=== PATIENT | female | born 1940 | race Caucasian/White ===

== ENCOUNTER 2017-09-25 09:16 | Observation (INO) | payer MEDICARE, BC ==
[2017-09-25] MEDS ORDERED: Nitroglycerin 2% Ointment 1 INCH/1 GM Packet ONE (10:07)
[2017-09-25] MEDS ORDERED: Nitroglycerin 0.4 MG TAB (25 Tab Bottle) ONE (10:07)
[2017-09-25 10:23] LABS: Hemoglobin 11.7 g/dL (12.0-16.0); Mean Corpuscular HGB CONC 32.7 g/dL (32.0-36.0); Mean Corpuscular Hemoglobin 32.4 pg (27.0-31.0); Mean Corpuscular Volume 99.1 fl (81.0-99.0); Mean Platelet Volume 7.2 fL (7.4-10.4); Platelet Count 213 thou/uL (130-400); RBC Distribution Width 11.5 % (11.5-14.5); Red Blood Cell (RBC) Count 3.61 mill/uL (4.20-5.40)
--- NOTE | 2017-09-25 10:26 | CT ---
CT BRAIN: Date: 09-25-17 Provided Clinical History: Hypertension and headache. FINDINGS: No comparison. The ventricular system appears normal in size and morphology. There is no evidence for intracranial hemorrhage or mass effect. Encephalomalacia involving a portion of the right frontal lo be is noted, compatible with sequellae of prior infarction. Chronic microvascular ischemic changes ar e noted. The extracranial soft tissues and osseous structures demonstrate no acute abnormality. There is no evidence for intracranial hemorrhage or mass effect. IMPRESSION: No evidence for intracranial hemorrhage or mass effect. POS: [facility]
[2017-09-25 10:44] LABS: ALT (SGPT) 25 U/L (8-55); AST (SGOT) 27 U/L (5-34); Albumin 3.8 g/dL (3.4-4.8); Alkaline Phosphatase 58 U/L (40-150); Anion Gap 15 mmol/L (10-20); BUN (Urea Nitrogen) 23 mg/dL (9.8-20.1); Bilirubin, Total 0.2 mg/dL (0.2-1.2); CK (CPK) 58 U/L (29-168); Calc. Creatinine Clearance 0 mL/min (70-130); Calcium 9.2 mg/dL (7.8-10.44); Carbon Dioxide 24 mmol/L (23-31); Chloride 101 mmol/L (98-107); Estimated GFR-MDRD 51; Globulin 3.2 g/dL (2.4-3.5); Glucose 99 mg/dL (83-110); Potassium 4.6 mmol/L (3.5-5.1); Sodium 135 mmol/L (136-145)
[2017-09-25 10:46] LABS: CKMB 1.2 ng/mL (0-6.6); Troponin I 0.028 ng/mL (< 0.028)
[2017-09-25 10:48] LABS: Band 1 % (5-11); Lymphocytes 5 % (21-51); MDiff Complete? YES; Monocytes 3 % (0-10); Neutrophil 91 % (42-75); PLT Morphology Comment Appears Adequate
[2017-09-25] MEDS ORDERED: Labetalol HCl 100 MG/20 ML VIAL ONE (11:15)
[2017-09-25] MEDS ORDERED: Acetaminophen 325 MG TAB ONE (13:56)
[2017-09-25 16:03] VITALS: BMI 24.7
[2017-09-25] MEDS ORDERED: Nitroglycerin 2% Ointment 1 INCH/1 GM Packet TOP SCH (18:00)
[2017-09-25] MEDS ORDERED: Acetaminophen 500 MG TAB PO PRN (18:10)
[2017-09-25] MEDS ORDERED: cloNIDine 0.1 MG TAB PO PRN (18:10)
[2017-09-25] MEDS ORDERED: Ondansetron ODT 4 MG TAB PO PRN (18:10)
[2017-09-25] MEDS ORDERED: Ondansetron HCl/PF 4 MG/2 ML Vial IVP PRN (18:10)
[2017-09-25] MEDS ORDERED: hydrALAZINE 20 MG/ML VIAL SLOW IVP PRN (18:10)
[2017-09-25] MEDS ORDERED: Famotidine 20 MG TAB PO SCH (21:00)
--- NOTE | 2017-09-25 21:17 | HP ---
DATE OF ADMISSION: 09/25/2017 PRIMARY CARE PHYSICIAN: Dr. Sabino Thompson at [facility]. CHIEF COMPLAINT: Headache and question of near syncope. HISTORY OF PRESENT ILLNESS: This is a 77-year-old female, who presents to [facility] from [facility] after apparently slumping over in a chair with a ne ar syncopal event. The patient states she has had multiple similar events in the past as well as regine ckout spells, which prompted her transitioned from her home in [place] to current assisted living rough the [facility]. The patient states she has been in [facility] for approximately 4 months and normally is ambulating without assistance unless it is long distance for which she uses a rolling walker. The patient apparently was noted to be slumped over in a chair to the right side wit h some tremors, but no grand mal seizure activity. The patient states she never lost consciousness a nd apparently was alert and oriented x4 on arrival in the emergency room. The patient was noted hype rtensive with blood pressures over 200 systolic. At which point, the patient received IV labetalol, transdermal nitroglycerin, sublingual nitroglycerin and aspirin 324. CT imaging was performed showin g no acute intracranial process and the patient's blood pressure improved as well as complete resolut ion of altered mentation. The patient denied any specific chest pain, cough, shortness of breath, fe aleksandra, chills or exposure history. The patient does state that she was given ibuprofen for headache, w hich she takes intermittently. The patient denied any specific unilateral weakness, visual disturban ce, difficulty with speech or hearing. PAST MEDICAL HISTORY: 1. History of CVA without residual deficit. 2. History of questionable epilepsy. 3. Gastroesophageal reflux disease. 4. Hyperlipidemia. 5. History of insomnia. 6. Chronic pain. 7. Coronary artery disease. 8. Diastolic heart failure. 9. Hypertension. 10. History of aortic aneurysm. 11. History of pulmonary embolus. 12. Anxiety. PAST SURGICAL HISTORY: Status post coronary artery bypass grafting. CURRENT MEDICATIONS: 1. Norvasc 5 mg 1 tablet p.o. daily. 2. Enteric coated aspirin 81 mg 1 tab p.o. daily. 3. Lipitor 20 mg p.o. daily. 4. Carbamazepine 300 mg p.o. b.i.d. 5. Vitamin D3 of 2000 units p.o. daily. 6. Clonazepam 0.5 mg p.o. daily. 7. Plavix 75 mg 1 tab p.o. daily. 8. Docusate calcium 240 mg p.o. daily. 9. Lasix 40 mg 1 tab p.o. daily. 10. Lamotrigine 100 mg 1 tab p.o. b.i.d. 11. Losartan 50 mg 1 tab p.o. daily. 12. Metoprolol tartrate 12.5 mg p.o. b.i.d. 13. Multivitamin 1 tab p.o. daily. 14. Zofran 8 mg p.o. q.8 hours p.r.n. 15. Oxybutynin chloride 10 mg p.o. daily. 16. Potassium chloride 20 mEq one tab p.o. daily. 17. Ranitidine 75 mg p.o. daily. 18. Zoloft 25 mg p.o. daily. ALLERGIES: No known drug allergies. FAMILY HISTORY: Positive for hypertension and coronary artery disease. SOCIAL HISTORY: The patient is , resides at [facility] over the last 4 months. No current alcohol, tobacco or illicit drug use. Ambulates with a rolling walker for long d istance. REVIEW OF SYSTEMS: The following complete review of systems was negative, unless otherwise mentioned in the HPI or below: Constitutional: Weight loss or gain, ability to conduct usual activities. Skin: Rash, itching. Eyes: Double vision, pain. ENT/Mouth: Nose bleeding, neck stiffness, pain, tenderness. Cardiovascular: Palpitations, dyspnea on exertion, orthopnea. Respiratory: Shortness of breath, wheezing, cough, hemoptysis, fever or night sweats. Gastrointestinal: Poor appetite, abdominal pain, heartburn, nausea, vomiting, constipation, or diarr hea. Genitourinary: Urgency, frequency, dysuria, nocturia. Musculoskeletal: Pain, swelling. Neurologic/Psychiatric: Anxiety, depression. Allergy/Immunologic: Skin rash, bleeding tendency. Otherwise negative except as stated per HPI. PHYSICAL EXAMINATION: VITAL SIGNS: On admission, blood pressure 210/66, pulse 90, respiratory rate 22, temperature 98.2 de grees Fahrenheit, O2 saturation 89% on room air. GENERAL APPEARANCE: This is a 77-year-old female, frail appearing, smiling, alert and in n o acute distress. HEENT: Pupils are equal, round, and reactive to light and accommodation. Extraocular muscles are in tact. No scleral icterus, no conjunctival injection. Nares patent. OP is clear. Scalp is atraumat ic. NECK: Supple, no cervical adenopathy, no thyromegaly, no carotid bruits, no JVD appreciated. Cervic al spine with full active and passive range of motion. No meningeal signs appreciated. CHEST: Lungs are clear to auscultation bilaterally. CARDIOVASCULAR: S1, S2, without noted murmur. ABDOMEN: Flat, soft, nontender, nondistended. Bowel sounds are positive in all four quadrants. The re is no hepatosplenomegaly, no abdominal bruits, no rebound or guarding appreciated. EXTREMITIES: Warm and dry with fair turgor. Minimal edema to the ankle region bilaterally. Pulses palpable distally at the dorsalis pedis, posterior tibial, and popliteal arteries bilaterally. Capil jesika refill less than 2 seconds. NEUROLOGIC: Cranial nerves II-XII are grossly intact. No focal or lateralizing signs appreciated. PERTINENT LABORATORY AND X-RAY FINDINGS: Basic metabolic profile shows sodium 135, potassium 4.6, ch loride 101, CO2 of 24, BUN 23, creatinine 1.05 with estimated GFR 51, glucose 99, calcium 9.2. LFTs within normal limits. Troponin I negative x1. BNP 779. CBC showed a white blood cell count of 9.0, hemoglobin 12, hematocrit 36, MCV 99, platelet count 213 with 91% neutrophils. CT of the brain with out contrast dated 09/25/2017 showed no acute intracranial process. EKG dated 09/25/2017 by my inter pretation shows sinus mechanism with heart rates in the 80s. Attenuated R waves in the precordial le ads. Normal axis. ST-T wave changes noted in leads II and F and leads V5 and V6. ASSESSMENT AND PLAN: 1. Hypertensive urgency/encephalopathy. The patient will be observed on the telemetry unit. Suspec t hypertensive episode as etiology of patient's presentation. No current evidence of focal neurologi c deficits. We will continue to monitor serial blood pressure trend and treat accordingly. Continue Norvasc, Lasix 40 mg daily, losartan 50 mg daily, and metoprolol tartrate 12.5 mg p.o. b.i.d. 2. Question of near syncope. Suspect encephalopathic due to hypertensive urgency. See #1 above. 3. Polypharmacy. Suspect component of polypharmacy to patient's presentation. We will continue to monitor overall intake of chronic medication regimen. 4. Chronic kidney disease, stage 3. Avoid nephrotoxic agents and contrast media. Repeat creatinine in the a.m. 5. Chronic macrocytic anemia. Stable currently. No evidence to suggest acute blood loss. Repeat C BC in the a.m. 6. Depression/anxiety. We will continue home regimen to include sertraline and clonazepam. 7. Prophylaxis. Sequential compression devices while in bed. Pepcid 20 mg p.o. b.i.d. 8. Code status is FULL. Surrogate medical decision maker is the patient's daughter, Stefanie Hernandez.
[2017-09-25] MEDS: Metoprolol Tartrate 25 MG TAB PO SCH (21:35)
[2017-09-25] MEDS: lamoTRIgine 100 MG TAB PO SCH (21:35)
[2017-09-25] MEDS: carBAMazepine 200 MG TAB PO SCH (21:36)
[2017-09-26 05:54] LABS: Anion Gap 11 mmol/L (10-20); BUN (Urea Nitrogen) 20 mg/dL (9.8-20.1); Calc. Creatinine Clearance 48 mL/min (70-130); Calcium 9.1 mg/dL (7.8-10.44); Carbon Dioxide 27 mmol/L (23-31); Chloride 103 mmol/L (98-107); Estimated GFR-MDRD 53; Glucose 97 mg/dL (83-110); Potassium 4.4 mmol/L (3.5-5.1); Sodium 137 mmol/L (136-145)
[2017-09-26 06:30] LABS: Hemoglobin 11.4 g/dL (12.0-16.0); Lymphocytes 18 % (21-51); MDiff Complete? YES; Macrocytosis SLIGHT = 6-15 cells (100X) (0-5/hpf); Mean Corpuscular HGB CONC 33.1 g/dL (32.0-36.0); Mean Corpuscular Hemoglobin 32.9 pg (27.0-31.0); Mean Corpuscular Volume 99.3 fl (81.0-99.0); Mean Platelet Volume 7.6 fL (7.4-10.4); Monocytes 9 % (0-10); Neutrophil 73 % (42-75); PLT Morphology Comment Appears Adequate; Platelet Count 248 thou/uL (130-400); RBC Distribution Width 11.5 % (11.5-14.5); Red Blood Cell (RBC) Count 3.46 mill/uL (4.20-5.40); White Blood Cell (WBC) Count 7.5 thou/uL (4.8-10.8)
[2017-09-26] MEDS: Metoprolol Tartrate 25 MG TAB PO SCH (08:18)
[2017-09-26] MEDS: carBAMazepine 200 MG TAB PO SCH (08:19)
[2017-09-26] MEDS: lamoTRIgine 100 MG TAB PO SCH (08:20)
[2017-09-26] MEDS ORDERED: Docusate Calcium (SURFAK) 240 MG CAP PO SCH (09:00)
[2017-09-26] MEDS ORDERED: Multivitamin W/ Minerals 1 TAB PO SCH (09:00)
[2017-09-26] MEDS ORDERED: Losartan 25 MG TAB PO SCH (09:00)
[2017-09-26] MEDS ORDERED: Clopidogrel Bisulfate 75 MG TAB PO SCH (09:00)
[2017-09-26] MEDS ORDERED: Potassium Chloride 20 MEQ TAB PO SCH (09:00)
[2017-09-26] MEDS ORDERED: Aspirin 81 mg Enteric Coated Tablet PO SCH (09:00)
[2017-09-26] MEDS ORDERED: Furosemide 40 MG TAB PO SCH (09:00)
[2017-09-26] MEDS ORDERED: Oxybutynin ER 5 MG TAB PO SCH (09:00)
[2017-09-26] MEDS ORDERED: Amlodipine 5 MG TAB PO SCH (09:00)
[2017-09-26] MEDS ORDERED: clonazePAM 0.5 MG TAB PO SCH (09:00)
[2017-09-26] MEDS ORDERED: Atorvastatin Calcium 20 MG TAB PO SCH (09:00)
[2017-09-26 11:33] VITALS: BP 130/58; TEMP 98.2
--- NOTE | 2017-09-26 18:34 | DIS ---
DATE OF ADMISSION: 09/25/2017 DATE OF DISCHARGE: 09/26/2017 DISCHARGE DIAGNOSES: 1. Hypertensive urgency, resolved. 2. Hypertensive encephalopathy, mild, improved. 3. Question of near syncope secondary to #1, improved. 4. Polypharmacy. 5. Chronic kidney disease stage 3, stable. 6. Hypertension, labile. 7. Chronic macrocytic anemia, stable. 8. Depression/anxiety, stable. CONSULTATIONS: None. PERTINENT LABORATORY AND X-RAY FINDINGS: Creatinine ranged between 1.1-1.05 with estimated GFR rangi ng between 51-53. LFTs within normal limits. BNP 779. Troponin negative x1. Albumin 3.8. CBC catalina wed hemoglobin ranging between 11.4-11.7. MCV 99. CT of the brain without contrast dated 09/25/2017 showed no acute intracranial process. HOSPITAL COURSE: The patient was placed under observation status after presenting with question of n ear syncope and hypertensive encephalopathy. The patient initially received IV labetalol, transderma l nitroglycerin, and aspirin 324. The patient was placed on observation unit with overall stable blo od pressures; however, with recommendations to increase Norvasc to 10 mg daily from previous 5 mg. T he patient was continued on a regular outpatient antihypertensive regimen and overall remained clinic ally stable throughout the hospital course. Telemetry monitoring showed sinus mechanism without evid ence of acute arrhythmia or dysrhythmia. The patient tolerated regular oral intake, voiding appropri ately, and remained clinically stable under observation. The patient ready for discharge on 09/26/19 18. DISCHARGE MEDICATIONS: 1. Norvasc 10 mg 1 tab p.o. daily. 2. Tylenol extended release 1 tab p.o. q.8 hours p.r.n. 3. Enteric coated aspirin 81 mg 1 tab p.o. daily. 4. Lipitor 20 mg p.o. daily. 5. Carbamazepine 300 mg p.o. b.i.d. 6. Vitamin D3 2000 units p.o. daily. 7. Klonopin 0.5 mg p.o. daily. 8. Plavix 75 mg 1 tab p.o. daily. 9. Docusate calcium 240 mg p.o. daily. 10. Lasix 40 mg p.o. daily. 11. Lamotrigine 100 mg p.o. b.i.d. 12. Losartan 50 mg p.o. daily. 13. Metoprolol tartrate 12.5 mg p.o. b.i.d. 14. Multivitamin 1 tab p.o. daily. 15. Oxybutynin chloride 10 mg p.o. daily. 16. Potassium chloride 20 mEq one tab p.o. daily. 17. Ranitidine 75 mg p.o. daily. 18. Zoloft 25 mg p.o. daily. FOLLOWUP: The patient will follow up with her primary care provider, Dr. Sabino Thompson, within 7 d ays of discharge. CONDITION ON DISCHARGE: Stable. ACTIVITY: ad fox. DIET: Regular. CODE STATUS: FULL. DISPOSITION: Home to [facility] on 09/26/2017.
[2017-09-26] MEDS ORDERED: Famotidine 20 MG TAB PO SCH (21:00)
== END 2017-09-26 13:45 | disposition home or self-care (01) ==
LOC: ERS 09:16 → 2SW 12:00
PROVIDERS: ADMIT Family Medicine; ATTEND Family Medicine
DX: I16.0 Hypertensive urgency (principal); I67.4 Hypertensive encephalopathy; I13.0 Hypertensive heart and chronic kidney disease with heart failure and stage 1 through stage 4 chronic kidney disease, or unspecified chronic kidney disease; N18.3 Chronic kidney disease, stage 3 (moderate); I50.30 Unspecified diastolic (congestive) heart failure; D63.1 Anemia in chronic kidney disease; K21.9 Gastro-esophageal reflux disease without esophagitis; E78.5 Hyperlipidemia, unspecified; I25.10 Atherosclerotic heart disease of native coronary artery without angina pectoris; I71.9 Aortic aneurysm of unspecified site, without rupture; F32.9 Major depressive disorder, single episode, unspecified; F41.9 Anxiety disorder, unspecified; Z79.899 Other long term (current) drug therapy; Z95.1 Presence of aortocoronary bypass graft; Z86.711 Personal history of pulmonary embolism; Z86.73 Personal history of transient ischemic attack (TIA), and cerebral infarction without residual deficits
CPT/HCPCS: 70450; 80048; 80053; 82550; 82553; 83880; 84484; 85007; 85025; 85027; 93005; 94760; 96374; 99285; G0378; 36415; A4216

== ENCOUNTER 2017-12-11 11:08 | Emergency (ER) | payer MEDICARE, BC ==
[2017-12-11 11:42] LABS: #Eosinphils 0.1 thou/uL (0.0-0.7); #Lymphocytes 1.5 thou/uL (1.20-3.40); #Monocytes 0.7 thou/uL (0.11-0.59); #Neutrophils 5.7 thou/uL (1.40-6.50); %Basophils 0.4 % (0.0-1.0); %Eosinophils 1.8 % (0.0-10.0); %Lymphocytes 17.9 % (21.0-51.0); %Monocytes 9.2 % (0.0-10.0); %Neutrophils 70.8 % (42.0-75.0); Hemoglobin 11.9 g/dL (12.0-16.0); Mean Corpuscular HGB CONC 33.6 g/dL (32.0-36.0); Mean Corpuscular Hemoglobin 32.3 pg (27.0-31.0); Mean Corpuscular Volume 96.1 fl (81.0-99.0); Platelet Count 262 thou/uL (130-400); RBC Distribution Width 11.3 % (11.5-14.5); Red Blood Cell (RBC) Count 3.68 mill/uL (4.20-5.40); White Blood Cell (WBC) Count 8.1 thou/uL (4.8-10.8)
[2017-12-11] MEDS ORDERED: hydrALAZINE 20 MG/ML VIAL ONE (11:43)
[2017-12-11] MEDS ORDERED: Nitroglycerin 2% Ointment 1 INCH/1 GM Packet ONE (11:43)
--- NOTE | 2017-12-11 11:51 | RAD ---
RADIOGRAPH CHEST 1 VIEW: DATE: 12/11/17. TIME: 11:18 a.m. HISTORY: A 77-year-old female with acute chest pain and hypertension. FINDINGS: The thoracic aorta is tortuous and ectatic. There is no evidence of air space density, pneumothorax, or pulmonary edema. The right lateral costophrenic angle is sharp. There is blunting of the left l ateral costophrenic angle and straightening of the left hemidiaphragm, consistent with scarring. The re are sternotomy wires. IMPRESSION: 1) No acute pulmonary findings. 2) Ectasia of thoracic aorta. 3) Probably chronic changes involving the left hemidiaphragm. juan Sandra POS: [facility]
[2017-12-11 12:03] LABS: ALT (SGPT) 11 U/L (8-55); AST (SGOT) 18 U/L (5-34); Alkaline Phosphatase 65 U/L (40-150); Anion Gap 14 mmol/L (10-20); BUN (Urea Nitrogen) 39 mg/dL (9.8-20.1); Bilirubin, Total 0.3 mg/dL (0.2-1.2); CK (CPK) 69 U/L (29-168); Calc. Creatinine Clearance 0 mL/min (70-130); Calcium 9.7 mg/dL (7.8-10.44); Carbon Dioxide 27 mmol/L (23-31); Chloride 101 mmol/L (98-107); Estimated GFR-MDRD 38; Globulin 3.4 g/dL (2.4-3.5); Glucose 138 mg/dL (83-110); Lipase 39 U/L (8-78); Potassium 4.4 mmol/L (3.5-5.1); Protein, Total 7.4 g/dL (6.0-8.3); Sodium 138 mmol/L (136-145)
[2017-12-11 12:08] LABS: CKMB 1.2 ng/mL (0-6.6); Troponin I Less than 0.010 ng/mL (< 0.028)
== END 2017-12-11 13:06 | disposition home or self-care (01) ==
LOC: ERS 11:08
DX: I11.0 Hypertensive heart disease with heart failure (principal); I50.9 Heart failure, unspecified; Z86.73 Personal history of transient ischemic attack (TIA), and cerebral infarction without residual deficits; G40.909 Epilepsy, unspecified, not intractable, without status epilepticus; K21.9 Gastro-esophageal reflux disease without esophagitis; E78.5 Hyperlipidemia, unspecified; G47.00 Insomnia, unspecified; I25.10 Atherosclerotic heart disease of native coronary artery without angina pectoris; F41.9 Anxiety disorder, unspecified
CPT/HCPCS: 71045; 80053; 82550; 82553; 83690; 83880; 84484; 85025; 93005; 94760; 96374; J0360

== ENCOUNTER 2018-01-11 10:53 | Inpatient (IN) | payer MEDICARE, BC ==
[2018-01-11 11:16] LABS: #Eosinphils 0.2 thou/uL (0.0-0.7); #Lymphocytes 1.3 thou/uL (1.20-3.40); #Monocytes 0.7 thou/uL (0.11-0.59); #Neutrophils 4.4 thou/uL (1.40-6.50); %Basophils 0.7 % (0.0-1.0); %Eosinophils 2.4 % (0.0-10.0); %Lymphocytes 19.9 % (21.0-51.0); %Monocytes 10.5 % (0.0-10.0); %Neutrophils 66.6 % (42.0-75.0); Hemoglobin 12.1 g/dL (12.0-16.0); Mean Corpuscular HGB CONC 33.3 g/dL (32.0-36.0); Mean Corpuscular Hemoglobin 32.1 pg (27.0-31.0); Mean Corpuscular Volume 96.5 fl (81.0-99.0); Mean Platelet Volume 6.7 fL (7.4-10.4); Platelet Count 272 thou/uL (130-400); RBC Distribution Width 11.7 % (11.5-14.5); Red Blood Cell (RBC) Count 3.77 mill/uL (4.20-5.40); White Blood Cell (WBC) Count 6.7 thou/uL (4.8-10.8)
[2018-01-11 11:25] LABS: PTT 29.8 SEC (22.9-36.1); Prothrombin Time 13.8 SEC (12.0-14.7)
--- NOTE | 2018-01-11 11:32 | CT ---
CT HEAD WITHOUT CONTRAST: Date: 01/11/18 Multiple axial tomograms obtained through head without IV enhancement. HISTORY: Stroke alert. Slurred speech. History of prior stroke. COMPARISON: Head CT dated 09/25/17. FINDINGS: Mild cortical atrophy. Ventricles have normal size and position concerning the degree of atrophy. The re is encephalomalacia in the right frontal lobe from old infarct, which is stable. Moderate to sever e chronic ischemic white matter changes appear stable. No evidence of acute cortical infarct or hemor rhage. IMPRESSION: No evidence of acute infarct. Findings relayed to Dr. Ramsey at 1107 hours. CODE CR. POS: [facility]
[2018-01-11 11:40] LABS: ALT (SGPT) 15 U/L (8-55); AST (SGOT) 21 U/L (5-34); Albumin 4.1 g/dL (3.4-4.8); Alkaline Phosphatase 60 U/L (40-150); Anion Gap 12 mmol/L (10-20); BUN (Urea Nitrogen) 40 mg/dL (9.8-20.1); Bilirubin, Total 0.3 mg/dL (0.2-1.2); Calc. Creatinine Clearance 0 mL/min (70-130); Calcium 9.8 mg/dL (7.8-10.44); Carbon Dioxide 28 mmol/L (23-31); Chloride 103 mmol/L (98-107); Estimated GFR-MDRD 33; Globulin 3.4 g/dL (2.4-3.5); Glucose 95 mg/dL (83-110); Potassium 4.5 mmol/L (3.5-5.1); Protein, Total 7.5 g/dL (6.0-8.3); Sodium 138 mmol/L (136-145)
--- NOTE | 2018-01-11 11:42 | RAD ---
PORTABLE AP CHEST: Date: 01/11/18 HISTORY: Chest pain, slurred speech, altered mental status. COMPARISON: 12/11/17. FINDINGS: Postsurgical changes related to CABG are again noted. The cardiac silhouette is magnified by projecti on. Pulmonary vasculature is within normal limits. There is elevation of the left lateral hemidiaphra gm, probably related to pleural and parenchymal scarring at the left lung base. Metallic wire overlyi ng the medial aspect right chest in a suprahilar location is again present. Vascular calcifications s een thoracic aorta. Surgical clips overlie the infraclavicular location on the right. There has been no interval change from prior study. IMPRESSION: 1. No acute cardiopulmonary process. 2. Chronic changes left lung base with mild deformity of left lateral chest, probably developmental in origin. 3. Mild prominence of soft tissues in right paramediastinal/paratracheal location, unchanged from pr ior study and this may be related to vascular structures, but is unable to be further evaluated on th is exam. POS: [facility]
[2018-01-11 11:47] LABS: CKMB 1.4 ng/mL (0-6.6); Troponin I 0.025 ng/mL (< 0.028)
[2018-01-11 12:20] LABS: Bilirubin Negative (Negative); Blood, Urine Negative (Negative); Clarity CLEAR (Clear); Glucose, Urine (Dipstick) Negative (Negative); Leukocyte Trace (Negative); Nitrite Negative (Negative); Protein, Urine (Dipstick) Negative (Neg-Trace); Specific Gravity, Urine 1.009 (1.002-1.036); Urobilinogen 0.2 mg/dL (0.2-1.0)
[2018-01-11 12:21] LABS: Bacteria/HPF None Seen HPF (None Seen); Hyaline Casts/LPF 0-3 HYALINE CAST LPF (0-3 Hyaline); Pathc Cast-AUWi Flag 0.72 (0-2.49); RBC/HPF 0-3 HPF (0-3); Yeast-AUWi Flag 15.1 (0-25.0)
[2018-01-11 12:30] LABS: Renal Epithelial None Seen HPF (0-3); Transitional Epithelial NONE SEEN HPF (0-3)
[2018-01-11] MEDS ORDERED: Fentanyl 100 MCG/2 ML VIAL ONE (14:13)
[2018-01-11] MEDS ORDERED: Bisacodyl 5 MG TAB PO PRN (16:24)
[2018-01-11] MEDS ORDERED: Acetaminophen 650 MG Suppository PR PRN (16:24)
--- NOTE | 2018-01-11 17:14 | HP ---
PRIMARY CARE PROVIDER: Dr. Sabino Thompson at [facility]. CHIEF COMPLAINT: Slurred speech. HISTORY OF PRESENT ILLNESS: Ms. Will is a pleasant 77-year-old lady who was seen at [facility] on 01/11/2018. She is able to provide some history. Collateral history was obt ained from discussion with the emergency room physician as well as review of medical records. I trie d to contact the patient's daughter, but was unable to. She reportedly had a fall yesterday. She hit the left side of her chest on the ground. She reports that she had slurred speech just prior to the fall. The slurred speech has been ongoing since then. Apparently, it improved slightly after she came to the emergency room. She reports generalized weakness. She denies any fevers or chills. She denies any nausea or vomitin g. She denies any abdominal pain. She denies any visual symptoms. She reports that left-sided chest pain following the fall has improv ed. All other systems reviewed and found to be negative. PAST MEDICAL HISTORY: Cerebrovascular accident without residual deficit, seizures, gastroesophageal reflux disease, dyslipidemia, insomnia, chronic pain, coronary artery disease, diastolic heart failur e, hypertension, aortic aneurysm, pulmonary embolism, and anxiety. PAST SURGICAL HISTORY: Ascending and descending aortic aneurysm repair, bilateral cataract removal. SOCIAL HISTORY: The patient denies tobacco use, alcohol use or recreational drug use. CODE STATUS: I discussed her code status. She is FULL CODE. Surrogate decision maker is her daught er, Stefanie Hernandez. ALLERGIES: No known drug allergies. CURRENT MEDICATIONS: Include acetaminophen p.r.n., amlodipine 5 mg daily, amoxicillin 250 mg daily, aspirin 81 mg daily, Tegretol 200 mg 2 times a day, clonazepam 0.5 mg daily, Plavix 75 mg daily, docu sate 100 mg 2 times a day, Lasix 40 mg daily, Lamictal 50 mg 2 times a day, losartan 50 mg daily, sohan atonin 5 mg daily, metoprolol tartrate 12.5 mg 2 times a day, mirtazapine 15 mg daily, Zofran p.r.n., oxybutynin 10 mg daily, multivitamins 1 tablet daily, potassium chloride 20 mEq daily, ranitidine 75 mg daily, clonidine 0.1 mg as needed and vitamin D3 1000 units daily. FAMILY HISTORY: She reports several family members with stroke. PHYSICAL EXAMINATION: GENERAL: On examination, Ms. Will is awake and alert, not in acute distress. VITAL SIGNS: Blood pressure is 131/41, pulse is 63. She is breathing at rate of 15 and saturating 9 4% on room air. She is afebrile. When she presented to the emergency room, her blood pressure was 1 99/59. EYES: No scleral icterus. No conjunctival pallor. ENT: Moist mucosal membranes, no oropharyngeal erythema or exudates. NECK: Supple, nontender, normal range of movement. Trachea is midline. RESPIRATORY: Accessory muscles of breathing are not active. Chest wall movements are symmetric bila terally. LUNGS: Clear to auscultation without wheeze, rhonchi or crepitations. CARDIOVASCULAR: S1 and S2 are heard, regular. Peripheral pulses palpable. No carotid bruit, no per icardial rub. ABDOMEN: Soft and nontender, bowel sounds are heard, no hepatomegaly, no splenomegaly. NEUROLOGIC: She has slurred speech. Otherwise, cranial nerves II-XII intact. No focal motor or sen carlos deficits. Power is 5/5 in all 4 extremities. Deep tendon reflexes are 2+, plantar reflexes harjit ngoing bilaterally. MUSCULOSKELETAL: Power is 5/5 in all 4 extremities. SKIN: No rashes or subcutaneous nodules. LYMPHATIC: No cervical lymphadenopathy. PSYCHIATRIC: Normal mood, normal affect, patient is oriented to person, place, and time. IMAGING DATA AND LABORATORY DATA: Ms. Will's labs and investigations were reviewed. I reviewed h er electrocardiogram, which shows sinus bradycardia, mild lateral ST depressions. I also reviewed he r chest x-ray, which does not show any pulmonary infiltrates. She also had a noncontrast CT scan of the brain, which did not show any acute infarct. She has a normal white count, normal hemoglobin, no rmal platelet count, INR 1.0, elevated blood urea nitrogen of 40, elevated creatinine 1.51, last know n creatinine 1.34 on 12/01/2017, normal on 09/26/2017, normal liver profile, normal troponin I and ur inalysis positive for trace amount of leukocyte esterase. ASSESSMENT AND PLAN: Ms. Will is a pleasant 77-year-old lady who was seen at [facility] on 01/11/2018. Her problem list includes: 1. Cerebrovascular accident. Suspected, based on clinical presentation. She will be [facility] workup including MRI of the brain, 2D echocardiogram and carotid Doppler studi es. Neurology Service will also be consulted. She will be continued on aspirin and Plavix. Neurolo gy Service will be consulted for opinion and help with management. 2. Acute on chronic renal failure: Likely prerenal, secondary to dehydration. We will hold furosem angeline for now and hydrate her and recheck creatinine level. We will also hold losartan. 3. Hypertension: Monitor vital signs and titrate antihypertensives as needed. 4. Dyslipidemia: Continue statin. 5. Urinary tract infection: Suspected, although leukocyte esterase is small in amount. We will sta rt her on empiric antibiotics given her presentation and follow urine cultures. 6. Gastroesophageal reflux disease: Stable. 7. Seizure disorder: Continue Tegretol and Lamictal. Many thanks for allowing me to participate in your patient's care. Please feel free to contact me wi th any questions or concerns. LEVEL OF RISK: High. LEVEL OF COMPLEXITY: High.
[2018-01-11 17:22] VITALS: BMI 25.0
--- NOTE | 2018-01-11 18:10 | ULT ---
ULTRASOUND CAROTID DOPPLER STANDARD: HISTORY: CVA. COMPARISON: None. FINDINGS: Moderate atherosclerotic plaque, right carotid bulb. Antegrade flow, right vertebral artery. No elevated peak systolic velocities in the right internal carotid artery system. Moderate atherosclerotic plaque, left carotid bulb. Antegrade flow, left vertebral artery. There ar e elevated peak systolic velocities within the internal carotid artery on the left, measuring up to 1 47 cm per second. The right ICA/CCA ratio is 0.96. The left ICA/CCA ratio is 1.44. 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 CT angiogram may be beneficial. CODE T POS: [facility]
[2018-01-11] MEDS: Sodium Chloride 0.9% 1,000 ML IV SCH (18:12)
[2018-01-11] MEDS: cefTRIAXone\\ROCEPHIN 1 GM in Sodium Chloride 0.9% 100 ML IVPB SCH (18:12)
[2018-01-11] MEDS: Acetaminophen 325 MG TAB PO PRN (18:13)
[2018-01-11] MEDS: carBAMazepine 200 MG TAB PO SCH (20:10)
[2018-01-11] MEDS: lamoTRIgine 100 MG TAB PO SCH (20:11)
[2018-01-11] MEDS: hydrALAZINE 20 MG/ML VIAL SLOW IVP PRN (20:11)
[2018-01-11] MEDS: Metoprolol Tartrate 25 MG TAB PO SCH (20:13)
[2018-01-11] MEDS ORDERED: traMADol HCl 50 MG TAB PO PRN (22:42)
[2018-01-11] MEDS ORDERED: clonazePAM 0.5 MG TAB PO SCH (22:45)
[2018-01-11] MEDS: Lidocaine 5% Patch TD SCH (23:47)
[2018-01-12 00:48] LABS: Carbamazepine-Tegretol 7.9 ug/mL (4.0-12.0)
--- NOTE | 2018-01-12 03:22 | PDOC.EVN ---
Event Note - Event Note Event Note: sz ? breakthrough or de emil 2/2 TIA/ CVA pending MRI added EEG in AM check antiepileptic regimen levels NIH score grossly unchanged from previous neuro c/s in AM d/w bedside nsg
[2018-01-12 05:43] LABS: #Eosinphils 0.1 thou/uL (0.0-0.7); #Lymphocytes 1.2 thou/uL (1.20-3.40); #Monocytes 0.8 thou/uL (0.11-0.59); #Neutrophils 9.1 thou/uL (1.40-6.50); %Basophils 0.4 % (0.0-1.0); %Eosinophils 0.9 % (0.0-10.0); %Lymphocytes 10.5 % (21.0-51.0); %Monocytes 6.9 % (0.0-10.0); %Neutrophils 81.3 % (42.0-75.0); Hemoglobin 12.8 g/dL (12.0-16.0); Mean Corpuscular HGB CONC 33.2 g/dL (32.0-36.0); Mean Corpuscular Hemoglobin 32.5 pg (27.0-31.0); Mean Corpuscular Volume 97.9 fl (81.0-99.0); Mean Platelet Volume 7.5 fL (7.4-10.4); Platelet Count 264 thou/uL (130-400); RBC Distribution Width 12.1 % (11.5-14.5); Red Blood Cell (RBC) Count 3.93 mill/uL (4.20-5.40); White Blood Cell (WBC) Count 11.2 thou/uL (4.8-10.8)
[2018-01-12 06:09] LABS: Anion Gap 17 mmol/L (10-20); BUN (Urea Nitrogen) 28 mg/dL (9.8-20.1); Calc. Creatinine Clearance 46 mL/min (70-130); Carbon Dioxide 15 mmol/L (23-31); Cardiac Risk 3.9 (Less than 4.5); Chloride 109 mmol/L (98-107); Cholesterol 282 mg/dl (< 200 Desired); Estimated GFR-MDRD 50; Glucose 108 mg/dL (83-110); HDL Cholesterol 73 mg/dL (>60 Neg Risk); LDL Cholesterol, Calculated 185 mg/dL; Potassium 4.8 mmol/L (3.5-5.1); Sodium 136 mmol/L (136-145); Triglycerides 119 mg/dL (Less than 150)
[2018-01-12] MEDS: Sodium Chloride 0.9% 1,000 ML IV SCH ×2 (07:32→08:41)
[2018-01-12] MEDS: Aspirin 81 mg Enteric Coated Tablet PO SCH (08:40)
[2018-01-12] MEDS: Oxybutynin 5 MG TAB PO SCH (08:40)
[2018-01-12] MEDS: clonazePAM 0.5 MG TAB PO SCH (08:40)
[2018-01-12] MEDS: Docusate Calcium (SURFAK) 240 MG CAP PO SCH (08:41)
[2018-01-12] MEDS: Metoprolol Tartrate 25 MG TAB PO SCH ×2 (08:41→20:35)
[2018-01-12] MEDS: carBAMazepine 200 MG TAB PO SCH ×2 (08:42→20:37)
[2018-01-12] MEDS: lamoTRIgine 100 MG TAB PO SCH ×2 (08:42→20:35)
[2018-01-12] MEDS: Amlodipine 10 MG TAB PO SCH (08:42)
[2018-01-12] MEDS: Atorvastatin Calcium 20 MG TAB PO SCH (08:42)
[2018-01-12] MEDS: Enoxaparin Sodium 30 MG/0.3 ML SYRINGE SC SCH (08:43)
[2018-01-12] MEDS: Clopidogrel Bisulfate 75 MG TAB PO SCH (08:43)
[2018-01-12] MEDS: Lidocaine Patch Removal 1 EACH TOP SCH (10:02)
[2018-01-12] MEDS: Acetaminophen 325 MG TAB PO PRN (11:25)
--- NOTE | 2018-01-12 12:05 | MRI ---
MRI BRAIN WITHOUT CONTRAST: Date: 01/12/18 HISTORY: Stroke. Slurred speech. COMPARISON: None. TECHNIQUE: Brain MRI is performed without intravenous Gadolinium administration. Multisequential, multiplanar im aging is performed. FINDINGS: No hemorrhage on the axial gradient echo sequence. No parenchymal mass, mass effect, or midline shift . Age-appropriate atrophy. There is malacic and gliotic change involving the right frontal lobe, due to remote insult. Chronic small vessel ischemic changes of white matter are identified. Calvarium has a normal T1 marrow signal intensity. Midline brain parenchymal structures are unremarkable. Central arterial flow-voids are maintained. Absent restricted diffusion. Adequate aeration of the sinuses and mastoid air cells. IMPRESSION: 1. Chronic small vessel ischemic changes of white matter. 2. Malacic and gliotic change right frontal lobe. 3. Absent restricted diffusion. No acute infarct. POS: [facility]
[2018-01-12] MEDS ORDERED: traZODone HCl 50 MG TAB PO PRN (13:59)
[2018-01-12] MEDS ORDERED: Cyclobenzaprine 10 MG TAB PO SCH (14:15)
[2018-01-12] MEDS: cefTRIAXone\\ROCEPHIN 1 GM in Sodium Chloride 0.9% 100 ML IVPB SCH (17:12)
[2018-01-12] MEDS: oxyCODONE 5 MG TAB PO PRN (20:36)
[2018-01-13] MEDS: Sodium Chloride 0.9% 1,000 ML IV SCH (04:33)
[2018-01-13] MEDS: hydrALAZINE 20 MG/ML VIAL SLOW IVP PRN ×2 (05:33→21:04)
[2018-01-13 05:37] LABS: Anion Gap 9 mmol/L (10-20); BUN (Urea Nitrogen) 20 mg/dL (9.8-20.1); Calc. Creatinine Clearance 50 mL/min (70-130); Calcium 8.8 mg/dL (7.8-10.44); Carbon Dioxide 24 mmol/L (23-31); Chloride 107 mmol/L (98-107); Estimated GFR-MDRD 54; Glucose 86 mg/dL (83-110); Sodium 136 mmol/L (136-145)
[2018-01-13] MEDS: oxyCODONE 5 MG TAB PO PRN ×2 (05:37→21:04)
[2018-01-13 05:55] LABS: Band 1 % (5-11); Eosinophils 1 % (0-10); Hemoglobin 11.5 g/dL (12.0-16.0); Lymphocytes 27 % (21-51); MDiff Complete? YES; Mean Platelet Volume 6.9 fL (7.4-10.4); Monocytes 8 % (0-10); Neutrophil 63 % (42-75); Platelet Count 280 thou/uL (130-400); RBC Distribution Width 11.9 % (11.5-14.5); White Blood Cell (WBC) Count 6.8 thou/uL (4.8-10.8)
[2018-01-13] MEDS: Lidocaine 5% Patch TD SCH ×2 (06:09→22:14)
[2018-01-13] MEDS: Atorvastatin Calcium 20 MG TAB PO SCH (08:13)
[2018-01-13] MEDS: Amlodipine 10 MG TAB PO SCH (08:13)
[2018-01-13] MEDS: Aspirin 81 mg Enteric Coated Tablet PO SCH (08:13)
[2018-01-13] MEDS: carBAMazepine 200 MG TAB PO SCH ×2 (08:14→21:03)
[2018-01-13] MEDS: clonazePAM 0.5 MG TAB PO SCH (08:14)
[2018-01-13] MEDS: Docusate Calcium (SURFAK) 240 MG CAP PO SCH (08:15)
[2018-01-13] MEDS: Enoxaparin Sodium 30 MG/0.3 ML SYRINGE SC SCH (08:15)
[2018-01-13] MEDS: lamoTRIgine 100 MG TAB PO SCH ×2 (08:15→21:04)
[2018-01-13] MEDS: Metoprolol Tartrate 25 MG TAB PO SCH ×2 (08:15→21:04)
[2018-01-13] MEDS: Clopidogrel Bisulfate 75 MG TAB PO SCH (08:15)
[2018-01-13] MEDS: Oxybutynin 5 MG TAB PO SCH (08:16)
--- NOTE | 2018-01-13 08:40 | EEG ---
Referring Physician: DR. BAEZ EEG # [id number] TEST TYPE: ROUTINE PORTABLE INPATIENT REPORT: AN EEG USING THE INTERNATIONAL TEN-TWENTY SYSTEM OF ELECTRODE PLACEMENT WAS PERFORMED. The best waking background is a 8 hertz alpha frequency. This is poorly maintained and in a majority of the tracing there is a 6-7 hertz theta background. There is intermittent bursts of dysrhythmic slowing seen throughout the study. At times, there appear to be some frontal, right sided sharp activity. No definitive epileptiform events occurred. No sleep was seen. Photic stimulation was unremarkable. IMPRESSION: THIS IS AN ABNORMAL STUDY FOR THE FINDINGS OF MILD DIFFUSE SLOWING WITH SOME INTERMITTENT DYSRHYTHMIC SHARP ACTIVITY SEEN IN THE RIGHT HEMISPHERE SUGGESTING THE POSSIBILITY OF A SEIZURE FOCUS. CLINICAL CORRELATION IS NEEDED. Last Trimmer: yisel Carbonation Tester: [email or web address]
[2018-01-13] MEDS: Lidocaine Patch Removal 1 EACH TOP SCH (10:03)
[2018-01-13] MEDS ORDERED: Ibuprofen 600 MG TAB PO PRN (11:36)
--- NOTE | 2018-01-13 11:46 | PDOC.PN ---
- Subjective Encounter Start Date: 01/12/18 Encounter Start Time: 10:30 Subjective: pt up in bed no complains - Objective Vital Signs & Weight: Vital Signs (12 hours) Temp Pulse Resp BP BP Pulse Ox 01/13/18 11:12 98.6 F 77 15 171/65 H 92 L 01/13/18 08:13 101 H 01/13/18 08:11 98.1 F 101 H 16 137/61 94 L 01/13/18 05:33 65 226/90 H 01/13/18 05:15 98.1 F 65 18 214/83 H 96 01/13/18 00:00 98.3 F 57 L 18 132/56 L 94 L I&O: 01/12/18 01/13/18 01/14/18 06:59 06:59 06:59 Intake Total 2760 Output Total 1400 Balance 1360 Result Diagrams: 01/13/18 04:24 01/13/18 04:24 Phys Exam - Physical Examination HEENT: PERRLA, moist MMs, sclera anicteric, TM's clear, oral pharynx no lesions , 2+ tonsils Neck: no nodes, no JVD, supple, full ROM Respiratory: no wheezing, no rales, no rhonchi, wheezing present, clear to auscultation bilateral Cardiovascular: RRR, no significant murmur, no rub, gallop, irregular Gastrointestinal: soft, non-tender, no distention, positive bowel sounds pt has a ecchymotic area to her left lower back Neurological: non-focal, normal sensation, moves all 4 limbs Dx/Plan - Plan 1) fall 2) acute on chronic seizure 3) tia plan: pt's MRI brain did not indicates any stroke, eeg does indicated seizure. Not sure if pt had a seizure if pt missed a dose of his meds or if new seizure. will wait for neurolgy's recommendation. pt is on lamictal and Tegretol. echo done no abnormality noted. * . Review of Systems - Review of Systems Eyes: negative: Pain, Vision Change, Conjunctivae Inflammation, Eyelid Inflammation, Redness, Other ENT: negative: Ear Pain, Ear Discharge, Nose Pain, Nose Discharge, Nose Congestion, Mouth Pain, Mouth Swelling, Throat Pain, Throat Swelling, Other Respiratory: negative: Cough, Dry, Shortness of Breath, Hemoptysis, SOB with Excertion, Pleuritic Pain, Sputum, Wheezing Cardiovascular: negative: chest pain, palpitations, orthopnea, paroxysmal nocturnal dyspnea, edema, light headedness, other Gastrointestinal: negative: Nausea, Vomiting, Abdominal Pain, Diarrhea, Constipation, Melena, Hematochezia, Other Genitourinary: negative: Dysuria, Frequency, Incontinence, Hematuria, Retention , Other Musculoskeletal: negative: Neck Pain, Shoulder Pain, Arm Pain, Back Pain, Hand Pain, Leg Pain, Foot Pain, Other - Medications/Allergies Allergies/Adverse Reactions: Allergies Allergy/AdvReac Type Severity Reaction Status Date / Time No Known Allergies Allergy Verified 01/12/18 15:11 Medications: Current Medications Acetaminophen (Tylenol) 650 mg PO Q4H PRN PRN Reason: Headache/Fever or Pain Last Admin: 01/12/18 11:25 Dose: 650 mg Acetaminophen (Tylenol) 650 mg NM Q4H PRN PRN Reason: Headache/Fever or Pain Amlodipine Besylate (Norvasc) 10 mg PO DAILY [facility] Last Admin: 01/13/18 08:13 Dose: 10 mg Amoxicillin (Amoxil) 250 mg PO DAILY [facility] Aspirin (Ecotrin) 81 mg PO DAILY [facility] Last Admin: 01/13/18 08:13 Dose: 81 mg Atorvastatin Calcium (Lipitor) 20 mg PO DAILY [facility] Last Admin: 01/13/18 08:13 Dose: 20 mg Bisacodyl (Dulcolax) 10 mg PO DAILYPRN PRN PRN Reason: Constipation Carbamazepine (Tegretol) 300 mg PO BID [facility] Last Admin: 01/13/18 08:14 Dose: 300 mg Cholecalciferol (Vitamin D3) 2,000 units PO DAILY [facility] Last Admin: 01/13/18 08:14 Dose: 2,000 units Clonazepam (Klonopin) 0.5 mg PO DAILY [facility] Last Admin: 01/13/18 08:14 Dose: 0.5 mg Clopidogrel Bisulfate (Plavix) 75 mg PO DAILY [facility] Last Admin: 01/13/18 08:15 Dose: 75 mg Docusate Calcium (Surfak) 240 mg PO DAILY [facility] Last Admin: 01/13/18 08:15 Dose: 240 mg Enoxaparin Sodium (Lovenox) 30 mg SC 0900 [facility] Last Admin: 01/13/18 08:15 Dose: 30 mg Furosemide (Lasix) 40 mg PO DAILY [facility] Hydralazine HCl (Apresoline) 10 mg SLOW IVP Q4H PRN PRN Reason: BP > 220/110 Last Admin: 01/13/18 05:33 Dose: 10 mg Lamotrigine (Lamictal) 100 mg PO BID [facility] Last Admin: 01/13/18 08:15 Dose: 100 mg Lidocaine (Lidoderm 5% Patch) 1 patch TD 2300 [facility] Last Admin: 01/13/18 06:09 Dose: Not Given Losartan Potassium (Cozaar) 50 mg PO DAILY [facility] Metoprolol Tartrate (Lopressor) 12.5 mg PO BID [facility] Last Admin: 01/13/18 08:15 Dose: 12.5 mg Miscellaneous Medication (Lidocaine Patch Removal) 1 each TOP 1100 [facility] Last Admin: 01/13/18 10:03 Dose: Not Given Oxybutynin Chloride (Ditropan) 10 mg PO DAILY [facility] Last Admin: 01/13/18 08:16 Dose: 10 mg Oxycodone HCl (Oxycodone Ir) 5 mg PO Q4H PRN PRN Reason: Pain Last Admin: 01/13/18 05:37 Dose: 5 mg Sertraline HCl (Zoloft) 25 mg PO DAILY [facility] Last Admin: 01/13/18 08:16 Dose: 25 mg Sodium Chloride (Flush - Normal Saline) 10 ml IVF Q12HR [facility] Last Admin: 01/13/18 08:16 Dose: Not Given Sodium Chloride (Flush - Normal Saline) 10 ml IVF PRN PRN PRN Reason: Saline Flush Trazodone HCl (Desyrel) 50 mg PO HS PRN PRN Reason: Insomnia
--- NOTE | 2018-01-13 13:54 | RAD ---
LEFT HIP TWO VIEWS: History: Fall. Left hip pain. FINDINGS/IMPRESSION: No acute fracture or dislocation is identified. POS: [facility]
--- NOTE | 2018-01-13 14:32 | RAD ---
LUMBAR SPINE 3 VIEWS: HISTORY: Pain, back pain, fall. FINDINGS/IMPRESSION: No acute fracture or subluxation is seen. Degenerative changes are present. An IVC filter is noted. There are vascular calcifications. POS: [facility]
--- NOTE | 2018-01-13 15:37 | PDOC.PN ---
- Subjective Encounter Start Date: 01/13/18 Encounter Start Time: 11:30 Subjective: pt up in bed no complains - Objective Vital Signs & Weight: Vital Signs (12 hours) Temp Pulse Pulse Pulse Resp BP BP 01/13/18 11:12 98.6 F 77 15 01/13/18 08:24 108 H 96 120/58 L 01/13/18 08:13 101 H 01/13/18 08:11 98.1 F 101 H 16 01/13/18 05:33 65 226/90 H 01/13/18 05:15 98.1 F 65 18 BP BP Pulse Ox Pulse Ox Pulse Ox 01/13/18 11:12 171/65 H 92 L 01/13/18 08:24 135/63 93 L 95 01/13/18 08:13 01/13/18 08:11 137/61 94 L 01/13/18 05:33 01/13/18 05:15 214/83 H 96 I&O: 01/12/18 01/13/18 01/14/18 06:59 06:59 06:59 Intake Total 2760 Output Total 1400 Balance 1360 Result Diagrams: 01/13/18 04:24 01/13/18 04:24 Phys Exam - Physical Examination HEENT: PERRLA, moist MMs, sclera anicteric, TM's clear, oral pharynx no lesions , 2+ tonsils Neck: no nodes, no JVD, supple, full ROM Respiratory: no wheezing, no rales, no rhonchi, wheezing present, clear to auscultation bilateral Cardiovascular: RRR, no significant murmur, no rub, gallop, irregular Gastrointestinal: soft, non-tender, no distention, positive bowel sounds Dx/Plan - Plan 1) fall 2) acute on chronic seizure 3) tia plan: pt's MRI brain did not indicates any stroke, eeg does indicated seizure. Not sure if pt had a seizure if pt missed a dose of his meds or if new seizure. will wait for neurolgy's recommendation. pt is on lamictal and Tegretol. echo done no abnormality noted. 01/13 left hip and lower back xray done since pt is complaining of pain. awaiting neuro consult. spoke with family who were very upset feeling that no doc has seen that pt. Reassured that we have seen the patient. * . * . Review of Systems - Review of Systems Eyes: negative: Pain, Vision Change, Conjunctivae Inflammation, Eyelid Inflammation, Redness, Other ENT: negative: Ear Pain, Ear Discharge, Nose Pain, Nose Discharge, Nose Congestion, Mouth Pain, Mouth Swelling, Throat Pain, Throat Swelling, Other Respiratory: negative: Cough, Dry, Shortness of Breath, Hemoptysis, SOB with Excertion, Pleuritic Pain, Sputum, Wheezing Cardiovascular: negative: chest pain, palpitations, orthopnea, paroxysmal nocturnal dyspnea, edema, light headedness, other Gastrointestinal: negative: Nausea, Vomiting, Abdominal Pain, Diarrhea, Constipation, Melena, Hematochezia, Other Genitourinary: negative: Dysuria, Frequency, Incontinence, Hematuria, Retention , Other - Medications/Allergies Allergies/Adverse Reactions: Allergies Allergy/AdvReac Type Severity Reaction Status Date / Time No Known Allergies Allergy Verified 01/12/18 15:11 Medications: Current Medications Acetaminophen (Tylenol) 650 mg PO Q4H PRN PRN Reason: Headache/Fever or Pain Last Admin: 01/12/18 11:25 Dose: 650 mg Acetaminophen (Tylenol) 650 mg [place] Q4H PRN PRN Reason: Headache/Fever or Pain Amlodipine Besylate (Norvasc) 10 mg PO DAILY [facility] Last Admin: 01/13/18 08:13 Dose: 10 mg Amoxicillin (Amoxil) 250 mg PO DAILY [facility] Aspirin (Ecotrin) 81 mg PO DAILY [facility] Last Admin: 01/13/18 08:13 Dose: 81 mg Atorvastatin Calcium (Lipitor) 20 mg PO DAILY [facility] Last Admin: 01/13/18 08:13 Dose: 20 mg Bisacodyl (Dulcolax) 10 mg PO DAILYPRN PRN PRN Reason: Constipation Carbamazepine (Tegretol) 300 mg PO BID [facility] Last Admin: 01/13/18 08:14 Dose: 300 mg Cholecalciferol (Vitamin D3) 2,000 units PO DAILY [facility] Last Admin: 01/13/18 08:14 Dose: 2,000 units Clonazepam (Klonopin) 0.5 mg PO DAILY [facility] Last Admin: 01/13/18 08:14 Dose: 0.5 mg Clopidogrel Bisulfate (Plavix) 75 mg PO DAILY [facility] Last Admin: 01/13/18 08:15 Dose: 75 mg Docusate Calcium (Surfak) 240 mg PO DAILY [facility] Last Admin: 01/13/18 08:15 Dose: 240 mg Enoxaparin Sodium (Lovenox) 30 mg SC 0900 [facility] Last Admin: 01/13/18 08:15 Dose: 30 mg Furosemide (Lasix) 40 mg PO DAILY [facility] Hydralazine HCl (Apresoline) 10 mg SLOW IVP Q4H PRN PRN Reason: BP > 220/110 Last Admin: 01/13/18 05:33 Dose: 10 mg Lamotrigine (Lamictal) 100 mg PO BID [facility] Last Admin: 01/13/18 08:15 Dose: 100 mg Lidocaine (Lidoderm 5% Patch) 1 patch TD 2300 [facility] Last Admin: 01/13/18 06:09 Dose: Not Given Losartan Potassium (Cozaar) 50 mg PO DAILY [facility] Metoprolol Tartrate (Lopressor) 12.5 mg PO BID [facility] Last Admin: 01/13/18 08:15 Dose: 12.5 mg Miscellaneous Medication (Lidocaine Patch Removal) 1 each TOP 1100 [facility] Last Admin: 01/13/18 10:03 Dose: Not Given Oxybutynin Chloride (Ditropan) 10 mg PO DAILY [facility] Last Admin: 01/13/18 08:16 Dose: 10 mg Oxycodone HCl (Oxycodone Ir) 5 mg PO Q4H PRN PRN Reason: Pain Last Admin: 01/13/18 05:37 Dose: 5 mg Sertraline HCl (Zoloft) 25 mg PO DAILY [facility] Last Admin: 01/13/18 08:16 Dose: 25 mg Sodium Chloride (Flush - Normal Saline) 10 ml IVF Q12HR [facility] Last Admin: 01/13/18 08:16 Dose: Not Given Sodium Chloride (Flush - Normal Saline) 10 ml IVF PRN PRN PRN Reason: Saline Flush Trazodone HCl (Desyrel) 50 mg PO HS PRN PRN Reason: Insomnia
[2018-01-14] MEDS ORDERED: cloNIDine 0.1 MG TAB PO PRN (05:10)
[2018-01-14] MEDS ORDERED: Sodium Chloride 0.9% 500 ML IV SCH (05:15)
[2018-01-14 05:20] LABS: #Eosinphils 0.3 thou/uL (0.0-0.7); #Lymphocytes 1.3 thou/uL (1.20-3.40); #Monocytes 0.8 thou/uL (0.11-0.59); #Neutrophils 4.8 thou/uL (1.40-6.50); %Basophils 0.3 % (0.0-1.0); %Eosinophils 4.3 % (0.0-10.0); %Lymphocytes 17.6 % (21.0-51.0); %Monocytes 10.7 % (0.0-10.0); Hemoglobin 10.1 g/dL (12.0-16.0); Mean Corpuscular HGB CONC 33.4 g/dL (32.0-36.0); Mean Corpuscular Hemoglobin 32.6 pg (27.0-31.0); Mean Corpuscular Volume 97.7 fl (81.0-99.0); Mean Platelet Volume 6.9 fL (7.4-10.4); Platelet Count 258 thou/uL (130-400); RBC Distribution Width 11.9 % (11.5-14.5); Red Blood Cell (RBC) Count 3.09 mill/uL (4.20-5.40); White Blood Cell (WBC) Count 7.2 thou/uL (4.8-10.8)
[2018-01-14 05:45] LABS: Anion Gap 10 mmol/L (10-20); BUN (Urea Nitrogen) 19 mg/dL (9.8-20.1); Calc. Creatinine Clearance 46 mL/min (70-130); Calcium 8.5 mg/dL (7.8-10.44); Carbon Dioxide 23 mmol/L (23-31); Chloride 105 mmol/L (98-107); Estimated GFR-MDRD 49; Glucose 100 mg/dL (83-110); Potassium 3.9 mmol/L (3.5-5.1); Sodium 134 mmol/L (136-145)
[2018-01-14] MEDS ORDERED: Metoprolol Tartrate 25 MG TAB PO SCH (09:00)
[2018-01-14] MEDS ORDERED: Losartan 25 MG TAB PO SCH (09:00)
[2018-01-14] MEDS ORDERED: Non-Formulary Item 1 EACH (Losartan Potassium [Losartan Potassium] 50 MG) PO SCH (09:00)
[2018-01-14] MEDS ORDERED: Enoxaparin Sodium 40 MG/0.4 ML SYRINGE SC SCH (09:00)
[2018-01-14] MEDS ORDERED: AMOXicillin 250 MG CAP PO SCH (09:00)
[2018-01-14] MEDS ORDERED: Furosemide 40 MG TAB PO SCH (09:00)
[2018-01-14] MEDS ORDERED: methylPREDNISolone 4 mg Tablet PO SCH ×2 (09:00→12:00)
[2018-01-14] MEDS ORDERED: Famotidine 20 MG TAB PO SCH (09:00)
[2018-01-14] MEDS: clonazePAM 0.5 MG TAB PO SCH (09:48)
[2018-01-14] MEDS: Amlodipine 10 MG TAB PO SCH (09:53)
[2018-01-14] MEDS: lamoTRIgine 100 MG TAB PO SCH (09:53)
[2018-01-14] MEDS: Atorvastatin Calcium 20 MG TAB PO SCH (09:54)
[2018-01-14] MEDS: Clopidogrel Bisulfate 75 MG TAB PO SCH (09:54)
[2018-01-14] MEDS: Oxybutynin 5 MG TAB PO SCH (09:54)
[2018-01-14] MEDS: Aspirin 81 mg Enteric Coated Tablet PO SCH (09:54)
[2018-01-14] MEDS: Docusate Calcium (SURFAK) 240 MG CAP PO SCH (09:55)
[2018-01-14] MEDS: carBAMazepine 200 MG TAB PO SCH (09:55)
[2018-01-14] MEDS ORDERED: Iopamidol 370 76% 100 ML VIAL ONE (12:09)
[2018-01-14] MEDS: oxyCODONE 5 MG TAB PO PRN ×2 (12:20→17:19)
[2018-01-14] MEDS: Lidocaine Patch Removal 1 EACH TOP SCH (13:41)
--- NOTE | 2018-01-14 14:30 | CT ---
CTA OF THE NECK UTILIZING IV CONTRAST AND 3D RFORMATTED IMAGING: INDICATION: Abnormal carotid duplex evaluation dated 01/11/18. COMPARISON: Carotid duplex ultrasound dated 01/11/18 and chest radiograph dated 01/11/18. FINDINGS: There is vascular calcification involving the left carotid bulb. This is causing narrowing at the or igin of the left ICA that is approximately 35% of the lumen caliber. The remaining cervical course o f the left ICA is widely patent. The right ICA is widely patent. There are mild vascular calcificat ions involving the right carotid bulb. Brachiocephalic and left common carotid origins are widely pa tent. There is aneurysmal dilatation of the aortic arch measuring 3.6 cm. There is a redundant fold involving the junction of the ascending aorta and aortic arch which may be postsurgical in nature. There is aneurysmal dilatation descending thoracic aorta of 3.1 cm. There is emphysema involving bot h lung apices. Right and left vertebral artery are widely patent. The right vertebral artery is sli ghtly diminutive. The parotid and submandibular glands appear within normal limits. There is scatte red degenerative and osteoarthritic change. There is fluid and debris seen within the esophagus. IMPRESSION: 1. A 35-% luminal caliber narrowing involving the origin of the left internal carotid artery. 2. Debris seen within the esophagus may reflect reflux or dysmotility. 3. 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 Slight redundancy of the ascending aorta, aortic arch margin may be related to postsurgical change. 4. Emphysema. POS: [facility]
[2018-01-14 18:37] VITALS: BP 179/78; TEMP 97.9
--- NOTE | 2018-01-14 21:45 | CON ---
DATE OF CONSULTATION: 01/14/2018 CONSULTING PHYSICIAN: Hospitalist Service. IMPRESSION: 1. Seizure disorder secondary to right frontal lobe encephalomalacia. 2. Mild carotid stenosis of 30% on the left. PLAN: 1. Continue Tegretol at her current dose. 2. Increase Lamictal 100 mg twice a day. Ms. Will is a 77-year-old woman, who came into the hospital on 01/11/2018. She apparently had dif ficulty relaying history to the emergency room physician when she arrived. She had had a fall prior to admission. She hit the ground with her chest. She had some reported slurred speech following the event. She seemed to be generally weak. She denies any nausea or vomiting. Since admission, she h as not had any further episodes of alteration of consciousness. She had an MRI of the brain, which s howed only the chronic area of infarction in the right frontal lobe. She had an EEG done, which show ed abnormality of mild diffuse slowing with some intermittent dysrhythmic activity seen over the righ t hemisphere suggesting a possible seizure focus. She is a bit of a poor historian. She reports jacki t she does not have convulsions, but only complex partial seizures. PAST MEDICAL HISTORY: Ascending aortic aneurysm and cataracts. SOCIAL HISTORY: No tobacco or alcohol. ALLERGIES: None. MEDICATIONS: Tegretol 200 mg twice a day and Lamictal 50 mg twice a day. FAMILY HISTORY: Noncontributory. REVIEW OF SYSTEMS: No complaints of headache, nausea, vomiting, dizziness, chest pain or shortness o f breath. PHYSICAL EXAMINATION: GENERAL: She is alert, elderly lady, in no acute distress. VITAL SIGNS: Blood pressure 143/67, pulse 73, respirations 16, temperature 98.1. HEENT: Unremarkable. NECK: Supple. EXTREMITIES: No cyanosis. NEUROLOGIC: She was alert and cooperative. She seemed to have memory difficulties, but her speech i s fluent and clear. Exam was otherwise nonfocal. No abnormal movements were seen. She can stand an d walk independently. SUMMARY: This is an elderly lady with a history of seizures. Given that her Lamictal level was on t he low side, I make an adjustment in the dose to 100 mg twice a day and continue her Tegretol. I wou ld be happy to follow up with her as an outpatient if she would like to change physicians.
[2018-01-15] MEDS ORDERED: methylPREDNISolone 4 mg Tablet PO SCH ×2 (08:00→21:00)
[2018-01-16] MEDS ORDERED: methylPREDNISolone 4 mg Tablet PO SCH (08:00)
[2018-01-17] MEDS ORDERED: methylPREDNISolone 4 mg Tablet PO SCH (08:00)
[2018-01-18] MEDS ORDERED: methylPREDNISolone 4 mg Tablet PO SCH (08:00)
[2018-01-19] MEDS ORDERED: methylPREDNISolone 4 mg Tablet PO SCH (08:00)
== END 2018-01-14 19:35 | disposition home or self-care (01) | DRG 101 ==
LOC: ERS 10:53 → 2NO 17:19 → OBSVTOIN 01-12 14:28
PROVIDERS: ADMIT Internal Medicine; ATTEND Internal Medicine
DX: G40.909 Epilepsy, unspecified, not intractable, without status epilepticus (principal); G45.9 Transient cerebral ischemic attack, unspecified; I50.32 Chronic diastolic (congestive) heart failure; N17.9 Acute kidney failure, unspecified; I13.0 Hypertensive heart and chronic kidney disease with heart failure and stage 1 through stage 4 chronic kidney disease, or unspecified chronic kidney disease; N39.0 Urinary tract infection, site not specified; Z86.73 Personal history of transient ischemic attack (TIA), and cerebral infarction without residual deficits; K21.9 Gastro-esophageal reflux disease without esophagitis; E78.5 Hyperlipidemia, unspecified; I25.10 Atherosclerotic heart disease of native coronary artery without angina pectoris; F41.9 Anxiety disorder, unspecified; N18.9 Chronic kidney disease, unspecified; R29.700 NIHSS score 0; R40.2412 Glasgow coma scale score 13-15, at arrival to emergency department
CPT/HCPCS: 36415; 36416; 70450; 70498; 70551; 71045; 72100; 80048; 80053; 80061; 80156; 80175; 81003; 81015; 82553; 84484; 85025; 85610; 85730; 87086; 93005; 93306; 93880; 95816; 95819; 96374; A4216; G8978-GP-CM; G8979-GP-CK; G8987-GO-CL; G8988-GO-CJ; G8996-GN-CI; G8997-GN-CI; J0360; J0696; J1650; J3010; J7050

== ENCOUNTER 2018-05-30 15:43 | Inpatient (IN) | payer MEDICARE, BC ==
[2018-05-30 16:15] LABS: Bilirubin Negative (Negative); Blood, Urine Negative (Negative); Clarity CLOUDY (Clear); Glucose, Urine (Dipstick) Negative (Negative); Leukocyte Small (Negative); Nitrite Negative (Negative); Protein, Urine (Dipstick) 30 mg/dL (Neg-Trace); Specific Gravity, Urine 1.011 (1.002-1.036); Urobilinogen 0.2 mg/dL (0.2-1.0)
[2018-05-30 16:17] LABS: #Basophils 0.1 thou/uL (0.0-0.2); #Monocytes 0.5 thou/uL (0.11-0.59); #Neutrophils 10.6 thou/uL (1.40-6.50); %Basophils 0.7 % (0.0-1.0); %Eosinophils 0.2 % (0.0-10.0); %Lymphocytes 7.8 % (21.0-51.0); %Neutrophils 87.3 % (42.0-75.0); Hemoglobin 11.4 g/dL (12.0-16.0); Mean Corpuscular Hemoglobin 31.1 pg (27.0-31.0); Mean Corpuscular Volume 97.3 fL (78.0-98.0); Mean Platelet Volume 7.1 fL (7.4-10.4); Platelet Count 402 thou/uL (130-400); RBC Distribution Width 12.4 % (11.5-14.5); Red Blood Cell (RBC) Count 3.65 mill/uL (4.20-5.40); White Blood Cell (WBC) Count 12.1 thou/uL (4.8-10.8)
[2018-05-30 16:17] LABS: Bacteria/HPF Rare-Few HPF (None Seen); Hyaline Casts/LPF 0-3 HYALINE CAST LPF (0-3 Hyaline); Pathc Cast-AUWi Flag 0.14 (0-2.49); RBC/HPF 0-3 HPF (0-3); Squamous Epithelial 0-3 HPF (0-3)
[2018-05-30 16:18] LABS: Renal Epithelial None Seen HPF (0-3); Transitional Epithelial NONE SEEN HPF (0-3)
--- NOTE | 2018-05-30 16:24 | RAD ---
RADIOGRAPH CHEST 1 VIEW: Date: 05-30-18 Time: 4:12 P.M. HISTORY: 77-year-old female with malaise and fever. COMPARISON: 01-11-18 FINDINGS: The lungs are hypoinflated, lower in volume than on the prior study. Again noted is the very ectatic and tortuous, calcified aorta. Sternotomy wires. Thee is dense opacification of the retrocardiac port ion of the left lower lobe. No pulmonary edema or pneumothorax. IMPRESSION: 1. Left lower lobe opacification which could be pneumonia or atelectasis. 2. Ectasia, tortuosity, and atherosclerosis of thoracic aorta. [place] POS: [facility]
[2018-05-30 16:40] LABS: ALT (SGPT) 9 U/L (8-55); AST (SGOT) 23 U/L (5-34); Albumin 4.1 g/dL (3.4-4.8); Alkaline Phosphatase 66 U/L (40-150); Anion Gap 16 mmol/L (10-20); BUN (Urea Nitrogen) 27 mg/dL (9.8-20.1); Bilirubin, Total 0.4 mg/dL (0.2-1.2); Calc. Creatinine Clearance 0 mL/min (70-130); Calcium 9.6 mg/dL (7.8-10.44); Carbon Dioxide 21 mmol/L (23-31); Chloride 104 mmol/L (98-107); Estimated GFR-MDRD 42; Globulin 3.6 g/dL (2.4-3.5); Glucose 129 mg/dL (83-110); Potassium 4.4 mmol/L (3.5-5.1); Protein, Total 7.7 g/dL (6.0-8.3); Sodium 137 mmol/L (136-145)
[2018-05-30 16:45] LABS: CKMB 1.4 ng/mL (0-6.6)
[2018-05-30 16:51] LABS: Troponin I 0.478 ng/mL (< 0.028)
[2018-05-30] MEDS ORDERED: cefTRIAXone\\ROCEPHIN 1 GM VIAL ONE (16:56)
[2018-05-30] MEDS ORDERED: Azithromycin 500 MG VIAL ONE (16:56)
[2018-05-30] MEDS ORDERED: Ondansetron HCl/PF 4 MG/2 ML Vial IVP PRN (17:21)
[2018-05-30] MEDS ORDERED: Guaifenesin DM 100-10/5 ML UDCUP PO PRN (17:21)
[2018-05-30] MEDS ORDERED: Senokot 8.6 MG TAB PO PRN (17:21)
[2018-05-30] MEDS ORDERED: Acetaminophen 325 MG TAB PO PRN (17:21)
[2018-05-30] MEDS ORDERED: Enoxaparin Sodium 30 MG/0.3 ML SYRINGE ONE (17:55)
[2018-05-30] MEDS ORDERED: Enoxaparin Sodium 40 MG/0.4 ML SYRINGE ONE (17:55)
[2018-05-30] MEDS ORDERED: Ibuprofen 200 MG TAB ONE (18:56)
[2018-05-30 19:40] LABS: Lactic Acid 0.9 mmol/L (0.5-2.2)
[2018-05-30 19:51] LABS: Troponin I 0.579 ng/mL (< 0.028)
[2018-05-30] MEDS: Sodium Chloride 0.9% 1,000 ML IV SCH (20:34)
[2018-05-30] MEDS: Carvedilol 3.125 MG TAB PO SCH (20:44)
[2018-05-30] MEDS: lamoTRIgine 100 MG TAB PO SCH (20:47)
[2018-05-30] MEDS: carBAMazepine 200 MG TAB PO SCH (20:47)
[2018-05-30] MEDS: Vancomycin HCl 1 GM in Premix Bag 1 BAG IVPB SCH (20:48)
[2018-05-30] MEDS: Famotidine 20 MG TAB PO SCH (20:48)
[2018-05-30] MEDS: Cefepime 1 GM in Sodium Chloride 0.9% 100 ML IVPB SCH (20:57)
[2018-05-30] MEDS ORDERED: Docusate 100 MG CAP PO SCH (21:00)
--- NOTE | 2018-05-31 00:05 | HP ---
REASON FOR ADMISSION: Sepsis, urinary tract infection, possible left lung pneumonia, demand ischemia, acute congestive heart failure exacerbation, acute kidney injury. HISTORY OF PRESENT ILLNESS: The patient lives at [facility]. She has been progressively getting weak from last two weeks. She could not get up or walk this morning. She has been getting fever off and on for the last 1 week and has been ranging in the 99 degrees. She developed loss of appetite. This morning, she became very lethargic and barely was responding to her daughter who went to check on her. She complained of chills, fever, and her head throbbing. Currently, complains of urinary frequency and urgency. She used to walk with a walker before, now mostly is using a wheelchair from last week and a half now. No complaints of cough or expectoration. 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 She has had ascending aortic aneurysm repair done in [address] [facility] and descending thoracic aortic aneurysm repair in 2009. 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 CURRENT MEDICATIONS: Patient is on Plavix 75 mg p.o. daily, aspirin 81 mg p.o. daily, Remeron 15 mg p.o. at bedtime, Norvasc 10 mg p.o. daily, Lasix 40 mg p.o. daily, Cozaar 50 mg p.o. daily, oxybutynin extended release 10 mg daily, Zantac 150 mg daily, vitamin D3 daily, carbamazepine 200 mg p.o. twice daily, lamotrigine 100 mg p.o. twice daily, Lopressor 25 mg twice daily, amoxicillin 250 mg daily for suppressive urinary tract infection prophylaxis. PERSONAL HISTORY: Quit smoking more than 15 years ago, prior to which has smoked one pack a day for nearly 40 years. Does not abuse alcohol or drugs. She is currently a resident of [facility]. She is using wheelchair at present and used to walk with a walker. FAMILY HISTORY: Both parents in their 80s. Mother of stroke. Father had history of heart disease, had a sister with aneurysm and another sister had stroke. CODE STATUS: DNR. Power of divorce attorney is her daughter, Ms. Alexandra Joshua. This was confirmed with her. REVIEW OF SYSTEMS: The following complete review of systems was negative, unless otherwise mentioned in the HPI or below: Constitutional: Weight loss or gain, ability to conduct usual activities. Skin: Rash, itching. Eyes: Double vision, pain. ENT/Mouth: Nose bleeding, neck stiffness, pain, tenderness. Cardiovascular: Palpitations, dyspnea on exertion, orthopnea. Respiratory: Shortness of breath, wheezing, cough, hemoptysis, fever or night sweats. Gastrointestinal: Poor appetite, abdominal pain, heartburn, nausea, vomiting, constipation, or diarrhea. Genitourinary: Urgency, frequency, dysuria, nocturia. Musculoskeletal: Pain, swelling. Neurologic/Psychiatric: Anxiety, depression. Allergy/Immunologic: Skin rash, bleeding tendency. PHYSICAL EXAMINATION: GENERAL: The patient is a 77-year-old female who is currently having fever and chills at present. VITAL SIGNS: Blood pressure 174/68, pulse 90 per minute, respiratory rate 24 per minute, temperature 101.8 degrees of rectal, saturating 92% on room air. NECK: Supple, no elevated JVD. HEENT: Extraocular muscles intact. Pupils reacting to light. Oral cavity mucous membranes are dry. No exudates or congestion. CARDIOVASCULAR: S1, S2 heard. Regular rhythm. RESPIRATORY: Air entry 1+ bilateral. Scattered rhonchi plus no rales. ABDOMEN: Soft, bowel sounds heard. No tenderness, rigidity or guarding. EXTREMITIES: No peripheral edema or calf tenderness. VASCULAR SYSTEM: Peripheral pulses 1+ bilateral, no ischemic ulcerations or gangrene. CENTRAL NERVOUS SYSTEM: No gross focal deficits noted. Patient is a bit lethargic, otherwise responds well to verbal questions. PSYCHIATRIC: No obvious hallucinations or delusions. LABORATORY AND X-RAY FINDINGS: White count of 12, H and H 11 and 35, platelet count 402 with 87% neutrophils, MCV is 97, bicarbonate is 21, BUN 27, creatinine 1.25, serum glucose 129. Liver enzymes within normal limits. CK-MB 1.4, troponin I 0.47. BNP is 1838, albumin is 4.1. UA shows small leukocyte esterase with 11-20 WBCs. Chest x-ray done shows left lower lobe, questionable pneumonia. CLINICAL IMPRESSION AND PLAN: The patient will be admitted to telemetry for sepsis, urinary tract infection, possible left lung pneumonia, acute kidney injury, demand ischemia, likely diastolic dysfunction with congestive heart failure exacerbation. As currently patient is septic, we will gently hydrate her with normal saline at 50 mL per hour and closely monitor for volume overload. She will be on ceftriaxone and vancomycin. Blood and urine cultures have been obtained in the ER. She will be on aspirin, Norvasc, Lipitor, Tegretol, Lamictal, Coreg, Plavix, small dose of Cozaar and Ditropan for now. Echo with 2D Doppler for LV function will be obtained. We will also obtain ultrasound venous Doppler of lower extremities to rule out deep venous thrombosis. [facility]
[2018-05-31 00:20] VITALS: BMI 26.4
[2018-05-31 04:07] LABS: #Basophils 0.1 thou/uL (0.0-0.2); #Lymphocytes 1.5 thou/uL (1.20-3.40); #Monocytes 1.1 thou/uL (0.11-0.59); #Neutrophils 6.3 thou/uL (1.40-6.50); %Basophils 0.7 % (0.0-1.0); %Eosinophils 0.2 % (0.0-10.0); %Lymphocytes 16.7 % (21.0-51.0); %Monocytes 12.3 % (0.0-10.0); Hemoglobin 9.8 g/dL (12.0-16.0); Mean Corpuscular Hemoglobin 31.5 pg (27.0-31.0); Mean Corpuscular Volume 98.5 fL (78.0-98.0); Mean Platelet Volume 6.9 fL (7.4-10.4); Platelet Count 336 thou/uL (130-400); RBC Distribution Width 12.4 % (11.5-14.5); White Blood Cell (WBC) Count 8.9 thou/uL (4.8-10.8)
[2018-05-31 04:30] LABS: Anion Gap 10 mmol/L (10-20); BUN (Urea Nitrogen) 27 mg/dL (9.8-20.1); Calc. Creatinine Clearance 39 mL/min (70-130); Calcium 8.8 mg/dL (7.8-10.44); Carbon Dioxide 24 mmol/L (23-31); Chloride 108 mmol/L (98-107); Estimated GFR-MDRD 42; Glucose 101 mg/dL (83-110); Potassium 4.1 mmol/L (3.5-5.1); Sodium 138 mmol/L (136-145)
[2018-05-31 04:33] LABS: Critical Call Chem Troponin I RESULT DECREASING; Troponin I 0.401 ng/mL (< 0.028)
[2018-05-31 04:39] LABS: Carbamazepine-Tegretol 4.6 ug/mL (4.0-12.0)
--- NOTE | 2018-05-31 07:49 | CT ---
CT OF THE BRAIN WITHOUT CONTRAST: Date: 05/30/18 INDICATION: History of fever and seizure activity. COMPARISON: Prior CT of the brain dated 01/11/18 and MRI of the brain dated 01/12/18. FINDINGS: The moderate chronic small vessel white matter ischemic change is stable. The encephalomalacia involv ing the anterior right frontal lobe on image 17 of series 2 is stable. No acute infarct, hemorrhage, or hydrocephalus is present. The generalized cerebral and cerebellar atrophy is similar. Small lacuna r infarcts involving both cerebellar hemispheres are stable. Mastoid air cells are clear. Paranasal s inuses are clear. The skull is intact. IMPRESSION: 1. No acute intracranial abnormality. 2. Chronic ischemic change as above. POS: [facility]
--- NOTE | 2018-05-31 08:16 | ULT ---
VENOUS DUPLEX SONOGRAM BILATERAL LOWER EXTREMITY: HISTORY: Bilateral leg pain and edema. FINDINGS: Each common femoral vein and greater saphenous junction were evaluated along with each femoral, deep femoral, popliteal, and posterior tibial vein. There is good color and spectral Doppler flow, compre ssion, and augmentation. At the left popliteal fossa, a lobular fluid collection measures up to 4.2 cm length x 0.7 cm depth. IMPRESSION: 1. No sonographic evidence of deep vein thrombosis within either lower extremity. 2. Tang cyst left popliteal fossa. POS: [facility]
[2018-05-31] MEDS ORDERED: Losartan 25 MG TAB PO SCH (09:00)
[2018-05-31] MEDS ORDERED: Prevnar 13-Val Conj/PF 0.5 ML SYRINGE IM ONE (09:00)
--- NOTE | 2018-05-31 09:20 | CON ---
DATE OF CONSULTATION: 05/31/2018 CONSULTING PHYSICIAN: Hospitalist group. REASON FOR CONSULTATION: Sepsis syndrome. HISTORY OF PRESENT ILLNESS: This is a 77-year-old female who was brought to the ER last night from [facility] with weakness over the last 2 weeks. She had a low-grade fever. She is currently being evaluated for sepsis. She has a very poor memory and says she does not feel bad at this time PAST MEDICAL HISTORY: 1. Stroke. 2. Ascending aortic aneurysm requiring repair. 3. Seizure disorder. 4. Hyperlipidemia. 5. Hypertension. 6. Urinary incontinence. 7. Diastolic cardiac dysfunction. 8. Deep venous thrombosis. 9. Frontal lobe aneurysm. PAST SURGICAL HISTORY: 1. She has had ascending and descending aortic aneurysm repair. 2. IVC filter placement - I am not sure whether or not that is still in. MEDICATIONS PRIOR TO ADMISSION: Plavix, aspirin, Remeron, Norvasc, Lasix, Cozaar, oxybutynin, Zantac, vitamin D3, carbamazepine, Lamictal, Lopressor, amoxicillin. SOCIAL HISTORY: Quit smoking over 15 years ago. Formerly lived in [place], has been living in [facility] for the last year. Does not consume alcohol, does not use illicit drugs. FAMILY MEDICAL HISTORY: Remarkable for stroke and heart disease. She is DNR. REVIEW OF SYSTEMS: Otherwise, negative. PHYSICAL EXAMINATION: VITAL SIGNS: Temperature 97.6, pulse 60, respirations 18, O2 sat 100%, blood pressure 111/53. GENERAL: She is pleasant, awake, alert, and in no distress. HEENT: Unremarkable. NECK: No adenopathy, JVD, or bruits. LUNGS: Clear without wheeze or rhonchi. CARDIAC: S1, S2 regular without audible murmur. ABDOMEN: Soft, nontender, nondistended. EXTREMITIES: No clubbing, cyanosis, or edema. LABORATORY DATA: White blood cell count 8.9, hematocrit 30.6, platelet count 336. Sodium 138, potassium 4.1, chloride 108, CO2 24, BUN 27, creatinine 1.2, glucose 101. Troponin 0.401. Brain CT showed no acute abnormality. Venous scan of the lower extremities showed no evidence of DVT. ASSESSMENT: Question of underlying sepsis and altered mental status - appears to be now at baseline. RECOMMENDATIONS: 1. Hydration and antibiotics. 2. The patient can be transferred out to the medical floor as there are no acute processes going on at the current time. The above encompassed 70 minutes of time. Of that time, greater than 50% was spent with the patient and/or on the patient's unit in the hospital. MARIZA
[2018-05-31] MEDS: carBAMazepine 200 MG TAB PO SCH ×2 (10:53→19:53)
[2018-05-31] MEDS: lamoTRIgine 100 MG TAB PO SCH ×2 (10:54→19:54)
[2018-05-31] MEDS: Atorvastatin Calcium 20 MG TAB PO SCH (10:54)
[2018-05-31] MEDS: Famotidine 20 MG TAB PO SCH ×2 (10:54→19:50)
[2018-05-31] MEDS: clonazePAM 0.5 MG TAB PO SCH (10:55)
[2018-05-31] MEDS: Amlodipine 10 MG TAB PO SCH (10:56)
[2018-05-31] MEDS: Carvedilol 3.125 MG TAB PO SCH ×2 (10:56→19:52)
[2018-05-31] MEDS: Multivitamin W/ Minerals 1 TAB PO SCH (10:57)
[2018-05-31] MEDS: Enoxaparin Sodium 40 MG/0.4 ML SYRINGE SC SCH (10:57)
[2018-05-31] MEDS: Clopidogrel Bisulfate 75 MG TAB PO SCH (10:57)
[2018-05-31] MEDS: Docusate Calcium (SURFAK) 240 MG CAP PO SCH (10:57)
[2018-05-31] MEDS: Oxybutynin ER 5 MG TAB PO SCH (11:01)
[2018-05-31] MEDS: Vancomycin HCl 1 GM in Premix Bag 1 BAG IVPB SCH ×2 (11:03→19:55)
[2018-05-31] MEDS: Cefepime 1 GM in Sodium Chloride 0.9% 100 ML IVPB SCH ×2 (12:33→12:39)
--- NOTE | 2018-05-31 13:12 | PDOC.PN ---
- Subjective Encounter Start Date: 05/31/18 Encounter Start Time: 12:00 Subjective: awake, no sob, feels better - Objective Resuscitation Status: Resuscitation Status DNR:Do Not Resuscitate MAR Reviewed: Yes Vital Signs & Weight: Vital Signs (12 hours) Temp Pulse Pulse Pulse Resp BP BP 05/31/18 12:04 98.3 F 68 20 05/31/18 10:30 05/31/18 10:02 68 05/31/18 09:55 70 67 137/28 L 160/70 H 05/31/18 08:02 05/31/18 08:00 98.4 F 65 20 05/31/18 03:58 97.6 F 60 18 BP Pulse Ox Pulse Ox Pulse Ox 05/31/18 12:04 160/29 H 99 05/31/18 10:30 160/70 H 05/31/18 10:02 192/40 H 05/31/18 09:55 100 99 05/31/18 08:02 146/29 H 05/31/18 08:00 183/39 H 95 05/31/18 03:58 111/53 L 100 Weight Weight 145 lb 4.8 oz I&O: 05/30/18 05/31/18 06/01/18 06:59 06:59 06:59 Intake Total 520 Output Total 600 Balance -80 Result Diagrams: 05/31/18 03:54 05/31/18 03:54 Phys Exam - Physical Examination HEENT: PERRLA, moist MMs Neck: no JVD, supple Respiratory: no wheezing, no rales Cardiovascular: RRR, no significant murmur Gastrointestinal: soft, non-tender, positive bowel sounds Musculoskeletal: no edema, pulses present Neurological: non-focal, moves all 4 limbs Psychiatric: normal affect Dx/Plan (1) Sepsis Code(s): A41.9 - SEPSIS, UNSPECIFIED ORGANISM Status: Acute Qualifiers: Sepsis type: sepsis due to unspecified organism Qualified Code(s): A41.9 - Sepsis, unspecified organism (2) Acute encephalopathy Code(s): G93.40 - ENCEPHALOPATHY, UNSPECIFIED Status: Acute (3) UTI (urinary tract infection) Status: Suspected Qualifiers: Urinary tract infection type: acute cystitis Hematuria presence: without hematuria Qualified Code(s): N30.00 - Acute cystitis without hematuria (4) Seizure Code(s): R56.9 - UNSPECIFIED CONVULSIONS Status: Acute (5) Demand ischemia of myocardium Code(s): I24.8 - OTHER FORMS OF ACUTE ISCHEMIC HEART DISEASE Status: Acute (6) Acute exacerbation of CHF (congestive heart failure) Code(s): I50.9 - HEART FAILURE, UNSPECIFIED Status: Acute Qualifiers: Heart failure type: unspecified Qualified Code(s): I50.9 - Heart failure, unspecified (7) Dementia Code(s): F03.90 - UNSPECIFIED DEMENTIA WITHOUT BEHAVIORAL DISTURBANCE Status: Chronic Qualifiers: Dementia type: unspecified type Dementia behavioral disturbance: without behavioral disturbance Qualified Code(s): F03.90 - Unspecified dementia without behavioral disturbance (8) Physical deconditioning Code(s): R53.81 - OTHER MALAISE Status: Acute - Plan PT/OT to mobilize as tolerated, will need skilled placement -: continue cefepime and vanc, await cs -: is on asp, lipitor, coreg, cozaar, iv fluids -: no further seizures, continue tegretol and lamictal -: usg venous doppler is -ve, CT brain is -ve for ac changes * . Review of Systems - Medications/Allergies Allergies/Adverse Reactions: Allergies Allergy/AdvReac Type Severity Reaction Status Date / Time No Known Allergies Allergy Verified 01/12/18 15:11 Medications: Current Medications Acetaminophen (Tylenol) 650 mg PO Q4H PRN PRN Reason: Headache/Fever or Pain Amlodipine Besylate (Norvasc) 10 mg PO DAILY [facility] Last Admin: 05/31/18 10:56 Dose: 10 mg Aspirin (Aspirin Chewable) 81 mg PO DAILY [facility] Last Admin: 05/31/18 10:57 Dose: 81 mg Atorvastatin Calcium (Lipitor) 20 mg PO DAILY [facility] Last Admin: 05/31/18 10:54 Dose: 20 mg Carbamazepine (Tegretol) 300 mg PO BID [facility] Last Admin: 05/31/18 10:53 Dose: 300 mg Carvedilol (Coreg) 3.125 mg PO BID [facility] Last Admin: 05/31/18 10:56 Dose: 3.125 mg Clonazepam (Klonopin) 0.5 mg PO DAILY [facility] Last Admin: 05/31/18 10:55 Dose: 0.5 mg Clopidogrel Bisulfate (Plavix) 75 mg PO DAILY [facility] Last Admin: 05/31/18 10:57 Dose: 75 mg Docusate Calcium (Surfak) 240 mg PO DAILY [facility] Last Admin: 05/31/18 10:57 Dose: Not Given Enoxaparin Sodium (Lovenox) 40 mg SC 0900 [facility] Last Admin: 05/31/18 10:57 Dose: 40 mg Famotidine (Pepcid) 20 mg PO BID [facility] Last Admin: 05/31/18 10:54 Dose: 20 mg Guaifenesin/Dextromethorphan (Robitussin Dm) 15 ml PO Q4H PRN PRN Reason: Cough Sodium Chloride (Normal Saline 0.9%) 1,000 mls @ 50 mls/hr IV .Q20H [facility] Last Admin: 05/30/18 20:34 Dose: 1,000 mls Vancomycin HCl 1 gm/ Device 200 mls @ 200 mls/hr IVPB Q12HR [facility] Last Admin: 05/31/18 11:03 Dose: 200 mls Cefepime HCl 1 gm/ Sodium (Chloride) 100 mls @ 200 mls/hr IVPB 0100,1300 [facility] Last Admin: 05/31/18 12:39 Dose: Not Given Iron/Minerals/Multivitamins (Theragran M) 1 tab PO DAILY [facility] Last Admin: 05/31/18 10:57 Dose: 1 tab Lamotrigine (Lamictal) 100 mg PO BID [facility] Last Admin: 05/31/18 10:54 Dose: 100 mg Losartan Potassium (Cozaar) 12.5 mg PO DAILY [facility] Last Admin: 05/31/18 10:55 Dose: 12.5 mg Ondansetron HCl (Zofran) 4 mg IVP Q6H PRN PRN Reason: Nausea/Vomiting Oxybutynin Chloride (Ditropan Xl) 10 mg PO DAILY [facility] Last Admin: 05/31/18 11:01 Dose: 10 mg Senna (Senokot) 2 tab PO HSPRN PRN PRN Reason: Constipation
[2018-05-31] MEDS: Sodium Chloride 0.9% 1,000 ML IV SCH (13:20)
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
[2018-06-01] MEDS: Cefepime 1 GM in Sodium Chloride 0.9% 100 ML IVPB SCH ×2 (00:14→12:03)
[2018-06-01] MEDS: cloNIDine 0.1 MG TAB PO PRN (00:21)
[2018-06-01] MEDS: Sodium Chloride 0.9% 1,000 ML IV SCH (03:47)
--- NOTE | 2018-06-01 08:12 | PDOC.CTH ---
<Lety [place] - Last Filed: 06/01/18 08:09> Cardiology Progress Note - Subjective The pt seen and examined. No overnight events. No cardiac complaints. No blurry vision or headache with HTN this AM. - Objective Vital Signs Temp Pulse Resp BP BP Pulse Ox 06/01/18 07:39 97.9 F 75 18 191/54 H 91 L 06/01/18 00:21 181/54 H Weight 5.298 oz 05/31/18 06/01/18 06/02/18 06:59 06:59 06:59 Intake Total 520 970 Output Total 600 Balance -80 970 - Physical Examination General/Neuro: alert & oriented x3 Lungs: CTA Heart: RRR Abdomen: soft Extremities: other: (No edema) - Labs Result Diagrams: 05/31/18 03:54 05/31/18 03:54 Troponin/CKMB CK-MB (CK-2) 1.4 ng/mL (0-6.6) 05/30/18 16:07 Troponin I 0.401 ng/mL (< 0.028) H* 05/31/18 03:54 - Assessment/Plan 1. Aute on chronic diastolic HF - stable with RA; no edema or ABD bloating; on BBlocker, ARB. 2. HTN - not well controlled with Losartan 50mg qd, Norvasc 10mg qd, Clonidine 0.1mg TID, and Coreg 3.125mg which increased to 6.25mg BID. Cont. to monitor 3. Sepsis 2/2 UTI - on IV antibiotics; managed by PCP 4. Hx of ascending and descending aaortic aneurysm repair - 5. Hyperlipidemia - on Lipitor 6. Hx of DVT - Venogram on 05/31/18 showed negative 7. SZ - managed by PCP 8. Anemia - cont. to monitor 9. RUSSELL - No changed; 10. Dementia - stable MAR reviewed * Echo on 05/31/18 showed EF 60-65%, diastolic dysfunction, mod dilated LA, mod MR, mod AR, mild TR, mild ID. . Review of Systems - Review of Systems Constitutional: reports: no symptoms reported EENTM: reports: no symptoms reported Respiratory: reports: no symptoms reported Cardiac (ROS): reports: no symptoms reported ABD/GI: reports: no symptoms reported : reports: no symptoms reported Musculoskeletal: reports: no symptoms reported Skin: reports: no symptoms reported <Cy Garcia - Last Filed: 06/01/18 11:47> Cardiology Progress Note - Objective Vital Signs Temp Pulse Resp BP BP Pulse Ox 06/01/18 08:41 75 06/01/18 08:40 181/54 H 06/01/18 07:39 97.9 F 75 18 191/54 H 91 L 06/01/18 00:21 181/54 H Weight 5.298 oz 05/31/18 06/01/18 06/02/18 06:59 06:59 06:59 Intake Total 520 970 Output Total 600 Balance -80 970 - Labs Result Diagrams: 05/31/18 03:54 05/31/18 03:54 Troponin/CKMB CK-MB (CK-2) 1.4 ng/mL (0-6.6) 05/30/18 16:07 Troponin I 0.401 ng/mL (< 0.028) H* 05/31/18 03:54 - Assessment/Plan Pt. seen and eval. by me. I agree with the A/P by the CABLE RIGGER. She can follow up with me in the office in 2-4 weeks.
[2018-06-01] MEDS: Enoxaparin Sodium 40 MG/0.4 ML SYRINGE SC SCH (08:39)
[2018-06-01] MEDS: Clopidogrel Bisulfate 75 MG TAB PO SCH (08:40)
[2018-06-01] MEDS: cloNIDine 0.1 MG TAB PO SCH ×3 (08:40→21:54)
[2018-06-01] MEDS: clonazePAM 0.5 MG TAB PO SCH (08:41)
[2018-06-01] MEDS: Famotidine 20 MG TAB PO SCH ×2 (08:41→22:00)
[2018-06-01] MEDS: Multivitamin W/ Minerals 1 TAB PO SCH (08:41)
[2018-06-01] MEDS: Atorvastatin Calcium 20 MG TAB PO SCH (08:41)
[2018-06-01] MEDS: Amlodipine 10 MG TAB PO SCH (08:41)
[2018-06-01] MEDS: lamoTRIgine 100 MG TAB PO SCH ×2 (08:41→21:55)
[2018-06-01] MEDS: carBAMazepine 200 MG TAB PO SCH ×2 (08:41→21:55)
[2018-06-01] MEDS: Docusate Calcium (SURFAK) 240 MG CAP PO SCH (08:42)
[2018-06-01] MEDS ORDERED: Non-Formulary Item 1 EACH (Losartan Potassium [Losartan Potassium] 50 MG) PO SCH (09:00)
[2018-06-01] MEDS: Carvedilol 6.25 MG TAB PO SCH ×2 (10:41→15:49)
[2018-06-01] MEDS: Losartan 25 MG TAB PO SCH (10:41)
[2018-06-01] MEDS: Oxybutynin ER 5 MG TAB PO SCH (10:41)
--- NOTE | 2018-06-01 10:44 | PRG ---
DATE OF SERVICE: 06/01/2018 SUBJECTIVE: The patient is doing well. She has no complaints. PHYSICAL EXAMINATION: VITAL SIGNS: On exam, temperature is , respirations 18, O2 sat 91% on room air, blood pressure 191/54. HEENT: Unremarkable. NECK: No JVD. CHEST: Clear without wheezing or rhonchi. CARDIAC: S1 and S2, regular. ABDOMEN: Soft. EXTREMITIES: No edema. Her cultures are growing gram-negative rods from the urine. She has gram-positive rods in one of her blood cultures. No further lab testing was done today. ASSESSMENT: 1. Sepsis syndrome. 2. Dehydration. PLAN: She is continuing antibiotics and we will await final culture results. She is continuing hydr ation. She seems to be close to baseline. Depending on the culture results, she could probably be d ischarged on oral antibiotics.
--- NOTE | 2018-06-01 12:25 | PDOC.PN ---
- Subjective Encounter Start Date: 06/01/18 Encounter Start Time: 10:20 Subjective: awake, no sob or palp -: eating better - Objective Resuscitation Status: Resuscitation Status DNR:Do Not Resuscitate MAR Reviewed: Yes Vital Signs & Weight: Vital Signs (12 hours) Temp Pulse Resp BP BP Pulse Ox 06/01/18 12:07 97.9 F 74 18 123/47 L 97 06/01/18 08:41 75 06/01/18 08:40 181/54 H 06/01/18 07:39 97.9 F 75 18 191/54 H 91 L Weight Weight 5.298 oz I&O: 05/31/18 06/01/18 06/02/18 06:59 06:59 06:59 Intake Total 520 970 Output Total 600 Balance -80 970 Result Diagrams: 05/31/18 03:54 05/31/18 03:54 Phys Exam - Physical Examination HEENT: PERRLA, moist MMs Neck: no JVD, supple Respiratory: no wheezing, no rales Cardiovascular: RRR, no significant murmur Gastrointestinal: soft, non-tender, positive bowel sounds Musculoskeletal: no edema, pulses present Neurological: non-focal, moves all 4 limbs not fully oriented, responds to verbal questions Dx/Plan (1) Sepsis Code(s): A41.9 - SEPSIS, UNSPECIFIED ORGANISM Status: Acute Qualifiers: Sepsis type: sepsis due to unspecified organism Qualified Code(s): A41.9 - Sepsis, unspecified organism (2) Acute encephalopathy Code(s): G93.40 - ENCEPHALOPATHY, UNSPECIFIED Status: Acute (3) UTI (urinary tract infection) Status: Suspected Qualifiers: Urinary tract infection type: acute cystitis Hematuria presence: without hematuria Qualified Code(s): N30.00 - Acute cystitis without hematuria (4) Seizure Code(s): R56.9 - UNSPECIFIED CONVULSIONS Status: Acute Comment: h/o seizure disorder with 1 episode of grandmal in ER (5) Demand ischemia of myocardium Code(s): I24.8 - OTHER FORMS OF ACUTE ISCHEMIC HEART DISEASE Status: Acute (6) Acute exacerbation of CHF (congestive heart failure) Code(s): I50.9 - HEART FAILURE, UNSPECIFIED Status: Chronic Qualifiers: Heart failure type: diastolic Qualified Code(s): I50.33 - Acute on chronic diastolic (congestive) heart failure (7) Dementia Code(s): F03.90 - UNSPECIFIED DEMENTIA WITHOUT BEHAVIORAL DISTURBANCE Status: Chronic Qualifiers: Dementia type: unspecified type Dementia behavioral disturbance: without behavioral disturbance Qualified Code(s): F03.90 - Unspecified dementia without behavioral disturbance (8) Physical deconditioning Code(s): R53.81 - OTHER MALAISE Status: Acute - Plan await full cultures, gm -ve jenn in urine, gm +ve in blood /2 -: is on cefepime and will continue vanc until blood cs results -: continue lamictal and tegretol, no further seizures after hospitalization -: on coreg, cozaar, norvasc, clonidine, asp, lipitor & plavix -: d/w daughter over phone, will dc klonopin due to sedation/lethargy * . Review of Systems - Medications/Allergies Allergies/Adverse Reactions: Allergies Allergy/AdvReac Type Severity Reaction Status Date / Time No Known Allergies Allergy Verified 01/12/18 15:11 Medications: Current Medications Acetaminophen (Tylenol) 650 mg PO Q4H PRN PRN Reason: Headache/Fever or Pain Amlodipine Besylate (Norvasc) 10 mg PO DAILY [facility] Last Admin: 06/01/18 08:41 Dose: 10 mg Aspirin (Aspirin Chewable) 81 mg PO DAILY [facility] Last Admin: 06/01/18 08:40 Dose: 81 mg Atorvastatin Calcium (Lipitor) 20 mg PO DAILY [facility] Last Admin: 06/01/18 08:41 Dose: 20 mg Carbamazepine (Tegretol) 300 mg PO BID [facility] Last Admin: 06/01/18 08:41 Dose: 300 mg Carvedilol (Coreg) 6.25 mg PO BID-[facility] Last Admin: 06/01/18 10:41 Dose: Not Given Clonidine (Catapres) 0.1 mg PO Q4H PRN PRN Reason: HTN Last Admin: 06/01/18 00:21 Dose: 0.1 mg Clonidine (Catapres) 0.1 mg PO TID [facility] Last Admin: 06/01/18 08:40 Dose: 0.1 mg Clopidogrel Bisulfate (Plavix) 75 mg PO DAILY [facility] Last Admin: 06/01/18 08:40 Dose: 75 mg Docusate Calcium (Surfak) 240 mg PO DAILY [facility] Last Admin: 06/01/18 08:42 Dose: Not Given Enoxaparin Sodium (Lovenox) 40 mg SC 0900 [facility] Last Admin: 06/01/18 08:39 Dose: 40 mg Famotidine (Pepcid) 20 mg PO BID [facility] Last Admin: 06/01/18 08:41 Dose: 20 mg Guaifenesin/Dextromethorphan (Robitussin Dm) 15 ml PO Q4H PRN PRN Reason: Cough Sodium Chloride (Normal Saline 0.9%) 1,000 mls @ 50 mls/hr IV .Q20H [facility] Last Admin: 06/01/18 03:47 Dose: 1,000 mls Cefepime HCl 1 gm/ Sodium (Chloride) 100 mls @ 200 mls/hr IVPB 0100,1300 [facility] Last Admin: 06/01/18 12:03 Dose: 100 mls Iron/Minerals/Multivitamins (Theragran M) 1 tab PO DAILY [facility] Last Admin: 06/01/18 08:41 Dose: 1 tab Lamotrigine (Lamictal) 100 mg PO BID [facility] Last Admin: 06/01/18 08:41 Dose: 100 mg Losartan Potassium (Cozaar) 50 mg PO DAILY [facility] Last Admin: 06/01/18 10:41 Dose: Not Given Ondansetron HCl (Zofran) 4 mg IVP Q6H PRN PRN Reason: Nausea/Vomiting Oxybutynin Chloride (Ditropan Xl) 10 mg PO DAILY [facility] Last Admin: 06/01/18 10:41 Dose: Not Given Senna (Senokot) 2 tab PO HSPRN PRN PRN Reason: Constipation Sodium Chloride (Flush - Normal Saline) 10 ml IVF Q12HR [facility] Last Admin: 06/01/18 08:43 Dose: Not Given Sodium Chloride (Flush - Normal Saline) 10 ml IVF PRN PRN PRN Reason: Saline Flush
--- NOTE | 2018-06-01 12:49 | PQF ---
DATE: 06-01-18 ATTN: DR. CARMENZA NOGUEIRA Please exercise your independent, professional judgment in responding to the clarification form. Clinical indicators are provided on the bottom of this form for your review Please check appropriate box(s): [ x ] Encephalopathy: Etiology: [ ] Hypertensive [ x ] Metabolic [ ] Toxic [ ] Septic [ ] Unspecified _ [ ] Other (please specify) [ ] Other diagnosis [ ] Unable to determine In addition, please specify: Present on Admission (POA): [ x ] Yes [ ] No [ ] Unable to determine For continuity of documentation, please document condition throughout progress notes and discharge summary. Thank You. CLINICAL INDICATORS - SIGNS / SYMPTOMS / LABS ER: CONFUSION H&P: SHE BECAME VERY LETHARGIC AND BARELY WAS RESPONDING TO HER DAUGHTER PN DR. GARRISON 05-31-18: ACUTE ENCEPHALOPATHY, SEPSIS RISK FACTORS: H&P: SEPSIS, UTI, POSSIBLE LEFT LUNG PNEUMONIA, RUSSELL, DEMAND ISCHEMIA, CHF TREATMENTS:H&P: IVF, CEFTRIAXONE, VANCOMYCIN (This form is maintained as a part of the permanent medical record) 2014 [employer] All Rights Reserved KEVIN [email or web address] Office: [phone] [facility]
--- NOTE | 2018-06-01 20:21 | PDOC.EVN ---
Event Note - Event Note Event Note: RN called - Pt fell without significant injuries - unwitnessed. Some brusing on knees per RN. No new AMS. Will add Neurochecks and AM labs.
[2018-06-02] MEDS: Cefepime 1 GM in Sodium Chloride 0.9% 100 ML IVPB SCH (00:02)
[2018-06-02 05:38] LABS: Anion Gap 11 mmol/L (10-20); BUN (Urea Nitrogen) 17 mg/dL (9.8-20.1); Calc. Creatinine Clearance 0 mL/min (70-130); Calcium 9.2 mg/dL (7.8-10.44); Carbon Dioxide 26 mmol/L (23-31); Chloride 103 mmol/L (98-107); Estimated GFR-MDRD 46; Glucose 101 mg/dL (83-110); Potassium 4.2 mmol/L (3.5-5.1); Sodium 136 mmol/L (136-145)
[2018-06-02 05:41] LABS: #Eosinphils 0.2 thou/uL (0.0-0.7); #Lymphocytes 1.5 thou/uL (1.20-3.40); #Neutrophils 7.1 thou/uL (1.40-6.50); %Basophils 0.5 % (0.0-1.0); %Eosinophils 1.8 % (0.0-10.0); %Monocytes 9.9 % (0.0-10.0); %Neutrophils 72.8 % (42.0-75.0); Hemoglobin 10.4 g/dL (12.0-16.0); Mean Corpuscular HGB CONC 31.4 g/dL (32.0-36.0); Mean Corpuscular Hemoglobin 30.7 pg (27.0-31.0); Mean Corpuscular Volume 97.7 fL (78.0-98.0); Mean Platelet Volume 7.5 fL (7.4-10.4); Platelet Count 351 thou/uL (130-400); RBC Distribution Width 12.6 % (11.5-14.5); Red Blood Cell (RBC) Count 3.37 mill/uL (4.20-5.40); White Blood Cell (WBC) Count 9.7 thou/uL (4.8-10.8)
--- NOTE | 2018-06-02 07:53 | PRG ---
DATE OF SERVICE: 06/02/2018 The patient fell yesterday, had no injuries. She seems to be doing well this morning, has no complai nts. She was to leave the hospital. PHYSICAL EXAMINATION: VITAL SIGNS: Temperature is 98.2, pulse 86, respirations 20, O2 sat 93%, blood pressure 170/67. HEENT: Unremarkable. NECK: No JVD. CHEST: Clear without wheezing or rhonchi. CARDIAC: S1 and S2 regular. ABDOMEN: Soft. EXTREMITIES: No edema. LABORATORY DATA: White blood cell count 9.7, hematocrit 32.9, platelet count 351. Sodium 136, potas sium 4.2, chloride 103, CO2 26, BUN 17, creatinine 1.1, glucose 101. ASSESSMENT: The patient presented with dehydration, which could have been from low grade sepsis. Sh e appears to have improved. Klebsiella is growing out of her urine and she is on appropriate therapy for that. RECOMMENDATION: Switch to oral antibiotics. I see no hindrance to discharge. There are no active p ulmonary problems so our service will sign off. Please recall if further assistance needed.
[2018-06-02] MEDS: carBAMazepine 200 MG TAB PO SCH ×2 (08:17→20:48)
[2018-06-02] MEDS: Docusate Calcium (SURFAK) 240 MG CAP PO SCH (08:18)
[2018-06-02] MEDS: Amlodipine 10 MG TAB PO SCH (08:18)
[2018-06-02] MEDS: Carvedilol 6.25 MG TAB PO SCH ×2 (08:18→16:39)
[2018-06-02] MEDS: Clopidogrel Bisulfate 75 MG TAB PO SCH (08:18)
[2018-06-02] MEDS: Losartan 25 MG TAB PO SCH (08:19)
[2018-06-02] MEDS: Multivitamin W/ Minerals 1 TAB PO SCH (08:19)
[2018-06-02] MEDS: Atorvastatin Calcium 20 MG TAB PO SCH (08:19)
[2018-06-02] MEDS: lamoTRIgine 100 MG TAB PO SCH ×2 (08:19→20:50)
[2018-06-02] MEDS: cloNIDine 0.1 MG TAB PO SCH ×3 (08:19→20:50)
[2018-06-02] MEDS: Famotidine 20 MG TAB PO SCH ×2 (08:19→20:50)
[2018-06-02] MEDS: Enoxaparin Sodium 40 MG/0.4 ML SYRINGE SC SCH (08:20)
--- NOTE | 2018-06-02 10:11 | RAD ---
RIGHT KNEE FOUR VIEWS: History: Fall, evaluate for fracture. Comparison: None. FINDINGS: There is no acute displaced fracture or malalignment. Advanced degenerative changes of all three comp artments with large osteophytes in the medial and lateral compartments and narrowing of the patellofe moral compartment. Mild anterior soft tissue swelling. IMPRESSION: No acute displaced fracture. POS: [facility]
[2018-06-02] MEDS: Oxybutynin ER 5 MG TAB PO SCH (10:12)
--- NOTE | 2018-06-02 10:26 | RAD ---
AP PELVIS: History: Fall. Evaluate for fracture. FINDINGS: AP pelvis obtained and demonstrates the pelvis to be unremarkable. No evidence of pelvic fracture, ordaz bluxations, or bony lesions seen. Incidentally noted inferior vena cava filter is inplace. IMPRESSION: Unremarkable AP view pelvis. POS: [facility]
--- NOTE | 2018-06-02 11:08 | RAD ---
LEFT KNEE FOUR VIEWS: History: Fall. Left knee pain. FINDINGS/IMPRESSION: No acute fracture or dislocation is identified. Bones are osteopenic. Mild degenerative changes are s een. POS: [facility]
--- NOTE | 2018-06-02 12:20 | PDOC.PN ---
- Subjective Encounter Start Date: 06/02/18 Encounter Start Time: 07:00 Subjective: awake, feels better, wants to go home -: moves all extremities, no pain - Objective Resuscitation Status: Resuscitation Status DNR:Do Not Resuscitate MAR Reviewed: Yes Vital Signs & Weight: Vital Signs (12 hours) Temp Pulse Resp BP BP Pulse Ox 06/02/18 11:18 97.8 F 68 18 165/67 H 95 06/02/18 08:19 178/67 H 06/02/18 08:18 86 178/67 H 06/02/18 08:00 93 L 06/02/18 07:00 98.2 F 86 20 178/67 H 93 L Weight Weight 146 lb 14.4 oz I&O: 06/01/18 06/02/18 06/03/18 06:59 06:59 06:59 Intake Total 970 Balance 970 Result Diagrams: 06/02/18 04:36 06/02/18 04:36 Additional Labs: Accuchecks 06/01/18 20:29 POC Glucose 134 H Phys Exam - Physical Examination HEENT: PERRLA, moist MMs Neck: no JVD, supple Respiratory: no wheezing, no rales Cardiovascular: RRR, no significant murmur Gastrointestinal: soft, non-tender, positive bowel sounds Musculoskeletal: no edema, pulses present Neurological: non-focal, moves all 4 limbs Psychiatric: A&O x 3 Dx/Plan (1) Sepsis Code(s): A41.9 - SEPSIS, UNSPECIFIED ORGANISM Status: Resolved Qualifiers: Sepsis type: sepsis due to unspecified organism Qualified Code(s): A41.9 - Sepsis, unspecified organism (2) Acute encephalopathy Code(s): G93.40 - ENCEPHALOPATHY, UNSPECIFIED Status: Resolved (3) UTI (urinary tract infection) Status: Acute Qualifiers: Urinary tract infection type: acute cystitis Hematuria presence: without hematuria Qualified Code(s): N30.00 - Acute cystitis without hematuria (4) Seizure Code(s): R56.9 - UNSPECIFIED CONVULSIONS Status: Acute Comment: h/o seizure disorder with 1 episode of grandmal in ER (5) Demand ischemia of myocardium Code(s): I24.8 - OTHER FORMS OF ACUTE ISCHEMIC HEART DISEASE Status: Acute (6) Acute exacerbation of CHF (congestive heart failure) Code(s): I50.9 - HEART FAILURE, UNSPECIFIED Status: Chronic Qualifiers: Heart failure type: diastolic Qualified Code(s): I50.33 - Acute on chronic diastolic (congestive) heart failure (7) Dementia Code(s): F03.90 - UNSPECIFIED DEMENTIA WITHOUT BEHAVIORAL DISTURBANCE Status: Chronic Qualifiers: Dementia type: unspecified type Dementia behavioral disturbance: without behavioral disturbance Qualified Code(s): F03.90 - Unspecified dementia without behavioral disturbance (8) Physical deconditioning Code(s): R53.81 - OTHER MALAISE Status: Acute - Plan hemostable -: d/w daughter over phone -: plan is to go back to asst living with HH -: to continue levaquin x6 days then amox suppressive Rx -: dc pt back to her asst living facility * .
[2018-06-03] MEDS: Losartan 25 MG TAB PO SCH (09:34)
[2018-06-03] MEDS: lamoTRIgine 100 MG TAB PO SCH ×2 (09:34→20:05)
[2018-06-03] MEDS: cloNIDine 0.1 MG TAB PO SCH ×3 (09:35→20:05)
[2018-06-03] MEDS: carBAMazepine 200 MG TAB PO SCH ×2 (09:36→20:04)
[2018-06-03] MEDS: Multivitamin W/ Minerals 1 TAB PO SCH (09:36)
[2018-06-03] MEDS: Oxybutynin ER 5 MG TAB PO SCH (09:38)
[2018-06-03] MEDS: Carvedilol 6.25 MG TAB PO SCH ×2 (09:38→16:31)
[2018-06-03] MEDS: Atorvastatin Calcium 20 MG TAB PO SCH (09:38)
[2018-06-03] MEDS: Famotidine 20 MG TAB PO SCH ×2 (09:39→20:05)
[2018-06-03] MEDS: Amlodipine 10 MG TAB PO SCH (09:39)
[2018-06-03] MEDS: Clopidogrel Bisulfate 75 MG TAB PO SCH (09:39)
[2018-06-03] MEDS: Docusate Calcium (SURFAK) 240 MG CAP PO SCH (09:39)
[2018-06-03] MEDS: Enoxaparin Sodium 40 MG/0.4 ML SYRINGE SC SCH (09:40)
--- NOTE | 2018-06-03 13:52 | PDOC.PN ---
- Subjective Encounter Start Date: 06/03/18 Encounter Start Time: 09:45 Subjective: feels better, no complaints -: responds well to verbal stimuli - Objective Resuscitation Status: Resuscitation Status DNR:Do Not Resuscitate MAR Reviewed: Yes Vital Signs & Weight: Vital Signs (12 hours) Temp Pulse Resp BP BP Pulse Ox 06/03/18 11:10 97.7 F 65 14 160/56 H 97 06/03/18 09:39 79 168/55 H 06/03/18 09:38 168/55 H 06/03/18 09:35 168/55 H 06/03/18 08:00 91 L 06/03/18 07:44 97.6 F 79 14 168/55 H 91 L Weight Weight 149 lb 14.4 oz I&O: 06/02/18 06/03/18 06/04/18 06:59 06:59 06:59 Intake Total 720 Balance 720 Result Diagrams: 06/02/18 04:36 06/02/18 04:36 Phys Exam - Physical Examination HEENT: PERRLA, moist MMs Neck: no JVD, supple Respiratory: no wheezing, no rales Cardiovascular: RRR, no significant murmur Gastrointestinal: soft, non-tender, positive bowel sounds Musculoskeletal: no edema, pulses present Neurological: non-focal, moves all 4 limbs Dx/Plan (1) Sepsis Code(s): A41.9 - SEPSIS, UNSPECIFIED ORGANISM Status: Resolved Qualifiers: Sepsis type: sepsis due to unspecified organism Qualified Code(s): A41.9 - Sepsis, unspecified organism (2) Acute encephalopathy Code(s): G93.40 - ENCEPHALOPATHY, UNSPECIFIED Status: Resolved (3) UTI (urinary tract infection) Status: Acute Qualifiers: Urinary tract infection type: acute cystitis Hematuria presence: without hematuria Qualified Code(s): N30.00 - Acute cystitis without hematuria (4) Seizure Code(s): R56.9 - UNSPECIFIED CONVULSIONS Status: Acute Comment: h/o seizure disorder with 1 episode of grandmal in ER (5) Demand ischemia of myocardium Code(s): I24.8 - OTHER FORMS OF ACUTE ISCHEMIC HEART DISEASE Status: Acute (6) Acute exacerbation of CHF (congestive heart failure) Code(s): I50.9 - HEART FAILURE, UNSPECIFIED Status: Chronic Qualifiers: Heart failure type: diastolic Qualified Code(s): I50.33 - Acute on chronic diastolic (congestive) heart failure (7) Dementia Code(s): F03.90 - UNSPECIFIED DEMENTIA WITHOUT BEHAVIORAL DISTURBANCE Status: Chronic Qualifiers: Dementia type: unspecified type Dementia behavioral disturbance: without behavioral disturbance Qualified Code(s): F03.90 - Unspecified dementia without behavioral disturbance (8) Physical deconditioning Code(s): R53.81 - OTHER MALAISE Status: Acute - Plan hemostable -: is on levaquin for uti -: continue lamictal and tegretol for sz -: asp, coreg, cozaar, norvasc and lipitor -: may dc anytime to rehab if accepted * . Review of Systems - Medications/Allergies Allergies/Adverse Reactions: Allergies Allergy/AdvReac Type Severity Reaction Status Date / Time No Known Allergies Allergy Verified 01/12/18 15:11 Medications: Current Medications Acetaminophen (Tylenol) 650 mg PO Q4H PRN PRN Reason: Headache/Fever or Pain Amlodipine Besylate (Norvasc) 10 mg PO DAILY [facility] Last Admin: 06/03/18 09:39 Dose: 10 mg Aspirin (Aspirin Chewable) 81 mg PO DAILY [facility] Last Admin: 06/03/18 09:38 Dose: 81 mg Atorvastatin Calcium (Lipitor) 20 mg PO DAILY [facility] Last Admin: 06/03/18 09:38 Dose: 20 mg Carbamazepine (Tegretol) 300 mg PO BID [facility] Last Admin: 06/03/18 09:36 Dose: 300 mg Carvedilol (Coreg) 6.25 mg PO BID-[facility] Last Admin: 06/03/18 09:38 Dose: 6.25 mg Clonidine (Catapres) 0.1 mg PO Q4H PRN PRN Reason: HTN Last Admin: 06/01/18 00:21 Dose: 0.1 mg Clonidine (Catapres) 0.1 mg PO TID [facility] Last Admin: 06/03/18 09:35 Dose: 0.1 mg Clopidogrel Bisulfate (Plavix) 75 mg PO DAILY [facility] Last Admin: 06/03/18 09:39 Dose: 75 mg Docusate Calcium (Surfak) 240 mg PO DAILY [facility] Last Admin: 06/03/18 09:39 Dose: 240 mg Enoxaparin Sodium (Lovenox) 40 mg SC 0900 [facility] Last Admin: 06/03/18 09:40 Dose: 40 mg Famotidine (Pepcid) 20 mg PO BID [facility] Last Admin: 06/03/18 09:39 Dose: 20 mg Guaifenesin/Dextromethorphan (Robitussin Dm) 15 ml PO Q4H PRN PRN Reason: Cough Iron/Minerals/Multivitamins (Theragran M) 1 tab PO DAILY [facility] Last Admin: 06/03/18 09:36 Dose: 1 tab Lamotrigine (Lamictal) 100 mg PO BID [facility] Last Admin: 06/03/18 09:34 Dose: 100 mg Levofloxacin (Levaquin) 500 mg PO 0600 [facility] Last Admin: 06/03/18 05:46 Dose: 500 mg Losartan Potassium (Cozaar) 50 mg PO DAILY [facility] Last Admin: 06/03/18 09:34 Dose: 50 mg Ondansetron HCl (Zofran) 4 mg IVP Q6H PRN PRN Reason: Nausea/Vomiting Oxybutynin Chloride (Ditropan Xl) 10 mg PO DAILY [facility] Last Admin: 06/03/18 09:38 Dose: 10 mg Senna (Senokot) 2 tab PO HSPRN PRN PRN Reason: Constipation Sodium Chloride (Flush - Normal Saline) 10 ml IVF Q12HR [facility] Last Admin: 06/03/18 09:40 Dose: 10 ml Sodium Chloride (Flush - Normal Saline) 10 ml IVF PRN PRN PRN Reason: Saline Flush
[2018-06-04] MEDS: Multivitamin W/ Minerals 1 TAB PO SCH (07:54)
[2018-06-04] MEDS: lamoTRIgine 100 MG TAB PO SCH (07:55)
[2018-06-04] MEDS: Losartan 25 MG TAB PO SCH (07:55)
[2018-06-04] MEDS: carBAMazepine 200 MG TAB PO SCH (07:55)
[2018-06-04] MEDS: Amlodipine 10 MG TAB PO SCH (07:56)
[2018-06-04] MEDS: Clopidogrel Bisulfate 75 MG TAB PO SCH (07:56)
[2018-06-04] MEDS: Carvedilol 6.25 MG TAB PO SCH ×2 (07:56→16:41)
[2018-06-04] MEDS: cloNIDine 0.1 MG TAB PO SCH ×2 (07:57→16:40)
[2018-06-04] MEDS: Famotidine 20 MG TAB PO SCH (07:57)
[2018-06-04] MEDS: Atorvastatin Calcium 20 MG TAB PO SCH (07:57)
[2018-06-04] MEDS: Enoxaparin Sodium 40 MG/0.4 ML SYRINGE SC SCH (07:58)
[2018-06-04] MEDS: Docusate Calcium (SURFAK) 240 MG CAP PO SCH (08:05)
[2018-06-04] MEDS: Oxybutynin ER 5 MG TAB PO SCH (08:05)
[2018-06-04] MEDS ORDERED: Ondansetron ODT 4 MG TAB PO PRN (11:35)
[2018-06-04] MEDS: cloNIDine 0.1 MG TAB PO PRN (12:07)
--- NOTE | 2018-06-04 12:47 | PDOC.PN ---
- Subjective Encounter Start Date: 06/04/18 Encounter Start Time: 08:45 Subjective: feels better, no complaints -: ate her breakfast - Objective Resuscitation Status: Resuscitation Status DNR:Do Not Resuscitate MAR Reviewed: Yes Vital Signs & Weight: Vital Signs (12 hours) Temp Pulse Resp BP BP Pulse Ox 06/04/18 12:07 182/68 H 06/04/18 12:02 98 F 65 20 182/68 H 96 06/04/18 08:00 98.2 F 78 18 172/53 H 92 L 06/04/18 07:57 172/53 H 06/04/18 07:56 78 172/53 H 06/04/18 07:51 92 L Weight Weight 151 lb I&O: 06/03/18 06/04/18 06/05/18 06:59 06:59 06:59 Intake Total 720 800 Balance 720 800 Result Diagrams: 06/02/18 04:36 06/02/18 04:36 Phys Exam - Physical Examination HEENT: PERRLA, moist MMs Neck: no JVD, supple Respiratory: no wheezing, no rales Cardiovascular: RRR, no significant murmur Gastrointestinal: soft, non-tender, positive bowel sounds Musculoskeletal: no edema, pulses present Neurological: non-focal, moves all 4 limbs Dx/Plan (1) Sepsis Code(s): A41.9 - SEPSIS, UNSPECIFIED ORGANISM Status: Resolved Qualifiers: Sepsis type: sepsis due to unspecified organism Qualified Code(s): A41.9 - Sepsis, unspecified organism (2) Acute encephalopathy Code(s): G93.40 - ENCEPHALOPATHY, UNSPECIFIED Status: Resolved (3) UTI (urinary tract infection) Status: Acute Qualifiers: Urinary tract infection type: acute cystitis Hematuria presence: without hematuria Qualified Code(s): N30.00 - Acute cystitis without hematuria (4) Seizure Code(s): R56.9 - UNSPECIFIED CONVULSIONS Status: Acute Comment: h/o seizure disorder with 1 episode of grandmal in ER (5) Demand ischemia of myocardium Code(s): I24.8 - OTHER FORMS OF ACUTE ISCHEMIC HEART DISEASE Status: Acute (6) Acute exacerbation of CHF (congestive heart failure) Code(s): I50.9 - HEART FAILURE, UNSPECIFIED Status: Chronic Qualifiers: Heart failure type: diastolic Qualified Code(s): I50.33 - Acute on chronic diastolic (congestive) heart failure (7) Dementia Code(s): F03.90 - UNSPECIFIED DEMENTIA WITHOUT BEHAVIORAL DISTURBANCE Status: Chronic Qualifiers: Dementia type: unspecified type Dementia behavioral disturbance: without behavioral disturbance Qualified Code(s): F03.90 - Unspecified dementia without behavioral disturbance (8) Physical deconditioning Code(s): R53.81 - OTHER MALAISE Status: Acute - Plan is going to inpt rehab today -: may dc when ready -: to continue levaquin x 5 days then amox thereafter for suppresion (uti) -: hemostable * .
[2018-06-04] MEDS ORDERED: Mag-Al 1200 mg/1200 mg/30 ML UDCUP PO SCH (15:30)
[2018-06-04 15:52] VITALS: TEMP 97.8
[2018-06-04 17:01] VITALS: BP 158/70
--- NOTE | 2018-06-05 23:10 | DIS ---
DATE OF ADMISSION: 05/30/2018 DATE OF DISCHARGE: 06/04/2018 DISCHARGE DISPOSITION: To inpatient rehabilitation. PRIMARY DISCHARGE DIAGNOSES: Sepsis; urinary tract infection; acute encephalopathy on arrival, resol kolby; underlying dementia; demand ischemia; seizure disorder with one episode of grand-mal seizure on arrival; acute exacerbation of congestive heart failure with diastolic dysfunction, resolved; decondi tioning. PROCEDURES DONE DURING HOSPITALIZATION: Patient has had echo with 2D Doppler done which showed EF of 60%-65%. There was restrictive filling pattern, moderate aortic regurgitation. Ultrasound venous D oppler of both lower extremities done showed no evidence of DVT. 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 CT brain, no acute intracranial abnormality. Chest x-ray done showed left lower lo be opacification likely due to atelectasis based on clinical findings. She has had bilateral knee an d pelvic x-ray done on 06/02/2018 after she had a fall in the hospital, which did not reveal any acut e fractures. Urine culture grew Klebsiella pneumoniae more than 100,000, sensitive to quinolones. H ad a white count of 12 with 87% neutrophils. Discharge BUN is 17, creatinine 1.1. Troponin I was in determinate peaking up to 0.40. TSH 0.5. BNP was 1838. DISCHARGE MEDICATIONS: Aspirin 81 mg p.o. daily, carbamazepine 300 mg p.o. twice daily, vitamin D3 o f 2000 units p.o. daily, clonidine 0.1 mg p.o. 3 times daily, Plavix 75 mg p.o. daily, Colace 240 mg p.o. daily, Cozaar 50 mg p.o. daily, mirtazapine 7.5 mg p.o. at bedtime, multivitamin 1 tab once michelle y, oxybutynin extended-release 10 mg daily, Norvasc 10 mg daily, amoxicillin 250 mg p.o. daily for ordaz ppressive regimen, Coreg 12.5 mg p.o. twice daily, Lamictal 100 mg p.o. twice daily. ALLERGIES: No known drug allergies. DISCHARGE PLAN: Patient to follow up with primary care physician in 1 week. BRIEF COURSE DURING HOSPITALIZATION: Patient initially was brought to emergency room from [facility] for progressive weakness for nearly two weeks. She was also not hers elf and was not recognizing her daughter. Patient had fever with chills on arrival. She was essenti ally placed on broad-spectrum antibiotics and gently hydrated. Multiple workups were done as mention ed above. In addition to all of this, patient had grand-mal seizure in the ER on arrival, which has not recurred again. She has known history of chronic seizure disorder and is on Lamictal and Tegreto l, likely the sepsis might have lowered her seizure threshold. Her antibiotics were switched over to Levaquin oral based on cultures. She has taken nearly 6 days of antibiotics and this has been disco ntinued, as patient developed nauseated feeling with gastritis on the day of discharge. She is hemod ynamically stable. She is participating with physical therapy. Per family's suggestion, patient is being discharged to inpatient rehab for further recuperation prior to going back to her [facility]. Please note, patient has underlying dementia, but follows verbal stimuli. A total of 35 minutes was spent on discharge plan. Please see [id number] documentation on [facility] for the day of discharge.
== END 2018-06-04 18:23 | DRG 871 ==
LOC: ERS 15:43 → IMCU/EMU 19:19 → T4-A 05-31 13:14
PROVIDERS: ADMIT Internal Medicine; ATTEND Internal Medicine
DX: A41.9 Sepsis, unspecified organism (principal); J18.9 Pneumonia, unspecified organism; I50.33 Acute on chronic diastolic (congestive) heart failure; G93.41 Metabolic encephalopathy; I24.8 Other forms of acute ischemic heart disease; N17.9 Acute kidney failure, unspecified; N39.0 Urinary tract infection, site not specified; Z86.73 Personal history of transient ischemic attack (TIA), and cerebral infarction without residual deficits; Z86.718 Personal history of other venous thrombosis and embolism; Z79.899 Other long term (current) drug therapy; Z79.02 Long term (current) use of antithrombotics/antiplatelets; Z79.82 Long term (current) use of aspirin; Z79.2 Long term (current) use of antibiotics; Z87.891 Personal history of nicotine dependence; Z66 Do not resuscitate; E86.0 Dehydration; B96.1 Klebsiella pneumoniae [K. pneumoniae] as the cause of diseases classified elsewhere; G40.409 Other generalized epilepsy and epileptic syndromes, not intractable, without status epilepticus; F03.90 Unspecified dementia, unspecified severity, without behavioral disturbance, psychotic disturbance, mood disturbance, and anxiety
CPT/HCPCS: 36415; 36416; 51701; 70450; 71045; 72170; 80048; 80053; 80156; 81003; 81015; 82553; 83605; 83735; 83880; 84443; 84484; 85025; 87040; 87077; 87086; 87186; 90471; 90670; 93306; 93970; 96361; 96365; 96367; 96372; A4216; A4353; G0009; G8978-GP-CK; G8979-GP-CI; G8987-GO-CJ; G8988-GO-CI; J0456; J0692; J0696; J1650; J3370; J7050; Q0162

== ENCOUNTER 2018-10-28 11:42 | Emergency (ER) | payer MEDICARE ==
[2018-10-28 12:19] LABS: Bilirubin Negative (Negative); Blood, Urine Negative (Negative); Clarity CLEAR (Clear); Glucose, Urine (Dipstick) Negative (Negative); Leukocyte Trace (Negative); Nitrite Positive (Negative); Protein, Urine (Dipstick) Negative (Neg-Trace); Specific Gravity, Urine 1.014 (1.002-1.036); Urobilinogen 0.2 mg/dL (0.2-1.0); pH, Urine 5.5 (5.0-9.0)
[2018-10-28 12:30] LABS: Bacteria/HPF 1+ HPF (None Seen); Hyaline Casts/LPF 0-3 HYALINE CAST LPF (0-3 Hyaline); RBC/HPF None Seen HPF (0-3); Squamous Epithelial 0-3 HPF (0-3)
[2018-10-28 12:34] LABS: Hemoglobin 10.1 g/dL (12.0-16.0); Mean Corpuscular HGB CONC 31.9 g/dL (32.0-36.0); Mean Corpuscular Volume 94.1 fL (78.0-98.0); Mean Platelet Volume 6.8 fL (7.4-10.4); Platelet Count 349 thou/uL (130-400); RBC Distribution Width 12.8 % (11.5-14.5); Red Blood Cell (RBC) Count 3.35 mill/uL (4.20-5.40); White Blood Cell (WBC) Count 14.4 thou/uL (4.8-10.8)
--- NOTE | 2018-10-28 12:49 | RAD ---
LEFT HIP TWO VIEWS: History: Patient fell out of wheelchair. FINDINGS: Bones appear demineralized. There are no signs of fracture or dislocation. IMPRESSION: No evidence of fracture. POS: [facility]
--- NOTE | 2018-10-28 12:56 | CT ---
CT BRAIN PERFORMED WITHOUT CONTRAST ENHANCEMENT: History: Patient fell, hit head and face region. Comparison: 05-31-18 FINDINGS: Generalized ventricular and sulcal prominence with decreased attenuation of the periventricular white matter. Right frontal lobe encephalomalacia change seen. No intracerebral hemorrhage or extraaxial f luid collections. Mastoid air cells and visualized sinuses are clear. IMPRESSION: No acute intracranial abnormalities. POS: [facility]
[2018-10-28 12:57] LABS: Band 4 % (5-11); Eosinophils 1 % (0-10); Lymphocytes 7 % (21-51); MDiff Complete? YES; Monocytes 5 % (0-10); Neutrophil 83 % (42-75); Platelet Morphology Comment Appears Adequate
[2018-10-28 13:03] LABS: ALT (SGPT) Less than 7 U/L (8-55); AST (SGOT) 12 U/L (5-34); Albumin 3.6 g/dL (3.4-4.8); Alkaline Phosphatase 49 U/L (40-150); Anion Gap 13 mmol/L (10-20); BUN (Urea Nitrogen) 30 mg/dL (9.8-20.1); Bilirubin, Total 0.5 mg/dL (0.2-1.2); Calc. Creatinine Clearance 0 mL/min (70-130); Calcium 9.2 mg/dL (7.8-10.44); Carbon Dioxide 25 mmol/L (23-31); Chloride 96 mmol/L (98-107); Estimated GFR-MDRD 35; Globulin 3.3 g/dL (2.4-3.5); Glucose 122 mg/dL (83-110); Potassium 4.4 mmol/L (3.5-5.1); Protein, Total 6.9 g/dL (6.0-8.3); Sodium 130 mmol/L (136-145)
--- NOTE | 2018-10-28 13:17 | RAD ---
CHEST 1 VIEW: COMPARISON: 05/30/2018 study. HISTORY: The patient fell out of wheelchair. FINDINGS: Heart size is enlarged. There are postop sternotomy changes. Chronic lung changes are present. The bones appear demineralized. I do not appreciate any acute fracture. IMPRESSION: Cardiomegaly with chronic-appearing lung change. POS: [facility]
[2018-10-28] MEDS ORDERED: cefTRIAXone\\ROCEPHIN 1 GM VIAL ONE (14:48)
[2018-10-28] MEDS ORDERED: Sodium Chloride 0.9% 100 ML ONE (14:48)
--- NOTE | 2018-10-28 15:37 | CT ---
CT OF THE CERVICAL SPINE WITHOUT CONTRAST: Date: 10/28/18 HISTORY: Patient fell out of wheelchair, with head trauma and neck pain. TECHNIQUE: Multiple contiguous axial images were obtained in a CT of the cervical spine without contrast. Sagitt al and coronal reformats were performed. FINDINGS: Mild degenerative changes are seen of the cervical spine. The vertebral bodies and intervertebral dis cs demonstrate normal height and alignment without fracture or subluxation. No prevertebral soft tiss ue swelling is present. The posterior facets are well aligned. Normal alignment of the skull base with the cervical spine is seen. Calcifications are seen in the carotid arteries. The lung apices are unremarkable. IMPRESSION: No evidence of acute osseous abnormality of the cervical spine. POS: [facility]
== END 2018-10-28 18:14 | disposition home or self-care (01) ==
LOC: ERS 11:42
DX: S00.03XA Contusion of scalp, initial encounter (principal); N39.0 Urinary tract infection, site not specified; F41.9 Anxiety disorder, unspecified; G40.909 Epilepsy, unspecified, not intractable, without status epilepticus; K21.9 Gastro-esophageal reflux disease without esophagitis; G47.00 Insomnia, unspecified; I11.0 Hypertensive heart disease with heart failure; I50.9 Heart failure, unspecified; E78.5 Hyperlipidemia, unspecified; Z87.891 Personal history of nicotine dependence; Z86.73 Personal history of transient ischemic attack (TIA), and cerebral infarction without residual deficits; W05.0XXA Fall from non-moving wheelchair, initial encounter
CPT/HCPCS: 36415; 51701; 70450; 71045; 72125; 80053; 80175; 81003; 81015; 83605; 84146; 85025; 87040; 87077; 87086; 87186; 96361; 96365; 96366; A4353; J0696; J7050

== ENCOUNTER 2018-11-07 09:25 | Inpatient (IN) | payer MEDICARE, BC ==
[2018-11-07] MEDS ORDERED: Acetaminophen 325 MG Suppository ONE (09:48)
[2018-11-07 10:11] LABS: #Basophils 0.1 thou/uL (0.0-0.2); #Lymphocytes 1.9 thou/uL (1.20-3.40); #Monocytes 0.8 thou/uL (0.11-0.59); #Neutrophils 11.9 thou/uL (1.40-6.50); %Basophils 0.5 % (0.0-1.0); %Eosinophils 0.3 % (0.0-10.0); %Lymphocytes 13.1 % (21.0-51.0); %Monocytes 5.4 % (0.0-10.0); %Neutrophils 80.8 % (42.0-75.0); Mean Corpuscular HGB CONC 31.6 g/dL (32.0-36.0); Mean Corpuscular Hemoglobin 29.7 pg (27.0-31.0); Mean Platelet Volume 6.8 fL (7.4-10.4); Platelet Count 385 thou/uL (130-400); RBC Distribution Width 12.9 % (11.5-14.5); Red Blood Cell (RBC) Count 3.71 mill/uL (4.20-5.40); White Blood Cell (WBC) Count 14.8 thou/uL (4.8-10.8)
--- NOTE | 2018-11-07 10:18 | RAD ---
SINGLE VIEW OF THE CHEST: COMPARISON: 10/28/2018. HISTORY: Altered mental status. FINDINGS: A single view of the chest shows a normal-size cardiomediastinal silhouette. The patient is status p ost sternotomy. Increased interstitial lung markings are present. There is no evidence of consolida tion, mass, or pleural effusion. IMPRESSION: No evidence of acute cardiopulmonary disease. POS: [facility]
[2018-11-07 10:34] LABS: Carbamazepine-Tegretol 9.6 ug/mL (4.0-12.0)
[2018-11-07 10:37] LABS: ALT (SGPT) 10 U/L (8-55); AST (SGOT) 17 U/L (5-34); Albumin 3.9 g/dL (3.4-4.8); Alkaline Phosphatase 58 U/L (40-150); Anion Gap 16 mmol/L (10-20); BUN (Urea Nitrogen) 22 mg/dL (9.8-20.1); Bilirubin, Total 0.4 mg/dL (0.2-1.2); CK (CPK) 39 U/L (29-168); Calc. Creatinine Clearance 0 mL/min (70-130); Calcium 9.6 mg/dL (7.8-10.44); Carbon Dioxide 22 mmol/L (23-31); Chloride 96 mmol/L (98-107); Estimated GFR-MDRD 46; Globulin 3.8 g/dL (2.4-3.5); Glucose 152 mg/dL (83-110); Lipase 25 U/L (8-78); Potassium 4.3 mmol/L (3.5-5.1); Protein, Total 7.7 g/dL (6.0-8.3); Sodium 130 mmol/L (136-145)
--- NOTE | 2018-11-07 11:10 | CT ---
CT OF THE BRAIN WITHOUT CONTRAST: COMPARISON: 10/28/2018. HISTORY: Fall resulting in laceration to the head. Altered mental status. TECHNIQUE: Multiple contiguous axial images were obtained in a CT of the brain without contrast. FINDINGS: There are scattered hypodensities in the subcortical and periventricular white matter, likely seconda ry to small-vessel ischemic disease. Encephalomalacia is seen in the right frontal lobe. There is n o evidence of hydrocephalus, intracranial hemorrhage, or extraaxial fluid collection. The calvarium and overlying soft tissues are unremarkable. The visualized paranasal sinuses and mast oid air cells are well aerated. A nasal trumpet is visualized. IMPRESSION: No evidence of acute intracranial abnormality. POS: [facility]
[2018-11-07 11:23] LABS: Bilirubin Negative (Negative); Blood, Urine Negative (Negative); Glucose, Urine (Dipstick) Negative (Negative); Leukocyte Negative (Negative); Nitrite Negative (Negative); Protein, Urine (Dipstick) Trace mg/dL (Neg-Trace); Urobilinogen 0.2 mg/dL (0.2-1.0)
[2018-11-07 11:25] LABS: Clarity Clear (Clear)
[2018-11-07 13:11] LABS: Troponin I 0.419 ng/mL (< 0.028)
[2018-11-07] MEDS ORDERED: Lorazepam 2 MG/ML VIAL SLOW IVP PRN (13:13)
[2018-11-07] MEDS ORDERED: Aspirin 300 MG Suppository ONE (13:31)
[2018-11-07] MEDS ORDERED: Acetaminophen 650 MG Suppository PR PRN (14:06)
[2018-11-07] MEDS ORDERED: Ondansetron PF 4 MG/2 ML Vial IVP PRN (14:19)
[2018-11-07] MEDS ORDERED: Ondansetron ODT 4 MG TAB PO PRN (14:19)
[2018-11-07] MEDS ORDERED: cloNIDine 0.1 MG TAB PO PRN (14:22)
[2018-11-07] MEDS ORDERED: hydrALAZINE 20 MG/ML VIAL SLOW IVP PRN (14:23)
[2018-11-07] MEDS ORDERED: Sodium Chloride 0.9% 1,000 ML IV SCH (14:30)
--- NOTE | 2018-11-07 14:55 | CT ---
CT THORAX NONCONTRAST: DATE: 11/07/2018. TIME: 2:32 p.m. HISTORY: A 78-year-old female with fever and hypoxia. COMPARISON: None. FINDINGS: There is extensive atherosclerotic calcification, ectasia, and tortuosity of the entire thoracic aort a. This includes fusiform aneurysmal dilation of the inferior aspect of the descending thoracic aort a to a caliber of 4 cm. No pleural effusion. Mild subsegmental atelectasis around the descending th oracic aorta, and abutting posterior pleural surfaces. Cardiomegaly with 4-chamber dilation. No per icardial effusion. Haziness in the dependent portions of the bilateral lower lobes, but no consolida tion. No pneumothorax. There are nonspecific multiple mildly enlarged mediastinal lymph nodes. IMPRESSION: 1. Nonspecific pulmonary densities in the dependent portions of bilateral lower lobes and to a lesse r degree dependent portions of bilateral upper lobes. 2. No consolidation. 3. 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 4. Cardiomegaly with 4-chamber dilation. [place] R POS: [facility]
[2018-11-07] MEDS ORDERED: metroNIDAZOLE 500 MG in Premix Bag 1 BAG IVPB SCH (15:00)
--- NOTE | 2018-11-07 15:01 | PDOC.EVN ---
Event Note - Event Note Event Note: Discussed the case with the ED physician and Leandro Alaniz. Interviewed the patient's daughter and the patient to the extent possible. Vital signs were noted. She is currently still a little encephalopathic. She will awaken and answer simple questions, but not conversant or engaging. No nuchal rigidity. Heart with II/ M, lungs are generally clear. Abd is soft and she denies pain with palpation. Extremities have no CCE. No evidence of DVT. She is post- seizure requiring ativan and is post-ictal and possibly sedated. She is febrile with not specific source of infection identified. I have reviewed the CT. The heart is enlarged and the lungs have some chronic changes, but no major infiltrate seen. Rad report pending. Broad spectrum abx and continue to try to ID source. Stool studies for diarrhea. This is a very similar picture to the patient's presentation in 05/18. Trop slightly elevated. Continue to trend/tele.
[2018-11-07 16:55] LABS: Troponin I 0.898 ng/mL (< 0.028)
[2018-11-07] MEDS: metroNIDAZOLE 500 MG in Premix Bag 1 BAG IVPB SCH ×2 (19:02→22:28)
[2018-11-07 20:01] VITALS: BMI 22.6
[2018-11-07 20:02] LABS: Critical Call Chem Troponin I DECREASED
--- NOTE | 2018-11-07 21:11 | PDOC.EVN ---
Event Note - Event Note Event Note: RN called - Patient failed bedside swallow eval - Will add gentle IV hydration
[2018-11-07] MEDS: Dextrose 5 %-0.45 % NaCl 1,000 ML IV SCH (22:19)
[2018-11-07] MEDS: Pantoprazole 40 MG VIAL IVP SCH (22:21)
[2018-11-07] MEDS: lamoTRIgine 100 MG TAB PO SCH (22:22)
[2018-11-07] MEDS: carBAMazepine 200 MG TAB PO SCH (22:22)
[2018-11-07] MEDS: Carvedilol 6.25 MG TAB PO SCH (22:25)
[2018-11-07] MEDS: Piperacillin/Tazobactam 3.375 GM in Sodium Chloride 0.9% 100 ML IVPB SCH ×2 (22:28→23:43)
[2018-11-08 01:34] LABS: Critical Call Chem Troponin I RESULT DECREASING; Troponin I 0.531 ng/mL (< 0.028)
[2018-11-08 06:20] LABS: #Eosinphils 0.2 thou/uL (0.0-0.7); #Lymphocytes 1.1 thou/uL (1.20-3.40); #Monocytes 0.9 thou/uL (0.11-0.59); #Neutrophils 7.5 thou/uL (1.40-6.50); %Basophils 0.4 % (0.0-1.0); %Eosinophils 1.6 % (0.0-10.0); %Lymphocytes 11.3 % (21.0-51.0); %Neutrophils 77.7 % (42.0-75.0); Anion Gap 12 mmol/L (10-20); BUN (Urea Nitrogen) 21 mg/dL (9.8-20.1); Calc. Creatinine Clearance 42 mL/min (70-130); Calcium 9.1 mg/dL (7.8-10.44); Carbon Dioxide 22 mmol/L (23-31); Chloride 101 mmol/L (98-107); Estimated GFR-MDRD 49; Glucose 112 mg/dL (83-110); Hemoglobin 10.2 g/dL (12.0-16.0); Mean Corpuscular HGB CONC 32.9 g/dL (32.0-36.0); Mean Corpuscular Hemoglobin 30.1 pg (27.0-31.0); Mean Corpuscular Volume 91.5 fL (78.0-98.0); Mean Platelet Volume 7.1 fL (7.4-10.4); Platelet Count 315 thou/uL (130-400); Potassium 3.8 mmol/L (3.5-5.1); RBC Distribution Width 12.9 % (11.5-14.5); Red Blood Cell (RBC) Count 3.39 mill/uL (4.20-5.40); Sodium 131 mmol/L (136-145); White Blood Cell (WBC) Count 9.6 thou/uL (4.8-10.8)
[2018-11-08] MEDS: metroNIDAZOLE 500 MG in Premix Bag 1 BAG IVPB SCH ×3 (07:31→21:45)
[2018-11-08] MEDS: Piperacillin/Tazobactam 3.375 GM in Sodium Chloride 0.9% 100 ML IVPB SCH ×3 (08:33→19:12)
[2018-11-08 09:05] LABS: Troponin I 0.243 ng/mL (< 0.028)
--- NOTE | 2018-11-08 09:58 | HP ---
PRIMARY CARE PHYSICIAN: Dr. Sabino Thompson. CHIEF COMPLAINT: Altered mental status, fever, and seizure. HISTORY OF PRESENT ILLNESS: Ms. Will is a pleasant 78-year-old female with past medical history of CVA, epilepsy, gastroesophageal reflux disease, hyperlipidemia, insomnia, CAD, diastolic heart failure, hypertension, history of non-STEMI, history of aortic aneurysm status post repair, who had presented to [facility] by EMS, transferred from the [facility] where she is a current resident for a seizure-like activity. [facility] staff had noticed the patient over the last day becomes more confused and not responsive. At that time, EMS Services were then called and brought the patient to the ER, the patient was noted to have a seizure in the ER, where she was given IV 2 mg Ativan and placed on nonrebreather, she had appeared postictal, however, stable. She was titrated off nonrebreather, but then maintained on 4 L of oxygen via nasal cannula, O2 saturations stable at about 97%. Being on oxygen is actually new for her, she is usually on room air. Two daughters, Stefanie and Alexandra are at bedside. The patient appears to be pleasantly confused, currently on 4 L of oxygen, she appears to be febrile, she was given 650 mg rectal Tylenol; however, temperature was still noted to be 103.1, therefore, she was given 300 mg of rectal aspirin. Chest x-ray was unremarkable, CT head showed no acute changes. Family explained over the last several days, the patient had been noticed to have more frequent loose stools, she has been on several different antibiotics recently for a chronic UTI with the last one being started about a week ago, she was started on cephalexin for a UTI, these symptoms had further resolved; however, the patient had then developed these recent fevers with new intractable seizures. Family reports a strong history of a seizure disorder and epilepsy, she is currently taking carbamazepine and Lamictal twice daily. During her initial workup, carbamazepine level was checked and found to be within normal limits at 9.6. Urinalysis was checked and unremarkable. Creatinine was noted to be slightly elevated at 1.14, and estimated GFR of 46, this appears to be at her baseline with chronic kidney disease, stage 3. White count was elevated at 14.8 and troponin indeterminate at 0.213. This appeared to be likely at her baseline for chronic indeterminate troponin elevation; however, recheck did show an elevation of 0.419, the patient had denied any chest pain or any palpitations, EKG failed to show any acute changes as prior study. Prolactin level was elevated at 53.55, which would be consistent with her recent seizure, and BNP elevated at 1034.3. The patient was recently admitted at [facility] in May of 2018, where she underwent an echocardiogram, which displayed an ejection fraction of 60% to 65% with diastolic heart failure. She was also noted to have moderate mitral regurgitation and moderate aortic regurgitation. She was seen by Cardiology during that time and was medically managed with no further cardiac workup needed. Due to her fevers and an elevated white count along with tachycardia on the monitor with rates in the one-teens, currently stable in the 90s, the patient had met SIRS for sepsis. Therefore, she was started on IV vancomycin and Levaquin. She was also given 1 L of normal saline. She will be admitted for further workup and management of her condition. REVIEW OF SYSTEMS: All other systems reviewed and found to be negative unless mentioned in the HPI. PAST MEDICAL HISTORY: CVA, epilepsy, GERD, hyperlipidemia, hypertension, CAD, diastolic heart failure, moderate aortic regurgitation, moderate mitral regurgitation, history of non-STEMI, history of aortic aneurysm, history of PE, history of frontal lobe aneurysm. PAST SURGICAL HISTORY: Ascending and descending aortic aneurysm repair in 2008 and 2009, bilateral cataract removal. PSYCHIATRIC HISTORY: Does report some anxiety. SOCIAL HISTORY: Denies any alcohol, tobacco, or illicit drug use, the patient is a former smoker, however, quit over 10 years ago. She is a current long-term resident at the [facility]. ALLERGIES: NONE. CURRENT HOME MEDICATIONS: 1. Acetaminophen 650 mg p.o. q.4 hours as needed. 2. Amlodipine 10 mg p.o. daily. 3. Vitamin D3, 2000 units p.o. daily. 4. Docusate 240 mg p.o. daily. 5. Loperamide 4 mg p.o. as needed for loose stools. 6. Mirtazapine p.o. at bedtime. 7. Multivitamin one tablet oral daily. 8. Zofran 8 mg p.o. q.8 hours as needed for nausea. 9. Ranitidine 75 mg p.o. daily. 10. Aspirin 81 mg daily. 11. Carbamazepine 300 mg p.o. b.i.d. 12. Carvedilol 12.5 mg p.o. b.i.d. 13. Clonidine 0.1 mg p.o. q.8 hours as needed for elevated blood pressures. 14. Clopidogrel 75 mg p.o. daily. 15. Lamictal 100 mg p.o. b.i.d. 16. Losartan 50 mg p.o. daily. 17. Oxybutynin 10 mg p.o. daily. PHYSICAL EXAMINATION: VITAL SIGNS: BP 181/88, pulse 90, respirations 22, temperature 103.1, and O2 saturations 97% on room air. GENERAL: The patient is awake, alert, and oriented x1. She appears to be in no acute distress at this time. She remains on 4 L of oxygen via nasal cannula. HEENT: Mild laceration noted due to recent fall, normocephalic. Pupils are round and reactive to light. Extraocular muscles are intact. Moist mucous membranes noted. Missing teeth noted. NECK: Soft and supple. No JVD. CARDIOVASCULAR: Positive S1 and S2. Regular rate and rhythm. Soft, 2/6 systolic murmur noted. RESPIRATORY: Clear to auscultation bilaterally. No wheezes, rales, or rhonchi. ABDOMEN: Soft, nontender. Bowel sounds are present. No rebound, no rigidity. MUSCULOSKELETAL: Strength 5+ bilaterally in upper and lower extremities. Moves all extremities equal. Pedal and radial pulses palpable and equal bilaterally. Trace nonpitting edema in lower extremities. NEUROLOGIC: Cranial nerves 2 through 12 are grossly intact. No focal deficits noted. Speech intact and normal. Gait not assessed. PSYCHIATRIC: Good mood and affect. The patient appears to be withdrawn. LABORATORY DATA: WBC 14.8, RBC 3.71, hemoglobin 11.0, and platelets 385. Sodium 130, potassium 4.3, carbon dioxide 22, anion gap 16, BUN 22, creatinine 1.14, estimated GFR 46, glucose 152, lactic acid 1.6. Troponin 0.213, 0.419. BNP 1034.3. Prolactin 53.55. Urinalysis, unremarkable. Carbamazepine 9.6. DIAGNOSTIC IMAGING: Chest x-ray showed no evidence of acute cardiopulmonary disease. CT of brain without contrast showed no evidence of acute intracranial abnormality. ASSESSMENT AND PLAN: 1. Acute hypoxic respiratory failure, continue on 4 L of oxygen via nasal cannula and titrate as tolerated. Continue IV antibiotics including IV vancomycin with pharmacy to dose, IV Zosyn. Await blood cultures, and due to the patient's new white count and fevers along with new hypoxia, needing oxygen, we will check CT of chest. 2. Leukocytosis, as above. 3. Diarrhea, the patient has a history of chronic diarrhea; however, with her history of chronic antibiotic use and frequent antibiotic use, we will rule out Clostridium difficile with stool cultures, we will also add IV metronidazole until Clostridium difficile is ruled out. We will closely monitor the patient overnight, and if she has any worsening symptoms including any abdominal pain or abdominal symptoms, we will also consider CT abdomen and pelvis for further exploration of her symptoms. 4. Seizures, which is acute on chronic due to her underlying epilepsy. However, these are likely febrile in nature, carbamazepine level is noted to be 9.6, which is within normal limits. Continue the patient on her home regimen. Order neuro checks, place the patient on telemetry floor, and add IV Ativan as needed for breakthrough seizures. 5. Hypertension. Continue on the patient's home regimen at this time, along with adding IV hydralazine as needed for elevated systolic blood pressures greater than 180. 6. History of coronary artery disease. Continue the patient's home regimen. 7. Elevated troponins, this could likely be secondary to the patient's underlying diastolic heart failure along with her chronic kidney disease, stage 3. However, we will trend troponins at this time, if her 3rd draw appears to be more elevated than the first two, we will also consider consultation to Cardiology Services. So far, the patient denies chest pain at this time and no further EKG changes. 8. Deep venous thrombosis and gastrointestinal prophylaxis. 9. Code status, DNAR. 10. Surrogate decision makers will be her children including daughters, Stefanie and Alexandra, who were present. DISPOSITION: Pending further workup and clinical findings. Job ID: [id number]
[2018-11-08] MEDS: carBAMazepine 200 MG TAB PO SCH ×2 (10:29→21:35)
[2018-11-08] MEDS: lamoTRIgine 100 MG TAB PO SCH ×2 (10:29→21:40)
[2018-11-08] MEDS: Carvedilol 6.25 MG TAB PO SCH ×2 (10:30→18:40)
[2018-11-08] MEDS: Aspirin 81 mg Enteric Coated Tablet PO SCH (10:31)
[2018-11-08] MEDS: Clopidogrel Bisulfate 75 MG TAB PO SCH (10:31)
[2018-11-08] MEDS: Losartan 25 MG TAB PO SCH (10:31)
[2018-11-08] MEDS: Pantoprazole 40 MG VIAL IVP SCH ×2 (10:34→21:41)
[2018-11-08] MEDS: Oxybutynin 5 MG TAB PO SCH (10:38)
[2018-11-08] MEDS: Enoxaparin Sodium 40 MG/0.4 ML SYRINGE SC SCH (10:40)
[2018-11-08] MEDS: Vancomycin HCl 1.25 GM in Sodium Chloride 0.9% 250 ML 250 ML IVPB SCH (13:34)
[2018-11-08] MEDS ORDERED: Clopidogrel Bisulfate 75 MG TAB ONE (16:22)
--- NOTE | 2018-11-08 20:10 | PRG ---
DATE OF SERVICE: 11/08/2018 SUBJECTIVE: Nicolette is a pleasant 78-year-old female with past medical history significant for CVA and resulting seizure disorder, hyperlipidemia, chronic diastolic heart failure, hypertension, history of ascending abdominal aortic aneurysm status post repair, who presented to [facility] by EMS with complaints of seizure, pyrexia with T-max 103.1. She has been admitted with fever of unknown origin, and with [id number] resulting delirium. This morning, her daughter is at bedside, and care is discussed. Her white blood cell count is trending down. She is alert and oriented to place and person this morning, which does appear to be her baseline. She is afebrile. She denies any chest pain, shortness of breath, nausea, or vomiting. Also, the patient does have chronic diarrhea. She has had none since she has been here, and stool sample has not been collected. OBJECTIVE: VITAL SIGNS: Temperature is 96.5, pulse 57, blood pressure 141/89, and O2 saturation is 100% on room air. GENERAL: The patient is awake and alert. Lying comfortably in bed, in no acute distress. PSYCHIATRIC: She is pleasant and conversive, she is alert and oriented to an person and place. CV: S1 and S2. Regular rhythm, no appreciable murmurs, rubs, or gallops. LUNGS: Regular respiratory rate and pattern. Clear to auscultation bilaterally. No wheezes or rhonchi are noted. ABDOMEN: Positive bowel sounds, soft, nontender. SKIN: No rashes. EXTREMITIES: Trace edema bilaterally. Positive DP pulses bilaterally. NEUROLOGIC: Cranial nerves 2 through 12 grossly intact. Otherwise she is nonfocal. LABORATORY DATA: White blood cell count 9.6, previous was 14; hemoglobin 10.2; hematocrit 31. Sodium 131, potassium 3.8, creatinine 1.09. Serial troponin has been 0.419, 0.870, 0.531, and 0.243. TSH 0.18. At this time, her blood cultures have been negative. Her flu swab is also negative. Her urine culture is negative to date. ASSESSMENT: 1. Fever of unknown origin and leukocytosis, responding well to empiric antibiotics, altered mental status secondary to above. 2. History of chronic diarrhea, seemingly resolved at the present time. 3. History of cerebrovascular accident with resulting seizure disorder. 4. Dementia. 5. Hypertension. 6. Indeterminate troponin in a patient with no cardiac symptoms at this time. May be related to the underlying acute illness and chronic kidney disease. 7. DNAR status. PLAN: At this time, we will continue empiric antibiotic therapy and monitor her cultures for another 24 hours. Continue daily labs. The patient will also need PT and OT. Overall, the patient has been responding well to antibiotic therapy, although no source of infection has been found at this time. The patient's care was discussed with Dr. Nicole and he agrees with the plan. Job ID: [id number]
[2018-11-09] MEDS: Piperacillin/Tazobactam 3.375 GM in Sodium Chloride 0.9% 100 ML IVPB SCH ×4 (01:05→17:44)
[2018-11-09] MEDS: Dextrose 5 %-0.45 % NaCl 1,000 ML IV SCH (01:12)
[2018-11-09] MEDS: metroNIDAZOLE 500 MG in Premix Bag 1 BAG IVPB SCH ×2 (05:32→14:42)
[2018-11-09 06:53] LABS: #Eosinphils 0.5 thou/uL (0.0-0.7); #Lymphocytes 1.3 thou/uL (1.20-3.40); #Monocytes 0.8 thou/uL (0.11-0.59); #Neutrophils 4.2 thou/uL (1.40-6.50); %Basophils 0.3 % (0.0-1.0); %Eosinophils 6.7 % (0.0-10.0); %Lymphocytes 19.6 % (21.0-51.0); %Monocytes 11.9 % (0.0-10.0); %Neutrophils 61.5 % (42.0-75.0); Mean Corpuscular HGB CONC 32.4 g/dL (32.0-36.0); Mean Corpuscular Hemoglobin 29.9 pg (27.0-31.0); Mean Corpuscular Volume 92.2 fL (78.0-98.0); Mean Platelet Volume 7.1 fL (7.4-10.4); Platelet Count 340 thou/uL (130-400); Red Blood Cell (RBC) Count 3.03 mill/uL (4.20-5.40); White Blood Cell (WBC) Count 6.8 thou/uL (4.8-10.8)
[2018-11-09 07:12] LABS: Anion Gap 11 mmol/L (10-20); BUN (Urea Nitrogen) 17 mg/dL (9.8-20.1); Calc. Creatinine Clearance 46 mL/min (70-130); Calcium 8.6 mg/dL (7.8-10.44); Carbon Dioxide 24 mmol/L (23-31); Chloride 102 mmol/L (98-107); Estimated GFR-MDRD 53; Glucose 106 mg/dL (83-110); Potassium 3.6 mmol/L (3.5-5.1); Sodium 133 mmol/L (136-145)
[2018-11-09] MEDS: carBAMazepine 200 MG TAB PO SCH (08:26)
[2018-11-09] MEDS: Aspirin 81 mg Enteric Coated Tablet PO SCH (08:26)
[2018-11-09] MEDS: Carvedilol 6.25 MG TAB PO SCH ×2 (08:26→17:06)
[2018-11-09] MEDS: lamoTRIgine 100 MG TAB PO SCH (08:26)
[2018-11-09] MEDS: Oxybutynin 5 MG TAB PO SCH (08:26)
[2018-11-09] MEDS: Losartan 25 MG TAB PO SCH (08:26)
[2018-11-09] MEDS: Enoxaparin Sodium 40 MG/0.4 ML SYRINGE SC SCH (08:27)
[2018-11-09] MEDS: Clopidogrel Bisulfate 75 MG TAB PO SCH (08:27)
[2018-11-09] MEDS: Pantoprazole 40 MG VIAL IVP SCH (08:28)
--- NOTE | 2018-11-09 10:57 | PRG ---
DATE OF SERVICE: 11/09/2018 SUBJECTIVE: The patient is feeling well today. She has no complaints. She is eating breakfast. Says that she does typically get up and around with a walker, but has not really done so since she has been admitted. OBJECTIVE: VITAL SIGNS: T-max is 98.1, pulse 58, respirations 19, she is 93% to 94% on room air, and blood pressure 126/91. GENERAL APPEARANCE: Awake, alert, oriented, pleasant, and cooperative. She has a little bit of trouble remembering things like her physician's names, etc. She is otherwise appropriate. HEART: Notable for a systolic and diastolic component murmur heard best at the upper sternal borders. LUNGS: Clear other than slightly diminished at the bases. ABDOMEN: Soft, nontender, and nondistended. Positive bowel sounds. No masses. No organomegaly. EXTREMITIES: No cyanosis, clubbing, or edema. LABORATORY DATA: White count 6.8 and hemoglobin 9.0. Sodium 133, potassium 3.6, chloride 102, CO2 of 24, BUN 17, creatinine 1.01, and glucose 106. IMPRESSION AND PLAN: 1. Fever. The patient has had negative blood cultures and negative UA. She had a negative CT of the chest other than some nonspecific findings. I did call Radiology review that, they believe that shows some dilated pulmonary arteries and atelectasis, but no mass type lesions or infiltrates. She has remained afebrile and at this point, I believe we can de-escalate some oral antibiotics. 2. Seizure. The patient has only had a couple of seizures in the last year. For now, we will continue with the Tegretol and she can follow up with her outpatient provider to determine if they would like to make any more aggressive changes. 3. History of seizure disorder. 4. Dementia, relatively mild. She is pretty functional at the moment. 5. Hypertension, stable. 6. Indeterminate troponin. I do not suspect acute ischemic event. No further evaluation indicated. 7. Disposition. We will have Physical Therapy get the patient up and walking with a walker and if she can do okay with that, we will go ahead and get her discharged today with p.o. antibiotics, likely Omnicef as well as some probiotics. Job ID: [id number]
[2018-11-09] MEDS ORDERED: Saccharomyces boulardii 250 MG CAP PO SCH ×2 (11:00→21:00)
[2018-11-09] MEDS: Vancomycin HCl 1.25 GM in Sodium Chloride 0.9% 250 ML 250 ML IVPB SCH (11:46)
--- NOTE | 2018-11-09 13:21 | PQF ---
LAUREN AVINA DAVID R MD [id number] [facility]-286 [id number] CLINICAL DOCUMENTATION IMPROVEMENT CLARIFICATION FORM: ICD-10 Updated PLEASE DO AN ADDENDUM TO THE PROGRESS NOTE WITH ANY DOCUMENTATION UPDATES OR ADDITIONS AND CARRY THROUGH TO DC SUMMARY. THANK YOU. DATE: 11/09/2018 ATTN: DR. NUNO Please exercise your independent, professional judgment in responding to the clarification form. Clinical indicators are provided on the bottom of this form for your review Please check appropriate box(es): [ ] Sepsis due to: (Pna, UTI, gangrenous gall bladder, etc.) [ x ] SIRS due to non-infectious process [ x] with organ dysfunction of Acute Respiratory Failure with Hypoxia [ ] without organ dysfunction [ ] Severe sepsis with acute organ dysfunction of: (Examples: respiratory failure, encephalopathy, acute kidney failure, other) [ ] Localized infection of: without sepsis [ ] Other diagnosis [ ] Unable to determine In addition, please specify: Present on Admission (POA): [ ] Yes [ ] No [ ] Unable to determine For continuity of documentation, please document condition throughout progress notes and discharge summary. Thank You. CLINICAL INDICATORS - SIGNS / SYMPTOMS / LABS 1.Altered mental status - *11/07-H&P: [facility] STAFF HAD NOTICED THE PATIENT OVER THE LAST DAY BECOMES MORE CONFUSED AND NOT RESPONSIVE. 2. Fever or hypothermia (<96.8 F/36 C or > 100.4 F/38C) - *11/07-H&P: SHE APPEARS TO BE FEBRILE, SHE WAS GIVEN 650 MG RECTAL TYLENOL; HOWEVER, TEMPERATURE WAS STILL NOTED TO BE 103.1 , THEREFORE, SHE WAS GIVEN 300 MG OF RECTAL ASPIRIN. 3. Respiratory rate >20/min, Hypoxemia - *11/07-H&P: TITRATED OFF NONREBREATHER, BUT THEN MAINTAINED ON 4L O2 VIA NC. BEING ON OXYGEN IS ACTUALLY NEW FOR HER, SHE IS USUALLY ON ROOM AIR. 4. Tachycardia - *11/07-H&P: DUE TO HER FEVERS AND AN ELEVATED WHITE COUNT ALONG WITH TACHYCARDIA ON THE MONITOR WITH RATES IN THE ONE-TEENS, CURRENTLY STABLE IN THE 90S, THE PATIENT HAD MET SIRS FOR SEPSIS. 5. WBC count (>12,000/mm^4 or <4000/mm^3 or 10% neuts, 10% bands) *11/07-H&P: WHITE COUNT WAS ELEVATED AT 14.8. *11/07-ER: APPEARS TO HAVE SEPSIS ALONG WITH SEIZURES. RISK FACTORS 1. Infection/Bacteremia AND Pneumonia, UTI, infected wound, gangrenous gall bladder *11/07-H&P: OVER THE LAST SEVERAL DAYS, THE PATIENT HAD BEEN NOTICED TO HAVE MORE FREQUENT LOOSE STOOLS. -SHE HAS BEEN ON SEVERAL DIFFERENT ABX RECENTLY FOR A CHRONIC UTI WITH THE LAST ONE BEING STARTED ABOUT A WEEK AGO. -THE PT HAD THEN DEVELOPED THESE RECENT FEVERS WITH NEW INTRACTABLE SEIZURES. *11/07-ER: FAMILY REPORTS EXTENSIVE DENTAL WORK LATELY AND ALSO REPORTS SEVERAL INFECTED INGROWN TOENAILS. 2. Advancing Age - 78 y/o TREATMENTS 1-Initiation Sepsis Protocol - *11/07-H&P: SHE WAS STARTED ON IV VANCOMYCIN AND LEVAQUIN. SHE WAS ALSO GIVEN 1L IVF. 2. Daily CBC 3. Blood cultures Thank you, Kaykay (This form is maintained as a part of the permanent medical record) 2014 [employer], [employer]. All Rights Reserved Kaykay Lynn RN, CDIS [email or web address] [phone] MTDD
--- NOTE | 2018-11-09 13:40 | PQF ---
LAUREN AVINA DAVID R MD [id number] [facility]-286 [id number] CLINICAL DOCUMENTATION IMPROVEMENT CLARIFICATION FORM: ICD-10 Updated PLEASE DO AN ADDENDUM TO THE PROGRESS NOTE WITH ANY DOCUMENTATION UPDATES OR ADDITIONS AND CARRY THROUGH TO DC SUMMARY. THANK YOU. DATE: 11/09/2018 ATTN: DR. NUNO Please exercise your independent, professional judgment in responding to the clarification form. Clinical indicators are provided on the bottom of this form for your review Please check appropriate box(s): [ ] Acute on Chronic Metabolic Encephalopathy; multifactorial in the setting of underlying dementia and unknown infection [ ] Acute Metabolic Encephalopathy; multifactorial in the setting of underlying dementia and unknown infection [ x ] Acute Metabolic Encephalopathy in the setting of underlying dementia [ ] Transient Alteration of Awareness [ ] Other diagnosis [ ] Unable to determine In addition, please specify: Present on Admission (POA): [ x ] Yes [ ] No [ ] Unable to determine For continuity of documentation, please document condition throughout progress notes and discharge summary. Thank You. CLINICAL INDICATORS - SIGNS / SYMPTOMS / LABS Altered mental status / confusion improving once cause is corrected (acute) *11/07-ER: ONLY RESPONSIVE TO NAME *11/08: ALERT AND ORIENTED TO PERSON AND PLACE. *11/09: DEMENTIA, RELATIVELY MILD AND PRETTY FUNCTIONAL AT THE MOMENT. Dementia over baseline *11/07-H&P: [facility] STAFF HAD NOTICED THE PATIENT OVER THE LAST HAD BECOME MORE CONFUSED AND NOT RESPONSIVE. Hypoxia: *11/07-H&P: BEING ON OXYGEN IS NEW FOR THE PATIENT. SHE IS USUALLY ON ROOM AIR. Sepsis: *11/07-ER: APPEARS TO HAVE SEPSIS ALONG WITH SEIZURES. RISK FACTORS Infectious process *11/07-H&P: WBC-14.8. FEVER UP TO 103.1. TREATMENTS Neuro checks Cause is corrected encephalopathy resolves 11/07: ORIENTED ONLY TO NAME 11/08: ALERT AND ORIENTED TO PERSON AND PLACE. 11/09: DEMENTIA, RELATIVELY MILD AND PRETTY FUNCTIONAL AT THE MOMENT. Oxygen therapy: ON 4L VIA NC IV antibiotics: VANCOMYCIN AND LEVAQUIN IV fluids Thank you, Kaykay (This form is maintained as a part of the permanent medical record) 2014 [employer], [employer]. All Rights Reserved Kaykay Lynn RN, CDIS [email or web address] [phone] MARIZA
[2018-11-09 16:50] VITALS: BP 151/65; TEMP 98
--- NOTE | 2018-11-10 05:31 | DIS ---
DATE OF ADMISSION: 11/07/2018 DATE OF DISCHARGE: 11/09/2018 ALLERGIES: NO KNOWN DRUG ALLERGIES. CHIEF COMPLAINT: Altered mental status, fever, seizure. FINAL DIAGNOSES: 1. Fever of unknown origin and leukocytosis, resolved with empiric antibiotic therapy, blood and urine cultures negative. 2. History of cerebrovascular accident with resulting epilepsy and seizure disorder. 3. Mild dementia. 4. Hypertension. 5. History of coronary artery disease, well managed with medical therapy, preserved EF. PROCEDURES PERFORMED: None. LABORATORY RESULTS: On 11/09/2018, hemoglobin 9, hematocrit 27.9. Sodium 133, potassium 3.6, BUN 17, creatinine 1.01. IMAGING RESULTS: Chest x-ray, no evidence of acute cardiopulmonary disease. Brain CT, no evidence of acute intracranial abnormality. Chest CT, nonspecific pulmonary densities in the dependent portions of bilateral lower lobes and to a lesser degree dependent portions of bilateral lobes. No consolidation, atherosclerosis, ectasia, or tortuosity of the thoracic aorta plus fusiform aneurysm of distal descending aorta with a caliber of 4 cm. Cardiomegaly with four chamber dilatation. CONSULTATIONS: None. HOSPITAL COURSE: The patient is a pleasant 78-year-old female with past medical history significant for prior CVA with resulting seizure disorder and epilepsy, gastroesophageal reflux disease, hyperlipidemia, chronic diastolic heart failure, hypertension, history of aortic aneurysm repair x2, who presented to [facility] via EMS from the [facility] where she is a current resident for seizure like activity. [facility] staff noted the patient became more confused and nonresponsive. At that time, EMS was called. The patient was noted to have seizure in the ER, was given 2 mg of IV Ativan and placed on non-rebreather, which she was then able to be titrated off. On arrival, her temperature was noted to be 103.1 degrees. During her initial workup, carbamazepine level was checked and found to be within normal limits at 9.6. Urinalysis was checked and unremarkable. Creatinine was noted to be slightly elevated at 1.14, but that appeared to be right around her baseline, and her troponin was indeterminate. EKG was stable. The patient did meet SIRS for sepsis and was started on IV vancomycin, IV Zosyn, as well as Flagyl. During the course of her stay, her leukocytosis resolved. As mentioned, urine and blood cultures were negative. She is alert and oriented to place and person, which does appear to be her baseline. She has been afebrile. She denies any chest pain, shortness of breath, nausea, or vomiting. The patient reports no diarrhea. She has ambulated with physical therapy and is back to her baseline functional status. PHYSICAL EXAMINATION: VITAL SIGNS: Blood pressure 126/91, temperature 97.1, pulse 58, O2 saturation 93% on room air. GENERAL: The patient is awake and alert. She is sitting up comfortably in her chair, in no acute distress. PSYCHIATRIC: She is pleasant and conversive. She is alert and oriented to person, place, which is her baseline. CV: S1, S2. Regular rhythm. No appreciable murmurs, rubs, or gallops. LUNGS: Regular respiratory rate and pattern, clear to auscultation bilaterally. No wheezes or rhonchi noted. No crackles. ABDOMEN: Positive bowel sounds. Soft, nontender. SKIN: No rashes. EXTREMITIES: Trace edema bilaterally. Positive DP pulses bilaterally. NEUROLOGIC: Cranial nerves 2 through 12 grossly intact. Nonfocal. DISCHARGE DISPOSITION: [facility]. DISCHARGE MEDICATIONS: 1. Aspirin 81 mg p.o. daily. 2. Carbamazepine 200 mg tablet, 300 mg p.o. b.i.d. 3. Vitamin D3 supplement 2000 units p.o. daily. 4. Clonidine 0.1 mg p.o. q.8 hours. 5. Plavix 75 mg one tab p.o. daily. 6. Lamictal 100 mg p.o. daily. 7. Loperamide 2 mg tablet 4 mg p.o. as directed. 8. Losartan 50 mg p.o. daily. 9. Melatonin pyridoxine 3 mg/10 mg tablet one p.o. at bedtime. 10. Mirtazapine 7.5 mg p.o. at bedtime. 11. Zofran 8 mg tablet p.o. q.8 hours p.r.n. 12. Oxybutynin chloride 10 mg tab one p.o. q.24 hours. 13. Carvedilol 12.5 mg p.o. b.i.d. New medications will be Omnicef 300 mg capsule one p.o. q.12 hours for the next seven days and Florastor probiotic 250 mg tab one p.o. b.i.d. PLAN: The patient does have history of seizure disorder and pyrexia could possibly be related. In any case, the patient has had negative blood cultures and largely negative workup here and all of her presenting symptoms have resolved. She will be discharged back to the [facility] for further nursing and physical therapy. She will follow up with her primary care provider and continue her antiseizure regimen. Job ID: [id number]
== END 2018-11-09 18:27 | disposition home health service (06) | DRG 70 ==
LOC: ERS 09:25 → 2NO 18:54
PROVIDERS: ADMIT Internal Medicine; ATTEND Internal Medicine
DX: G93.41 Metabolic encephalopathy (principal); R65.11 Systemic inflammatory response syndrome (SIRS) of non-infectious origin with acute organ dysfunction; J96.01 Acute respiratory failure with hypoxia; I13.0 Hypertensive heart and chronic kidney disease with heart failure and stage 1 through stage 4 chronic kidney disease, or unspecified chronic kidney disease; I50.32 Chronic diastolic (congestive) heart failure; I69.398 Other sequelae of cerebral infarction; N18.3 Chronic kidney disease, stage 3 (moderate); G40.909 Epilepsy, unspecified, not intractable, without status epilepticus; I25.10 Atherosclerotic heart disease of native coronary artery without angina pectoris; I08.0 Rheumatic disorders of both mitral and aortic valves; R74.8 Abnormal levels of other serum enzymes; K21.9 Gastro-esophageal reflux disease without esophagitis; E78.5 Hyperlipidemia, unspecified; G30.9 Alzheimer's disease, unspecified; F02.80 Dementia in other diseases classified elsewhere, unspecified severity, without behavioral disturbance, psychotic disturbance, mood disturbance, and anxiety; I25.2 Old myocardial infarction; Z66 Do not resuscitate; Z86.711 Personal history of pulmonary embolism; Z87.891 Personal history of nicotine dependence; Z79.02 Long term (current) use of antithrombotics/antiplatelets; Z79.82 Long term (current) use of aspirin
CPT/HCPCS: 36415; 70450; 71045; 71250; 80048; 80053; 80156; 81003; 82550; 82553; 83605; 83690; 83880; 84146; 84439; 84443; 84484; 85025; 87040; 87804; 93005; A4353; C9113; J1650; J1956; J2543; J3370; J7050

== ENCOUNTER 2018-12-06 14:44 | Emergency (ER) | payer MEDICARE, BC ==
[2018-12-06 15:17] LABS: #Eosinphils 0.1 thou/uL (0.0-0.7); #Lymphocytes 1.7 thou/uL (1.20-3.40); #Monocytes 0.8 thou/uL (0.11-0.59); #Neutrophils 5.2 thou/uL (1.40-6.50); %Basophils 0.3 % (0.0-1.0); %Eosinophils 1.2 % (0.0-10.0); %Lymphocytes 21.9 % (21.0-51.0); %Monocytes 10.6 % (0.0-10.0); %Neutrophils 65.9 % (42.0-75.0); Hemoglobin 9.8 g/dL (12.0-16.0); Mean Corpuscular HGB CONC 31.8 g/dL (32.0-36.0); Mean Corpuscular Hemoglobin 29.6 pg (27.0-31.0); Mean Platelet Volume 6.8 fL (7.4-10.4); Platelet Count 372 thou/uL (130-400); RBC Distribution Width 13.5 % (11.5-14.5); White Blood Cell (WBC) Count 7.9 thou/uL (4.8-10.8)
--- NOTE | 2018-12-06 15:25 | RAD ---
XR Knee Rt 4 View STANDARD History: [Pain] Comparison: Radiograph 2018 Findings: Large tricompartmental osteophytes. Trace joint effusion. Mild pretibial and prepatellar so ft tissue swelling. Impression: Tricompartment degenerative changes. No acute fracture or malalignment.
[2018-12-06 15:47] LABS: ALT (SGPT) 7 U/L (8-55); AST (SGOT) 12 U/L (5-34); Acetaminophen Less than 6.0 mcg/mL (10.0-30.0); Albumin 3.8 g/dL (3.4-4.8); Alcohol Less than 10 mg/dL (Less than 10); Alkaline Phosphatase 50 U/L (40-150); Anion Gap 13 mmol/L (10-20); BUN (Urea Nitrogen) 25 mg/dL (9.8-20.1); Bilirubin, Total 0.2 mg/dL (0.2-1.2); Calc. Creatinine Clearance 0 mL/min (70-130); Calcium 9.5 mg/dL (7.8-10.44); Carbon Dioxide 27 mmol/L (23-31); Chloride 98 mmol/L (98-107); Estimated GFR-MDRD 33; Globulin 3.2 g/dL (2.4-3.5); Glucose 102 mg/dL (83-110); Potassium 4.1 mmol/L (3.5-5.1); Salicylate Less than 8.0 mg/dL (15.0-30.0); Sodium 134 mmol/L (136-145)
[2018-12-06 16:12] LABS: Bilirubin Negative (Negative); Blood, Urine Negative (Negative); Clarity CLEAR (Clear); Glucose, Urine (Dipstick) Negative (Negative); Leukocyte Trace (Negative); Nitrite Negative (Negative); Protein, Urine (Dipstick) Negative (Neg-Trace); Specific Gravity, Urine 1.011 (1.002-1.036); Urobilinogen 0.2 mg/dL (0.2-1.0); pH, Urine 5.5 (5.0-9.0)
[2018-12-06 16:15] LABS: Bacteria/HPF None Seen HPF (None Seen); Hyaline Casts/LPF 4-6 HYALINE CAST LPF (0-3 Hyaline); Pathc Cast-AUWi Flag 0.81 (0-2.49); RBC/HPF 0-3 HPF (0-3); Squamous Epithelial 0-3 HPF (0-3)
[2018-12-06 16:21] LABS: Amphetamine Not Detected (NotDetected); Barbiturates Screen Not Detected (NotDetected); Benzodiazepine Screen Not Detected (NotDetected); Cocaine Metabolite Screen Not Detected (NotDetected); Medtox Control Line Valid? VALID (VALID); Medtox Reader # READER 1; Methadone Not Detected (NotDetected); Methamphetamine Not Detected (NotDetected); Opiate Screen Not Detected (NotDetected); Oxycodone Screen Not Detected (NotDetected); Phencyclidine (PCP) Not Detected (NotDetected); THC/Cannabinoid Screen Not Detected (NotDetected); Tricyclic Screen Not Detected (NotDetected)
[2018-12-06] MEDS ORDERED: Nitrofurantoin Macrocrystal 50 MG CAP PO SCH (17:15)
== END 2018-12-06 20:56 ==
LOC: ERS 14:44
DX: Z00.8 Encounter for other general examination (principal); N39.0 Urinary tract infection, site not specified; F03.90 Unspecified dementia, unspecified severity, without behavioral disturbance, psychotic disturbance, mood disturbance, and anxiety; G40.909 Epilepsy, unspecified, not intractable, without status epilepticus; K21.9 Gastro-esophageal reflux disease without esophagitis; E78.5 Hyperlipidemia, unspecified; G47.00 Insomnia, unspecified; I25.10 Atherosclerotic heart disease of native coronary artery without angina pectoris; Z86.73 Personal history of transient ischemic attack (TIA), and cerebral infarction without residual deficits; I11.0 Hypertensive heart disease with heart failure; I50.9 Heart failure, unspecified; F41.9 Anxiety disorder, unspecified; Z87.891 Personal history of nicotine dependence; I48.91 Unspecified atrial fibrillation; Z79.82 Long term (current) use of aspirin; Z79.899 Other long term (current) drug therapy
CPT/HCPCS: 36415; 80053; 80306; 80307; 81003; 81015; 84443; 85025

== ENCOUNTER 2019-02-03 10:51 | Emergency (ER) | payer MEDICARE, BC ==
[2019-02-03 11:28] LABS: #Eosinphils 0.2 thou/uL (0.0-0.7); #Lymphocytes 1.5 thou/uL (1.20-3.40); #Monocytes 0.9 thou/uL (0.11-0.59); #Neutrophils 4.5 thou/uL (1.40-6.50); %Basophils 0.5 % (0.0-1.0); %Eosinophils 3.3 % (0.0-10.0); %Lymphocytes 21.2 % (21.0-51.0); %Monocytes 12.7 % (0.0-10.0); %Neutrophils 62.3 % (42.0-75.0); Hemoglobin 9.8 g/dL (12.0-16.0); Mean Corpuscular HGB CONC 32.6 g/dL (32.0-36.0); Mean Corpuscular Hemoglobin 29.6 pg (27.0-31.0); Mean Corpuscular Volume 90.8 fL (78.0-98.0); Mean Platelet Volume 6.4 fL (7.4-10.4); Platelet Count 371 thou/uL (130-400); RBC Distribution Width 12.9 % (11.5-14.5); Red Blood Cell (RBC) Count 3.32 mill/uL (4.20-5.40); White Blood Cell (WBC) Count 7.2 thou/uL (4.8-10.8)
[2019-02-03 11:46] LABS: ALT (SGPT) 7 U/L (8-55); AST (SGOT) 9 U/L (5-34); Albumin 3.6 g/dL (3.4-4.8); Alkaline Phosphatase 56 U/L (40-150); Anion Gap 12 mmol/L (10-20); BUN (Urea Nitrogen) 25 mg/dL (9.8-20.1); Bilirubin, Total 0.3 mg/dL (0.2-1.2); Calc. Creatinine Clearance 0 mL/min (70-130); Calcium 9.1 mg/dL (7.8-10.44); Carbon Dioxide 27 mmol/L (23-31); Chloride 97 mmol/L (98-107); Estimated GFR-MDRD 31; Globulin 3.1 g/dL (2.4-3.5); Glucose 92 mg/dL (83-110); Lipase 23 U/L (8-78); Potassium 4.5 mmol/L (3.5-5.1); Protein, Total 6.7 g/dL (6.0-8.3); Sodium 131 mmol/L (136-145)
--- NOTE | 2019-02-03 12:05 | CT ---
CT Brain WO Con: 02/03/2019 11:03 AM CLINICAL HISTORY: Lethargy, head injury with fall. COMPARISON: None. FINDINGS: Hemorrhage: None. Ventricular system: Prominent in size, compensatory dilatation due to atrophy and chronic ischemia. Cerebral parenchyma: Microvascular ischemic disease. Sequela from chronic infarctions involves the bi frontal lobes. Midline shift: None. Mass: No mass effect. Calvarium: Normal. Visualized Paranasal sinuses: Decreased pneumatization of left mastoid air cells. IMPRESSION: No acute intracranial abnormalities. Chronic ischemic disease and remote infarctions.
--- NOTE | 2019-02-03 12:37 | CT ---
Contrast-enhanced CT images of chest, abdomen and pelvis. HISTORY: Trauma. Contrast-enhanced CT images of the chest, abdomen and pelvis history sternotomy wires present. Some interstitial lung parenchymal scarring present. Coronary artery calcifications seen. There is extensive atherosclerotic calcification of the descending aorta. There is an area of fusifor m aneurysmal dilatation of the junction of the thoracic and abdominal aorta diameter measuring up to 3.9 cm. There is ectasia and mild dilatation of the entire descending aorta. There is a abnormal a neurysmal dilatation of the proximal right common iliac artery measuring up to 2.0 cm in diameter. Inferior vena caval filter is in place. The liver is unremarkable. A small splenule is in place. Has this patient had a splenectomy? The pancreas is unremarkable. A small pocket of gas is seen within the pancreatic duct in the body of the pancreas. There is extensive lumbothoracic scoliosis. No evidence of osseous fracture seen. The ribs are intact. No evidence of pelvic fractures seen. IMPRESSION: Proximal abdominal aortic and right common iliac aneurysmal dilatation.
[2019-02-03 13:08] LABS: Bilirubin Negative (Negative); Blood, Urine Negative (Negative); Clarity CLEAR (Clear); Glucose, Urine (Dipstick) Negative (Negative); Leukocyte Negative (Negative); Nitrite Negative (Negative); Protein, Urine (Dipstick) Negative (Neg-Trace); Specific Gravity, Urine 1.012 (1.002-1.036); Urobilinogen 0.2 mg/dL (0.2-1.0)
--- NOTE | 2019-02-03 14:45 | CT ---
CT OF THE CERVICAL SPINE WITHOUT CONTRAST: Date: 02/03/19 HISTORY: Lethargy. Head injury after fall 2 days ago with neck pain. TECHNIQUE: Multiple contiguous axial images were obtained in a CT of the cervical spine without contrast. Sagitt al and coronal reformats were performed. FINDINGS: Mild intervertebral disc space narrowing is seen consistent with mild degenerative changes in the cer vical spine. The vertebral bodies demonstrate normal height and alignment without fracture or subluxa tion. No prevertebral soft tissue swelling is seen. The posterior facets are well aligned. Normal alignment of the skull base with the cervical spine is seen. Calcifications are seen in the carotid arteries. Emphysematous changes are seen in the lung apices. IMPRESSION: Degenerative changes of the cervical spine without acute osseous abnormality. POS: [facility]
== END 2019-02-03 13:36 | disposition home or self-care (01) ==
LOC: MERGE 10:51 → ERS 10:51
DX: M54.9 Dorsalgia, unspecified (principal); I25.10 Atherosclerotic heart disease of native coronary artery without angina pectoris; I25.2 Old myocardial infarction; E78.5 Hyperlipidemia, unspecified; I11.0 Hypertensive heart disease with heart failure; I50.9 Heart failure, unspecified; Z86.73 Personal history of transient ischemic attack (TIA), and cerebral infarction without residual deficits; Z86.711 Personal history of pulmonary embolism; F41.9 Anxiety disorder, unspecified; F32.9 Major depressive disorder, single episode, unspecified; Z87.891 Personal history of nicotine dependence; Z79.899 Other long term (current) drug therapy; Z79.82 Long term (current) use of aspirin; W18.2XXA Fall in (into) shower or empty bathtub, initial encounter
CPT/HCPCS: 36415; 70450; 71260; 72125; 74177; 80053; 81003; 83690; 84484; 85025; 93005

== ENCOUNTER 2019-02-04 17:49 | Emergency (ER) | payer MEDICARE, BC ==
[2019-02-04 19:22] LABS: Hemoglobin 10.6 g/dL (12.0-16.0); Mean Corpuscular HGB CONC 32.9 g/dL (32.0-36.0); Mean Corpuscular Hemoglobin 29.9 pg (27.0-31.0); Mean Platelet Volume 6.3 fL (7.4-10.4); Platelet Count 395 thou/uL (130-400); Red Blood Cell (RBC) Count 3.53 mill/uL (4.20-5.40); White Blood Cell (WBC) Count 7.1 thou/uL (4.8-10.8)
[2019-02-04 19:39] LABS: Lymphocytes 18 % (21-51); MDiff Complete? YES; Monocytes 7 % (0-10); Neutrophil 75 % (42-75); Platelet Morphology Comment Appears Adequate
[2019-02-04 19:42] LABS: ALT (SGPT) Less than 7 U/L (8-55); AST (SGOT) 12 U/L (5-34); Albumin 3.8 g/dL (3.4-4.8); Alkaline Phosphatase 57 U/L (40-150); Anion Gap 18 mmol/L (10-20); BUN (Urea Nitrogen) 31 mg/dL (9.8-20.1); Bilirubin, Total 0.2 mg/dL (0.2-1.2); Calc. Creatinine Clearance 0 mL/min (70-130); Calcium 9.3 mg/dL (7.8-10.44); Carbon Dioxide 25 mmol/L (23-31); Chloride 94 mmol/L (98-107); Estimated GFR-MDRD 33; Globulin 3.3 g/dL (2.4-3.5); Glucose 109 mg/dL (83-110); Potassium 5.5 mmol/L (3.5-5.1); Protein, Total 7.1 g/dL (6.0-8.3); Sodium 131 mmol/L (136-145)
[2019-02-04 21:26] LABS: Anion Gap 16 mmol/L (10-20); BUN (Urea Nitrogen) 29 mg/dL (9.8-20.1); Calc. Creatinine Clearance 0 mL/min (70-130); Carbon Dioxide 25 mmol/L (23-31); Chloride 94 mmol/L (98-107); Estimated GFR-MDRD 37; Glucose 103 mg/dL (83-110); Potassium 4.5 mmol/L (3.5-5.1); Sodium 130 mmol/L (136-145)
[2019-02-04 22:08] LABS: Bilirubin Negative (Negative); Blood, Urine Negative (Negative); Clarity CLEAR (Clear); Glucose, Urine (Dipstick) Negative (Negative); Leukocyte Trace (Negative); Nitrite Negative (Negative); Protein, Urine (Dipstick) Negative (Neg-Trace); Specific Gravity, Urine 1.013 (1.002-1.036); Urobilinogen 0.2 mg/dL (0.2-1.0)
[2019-02-04 22:11] LABS: Bacteria/HPF None Seen HPF (None Seen); Hyaline Casts/LPF 0-3 HYALINE CAST LPF (0-3 Hyaline); Pathc Cast-AUWi Flag 0.67 (0-2.49); RBC/HPF 0-3 HPF (0-3); Squamous Epithelial 0-3 HPF (0-3); WBC/HPF 0-3 HPF (0-3)
[2019-02-04] MEDS ORDERED: hydrALAZINE 25 MG TAB ONE (23:25)
== END 2019-02-05 00:36 | disposition home or self-care (01) ==
LOC: ERS 17:49
DX: I11.0 Hypertensive heart disease with heart failure (principal); I50.9 Heart failure, unspecified; E87.1 Hypo-osmolality and hyponatremia; Z86.73 Personal history of transient ischemic attack (TIA), and cerebral infarction without residual deficits; G40.909 Epilepsy, unspecified, not intractable, without status epilepticus; K21.9 Gastro-esophageal reflux disease without esophagitis; E78.5 Hyperlipidemia, unspecified; G47.00 Insomnia, unspecified; I25.10 Atherosclerotic heart disease of native coronary artery without angina pectoris; F41.9 Anxiety disorder, unspecified; Z87.891 Personal history of nicotine dependence; Z79.899 Other long term (current) drug therapy
CPT/HCPCS: 36415; 80053; 81001; 84484; 85025; 93005

== ENCOUNTER 2019-03-24 12:12 | Emergency (ER) | payer MEDICARE, BC ==
[2019-03-24 13:54] LABS: #Eosinphils 0.1 thou/uL (0.0-0.7); #Lymphocytes 1.3 thou/uL (1.20-3.40); #Monocytes 0.8 thou/uL (0.11-0.59); #Neutrophils 4.8 thou/uL (1.40-6.50); %Basophils 0.5 % (0.0-1.0); %Lymphocytes 18.5 % (21.0-51.0); %Monocytes 11.3 % (0.0-10.0); %Neutrophils 68.7 % (42.0-75.0); Hemoglobin 11.6 g/dL (12.0-16.0); Mean Corpuscular HGB CONC 32.7 g/dL (32.0-36.0); Mean Corpuscular Hemoglobin 29.7 pg (27.0-31.0); Mean Corpuscular Volume 90.7 fL (78.0-98.0); Mean Platelet Volume 6.9 fL (7.4-10.4); Platelet Count 299 thou/uL (130-400); RBC Distribution Width 13.2 % (11.5-14.5); Red Blood Cell (RBC) Count 3.89 mill/uL (4.20-5.40)
[2019-03-24 14:19] LABS: ALT (SGPT) 9 U/L (8-55); AST (SGOT) 13 U/L (5-34); Albumin 3.8 g/dL (3.4-4.8); Alkaline Phosphatase 56 U/L (40-150); Anion Gap 15 mmol/L (10-20); BUN (Urea Nitrogen) 28 mg/dL (9.8-20.1); Bilirubin, Total 0.3 mg/dL (0.2-1.2); Calc. Creatinine Clearance 0 mL/min (70-130); Calcium 9.5 mg/dL (7.8-10.44); Carbamazepine-Tegretol 10.3 ug/mL (4.0-12.0); Carbon Dioxide 25 mmol/L (23-31); Chloride 98 mmol/L (98-107); Estimated GFR-MDRD 31; Globulin 3.2 g/dL (2.4-3.5); Glucose 104 mg/dL (83-110); Potassium 5.1 mmol/L (3.5-5.1); Sodium 133 mmol/L (136-145)
--- NOTE | 2019-03-24 14:42 | CT ---
EXAM: CT brain without contrast HISTORY: Seizure at a [facility] with altered mental status COMPARISON: 11/19/2018 TECHNIQUE: Multiple contiguous axial images were obtained and a CT of the brain without contrast. FINDINGS: There are scattered hypodensities in the subcortical and periventricular white matter consi stent with small vessel ischemic disease. There is no evidence of hydrocephalus, intracranial hemorrhage, or extra-axial fluid collection. The calvarium and overlying soft tissues are unremarkable. The visualized paranasal sinuses and masto id air cells are well aerated. IMPRESSION: No evidence of acute intracranial abnormality
== END 2019-03-24 16:51 | disposition home or self-care (01) ==
LOC: ERS 12:12
DX: G40.909 Epilepsy, unspecified, not intractable, without status epilepticus (principal); K21.9 Gastro-esophageal reflux disease without esophagitis; E78.5 Hyperlipidemia, unspecified; G47.00 Insomnia, unspecified; I25.10 Atherosclerotic heart disease of native coronary artery without angina pectoris; I11.0 Hypertensive heart disease with heart failure; I50.9 Heart failure, unspecified; I48.91 Unspecified atrial fibrillation; F41.9 Anxiety disorder, unspecified; Z87.891 Personal history of nicotine dependence; Z79.899 Other long term (current) drug therapy; Z79.82 Long term (current) use of aspirin; Z86.73 Personal history of transient ischemic attack (TIA), and cerebral infarction without residual deficits
CPT/HCPCS: 36415; 70450; 80053; 80156; 84146; 85025

== ENCOUNTER 2019-04-20 07:45 | Emergency (ER) | payer MEDICARE, BC ==
--- NOTE | 2019-04-20 08:25 | RAD ---
Exam: Chest one view HISTORY:Seizure Comparison: None FINDINGS: Lungs: No focal consolidation Cardiac silhouette:Prominent cardiac silhouette and ectatic, tortuous thoracic aorta are similar appe aring. Pulmonary vessels: Normal Pleural Spaces: Clear Pneumothorax: None Sternotomy wires are present. Osseous abnormalities: None of acuity. IMPRESSION: No focal consolidation. CHF.
--- NOTE | 2019-04-20 08:35 | CT ---
NONCONTRAST CT HEAD: HISTORY: Altered mental status. Seizure. COMPARISON: 03/24/2019 FINDINGS: There is a stable area of encephalomalacia seen within the right anterior frontal lobe. Diminished a ttenuation in the periventricular white matter is also again seen, likely reflective of chronic small vessel ischemic changes. A low density area within the left basal ganglia is again seen and unchang ed, likely related to remote lacunar infarction. A few scattered low density areas are seen in the c erebellar hemispheres bilaterally, likely related to remote infarctions. There is no evidence of an acute cortical infarction, hemorrhage, mass effect, or midline shift. Cerebral volume loss is again seen. The ventricular system is mildly prominent but not out of proportion to the degree of sulcal a trophy. The visualized paranasal sinuses and mastoid air cells are clear. The calvarial structures have a no rmal appearance. IMPRESSION: 1. No acute intracranial abnormalities demonstrated. 1. Chronic small vessel ischemic changes and cerebral volume loss. 2. Stable area of encephalomalacia, right anterior frontal lobe. 3. Remote lacunar infarction, left basal ganglia, with remote infarctions in each cerebellar hemisph ere. POS: [facility]
[2019-04-20 08:37] LABS: Bacteria/HPF None Seen HPF (None Seen); Bilirubin Negative (Negative); Blood, Urine Negative (Negative); Clarity Clear (Clear); Glucose, Urine (Dipstick) Normal (Negative); Leukocyte Negative Leu/uL (Negative); Nitrite Negative (Negative); Protein, Urine (Dipstick) 30 mg/dL (Neg-Trace); RBC/HPF 0-3 HPF (0-3); Squamous Epithelial None Seen HPF (0-3); Urobilinogen Normal mg/dL (Less than 2); WBC/HPF None Seen HPF (0-3)
[2019-04-20 08:49] LABS: #Eosinphils 0.1 thou/uL (0.0-0.7); #Monocytes 0.4 thou/uL (0.11-0.59); #Neutrophils 7.2 thou/uL (1.40-6.50); %Basophils 0.2 % (0.0-1.0); %Eosinophils 1.3 % (0.0-10.0); %Lymphocytes 11.6 % (21.0-51.0); %Monocytes 4.7 % (0.0-10.0); %Neutrophils 82.3 % (42.0-75.0); Hemoglobin 11.5 g/dL (12.0-16.0); Mean Corpuscular HGB CONC 31.3 g/dL (32.0-36.0); Mean Corpuscular Hemoglobin 28.8 pg (27.0-31.0); Mean Platelet Volume 7.2 fL (7.4-10.4); Platelet Count 271 thou/uL (130-400); RBC Distribution Width 13.2 % (11.5-14.5); Red Blood Cell (RBC) Count 3.99 mill/uL (4.20-5.40); White Blood Cell (WBC) Count 8.7 thou/uL (4.8-10.8)
[2019-04-20 09:08] LABS: ALT (SGPT) 7 U/L (8-55); AST (SGOT) 13 U/L (5-34); Alkaline Phosphatase 55 U/L (40-150); Anion Gap 18 mmol/L (10-20); BUN (Urea Nitrogen) 23 mg/dL (9.8-20.1); Bilirubin, Total 0.2 mg/dL (0.2-1.2); Calc. Creatinine Clearance 0 mL/min (70-130); Calcium 9.5 mg/dL (7.8-10.44); Carbon Dioxide 23 mmol/L (23-31); Chloride 97 mmol/L (98-107); Estimated GFR-MDRD 34; Glucose 117 mg/dL (83-110); Potassium 4.4 mmol/L (3.5-5.1); Sodium 134 mmol/L (136-145)
[2019-04-20 09:31] LABS: CKMB 1.2 ng/mL (0-6.6)
--- NOTE | 2019-04-23 15:21 | EKG ---
Test Reason : Blood Pressure : / mmHG Vent. Rate : 094 BPM Atrial Rate : 094 BPM P-R Int : 184 ms QRS Dur : 124 ms QT Int : 378 ms P-R-T Axes : 067 040 226 degrees QTc Int : 472 ms Normal sinus rhythm Possible Left atrial enlargement Septal infarct , age undetermined Abnormal ECG Confirmed by SARABJIT HARRY DO ([id number]), managing editor FATOUMATA BLACKMON ([id number]) on 04/23/2019 3:21:07 PM Referred By: Confirmed By:SARABJIT HARRY DO
== END 2019-04-20 11:38 ==
LOC: ERS 07:45
DX: G40.909 Epilepsy, unspecified, not intractable, without status epilepticus (principal); R79.89 Other specified abnormal findings of blood chemistry; I11.0 Hypertensive heart disease with heart failure; I50.9 Heart failure, unspecified; I25.10 Atherosclerotic heart disease of native coronary artery without angina pectoris; K21.9 Gastro-esophageal reflux disease without esophagitis; E78.5 Hyperlipidemia, unspecified; G47.00 Insomnia, unspecified; I48.91 Unspecified atrial fibrillation; F41.9 Anxiety disorder, unspecified; Z87.891 Personal history of nicotine dependence; Z79.899 Other long term (current) drug therapy; Z86.73 Personal history of transient ischemic attack (TIA), and cerebral infarction without residual deficits; Z79.82 Long term (current) use of aspirin
CPT/HCPCS: 36415; 70450; 71045; 80053; 80156; 81003; 81015; 82140; 82553; 84146; 84484; 85025; 87040; 93005; A4353

== ENCOUNTER 2019-05-01 17:55 | Emergency (ER) | payer MEDICARE, BC ==
[~2019-05-01 17:55] MED LIST: ISOVUE-370 76%-LOCM 1 ML ONE
[2019-05-01 18:29] LABS: #Eosinphils 0.1 thou/uL (0.0-0.7); #Lymphocytes 1.2 thou/uL (1.20-3.40); #Monocytes 0.7 thou/uL (0.11-0.59); #Neutrophils 4.7 thou/uL (1.40-6.50); %Basophils 0.1 % (0.0-1.0); %Monocytes 10.5 % (0.0-10.0); %Neutrophils 70.4 % (42.0-75.0); Mean Corpuscular HGB CONC 33.1 g/dL (32.0-36.0); Mean Corpuscular Hemoglobin 30.6 pg (27.0-31.0); Mean Corpuscular Volume 92.6 fL (78.0-98.0); Mean Platelet Volume 7.4 fL (7.4-10.4); Platelet Count 284 thou/uL (130-400); RBC Distribution Width 13.7 % (11.5-14.5); Red Blood Cell (RBC) Count 3.59 mill/uL (4.20-5.40); White Blood Cell (WBC) Count 6.6 thou/uL (4.8-10.8)
[2019-05-01] MEDS ORDERED: Ondansetron PF 4 MG/2 ML Vial ONE (18:34)
[2019-05-01 18:51] LABS: ALT (SGPT) 8 U/L (8-55); AST (SGOT) 13 U/L (5-34); Albumin 3.9 g/dL (3.4-4.8); Alkaline Phosphatase 58 U/L (40-150); Anion Gap 13 mmol/L (10-20); BUN (Urea Nitrogen) 23 mg/dL (9.8-20.1); Bilirubin, Total 0.2 mg/dL (0.2-1.2); Calc. Creatinine Clearance 0 mL/min (70-130); Calcium 9.4 mg/dL (7.8-10.44); Carbon Dioxide 25 mmol/L (23-31); Chloride 101 mmol/L (98-107); Estimated GFR-MDRD 41; Glucose 166 mg/dL (83-110); Lipase 25 U/L (8-78); Potassium 4.5 mmol/L (3.5-5.1); Protein, Total 6.9 g/dL (6.0-8.3); Sodium 134 mmol/L (136-145)
[2019-05-01 19:06] LABS: Bacteria/HPF None Seen HPF (None Seen); Bilirubin Negative (Negative); Blood, Urine Negative (Negative); Clarity Clear (Clear); Glucose, Urine (Dipstick) Normal (Negative); Leukocyte 25 Leu/uL (Negative); Nitrite Negative (Negative); Protein, Urine (Dipstick) 20 mg/dL (Neg-Trace); RBC/HPF 0-3 HPF (0-3); Squamous Epithelial 0-3 HPF (0-3); Urobilinogen Normal mg/dL (Less than 2); WBC/HPF 0-3 HPF (0-3)
--- NOTE | 2019-05-01 20:14 | CT ---
CT BRAIN WITHOUT CONTRAST: History: Altered mental status. Comparison: 04-22-19 FINDINGS: Changes of cortical atrophy, chronic small vessel ischemic disease and encephalomalacia in the right frontal lobe likely due to old infarction again seen. The ventricular size is stable and the basilar cisterns patent. No evidence of acute infarct, hemorrhage, midline shift, or abnormal extraaxial fluid collections are seen. The bony calvarium is intact. The visualized paranasal sinuses and mastoid air cells are well aerated. IMPRESSION: Stable exam. No CT evidence of acute intracranial process. POS: [facility]
--- NOTE | 2019-05-01 20:23 | CT ---
CT ABDOMEN AND PELVIS WITH IV CONTRAST: History: Dementia, vomiting during dinner. FINDINGS: There are dependent changes in the lung bases. No calcified gallstones are seen. The liver, spleen, pancreas, and adrenal glands are normal. There i s scarring in the left kidney. Right kidney is unremarkable. No free air, free fluid, or lymphadenopathy is seen in the abdomen or pelvis. The uterus is present. The urinary bladder is well distended. There is fecal material in the colon. There are vascular calcifications with a 4.5 cm suprarenal, 3.8 cm renal artery level and 3 cm infrar enal abdominal aortic aneurysms. There are degenerative changes in the spine. IVC filter is present. IMPRESSION: 1. Abdominal aortic aneurysms as above. 2. Constipation. POS: [facility]
== END 2019-05-01 22:59 | disposition home or self-care (01) ==
LOC: ERS 17:55
DX: R11.10 Vomiting, unspecified (principal); R10.811 Right upper quadrant abdominal tenderness; R10.813 Right lower quadrant abdominal tenderness; F03.90 Unspecified dementia, unspecified severity, without behavioral disturbance, psychotic disturbance, mood disturbance, and anxiety; G47.00 Insomnia, unspecified; I25.10 Atherosclerotic heart disease of native coronary artery without angina pectoris; I48.91 Unspecified atrial fibrillation; I21.4 Non-ST elevation (NSTEMI) myocardial infarction; I50.30 Unspecified diastolic (congestive) heart failure; I11.0 Hypertensive heart disease with heart failure; F41.9 Anxiety disorder, unspecified; Z86.711 Personal history of pulmonary embolism; Z86.73 Personal history of transient ischemic attack (TIA), and cerebral infarction without residual deficits; Z87.440 Personal history of urinary (tract) infections; Z87.891 Personal history of nicotine dependence; Z79.899 Other long term (current) drug therapy; Z79.82 Long term (current) use of aspirin
CPT/HCPCS: 51701; 70450; 74177; 80053; 80156; 81003; 81015; 83690; 85025; 93005; 94760; 96361; 96374; A4353; J2405; Q9966

== ENCOUNTER 2019-06-20 18:29 | Emergency (ER) | payer MEDICARE, BC ==
[2019-06-20 18:55] LABS: Bilirubin Negative (Negative); Blood, Urine Negative (Negative); Clarity Clear (Clear); Glucose, Urine (Dipstick) Normal (Negative); Leukocyte Negative Leu/uL (Negative); Nitrite Negative (Negative); Protein, Urine (Dipstick) 10 mg/dL (Neg-Trace); Urobilinogen Normal mg/dL (Less than 2)
[2019-06-20 19:07] LABS: #Basophils 0.1 thou/uL (0.0-0.2); #Eosinphils 0.2 thou/uL (0.0-0.7); #Lymphocytes 1.2 thou/uL (1.20-3.40); #Monocytes 0.7 thou/uL (0.11-0.59); #Neutrophils 3.5 thou/uL (1.40-6.50); %Basophils 1.4 % (0.0-1.0); %Lymphocytes 21.2 % (21.0-51.0); %Monocytes 12.9 % (0.0-10.0); %Neutrophils 61.4 % (42.0-75.0); Hemoglobin 10.6 g/dL (12.0-16.0); Mean Corpuscular HGB CONC 33.1 g/dL (32.0-36.0); Mean Corpuscular Hemoglobin 30.8 pg (27.0-31.0); Mean Corpuscular Volume 93.2 fL (78.0-98.0); Mean Platelet Volume 7.1 fL (7.4-10.4); Platelet Count 319 thou/uL (130-400); RBC Distribution Width 12.3 % (11.5-14.5); Red Blood Cell (RBC) Count 3.45 mill/uL (4.20-5.40); White Blood Cell (WBC) Count 5.8 thou/uL (4.8-10.8)
[2019-06-20 19:30] LABS: ALT (SGPT) 9 U/L (8-55); AST (SGOT) 14 U/L (5-34); Albumin 3.8 g/dL (3.4-4.8); Alkaline Phosphatase 59 U/L (40-110); Anion Gap 14 mmol/L (10-20); BUN (Urea Nitrogen) 22 mg/dL (9.8-20.1); Bilirubin, Total 0.2 mg/dL (0.2-1.2); Calc. Creatinine Clearance 0 mL/min (70-130); Calcium 9.2 mg/dL (7.8-10.44); Carbon Dioxide 23 mmol/L (23-31); Chloride 101 mmol/L (98-107); Estimated GFR-MDRD 37; Globulin 3.3 g/dL (2.4-3.5); Glucose 118 mg/dL (83-110); Potassium 4.9 mmol/L (3.5-5.1); Protein, Total 7.1 g/dL (6.0-8.3); Sodium 133 mmol/L (136-145)
--- NOTE | 2019-06-20 20:27 | CT ---
CT HEAD WITHOUT CONTRAST: HISTORY: Altered mental status. COMPARISON: 05/01/2019 FINDINGS: There is diminished attenuation again seen in the periventricular white matter, likely attributable t o chronic small vessels ischemic changes. Areas of encephalomalacia in each anterior frontal lobe are again seen, larger in size in the right anterior frontal lobe, likely related to remote areas of inf arction. Remote infarction in the left basal ganglia is again seen. There is no evidence of an acute cortical infarction, hemorrhage, mass effect or midline shift. Cereb ral and cerebellar volume loss is again seen. A few tiny remote cerebellar infarctions are seen bilat erally. The ventricular system is normal in size, shape and position for the degree of sulcal atrophy and is also stable compared to prior exam. The calvarial structures are intact without evidence of a calvarial fracture. The visualized paranasa l sinuses and mastoid air cells are clear. IMPRESSION: Stable chronic changes without evidence of an acute intracranial abnormality demonstrated. POS: [facility]
--- NOTE | 2019-06-20 20:31 | RAD ---
PORTABLE CHEST: HISTORY: Mental status change. COMPARISON: 04/24/2019 FINDINGS: Cardiomegaly with vascular congestion. There is interstitial congestion, consistent with interstitial edema. No confluent consolidation. IMPRESSION: Evidence of vascular congestion with interstitial edema. POS: [facility]
== END 2019-06-20 20:54 ==
LOC: ERS 18:29
DX: E86.0 Dehydration (principal); R41.0 Disorientation, unspecified; G43.909 Migraine, unspecified, not intractable, without status migrainosus; E78.5 Hyperlipidemia, unspecified; G47.00 Insomnia, unspecified; I25.10 Atherosclerotic heart disease of native coronary artery without angina pectoris; I11.0 Hypertensive heart disease with heart failure; I50.9 Heart failure, unspecified; I25.2 Old myocardial infarction; I48.91 Unspecified atrial fibrillation; F03.90 Unspecified dementia, unspecified severity, without behavioral disturbance, psychotic disturbance, mood disturbance, and anxiety; F41.9 Anxiety disorder, unspecified; Z87.891 Personal history of nicotine dependence; Z86.711 Personal history of pulmonary embolism; Z79.82 Long term (current) use of aspirin; Z79.899 Other long term (current) drug therapy; Z86.73 Personal history of transient ischemic attack (TIA), and cerebral infarction without residual deficits
CPT/HCPCS: 51701; 70450; 71045; 80053; 81003; 83880; 84484; 85025; 87086; 93005; 96360; A4353

== ENCOUNTER 2019-08-03 09:37 | Observation (INO) | payer MEDICARE, BC ==
[2019-08-03] MEDS ORDERED: Acetaminophen 325 MG TAB PO PRN ×2 (14:28→19:38)
--- NOTE | 2019-08-03 14:30 | CT ---
CT HEAD WITHOUT CONTRAST: HISTORY: Altered mental status. COMPARISON: None available. The hospital system is not functioning. FINDINGS: There is no evidence of acute intracranial hemorrhage or infarct. Diffuse cortical atrophy and promin ent chronic ischemic small vessel disease. Old right frontal infarct extends through the overlying co rtex. There is no mass effect or shift of midline structures. The visualized paranasal sinuses remain well aerated. IMPRESSION: Evidence of prominent chronic vascular disease. No acute intracranial abnormalities are demonstrated. POS: [facility]
[2019-08-03 14:43] LABS: Bilirubin Negative (Negative); Blood, Urine Negative (Negative); Clarity Clear (Clear); Glucose, Urine (Dipstick) Normal (Negative); Leukocyte Negative Leu/uL (Negative); Nitrite Negative (Negative); Protein, Urine (Dipstick) 30 mg/dL (Neg-Trace); RBC/HPF 0-3 HPF (0-3); Squamous Epithelial 0-3 HPF (0-3); Urobilinogen Normal mg/dL (Less than 2); WBC/HPF 0-3 HPF (0-3)
[2019-08-03 14:45] LABS: Bacteria/HPF 1+ HPF (None Seen)
[2019-08-03 14:51] LABS: #Lymphocytes 0.9 thou/uL (1.20-3.40); #Monocytes 0.4 thou/uL (0.11-0.59); %Basophils 0.3 % (0.0-1.0); %Eosinophils 0.4 % (0.0-10.0); %Lymphocytes 11.9 % (21.0-51.0); %Neutrophils 81.4 % (42.0-75.0); Hemoglobin 10.2 g/dL (12.0-16.0); Mean Corpuscular HGB CONC 32.3 g/dL (32.0-36.0); Mean Corpuscular Hemoglobin 29.9 pg (27.0-31.0); Mean Corpuscular Volume 92.5 fL (78.0-98.0); Mean Platelet Volume 7.1 fL (7.4-10.4); Platelet Count 279 thou/uL (130-400); RBC Distribution Width 12.1 % (11.5-14.5); Red Blood Cell (RBC) Count 3.43 mill/uL (4.20-5.40); White Blood Cell (WBC) Count 7.3 thou/uL (4.8-10.8)
[2019-08-03 15:00] LABS: ALT (SGPT) 37 U/L (8-55); AST (SGOT) 54 U/L (5-34); Albumin 3.7 g/dL (3.4-4.8); Alkaline Phosphatase 64 U/L (40-110); Anion Gap 9 mmol/L (10-20); BUN (Urea Nitrogen) 17 mg/dL (9.8-20.1); Bilirubin, Total 0.3 mg/dL (0.2-1.2); Calc. Creatinine Clearance 0 mL/min (70-130); Calcium 9.2 mg/dL (7.8-10.44); Carbon Dioxide 29 mmol/L (23-31); Chloride 98 mmol/L (98-107); Dilantin Less than 1.8 ug/mL (10.0-20.0); Estimated GFR-MDRD 55; Globulin 2.8 g/dL (2.4-3.5); Glucose 132 mg/dL (83-110); Potassium 4.8 mmol/L (3.5-5.1); Protein, Total 6.5 g/dL (6.0-8.3); Sodium 131 mmol/L (136-145)
[2019-08-03 15:03] LABS: Troponin I 0.036 ng/mL (< 0.028)
[2019-08-03] MEDS ORDERED: Lorazepam 2 MG/ML VIAL ONE (16:09)
[2019-08-03 16:20] VITALS: BMI 18.8
[2019-08-03] MEDS ORDERED: Lorazepam 2 MG/ML VIAL SLOW IVP PRN (17:06)
--- NOTE | 2019-08-03 17:37 | RAD ---
EXAM: CHEST ONE VIEW PORTABLE: 08/03/19 HISTORY: Altered mental status. COMPARISON: 06/20/19. FINDINGS: Midline sternotomy. Cardiomegaly. Increased linear and interstitial markings bilaterally without sign ificant focal confluent process. Appearance is stable to possibly slightly improved from the prior st udy. IMPRESSION: Cardiomegaly with stable increased linear and interstitial markings bilaterally. Very extensive athe rosclerotic ectatic changes of the aorta. No significant new process. POS: [facility]
[2019-08-03] MEDS ORDERED: Lorazepam 0.5 MG TAB PO PRN (19:38)
[2019-08-03] MEDS ORDERED: cloNIDine 0.1 MG TAB PO PRN (19:38)
[2019-08-03 20:05] LABS: Troponin I 0.045 ng/mL (< 0.028)
[2019-08-03] MEDS: lamoTRIgine 100 MG TAB PO SCH (20:41)
[2019-08-03] MEDS: carBAMazepine 200 MG TAB PO SCH (20:41)
[2019-08-03] MEDS: Carvedilol 25 MG TAB PO SCH (20:41)
[2019-08-03] MEDS: hydrALAZINE 25 MG TAB PO SCH (20:41)
[2019-08-03] MEDS: lamoTRIgine 25 MG TAB PO SCH (20:49)
[2019-08-03] MEDS ORDERED: traZODone HCl 50 MG TAB PO SCH (21:00)
[2019-08-03] MEDS ORDERED: Mirtazapine 15 MG Soltab PO SCH (21:00)
[2019-08-04] MEDS ORDERED: Cyanocobalamin (Vitamin B-12) 1,000 MCG TAB PO SCH (09:00)
[2019-08-04] MEDS ORDERED: Potassium Chloride 20 MEQ TAB PO SCH (09:00)
[2019-08-04] MEDS ORDERED: Losartan 25 MG TAB PO SCH (09:00)
[2019-08-04] MEDS ORDERED: Amlodipine 10 MG TAB PO SCH (09:00)
[2019-08-04] MEDS ORDERED: Aspirin 81 mg Enteric Coated Tablet PO SCH (09:00)
[2019-08-04] MEDS ORDERED: Prevnar 13-Val Conj/PF 0.5 ML SYRINGE IM ONE (09:00)
[2019-08-04] MEDS: lamoTRIgine 25 MG TAB PO SCH (09:56)
[2019-08-04] MEDS: hydrALAZINE 25 MG TAB PO SCH (09:57)
[2019-08-04] MEDS: lamoTRIgine 100 MG TAB PO SCH (09:57)
[2019-08-04] MEDS: Carvedilol 25 MG TAB PO SCH (09:58)
[2019-08-04] MEDS: carBAMazepine 200 MG TAB PO SCH (09:58)
--- NOTE | 2019-08-04 12:03 | HP ---
CHIEF COMPLAINT: Postictal. HISTORY OF PRESENT ILLNESS: This patient is a 79-year-old female with a history of a known seizure disorder and dementia. She is a resident of a nursing facility. The patient was brought to the emergency department with encephalopathy and was felt the patient was postictal. The patient had come to the emergency department on occasions before with similar findings. The patient's son is present with her and reports typically she stays in the ER for several hours and then returns to the nursing facility. However, the lab workup on this occasion showed indeterminate troponins. The patient currently is back to her baseline mental status, but because of her dementia, is unable to give any additional insight or history. PAST MEDICAL HISTORY: Notable for the above-mentioned epilepsy, history of prior stroke, GERD, hyperlipidemia, insomnia, chronic pain, coronary artery disease, congestive heart failure, hypertension, history of prior non-STEMI, aortic aneurysm repair, history of a prior frontal lobe aneurysm and history of atrial fibrillation. PAST SURGICAL HISTORY: Ascending and descending aortic aneurysm repair in 2008 and 2009, bilateral cataractectomy. FAMILY HISTORY: Not known. SOCIAL HISTORY: Nondrinker, nondrug user. Apparently was a prior cigarette smoker, but quit more than 10 years prior. REVIEW OF SYSTEMS: Unobtainable given the patient's dementia. HOME MEDICATIONS: 1. Trazodone 50 mg at bedtime. 2. Lamictal 150 mg b.i.d. 3. Hydralazine 25 mg t.i.d. 4. Clonidine 0.1 mg q.8 hours. 5. Carbamazepine 200 mg one p.o. t.i.d. 6. Potassium 20 mEq p.o. daily. 7. Remeron 15 mg at bedtime. 8. Potassium 50 daily. 9. Ativan 0.5 mg one p.o. daily p.r.n. 10. B12 1000 mcg daily. 11. Coreg 25 mg b.i.d. 12. Aspirin 81 mg daily. 13. Norvasc 10 mg daily. 14. Tylenol p.r.n. ALLERGIES: NONE KNOWN. PHYSICAL EXAMINATION: VITAL SIGNS: At the time presentation, temperature was 100.1, pulse 71, respirations 19, O2 saturations 92%, BP 171/78. GENERAL APPEARANCE: Age-appropriate female, in no distress. She was awake and alert, pleasant, cooperative. She could converse but was confused. HEENT: PERRL, no OP lesions. NECK: Supple and symmetric with no lymphadenopathy, JVD, or carotid bruits. HEART: Regular rate and rhythm without murmurs, gallops, or rubs. LUNGS: Clear bilaterally with no wheezes or rales. ABDOMEN: Soft, nontender, and nondistended. Positive bowel sounds. No masses. No organomegaly. EXTREMITIES: No cyanosis, clubbing, or edema. LABORATORY DATA: Urinalysis is negative. Dilantin level was less than 1.8. CT scan of the brain showed evidence of prominent chronic vascular disease with diffuse cortical atrophy, old right frontal infarct. Chest x-ray showed cardiomegaly with stable increased linear interstitial markings bilaterally, extensive atherosclerotic ectatic changes of the aorta. EKG showed some left bundle branch block. IMPRESSION AND PLAN: 1. Postictal state. The patient has a history of known seizure disorder. She has breakthrough seizures from time to time. This is following her typical course and would typically be comfortable in discharging her back to the facility other than the bump in the troponin. 2. Indeterminate troponins. The [employer] computer system was down initially at the time of the evaluation, therefore were unable to check prior records. However, once the system came back on board, we were able to identify the patient had elevated troponins in the past that were significantly higher as recently as March. At that time, the patient had been evaluated by Dr. Garcia and the decision at that time was that the patient was not a candidate for any intervention regardless of whether this was NSTEMI. Therefore, the fact that they are far less elevated on this occasion is not likely to trigger any further aggressive intervention. We will continue to monitor and keep her on telemetry, however, anticipate we will be able to discharge home. 3. Dementia. The patient has significant vascular dementia. I had a long conversation with the patient's son. She is definitely DNR. He is her surrogate decision maker and there was some concern from he and his sister regarding opportunities to either make her better or to consider more of a palliative approach. We did discuss the degenerative nature of her vascular disease and vascular dementia. Certainly nothing can specifically be done to make that better and it would likely progress over time. 4. Hypertension. Continue home medications. Job ID: [id number]
[2019-08-04 13:04] VITALS: BP 104/45; TEMP 97.9
--- NOTE | 2019-08-05 19:04 | DIS ---
DATE OF ADMISSION: 08/03/2019 DATE OF DISCHARGE: 08/04/2019 DISCHARGE DIAGNOSES: 1. Postictal encephalopathy. 2. Seizure. 3. Seizure disorder. 4. Vascular dementia. 5. Chronic kidney disease stage 3. 6. Coronary artery disease. 7. Indeterminate troponins consistent with very mild [id number] myocardial infarction type 2 secondary to seizure activity with likely some related relative hypoxia briefly. 8. Congestive heart failure. 9. Hypertension. 10. History of atrial fibrillation. 11. History of cerebrovascular accident. HISTORY OF PRESENT ILLNESS: This patient is a 79-year-old female with significant vascular dementia and chronic microvascular disease on CT scans, who has a history of seizure disorder with prior admissions in similar settings. The patient had been noted at the care home facility to have altered mental status. She did not apparently have a witnessed seizure prior to the altered mental status; however in the emergency department, the patient had complete return to her baseline mental status and according to her son, this did happen on several previous occasions and they typically would spend a few hours in the ER, ensure that she was back to her baseline mental status and then return to the nursing facility. On this occasion, however, the patient's troponin at the time of her evaluation in the emergency department was indeterminate with a level of 0.036 and therefore, the decision was made to keep the patient for further monitoring. At that time, the hospital's EHR system was down and no prior information from previous visits was available. However, soon thereafter the system came back up, it was apparent that the patient had been admitted in the past with similar scenario, at which time her troponins were significantly higher than on this occasion. She had had a Cardiology consultation and Cardiology made it clear that the patient was not a candidate for any type of intervention regardless of the results of the test; therefore, a second troponin was obtained, but no further troponins were ordered for further evaluation. Soon after the patient arrived to the medical floor for observation, she had a witnessed tonic-clonic seizure witnessed by nursing. It was generally brief and had resolved by the time I arrived to the room; however, she was again very encephalopathic in her postictal state. She had been given 1 mg of Ativan. During this episode, the patient's blood pressure did go a bit high and her oxygen levels dropped into the mid to upper 80s briefly and then spontaneously recovered. She did well overnight, had no further problems. She was completely back to her baseline by the morning. On discussing the case with the patient's son at the time of admission, he was clear that he and his sister had discussed her scenario and they felt the patient was unhappy with her current quality of life and he was clear that the patient was to remain a do not attempt to resuscitate. We also discussed alternative options to returning to the hospital such as hospice type of approach to her care. Once the patient was back to her baseline mental status, it was not felt that there was significant further workup indicated as this was common for her occasional breakthrough seizures and there was no indication for further cardiac workup or evaluation. Therefore, the patient was felt to be stable to return back to the nursing facility. PHYSICAL EXAMINATION: VITAL SIGNS: At the time of discharge, temperature was 98.8, pulse 57, BP 163/69, respirations 16, O2 saturation was 93%. GENERAL: She was awake and alert. She was still pleasantly confused and cooperative. HEART: Regular. LUNGS: Clear. ABDOMEN: Benign. NEUROLOGICAL: She appeared to be moving all extremities spontaneously. Cranial nerves appear to be intact. DISPOSITION: The patient is discharged in stable condition. ACTIVITY: As tolerated. DIET: She will be on a heart healthy diet. MEDICATIONS: She will continue with her usual home medication regimen with no changes. FOLLOWUP: She is to follow up with her primary care provider, Dr. Gary at the [facility] and she can return to the hospital anytime if there is any need to do so. Job ID: [id number]
== END 2019-08-04 13:55 | disposition home or self-care (01) ==
LOC: ERS 09:37 → ERHOLD 13:21 → 2NO 15:28
PROVIDERS: ADMIT Internal Medicine; ATTEND Internal Medicine
DX: G40.909 Epilepsy, unspecified, not intractable, without status epilepticus (principal); I21.A1 Myocardial infarction type 2; I13.0 Hypertensive heart and chronic kidney disease with heart failure and stage 1 through stage 4 chronic kidney disease, or unspecified chronic kidney disease; N18.3 Chronic kidney disease, stage 3 (moderate); I50.9 Heart failure, unspecified; E78.5 Hyperlipidemia, unspecified; F01.50 Vascular dementia, unspecified severity, without behavioral disturbance, psychotic disturbance, mood disturbance, and anxiety; I48.91 Unspecified atrial fibrillation; I25.10 Atherosclerotic heart disease of native coronary artery without angina pectoris; Z79.82 Long term (current) use of aspirin; Z79.899 Other long term (current) drug therapy; Z86.73 Personal history of transient ischemic attack (TIA), and cerebral infarction without residual deficits; Z87.891 Personal history of nicotine dependence
CPT/HCPCS: 70450; 71045; 80053; 80185; 81001; 82962; 84484 ×2; 85025; 93005; 96374; 99285; G0378 ×3; 36415; 36416; J2060

== ENCOUNTER 2019-08-04 17:46 | Observation (INO) | payer MEDICARE, BC ==
[2019-08-04 18:19] LABS: Bacteria/HPF 2+ HPF (None Seen); Bilirubin Negative (Negative); Blood, Urine Negative (Negative); Clarity Clear (Clear); Glucose, Urine (Dipstick) Normal (Negative); Leukocyte Negative Leu/uL (Negative); Nitrite Negative (Negative); Protein, Urine (Dipstick) 30 mg/dL (Neg-Trace); RBC/HPF 0-3 HPF (0-3); Squamous Epithelial 0-3 HPF (0-3); Urobilinogen Normal mg/dL (Less than 2); WBC/HPF 0-3 HPF (0-3)
[2019-08-04 18:29] LABS: #Eosinphils 0.1 thou/uL (0.0-0.7); #Lymphocytes 1.1 thou/uL (1.20-3.40); #Monocytes 0.9 thou/uL (0.11-0.59); #Neutrophils 6.2 thou/uL (1.40-6.50); %Basophils 0.3 % (0.0-1.0); %Eosinophils 1.1 % (0.0-10.0); %Lymphocytes 13.1 % (21.0-51.0); %Monocytes 10.9 % (0.0-10.0); %Neutrophils 74.6 % (42.0-75.0); Hemoglobin 10.8 g/dL (12.0-16.0); Mean Corpuscular HGB CONC 31.9 g/dL (32.0-36.0); Mean Corpuscular Hemoglobin 29.1 pg (27.0-31.0); Mean Platelet Volume 7.2 fL (7.4-10.4); Platelet Count 271 thou/uL (130-400); RBC Distribution Width 12.1 % (11.5-14.5); White Blood Cell (WBC) Count 8.3 thou/uL (4.8-10.8)
[2019-08-04 18:44] LABS: Amphetamine Not Detected (NotDetected); Barbiturates Screen Not Detected (NotDetected); Benzodiazepine Screen Detected (NotDetected); Cocaine Metabolite Screen Not Detected (NotDetected); Medtox Control Line Valid? VALID (VALID); Medtox Reader # READER 4; Methadone Not Detected (NotDetected); Methamphetamine Not Detected (NotDetected); Opiate Screen Not Detected (NotDetected); Oxycodone Screen Not Detected (NotDetected); Phencyclidine (PCP) Not Detected (NotDetected); THC/Cannabinoid Screen Not Detected (NotDetected); Tricyclic Screen Not Detected (NotDetected)
[2019-08-04 18:51] LABS: Acetaminophen Less than 6.0 mcg/mL (10.0-30.0); Alcohol Less than 10 mg/dL (Less than 10); Salicylate Less than 8.0 mg/dL (15.0-30.0)
[2019-08-04 18:52] LABS: ALT (SGPT) 39 U/L (8-55); AST (SGOT) 35 U/L (5-34); Albumin 3.7 g/dL (3.4-4.8); Alkaline Phosphatase 64 U/L (40-110); Anion Gap 12 mmol/L (10-20); BUN (Urea Nitrogen) 26 mg/dL (9.8-20.1); Bilirubin, Total 0.2 mg/dL (0.2-1.2); Calc. Creatinine Clearance 0 mL/min (70-130); Calcium 9.3 mg/dL (7.8-10.44); Carbon Dioxide 26 mmol/L (23-31); Chloride 98 mmol/L (98-107); Estimated GFR-MDRD 33; Globulin 3.3 g/dL (2.4-3.5); Glucose 220 mg/dL (83-110); Lipase 41 U/L (8-78); Potassium 4.8 mmol/L (3.5-5.1); Sodium 131 mmol/L (136-145)
--- NOTE | 2019-08-04 19:07 | RAD ---
PORTABLE CHEST ONE VIEW: 08/04/19 at 6:51 p.m. HISTORY: Shortness of breath. FINDINGS/IMPRESSION: Comparison made with exam of 08/03/19. Changes of median sternotomy again seen. The heart size is stable. The aorta is tortuous. There are p ulmonary vascular congestion. No lobar consolidation, pneumothoraces or large effusions are seen. POS: [facility]
--- NOTE | 2019-08-04 19:30 | CT ---
Exam: Head CT without contrast HISTORY: Altered mental status COMPARISON: 08/03/2019 FINDINGS: Hemorrhage: No intraparenchymal hemorrhage or extra-axial hematoma. Brain parenchyma: Stable encephalomalacia in the right frontal lobe. Remainder the cerebrum demonstra lindsay preservation of cortical ramos-white matter differentiation.Hypodensities due to chronic small vessel ischemic change Ventricular system: Stable configuration the ventricular system. Calvarium: Intact. Sinuses and mastoid air cells: Adequate aeration. IMPRESSION: No acute intracranial process. No significant interval change.
[2019-08-04 22:41] VITALS: BMI 18.6
--- NOTE | 2019-08-05 00:23 | PDOC.HHP ---
Hospitalist HPI - History of Present Illness Altered mental status History of Present Illness: Patient is a 79 year old female with PMH seizure disorder, dementia, chronic diastolic CHF, CAD, HTN, anemia, CVA in past who is admitted to [facility] for altered mental status. Patient is AO x 1-2 which seems about in line with records, however fdc reported a decrease in mental status this evening , and was less responsive at dinner table, reportedly she was seen in ED yesterday for seizures. Here she was noted to be somnolent and lethargic in ED, head CT without acute findings, no fever or signs of infection on exam or labwork, however patient was felt too altered to safely return home without further investigation so patient to be admitted to hospitalist service for further workup. Med list reviewed, current med list includes tegretol 200mg TID , ativan 0.5 mg PO daily PRN, remeron 15mg at bedtime, lamotrigine 150mg PO BID , trazodone 50mg at bedtime and clonidine 0.1mg q8h PRN SBP > 180. She is also on several blood pressure medications. This is notable that tegretol is lower than previos discharge dose of 300mg TID. Lamotrigine was also recommended to be lowered to 100mg per day last admission. Unsure why doses differ, i.e. clinical error vs dosage change for abnormal blood level of medication. Patient is pleasant but poor historian, feels fine and no symptoms, unable to supplement history at all. Per chart review, seizures started 9-10 years ago after abdominal surgery. Last admission here was in late March of this year for mental status changes as well. She had an MRI with no acute findings, had an EEG w/ subclinical seizure activity, she had a negative head CT at that time as well. Hospitalist ROS - Review of Systems ROS unobtainable: due to mental status (altered and confused) Hospitalist History - Past Medical History Other Medical History: seizure disorder, dementia, chronic diastolic CHF, CAD, HTN, anemia, CVA - Past Surgical History Other Surgical History: ascending/descending AAA repair 2008 and 2009 cataract - Family History Other Family History: unable to obtain due to mental status - Social History Alcohol: reports: None Drugs: reports: none - Exam General Appearance: NAD, awake alert General - other findings: confused Eye: PERRL, anicteric sclera ENT: normocephalic atraumatic, moist mucosa Neck: supple, symmetric, no JVD Heart: RRR, no murmur, no gallops, no rubs Respiratory: CTAB, no wheezes, no rales, no ronchi Gastrointestinal: soft, non-tender, non-distended, normal bowel sounds Extremities: no cyanosis, no clubbing, no edema Skin: no lesions, no rashes Neurological: cranial nerve grossly intact, normal sensation to touch, no weakness, no focal deficits Musculoskeletal: normal tone, normal strength Psychiatric: normal affect, normal behavior Psychiatric - other findings: AOx 1 Hospitalist Results - Labs Result Diagrams: 08/04/19 18:10 08/04/19 18:10 Lab results: WBC 8.3 thou/uL (4.8-10.8) 08/04/19 18:10 Hgb 10.8 g/dL (12.0-16.0) L 08/04/19 18:10 Hct 33.7 % (36.0-47.0) L 08/04/19 18:10 MCV 91.0 fL (78.0-98.0) 08/04/19 18:10 Plt Count 271 thou/uL (130-400) 08/04/19 18:10 Neutrophils % 74.6 % (42.0-75.0) 08/04/19 18:10 Sodium 131 mmol/L (136-145) L 08/04/19 18:10 Potassium 4.8 mmol/L (3.5-5.1) 08/04/19 18:10 Chloride 98 mmol/L (98-107) 08/04/19 18:10 Carbon Dioxide 26 mmol/L (23-31) 08/04/19 18:10 BUN 26 mg/dL (9.8-20.1) H 08/04/19 18:10 Creatinine 1.52 mg/dL (0.6-1.1) H 08/04/19 18:10 Glucose 220 mg/dL (83-110) H 08/04/19 18:10 Calcium 9.3 mg/dL (7.8-10.44) 08/04/19 18:10 Total Bilirubin 0.2 mg/dL (0.2-1.2) 08/04/19 18:10 AST 35 U/L (5-34) H 08/04/19 18:10 ALT 39 U/L (8-55) 08/04/19 18:10 Alkaline Phosphatase 64 U/L (40-110) 08/04/19 18:10 Troponin I 0.017 ng/mL (< 0.028) 08/04/19 18:10 Serum Total Protein 7.0 g/dL (6.0-8.3) 08/04/19 18:10 Albumin 3.7 g/dL (3.4-4.8) 08/04/19 18:10 Lipase 41 U/L (8-78) 08/04/19 18:10 Urine Ketones Negative mg/dL (Negative) 08/04/19 18:03 Urine Blood Negative (Negative) 08/04/19 18:03 Urine Nitrite Negative (Negative) 08/04/19 18:03 Ur Leukocyte Esterase Negative Hoda/uL (Negative) 08/04/19 18:03 Urine RBC 0-3 HPF (0-3) 08/04/19 18:03 Urine WBC 0-3 HPF (0-3) 08/04/19 18:03 Ur Squamous Epith Cells 0-3 HPF (0-3) 08/04/19 18:03 Urine Bacteria 2+ HPF (None Seen) A 08/04/19 18:03 Hospitalist H&P A/P - Plan Plan: Patient is a 79 year old female with PMH seizure disorder, dementia, chronic diastolic CHF, CAD, HTN, anemia, CVA in past who is admitted to [facility] for altered mental status. # altered mental status - reportedly worse than baseline, will monitor here and resume home medications but hold trazodone and benzodiazepine, unsure if this would be cause through since it appears she has been on this for some time. we will check levels of lamotrigine and tegretol and adjust accordingly. no reported seizure activity, however patient may be having them when alone, will consult neurology Dr Moore in AM who has seen treasure in past. - check levels seizure medicines and TSH/B12 with labs - seizure precations, continue home doses, consult neurology # history of seizure disorder - seizure precautions, consult neurology, continue home seizure medications and check levels of seizure medications # dementia - noted, likely contributing to poor baseline orientation # chronic diastolic CHF - not in exacerbation, give IVF if dry # HTN - continue home meds, monitor BPs # hyponatremia - mild, trend BMP # elevated Cr - unsure baseline, trend daily BMP # anemia - chronic, transfuse PRN hgb < 7 # history of CVA - no focal deficits now
[2019-08-05] MEDS ORDERED: Acetaminophen 325 MG TAB PO PRN (00:33)
[2019-08-05] MEDS ORDERED: Bisacodyl 5 MG TAB PO PRN (00:34)
[2019-08-05] MEDS ORDERED: Bisacodyl 10 MG SUPP PR PRN (00:34)
[2019-08-05] MEDS ORDERED: Sodium Chloride 0.9% 1,000 ML IV SCH (00:45)
[2019-08-05 06:22] LABS: Carbamazepine-Tegretol 3.8 ug/mL (4.0-12.0)
[2019-08-05 06:49] LABS: Thyroid Stimulating Hormone 1.1136 uIU/mL (0.35-4.94)
[2019-08-05] MEDS: Losartan 25 MG TAB PO SCH (08:17)
[2019-08-05] MEDS: hydrALAZINE 25 MG TAB PO SCH ×3 (08:18→21:19)
[2019-08-05] MEDS: Carvedilol 25 MG TAB PO SCH ×2 (08:18→17:11)
[2019-08-05] MEDS: Aspirin 81 mg Enteric Coated Tablet PO SCH (08:18)
[2019-08-05] MEDS: Enoxaparin Sodium 30 MG/0.3 ML SYRINGE SC SCH (08:19)
[2019-08-05] MEDS: Amlodipine 10 MG TAB PO SCH (08:19)
[2019-08-05] MEDS ORDERED: Prevnar 13-Val Conj/PF 0.5 ML SYRINGE IM ONE (09:00)
[2019-08-05] MEDS ORDERED: FLU VACC TS2019-20(65YR UP)/PF 180 MCG/0.5 ML SYRINGE IM ONE (09:00)
[2019-08-05] MEDS ORDERED: lamoTRIgine 100 MG TAB PO SCH (09:00)
--- NOTE | 2019-08-05 10:13 | PRG ---
DATE OF SERVICE: 08/05/2019 SUBJECTIVE: The patient is seen and examined at the bedside. She is doing significantly better. Her mental function is improved, although she has significant amount of dementia at her baseline. The case was discussed with her primary care physician, Dr. Gary. OBJECTIVE: VITAL SIGNS: Blood pressure is 175/51, pulse is 57, respiratory rate is 16, and O2 saturation is 95% on room air. HEENT: Her pupils are responding to light properly. Sclerae are nonicteric. Conjunctivae pinkish. Oral mucosa is moist. NECK: Supple. LUNGS: Clear. HEART: S1 and S2 normal. Systolic murmur, significant approximately 3 to 4/6 mainly at the right sternal border. ABDOMEN: Soft. Mildly tender in the left flank area. No guarding. No masses. EXTREMITIES: No clubbing, cyanosis, or edema. NEUROLOGIC: She is oriented only to place. She moves all 4 extremities. There is no any motor deficits. LABORATORY DATA: Showed vitamin B12 over 732. TSH third generation 1.1136. IMPRESSION: 1. Altered mental status, most likely secondary to postictal phase after the seizures. 2. History of seizure disorder. 3. Dementia. 4. Chronic diastolic congestive heart failure, compensated. 5. Hypertension. 6. Anemia. 7. History of cerebrovascular accident. PLAN: Plan is to stop her lamotrigine and Tegretol. Start her on Keppra 1000 mg twice a day today, then tomorrow we will drop the dose to 500 twice a day. Neurology consultation with Dr. Moore still pending and continue the rest of the regimen with DVT prophylaxis. Job ID: [id number]
[2019-08-05] MEDS ORDERED: levETIRAcetam 500 MG TAB PO SCH (10:30)
--- NOTE | 2019-08-05 11:15 | PRG ---
DATE OF SERVICE: 08/05/2019 Ms. Will was readmitted last night. She apparently was found to be lethargic at the halfway. There was no witnessed seizure activity. She had a workup in the ER, which included a CT of the brain and lab work, nothing remarkable was found. She is bright and alert today. She ate her breakfast and is appropriate and conversant. She has her continued memory difficulties as to her current location. She had nothing focal on exam. She has no abnormal movements. I suspect she may have had an unwitnessed partial seizure with some postictal lethargy. She seems to be back to baseline. I think she can return to the halfway. Job ID: [id number]
[2019-08-05] MEDS: levETIRAcetam 500 MG TAB PO SCH (20:32)
[2019-08-05] MEDS ORDERED: Mirtazapine 15 MG Soltab PO SCH (21:00)
[2019-08-06 08:20] LABS: Anion Gap 12 mmol/L (10-20); BUN (Urea Nitrogen) 18 mg/dL (9.8-20.1); Calc. Creatinine Clearance 40 mL/min (70-130); Calcium 9.2 mg/dL (7.8-10.44); Carbon Dioxide 27 mmol/L (23-31); Chloride 102 mmol/L (98-107); Estimated GFR-MDRD 57; Glucose 96 mg/dL (83-110); Potassium 4.2 mmol/L (3.5-5.1); Sodium 137 mmol/L (136-145)
[2019-08-06] MEDS: Carvedilol 25 MG TAB PO SCH (08:52)
[2019-08-06] MEDS: Losartan 25 MG TAB PO SCH (08:52)
[2019-08-06] MEDS: Amlodipine 10 MG TAB PO SCH (08:53)
[2019-08-06] MEDS: Aspirin 81 mg Enteric Coated Tablet PO SCH (08:53)
[2019-08-06] MEDS: levETIRAcetam 500 MG TAB PO SCH (08:53)
[2019-08-06] MEDS: hydrALAZINE 25 MG TAB PO SCH ×2 (08:53→15:14)
[2019-08-06] MEDS: Enoxaparin Sodium 30 MG/0.3 ML SYRINGE SC SCH (08:54)
[2019-08-06 15:13] VITALS: TEMP 97.4
[2019-08-06 15:30] VITALS: BP 155/47
[2019-08-06] MEDS ORDERED: FLU VACC TS2019-20(65YR UP)/PF 180 MCG/0.5 ML SYRINGE IM ONE (16:30)
--- NOTE | 2019-08-07 03:46 | DIS ---
DATE OF ADMISSION: 08/04/2019 DATE OF DISCHARGE: 08/06/2019 FINAL DIAGNOSES AT THE TIME OF DISCHARGE: 1. Altered mental status secondary to postictal state after the seizures. 2. History of seizure disorder. 3. Dementia. 4. Chronic diastolic congestive heart failure, compensated. 5. Hypertension. 6. Anemia. 7. History of cerebrovascular disease. DRAFTER PLUMBING: Dr. Moore, neurology Service. HOSPITAL COURSE: The patient was a 79-year-old female, fdc resident from a local fdc with past medical history of seizure disorder, dementia, chronic diastolic heart failure, CAD, hypertension, anemia, CVA in the past, who was admitted to the hospital for altered mental status. Apparently, she was seen in the emergency room the day prior to this hospitalization. She was diagnosed with seizures. While in the emergency room, she was somnolent and lethargic. Head CT without acute findings. No fever. No signs of infection. Since she was too altered to safely return home without further investigation, she got admitted to the hospital. While in the emergency room, her white count was normal. Hemoglobin was 10.8, hematocrit 33.7, platelet count 271. Sodium was 131, potassium 4.8, chloride 98, CO2 of 28, BUN 26, creatinine 1.52 and glycemia was at 220. The CT of the brain done in the emergency room showed no acute intracranial process with stable encephalomalacia in the right frontal lobe and hypodensities due to chronic small vessel ischemic change. Chest x-ray, there was a pulmonary vascular congestion, but no lobar consolidation, pneumothorax or effusion. The patient was admitted to the hospital. She was switched to oral Keppra 1000 mg twice daily and her dose was lowered to 500 mg twice daily and she was seen by Dr. Moore for neurologic consultation, who felt that she can be sent back to the fdc. Today, she is doing well. PHYSICAL EXAMINATION: VITAL SIGNS: Her blood pressure is 157/55, pulse is 51, temperature is 97.9, respirations 17, O2 saturation is 92% on room air. GENERAL: Her general condition is good. She is with quite significant dementia. She is going to home to go back to the [place], where she lives. MEDICATIONS: At the time of discharge: 1. Keppra 500 mg twice daily. 2. Losartan 50 mg daily. 3. Amlodipine 10 mg daily. 4. Potassium chloride daily. 5. Hydralazine 25 mg 3 times daily. 6. Vitamin B12 1000 mcg once daily. 7. Remeron 50 mg at bedtime. 8. Carvedilol 25 mg twice daily. 9. Trazodone 50 mg at bedtime. 10. Aspirin 81 mg once daily. DIET: She will stay on low-salt diet. ACTIVITIES: As tolerated. FOLLOWUP: She will follow up with her primary care physician in 1 week and with her neurologist in 1 month. Job ID: [id number]
== END 2019-08-06 16:47 ==
LOC: ERS 17:46 → T4-A 22:25
PROVIDERS: ADMIT Internal Medicine; ATTEND Internal Medicine
DX: G40.909 Epilepsy, unspecified, not intractable, without status epilepticus (principal); F03.90 Unspecified dementia, unspecified severity, without behavioral disturbance, psychotic disturbance, mood disturbance, and anxiety; I11.0 Hypertensive heart disease with heart failure; I50.32 Chronic diastolic (congestive) heart failure; I25.10 Atherosclerotic heart disease of native coronary artery without angina pectoris; D64.9 Anemia, unspecified; E87.1 Hypo-osmolality and hyponatremia; Z79.82 Long term (current) use of aspirin; Z79.899 Other long term (current) drug therapy; Z86.73 Personal history of transient ischemic attack (TIA), and cerebral infarction without residual deficits
CPT/HCPCS: 51701; 70450; 71045; 80048; 80053; 80156; 80175; 80306; 80307; 82607; 83690; 84443; 84484; 85025; 93005; 94760; 96360; 96361; 96372 ×2; 97116; 97139; 99285; G0378 ×4; 36415; 81003; 81015; A4353; J1650

== ENCOUNTER 2020-03-22 16:25 | Inpatient (IN) | payer MEDICARE, BC, OTHER ==
[~2020-03-22 16:25] MED LIST changes: -ISOVUE-370 76%-LOCM 1 ML ONE; +Iopamidol-370 76% 500 ML 1 ML ONE
--- NOTE | 2020-03-22 16:54 | CT ---
CT Brain WO Con HISTORY: Altered mental status COMPARISON: 08/04/2019 FINDINGS: Changes of chronic small vessel ischemic disease, cortical atrophy and encephalomalacia in the right frontal lobe are again seen. The ventricular size is stable and the basilar cisterns are patent. A small old infarction in the left cerebellar hemisphere is again seen. No evidence of acute infarct, hemorrhage, midline shift or abnormal extra-axial fluid collections is seen. The bony calvarium is intact. The visualized paranasal sinuses and mastoid air cells are well-aerated. IMPRESSION: No CT evidence of acute intracranial process
[2020-03-22] MEDS ORDERED: levETIRAcetam In NaCl (Iso-Os) 1,500 MG in Premix Bag 1 BAG IVPB SCH (17:00)
[2020-03-22 17:02] LABS: #Eosinphils 0.1 thou/uL (0.0-0.7); #Monocytes 0.7 thou/uL (0.11-0.59); %Basophils 0.5 % (0.0-1.0); %Eosinophils 1.3 % (0.0-10.0); %Lymphocytes 11.6 % (21.0-51.0); %Monocytes 7.4 % (0.0-10.0); %Neutrophils 79.1 % (42.0-75.0); Hemoglobin 11.3 g/dL (12.0-16.0); Mean Corpuscular HGB CONC 32.6 g/dL (32.0-36.0); Mean Corpuscular Hemoglobin 31.2 pg (27.0-31.0); Mean Corpuscular Volume 95.5 fL (78.0-98.0); Platelet Count 214 thou/uL (130-400); RBC Distribution Width 12.2 % (11.5-14.5); Red Blood Cell (RBC) Count 3.63 mill/uL (4.20-5.40); White Blood Cell (WBC) Count 8.8 thou/uL (4.8-10.8)
[2020-03-22 17:06] LABS: PTT 26.9 sec (22.9-36.1); Prothrombin Time 12.9 sec (12.0-14.7)
[2020-03-22 17:22] LABS: ALT (SGPT) 11 U/L (8-55); AST (SGOT) 12 U/L (5-34); Albumin 3.5 g/dL (3.4-4.8); Alkaline Phosphatase 43 U/L (40-110); Anion Gap 17 mmol/L (10-20); BUN (Urea Nitrogen) 26 mg/dL (9.8-20.1); Bilirubin, Total 0.2 mg/dL (0.2-1.2); CK (CPK) 50 U/L (29-168); Calc. Creatinine Clearance 0 mL/min (70-130); Calcium 8.7 mg/dL (7.8-10.44); Carbon Dioxide 19 mmol/L (23-31); Chloride 105 mmol/L (98-107); Estimated GFR-MDRD 46; Glucose 184 mg/dL (83-110); Protein, Total 6.5 g/dL (6.0-8.3); Sodium 137 mmol/L (136-145)
[2020-03-22 17:44] LABS: CKMB 1.4 ng/mL (0-6.6)
[2020-03-22 17:46] LABS: Bacteria/HPF 4+ HPF (None Seen); Bilirubin Negative (Negative); Blood, Urine Negative (Negative); Clarity Turbid (Clear); Glucose, Urine (Dipstick) Normal (Negative); Ketone, Urine Negative (Negative); Leukocyte 75 Leu/uL (Negative); Nitrite 1+ (Negative); Protein, Urine (Dipstick) 200 mg/dL (Neg-Trace); RBC/HPF 0-3 HPF (0-3); Specific Gravity, Urine 1.024 (1.002-1.036); Squamous Epithelial 0-3 HPF (0-3); Urobilinogen Normal mg/dL (Less than 2)
--- NOTE | 2020-03-22 17:49 | CT ---
EXAM: CT angiogram head and neck with IV contrast and 3-D reconstructions PROVIDED CLINICAL HISTORY: Altered mental status. COMPARISON: None FINDINGS: There is prominent atherosclerotic plaque involving the visualized aortic arch with ectasia of the ao rtic arch measuring 3.7 cm. Mild irregularity also involves the aortic arch. Findings are unchanged when compared to the prior CT thorax on 02/03/2019. There is generalized ectasia of the bilateral subcl mary arteries which are otherwise patent. The innominate artery and bilateral common carotid arteries are patent. Vascular calcifications involve the carotid artery bifurcation on the right, but there is no signific ant narrowing present. Dense atherosclerotic vascular calcifications are seen involving the distal left common carotid artery and origin of the left internal carotid artery. This limits adequate evalu ation of the lumen in this region, but there is at least mild narrowing involving the origin of the left internal carotid artery. The degree of narrowing is just less than 50%. The right vertebral artery is patent and terminates in PICA. The left vertebral artery is dominant an d patent. The basilar artery is patent. There is a type origin of the right posterior cerebral artery whi ch is patent. The left posterior cerebral artery is also patent. Posterior communicating artery on the left is patent. The bilateral middle cerebral and anterior cerebral arteries are patent without focal significant jean nosis or branch occlusion. The right A1 segment of the right anterior communicating artery is either very small or absent either of which is a normal variant. There is a focal aneurysm measuring approximately 5 mm which is located at the anterior communicating artery position.. Mild chronic lung changes are seen in the visualized upper lung zones. Median sternotomy wires are pa rtially imaged. IMPRESSION: 1. 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 2. Atherosclerotic irregularity at the origin of the left internal carotid artery resulting in mild n arrowing. Right internal carotid artery is patent. 3. Vertebral arteries are patent bilaterally. The right vertebral artery terminates in height. 4. Please see noncontrast CT head for further details. Next 5. Above findings discussed with Dr. Madelyn capellan in the emergency department on 03/22/2020 at 1746 hours
[2020-03-22] MEDS ORDERED: cefTRIAXone\\ROCEPHIN 2 GM VIAL ONE (18:02)
[2020-03-22] MEDS ORDERED: Aspirin 300 MG Suppository ONE (18:02)
[2020-03-22 18:15] LABS: SARS-CoV-2 NAA Rapid Test Not Detected (NotDetected)
--- NOTE | 2020-03-22 18:30 | RAD ---
PORTABLE CHEST: 03/22/20 PROVIDED CLINICAL HISTORY: Altered mental status. FINDINGS: Comparison 08/04/19. Cardiac silhouette remains enlarged. Median sternotomy changes are again seen. Vascular calcification s noted involving the aortic arch. Tortuosity and ectasia of the thoracic aorta is redemonstrated. Th ere is mass-like density in the right upper lung zone medially that may reflect pneumonia. Chronic ap pearing interstitial opacities are seen. IMPRESSION: Parenchymal abnormality of the right upper lung zone may reflect pneumonia. Follow-up is recommended. POS: CALEB
[2020-03-22] MEDS ORDERED: levETIRAcetam In NaCl (Iso-Os) 1,000 MG in Premix Bag 1 BAG IVPB SCH (21:00)
[2020-03-22] MEDS ORDERED: Ondansetron ODT 4 MG TAB PO PRN (21:11)
[2020-03-22] MEDS ORDERED: Acetaminophen 325 MG TAB PO PRN (21:11)
[2020-03-22] MEDS ORDERED: Ondansetron PF 4 MG/2 ML Vial IVP PRN (21:11)
--- NOTE | 2020-03-22 21:28 | PDOC.HHP ---
Hospitalist HPI - History of Present Illness Seizure History of Present Illness: This patient is a 79-year-old female with a history of a known seizure disorder apparently the patient had seizures at the nursing facility where she resides this evening. EMS was called. On their arrival the patient apparently had additional witnessed seizures and was given 4 mg of Versed. She was subsequently transported to the emergency department. She has been somewhat postictal since that time. At the time of the interview the patient reports significant headache. She herself reported that this is not uncommon for her and that she has had these for many years. In speaking to her son he reports that she has been suffering from severe headaches following the seizures for the last 6 or 7 episodes. He indicates she remains postictal typically for about 5 hours and then tends to come around. Patient's son reports that she often has urinary tract infections found at the time of her seizures. Patient herself does endorse tongue biting. ED Course: In the emergency department the patient received a load of Keppra at 1500 mg. There was also some concern for possible urinary tract infection and she received Rocephin. Hospitalist ROS - Review of Systems ROS unobtainable: due to mental status Eyes: denies: vision change Gastrointestinal: reports: nausea. 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 - Exam General Appearance: NAD General - other findings: Little groggy still. Able to converse for the most part appropriately. Neck: supple, symmetric, no JVD, no thyromegaly, no lymphadenopathy, no carotid bruit Heart: RRR, no murmur, no gallops, no rubs, normal peripheral pulses Gastrointestinal: soft, non-tender, non-distended, normal bowel sounds, no palpable masses, no hepatomegaly, no splenomegaly, no bruit Extremities: no cyanosis, no clubbing, no edema Skin: normal turgor Neurological - other findings: Slight weakness on the left side. Lower extremity more so than upper. Musculoskeletal: generalized weakness Psychiatric: somnolent Hospitalist Results - Labs Result Diagrams: 03/22/20 16:40 03/22/20 16:40 Lab results: WBC 8.8 thou/uL (4.8-10.8) 03/22/20 16:40 Hgb 11.3 g/dL (12.0-16.0) L 03/22/20 16:40 Hct 34.7 % (36.0-47.0) L 03/22/20 16:40 MCV 95.5 fL (78.0-98.0) 03/22/20 16:40 Plt Count 214 thou/uL (130-400) 03/22/20 16:40 Neutrophils % 79.1 % (42.0-75.0) H 03/22/20 16:40 Sodium 137 mmol/L (136-145) 03/22/20 16:40 Potassium 4.0 mmol/L (3.5-5.1) 03/22/20 16:40 Chloride 105 mmol/L (98-107) 03/22/20 16:40 Carbon Dioxide 19 mmol/L (23-31) L 03/22/20 16:40 BUN 26 mg/dL (9.8-20.1) H 03/22/20 16:40 Creatinine 1.14 mg/dL (0.6-1.1) H 03/22/20 16:40 Glucose 184 mg/dL (83-110) H 03/22/20 16:40 Lactic Acid 2.4 mmol/L (0.5-2.2) H 03/22/20 18:36 Calcium 8.7 mg/dL (7.8-10.44) 03/22/20 16:40 Total Bilirubin 0.2 mg/dL (0.2-1.2) 03/22/20 16:40 AST 12 U/L (5-34) 03/22/20 16:40 ALT 11 U/L (8-55) 03/22/20 16:40 Alkaline Phosphatase 43 U/L (40-110) 03/22/20 16:40 Creatine Kinase 50 U/L (29-168) 03/22/20 16:40 CK-MB (CK-2) 1.4 ng/mL (0-6.6) 03/22/20 16:40 Troponin I 0.100 ng/mL (< 0.028) H 03/22/20 16:40 Serum Total Protein 6.5 g/dL (6.0-8.3) 03/22/20 16:40 Albumin 3.5 g/dL (3.4-4.8) 03/22/20 16:40 Urine Ketones Negative mg/dL (Negative) 03/22/20 17:07 Urine Blood Negative (Negative) 03/22/20 17:07 Urine Nitrite 1+ (Negative) A 03/22/20 17:07 Ur Leukocyte Esterase 75 Hoda/uL (Negative) A 03/22/20 17:07 Urine RBC 0-3 HPF (0-3) 03/22/20 17:07 Urine WBC 11-20 HPF (0-3) A 03/22/20 17:07 Ur Squamous Epith Cells 0-3 HPF (0-3) 03/22/20 17:07 Urine Bacteria 4+ HPF (None Seen) A 03/22/20 17:07 - Radiology Interpretation CT scan - head Status: report reviewed by me Additional Comment: No acute findings Hospitalist H&P A/P - Problem (1) Seizure Code(s): R56.9 - UNSPECIFIED CONVULSIONS Status: Chronic (2) Acute metabolic encephalopathy Code(s): G93.41 - METABOLIC ENCEPHALOPATHY Status: Acute (3) Demand ischemia of myocardium Code(s): I24.8 - OTHER FORMS OF ACUTE ISCHEMIC HEART DISEASE Status: Acute (4) Elevated troponin Code(s): R74.8 - ABNORMAL LEVELS OF OTHER SERUM ENZYMES Status: Acute (5) UTI (urinary tract infection) Status: Acute Qualifiers: Urinary tract infection type: acute cystitis Hematuria presence: without hematuria Qualified Code(s): N30.00 - Acute cystitis without hematuria (6) Dementia Code(s): F03.90 - UNSPECIFIED DEMENTIA WITHOUT BEHAVIORAL DISTURBANCE Status: Chronic Qualifiers: (7) Hypertension Code(s): I10 - ESSENTIAL (PRIMARY) HYPERTENSION Status: Chronic (8) Chronic kidney disease, stage 3 Code(s): N18.3 - CHRONIC KIDNEY DISEASE, STAGE 3 (MODERATE) Status: Chronic (9) Lactic acidosis Code(s): E87.2 - ACIDOSIS Status: Acute - Plan Plan: Seizure: Patient has a history of seizures. She has had several prior to admission. These are apparently typical of her prior seizures. She received Versed in the field. She is in her typical postictal state with significant headache. She was loaded with Keppra in the emergency department. Will consult neurology to see if we need to make any changes in her medications. We will provide a PRN benzodiazepine in case the seizures recur. Hypertension: Patient has a history of aortic aneurysm repair x2. According to her son Ray they have been told that her normal blood pressure range will be a systolic of 160s to 180s over 30s to 40s. She continues to have a an extremely widened pulse pressure. She takes clonidine as needed. I will provide IV hydralazine for now. Resume her usual home medications. UTI: Unclear if the patient actually has active urinary tract infection. Other than the seizure does not sound like she has been symptomatic. Her son reports that it is basically there every time she comes in the hospital with a seizure and gets checked. I suspect it is colonization. She did receive Rocephin in the emergency department, however, I will not continue that for now. Demand ischemia: Patient has a slight bump in her troponins. This is been typical of her prior seizure episodes. Is actually lower than she has been in the past. Do not suspect this warrants any further investigation or intervention. CKD stage III: Patient's creatinine is consistent with her prior measures. Lactic acidosis: Likely due to the seizure itself. Subsequent measure is significantly improved. Anemia of chronic kidney disease: Stable. Disposition: Suspect the patient will do well in the short observation stay and able to return to her facility tomorrow.
[2020-03-22 21:42] LABS: Lactic Acid 1.3 mmol/L (0.5-2.2)
[2020-03-22 21:57] LABS: Troponin I 1.323 ng/mL (< 0.028)
[2020-03-22] MEDS: hydrALAZINE 20 MG/ML VIAL SLOW IVP PRN (22:47)
[2020-03-23 00:15] LABS: Troponin I 1.821 ng/mL (< 0.028)
[2020-03-23 01:44] VITALS: BMI 21.6
[2020-03-23 02:28] LABS: #Lymphocytes 1.7 thou/uL (1.20-3.40); #Monocytes 0.7 thou/uL (0.11-0.59); #Neutrophils 6.8 thou/uL (1.40-6.50); %Basophils 0.5 % (0.0-1.0); %Eosinophils 0.3 % (0.0-10.0); %Lymphocytes 17.8 % (21.0-51.0); %Monocytes 7.9 % (0.0-10.0); %Neutrophils 73.5 % (42.0-75.0); Hemoglobin 11.5 g/dL (12.0-16.0); Mean Corpuscular HGB CONC 32.9 g/dL (32.0-36.0); Mean Corpuscular Hemoglobin 31.1 pg (27.0-31.0); Mean Corpuscular Volume 94.8 fL (78.0-98.0); Mean Platelet Volume 8.1 fL (7.4-10.4); Platelet Count 234 thou/uL (130-400); RBC Distribution Width 12.3 % (11.5-14.5); White Blood Cell (WBC) Count 9.3 thou/uL (4.8-10.8)
[2020-03-23 02:53] LABS: Anion Gap 14 mmol/L (10-20); BUN (Urea Nitrogen) 17 mg/dL (9.8-20.1); Calc. Creatinine Clearance 54 mL/min (70-130); Calcium 8.9 mg/dL (7.8-10.44); Carbon Dioxide 21 mmol/L (23-31); Chloride 105 mmol/L (98-107); Critical Call Chem Troponin I RESULT DECREASING; Estimated GFR-MDRD 70; Glucose 104 mg/dL (83-110); Potassium 4.2 mmol/L (3.5-5.1); Sodium 136 mmol/L (136-145)
[2020-03-23 03:11] LABS: CKMB 5.1 ng/mL (0-6.6)
[2020-03-23 06:34] LABS: Critical Call Chem Troponin I RESULT DECREASING
[2020-03-23 06:53] LABS: CKMB 4.8 ng/mL (0-6.6)
--- NOTE | 2020-03-23 09:27 | CT ---
CHEST CT WITH CONTRAST: HISTORY: Abnormal chest radiograph. Evaluate for a possible chest mass. COMPARISON: None. CORRELATION: Chest radiograph 03/22/2020. FINDINGS: Lower neck and axilla: No lymphadenopathy or mass. Mediastinum: No mass, lymphadenopathy or hematoma. Aorta: Atherosclerosis. Elongation of the descending thoracic aorta. Mild dilatation of the proximal abdominal aorta. Heart: There are coronary artery calcifications. No significant pericardial fluid. No evidence of car diomegaly. Subdiaphragmatic structures: Multiple splenules are noted in the left upper quadrant. No acute abnorm ality solid organs. Trachea and central bronchi: Patent. Pleural spaces: No significant pleural fluid. Pneumothorax: None Right lung: Chronic lung parenchymal changes along with patchy groundglass opacities and dependent at electasis. No suspicious masses, consolidation or nodules Left lung: Chronic lung parenchymal changes along with patchy groundglass opacities and dependent ate lectasis. No suspicious masses, consolidation or nodules. Coronal images demonstrate prominence of the innominate artery, mild rightward deviation of the trachea and the superior vena cava all leading to the presumed increased opacity noted on the recent chest radiograph along the right upper lung. Osseous structures: No lytic or blastic lesions. IMPRESSION: 1. Atherosclerosis and ectasia/elongation of the visualized aorta. 2. Chronic lung parenchymal changes with atelectasis and patchy groundglass opacities. No suspicious consolidation or nodules, nodules or masses in the right upper lobe. Transcribed Date/Time: 03/23/2020 10:34 AM
[2020-03-23] MEDS: Amlodipine 10 MG TAB PO SCH (09:46)
[2020-03-23] MEDS: hydrALAZINE 25 MG TAB PO SCH ×3 (09:47→22:36)
[2020-03-23] MEDS: Losartan 25 MG TAB PO SCH (09:47)
[2020-03-23] MEDS: Enoxaparin Sodium 40 MG/0.4 ML SYRINGE SC SCH (09:47)
[2020-03-23] MEDS: Aspirin 81 mg Enteric Coated Tablet PO SCH (09:47)
[2020-03-23] MEDS ORDERED: Iopamidol-370 76% 500 ML 1 ML ONE (11:59)
--- NOTE | 2020-03-23 12:57 | EEG ---
DATE OF SERVICE: 03/23/2020 ATTENDING PHYSICIAN: Yolanda Dunn MD This EEG was performed using 24-channel Ace Metrixtek video digital EEG machine with 24-disk electrodes. This was an extended 2 hours 5 minutes of inpatient video EEG recording. Digital analysis of the EEG was done for spike and seizure detection, which revealed no abnormalities. BACKGROUND: The posterior background rhythm was not observed. HYPERVENTILATION: Not performed. PHOTIC STIMULATION: No significant response seen with photic stimulation. SLEEP: Drowsiness and sleep were observed during most of the recording. EEG DIAGNOSES: 1. Intermittent irregular theta activity seen during the recording. 2. Absence of posterior background rhythm. CLINICAL INTERPRETATION: This EEG is consistent with moderate generalized nonspecific cerebral dysfunction. Job ID: [id number]
--- NOTE | 2020-03-23 13:29 | CON ---
NEUROLOGY CONSULTATION DATE OF CONSULTATION: 03/23/2020 REASON FOR CONSULTATION: Breakthrough seizure. HISTORY OF PRESENT ILLNESS: Ms. Tianna Will is a 79-year-old female with history significant for seizure disorder, atrial fibrillation, coronary artery disease, congestive heart failure, hypertension, hyperlipidemia, prior CVA, presented with breakthrough seizures at the nursing facilities. The EMS were called and on their arrival, she had witnessed seizures and was given Versed, and then she was transported to the emergency department, where she was found to be postictal and reported headache. The history is provided from review of the medical records. The patient is still very somnolent at this time. Per the patient's son, she usually has a urinary tract infection at the time of her seizures. In the emergency room, the patient was given a load of Keppra 1500 mg IV once and was also started on Rocephin for possible urinary tract infection. REVIEW OF SYSTEMS: Unobtainable due to the patient's mental status. 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 PAST SURGICAL HISTORY: Cataract removal, aortic aneurysm repair in 2008 and 2009. FAMILY HISTORY: No significant family history. SOCIAL HISTORY: The patient lives at [facility]. There is no documented history of smoking, alcohol, or illegal drug use. ALLERGIES: NKDA PHYSICAL EXAMINATION: VITAL SIGNS: Blood pressure 140/80, pulse 80, respiratory rate 18. CARDIOVASCULAR SYSTEM: Regular rate and rhythm. CHEST: Clear. ABDOMEN: Soft. NECK: Supple. SKIN: Normal turgor. NEUROLOGIC: Mental status: The patient is extremely somnolent. She opens eyes to verbal stimuli, knows her name is Tianna, and not oriented to person or place. Cranial nerves: Pupils are 4 mm, round, and reactive to light. Face is symmetric. Tongue is midline. Moves neck in both directions. Hearing seems to be intact. Unable to follow commands. Motor: Muscle bulk is decreased. Generalized weakness, left lower extremity greater than left upper extremity. DATA REVIEWED: I reviewed the CT scan, which was significant for encephalomalacia in the right frontal lobe and also old cerebellar infarction, and also associated chronic small-vessel disease. Labs showed hemoglobin of 11.3 and hematocrit of 34.7. BUN of 26 and creatinine of 1.14. Other labs were essentially unremarkable. Lab results: WBC 8.8 thou/uL (4.8-10.8) 03/22/20 16:40 Hgb 11.3 g/dL (12.0-16.0) L 03/22/20 16:40 Hct 34.7 % (36.0-47.0) L 03/22/20 16:40 MCV 95.5 fL (78.0-98.0) 03/22/20 16:40 Plt Count 214 thou/uL (130-400) 03/22/20 16:40 Neutrophils % 79.1 % (42.0-75.0) H 03/22/20 16:40 Sodium 137 mmol/L (136-145) 03/22/20 16:40 Potassium 4.0 mmol/L (3.5-5.1) 03/22/20 16:40 Chloride 105 mmol/L (98-107) 03/22/20 16:40 Carbon Dioxide 19 mmol/L (23-31) L 03/22/20 16:40 BUN 26 mg/dL (9.8-20.1) H 03/22/20 16:40 Creatinine 1.14 mg/dL (0.6-1.1) H 03/22/20 16:40 Glucose 184 mg/dL (83-110) H 03/22/20 16:40 Lactic Acid 2.4 mmol/L (0.5-2.2) H 03/22/20 18:36 Calcium 8.7 mg/dL (7.8-10.44) 03/22/20 16:40 Total Bilirubin 0.2 mg/dL (0.2-1.2) 03/22/20 16:40 AST 12 U/L (5-34) 03/22/20 16:40 ALT 11 U/L (8-55) 03/22/20 16:40 Alkaline Phosphatase 43 U/L (40-110) 03/22/20 16:40 Creatine Kinase 50 U/L (29-168) 03/22/20 16:40 CK-MB (CK-2) 1.4 ng/mL (0-6.6) 03/22/20 16:40 Troponin I 0.100 ng/mL (< 0.028) H 03/22/20 16:40 Serum Total Protein 6.5 g/dL (6.0-8.3) 03/22/20 16:40 Albumin 3.5 g/dL (3.4-4.8) 03/22/20 16:40 Urine Ketones Negative mg/dL (Negative) 03/22/20 17:07 Urine Blood Negative (Negative) 03/22/20 17:07 Urine Nitrite 1+ (Negative) A 03/22/20 17:07 Ur Leukocyte Esterase 75 Hoda/uL (Negative) A 03/22/20 17:07 Urine RBC 0-3 HPF (0-3) 03/22/20 17:07 Urine WBC 11-20 HPF (0-3) A 03/22/20 17:07 Ur Squamous Epith Cells 0-3 HPF (0-3) 03/22/20 17:07 Urine Bacteria 4+ HPF (None Seen) A 03/22/20 17:07 ASSESSMENT AND PLAN: Ms. Tianna Will is a 79-year-old female with history of seizure disorder, presented with breakthrough seizures, most likely secondary to infectious or metabolic etiology. She was loaded with Keppra in the emergency room. Consider increasing the home dose of Keppra to 750 mg p.o. twice daily. Observe seizure precautions. Neuro checks every 4 hours. Continue home medications. EEG was reviewed, which was negative for seizure activity. Physical Therapy/Occupational Therapy/Speech. Need to contact the family regarding the baseline because of left hemiparesis, which seems to fit with the CT findings of right frontal lobe infarct, but if this is new according to the family, then we can pursue with further imaging and stroke workup. Ativan 2 mg IV for seizure greater than 2 minutes. Telemetry. We will continue to follow. Plan discussed with the primary attending Dr. Sharma. Thank you for the consult. Job ID: [id number] MTDD
[2020-03-23] MEDS: hydrALAZINE 20 MG/ML VIAL SLOW IVP PRN (16:06)
--- NOTE | 2020-03-23 16:39 | PDOC.HOSPP ---
- Subjective Encounter Date: 03/23/20 Encounter Time: 07:00 Subjective: The patient was noted to be getting her EEG today. She was drowsy , answered yes/no questions. When asked to move her left side, she would only move the right side - Objective Vital Signs & Weight: Vital Signs (12 hours) Temp Pulse Resp BP BP Pulse Ox 03/23/20 16:06 73 206/61 H 03/23/20 16:00 97.9 F 73 18 206/61 H 93 L 03/23/20 15:32 61 206/61 H 03/23/20 11:44 97.5 F L 61 17 163/62 H 95 03/23/20 09:47 72 152/57 H 03/23/20 09:46 72 152/57 H 03/23/20 07:44 98.4 F 72 18 152/57 H 94 L Weight Weight 130 lb I&O: 03/22/20 03/23/20 03/24/20 06:59 06:59 06:59 Intake Total 100 Output Total 1500 Balance -1400 Result Diagrams: 03/23/20 02:19 03/23/20 02:19 Hospitalist ROS - Review of Systems Constitutional: denies: fever, chills - Medication Medications: Active Medications Generic Name Dose Route Start Last Admin Trade Name Freq PRN Reason Stop Dose Admin Amlodipine Besylate 10 mg 03/23/20 09:00 03/23/20 09:46 Norvasc PO 10 mg DAILY MATY Administration Aspirin 81 mg 03/23/20 09:00 03/23/20 09:47 Ecotrin PO 81 mg DAILY MATY Administration Enoxaparin Sodium 40 mg 03/23/20 09:00 03/23/20 09:47 Lovenox SC 40 mg 0900 MATY Administration Hydralazine HCl 25 mg 03/23/20 09:00 03/23/20 15:32 Apresoline PO 25 mg TID MATY Administration Hydralazine HCl 10 mg 03/22/20 21:24 03/23/20 16:06 Apresoline SLOW IVP 10 mg Q4H PRN Administration Hypertension Losartan Potassium 50 mg 03/23/20 09:00 03/23/20 09:47 Cozaar PO 50 mg DAILY MATY Administration Sodium Chloride 10 ml 03/23/20 09:00 03/23/20 10:24 Flush - Normal Saline IVF 10 ml Q12HR MATY Administration - Exam General Appearance: NAD, awake alert General - other findings: refused to speak, open her eyes or mouth Eye: PERRL, anicteric sclera ENT: normocephalic atraumatic, no oropharyngeal lesions Neck: no JVD Heart: RRR, no murmur, no gallops, no rubs Respiratory: CTAB, no wheezes, no rales, no ronchi Gastrointestinal: soft, non-tender, non-distended, normal bowel sounds Extremities: no cyanosis, no clubbing, no edema Skin: normal turgor, no lesions, no rashes Neurological: cranial nerve grossly intact, normal sensation to touch, no new deficit Neurological - other findings: left leg 2/5 strength, left arm 5/5 to director of adult epilepsy. Follow commands on right Musculoskeletal: normal tone, normal strength, no muscle wasting Psychiatric: normal affect, normal behavior, oriented to person Hosp A/P - Plan This is 79 year old female who presented with a seizure and severe headaches #Hypertensive urgency/emergency #Seizures #Left sided weakness with possible stroke - BP over 200, hydralazine increased to 50 mg tid - keppra increased to 750 mg po bid - check MRI brain to rule out stroke - continue atorvastatin - continue aspirin Elevated troponin - downtrending - will check an ECHO - continue aspirin and statin Anemia - Hb 11, stable Code status: DNR
[2020-03-23] MEDS ORDERED: Lorazepam 0.5 MG TAB PO PRN (17:46)
[2020-03-23] MEDS: Atorvastatin Calcium 40 MG TAB PO SCH (22:36)
[2020-03-23] MEDS: levETIRAcetam 500 mg/5 ml Oral Solution PO SCH (22:37)
[2020-03-23] MEDS: Mirtazapine 15 MG Soltab PO SCH (22:38)
[2020-03-23] MEDS: traZODone HCl 50 MG TAB PO PRN (22:38)
[2020-03-24 05:34] LABS: Mean Corpuscular HGB CONC 32.2 g/dL (32.0-36.0); Mean Corpuscular Hemoglobin 30.8 pg (27.0-31.0); Mean Corpuscular Volume 95.7 fL (78.0-98.0); Mean Platelet Volume 10.2 fL (7.4-10.4); Platelet Count 197 thou/uL (130-400); RBC Distribution Width 12.5 % (11.5-14.5); Red Blood Cell (RBC) Count 3.91 mill/uL (4.20-5.40); White Blood Cell (WBC) Count 7.4 thou/uL (4.8-10.8)
[2020-03-24] MEDS: Amlodipine 10 MG TAB PO SCH (08:51)
[2020-03-24] MEDS: Aspirin 81 mg Enteric Coated Tablet PO SCH (08:51)
[2020-03-24] MEDS: hydrALAZINE 25 MG TAB PO SCH ×3 (08:52→22:31)
[2020-03-24] MEDS: levETIRAcetam 500 mg/5 ml Oral Solution PO SCH ×2 (08:52→22:32)
[2020-03-24] MEDS: Losartan 25 MG TAB PO SCH (08:52)
[2020-03-24] MEDS: Enoxaparin Sodium 40 MG/0.4 ML SYRINGE SC SCH (08:52)
--- NOTE | 2020-03-24 10:13 | MRI ---
MRI Brain WO Con: 03/24/2020 12:00 AM CLINICAL HISTORY: Left-sided weakness. TECHNIQUE: Multiplanar, multisequence images were obtained of the brain. COMPARISON: MR the brain dated April 25, 2019 and CTA of the head dated March 22, 2020 FINDINGS: Extra axial spaces: There is diffuse cerebral and cerebellar atrophy.. Hemorrhage: None. Ventricular system: There is ex vacuo dilatation of the ventricles. Basal cisterns: Normal. Cerebral parenchyma: There is severe chronic small vessel white matter ischemic change. There is a st able remote cortical and subcortical based infarct involving the anterolateral right frontal lobe. Midline shift: None. Cerebellum: Normal. Brainstem: Normal. OTHER: Calvarium: Normal. Vascular system: There is a 5 mm anterior projecting aneurysm off the anterior to indicating artery, better seen on the CTA of the head performed on March 22, 2020.. Visualized Paranasal sinuses: Clear. Visualized Orbits: The [place] lenses have been replaced Visualized upper cervical spine: Normal. Sella and skull base: Normal. IMPRESSION: 1. No acute intracranial abnormality. 2. Severe chronic ischemic change. 3. Diffuse cerebral and cerebellar atrophy. 4. 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
--- NOTE | 2020-03-24 13:00 | PDOC.HOSPP ---
- Subjective Encounter Date: 03/24/20 Subjective: NEUROLOGY PROGRESS NOTE Patient alert, awake and eating breakfast. Knows her name "Tianna" and place "[facility]. Left hemiparesis improved. MRI brain negative for acute stroke. EEG negative. - Objective Vital Signs & Weight: Vital Signs (12 hours) Temp Pulse Resp BP Pulse Ox 03/24/20 12:00 97.7 F 93 16 152/56 H 95 03/24/20 08:52 66 03/24/20 08:51 66 03/24/20 07:57 97.8 F 66 16 157/55 H 94 L 03/24/20 04:55 98.0 F 69 18 142/54 H 94 L Weight Weight 130 lb I&O: 03/23/20 03/24/20 03/25/20 06:59 06:59 06:59 Intake Total 100 300 Output Total 1500 250 Balance -1400 -250 300 Result Diagrams: 03/24/20 04:57 03/23/20 02:19 Radiology Reviewed by me: Yes EKG Reviewed by me: Yes Hospitalist ROS - Review of Systems Constitutional: denies: fever, chills, sweats, weakness, malaise, other Eyes: denies: pain, vision change, conjunctivae inflammation, eyelid inflammation, redness, other ENT: denies: ear pain, ear discharge, nose pain, nose discharge, nose congestion , mouth pain, mouth swelling, throat pain, throat swelling, other Respiratory: denies: cough, dry, shortness of breath, hemoptysis, SOB with excertion, pleuritic pain, sputum, wheezing, other Cardiovascular: denies: chest pain, palpitations, orthopnea, paroxysmal noc. dyspnea, edema, light headedness, other Gastrointestinal: denies: nausea, vomiting, abdominal pain, diarrhea, constipation, melena, hematochezia, other Genitourinary: denies: dysuria, frequency, incontinence, hematuria, retention, other Musculoskeletal: denies: neck pain, shoulder pain, arm pain, back pain, hand pain, leg pain, foot pain, other Neurological: reports: weakness, incoordination, seizures. denies: numbness, change in speech, confusion, other - Medication Medications: Active Medications Generic Name Dose Route Start Last Admin Trade Name Freq PRN Reason Stop Dose Admin Amlodipine Besylate 10 mg 03/23/20 09:00 03/24/20 08:51 Norvasc PO 10 mg DAILY MATY Administration Aspirin 81 mg 03/23/20 09:00 03/24/20 08:51 Ecotrin PO 81 mg DAILY MATY Administration Atorvastatin Calcium 40 mg 03/23/20 21:00 03/23/20 22:36 Lipitor PO 40 mg HS MATY Administration Enoxaparin Sodium 40 mg 03/23/20 09:00 03/24/20 08:52 Lovenox SC 40 mg 0900 MATY Administration Hydralazine HCl 10 mg 03/22/20 21:24 03/23/20 16:06 Apresoline SLOW IVP 10 mg Q4H PRN Administration Hypertension Hydralazine HCl 50 mg 03/23/20 21:00 03/24/20 08:52 Apresoline PO 50 mg TID MATY Administration Levetiracetam 750 mg 03/23/20 21:00 03/24/20 08:52 Keppra Oral Solution PO 750 mg BID MATY Administration Lorazepam 0.5 mg 03/23/20 17:46 03/24/20 09:10 Ativan PO 0.5 mg Q4H PRN Administration Anxiety Losartan Potassium 50 mg 03/23/20 09:00 03/24/20 08:52 Cozaar PO 50 mg DAILY MATY Administration Mirtazapine 15 mg 03/23/20 21:00 03/23/20 22:38 Remeron Soltab PO 15 mg HS MATY Administration Sodium Chloride 10 ml 03/23/20 09:00 03/24/20 08:52 Flush - Normal Saline IVF Not Given Q12HR [facility] Trazodone HCl 50 mg 03/22/20 21:22 03/23/20 22:38 Desyrel PO 50 mg HS PRN Administration Insomnia - Exam General Appearance: awake alert Eye: PERRL ENT: normocephalic atraumatic Neck: supple Heart: RRR Respiratory: CTAB Gastrointestinal: soft Extremities: no cyanosis Skin: normal turgor Neurological: cranial nerve grossly intact, normal sensation to touch, no new deficit Psychiatric: normal affect, normal behavior, oriented to person, oriented to place Hosp A/P (1) Seizure disorder Code(s): G40.909 - EPILEPSY, UNSP, NOT INTRACTABLE, WITHOUT STATUS EPILEPTICUS Status: Acute (2) Chronic kidney disease, stage 3 Code(s): N18.3 - CHRONIC KIDNEY DISEASE, STAGE 3 (MODERATE) Status: Chronic (3) UTI (urinary tract infection) Status: Acute Qualifiers: Urinary tract infection type: acute cystitis Hematuria presence: without hematuria Qualified Code(s): N30.00 - Acute cystitis without hematuria - Plan PT/OT, speech therapy, DVT proph w/SCDs 78 year old female presented with left hemiparesis and breakthrough seizures in the setting of UTI. Left hemiparesis improved. Most likely recrudescence of old stroke symptoms due to UTI versus Javy's paralysis. EEG reviewed and was negative for seizure activity. MRI Brain reviewed and was negative for acute infarction. Neurochecks every 4 hours. Observe seizure precautions. Continue Keppra 750 mg twice daily. Switched to oral solution last night. Ativan 2 mg IV for seizure greater than 2 minutes. PT/OT/Speech. Continue home medications. Continue medical management per primary team.
--- NOTE | 2020-03-24 16:37 | RAD ---
Chest one view HISTORY: Pleural effusions. Follow-up. COMPARISON: 03/23/2020. FINDINGS: Cardiac silhouette is magnified by projection. Pulmonary vasculature is unremarkable. Mediastinum is midline with postoperative changes and aortic calcification. Blunting of the left late ral costophrenic angle is consistent with parenchymal and pleural scarring given that no pleural fluid is present on recent CT. No evidence of pneumothorax. Old rib fractures. 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 IMPRESSION : Chronic-type findings are stable. No new abnormalities are demonstrated.
--- NOTE | 2020-03-24 18:44 | PDOC.HOSPP ---
- Subjective Encounter Date: 03/24/20 Encounter Time: 08:15 Subjective: THe patient is doing much better. SHe states she feels good, ate breakfast today. Denies weakness or numbness in her extremities. Denies headaches/nausea/ vomiting - Objective Vital Signs & Weight: Vital Signs (12 hours) Temp Pulse Pulse Pulse Resp BP BP 03/24/20 15:55 97.6 F 77 17 03/24/20 15:19 93 152/56 H 03/24/20 13:24 133/42 L 03/24/20 12:00 97.7 F 93 16 03/24/20 10:56 77 91 183/62 H 03/24/20 08:52 66 03/24/20 08:51 66 03/24/20 07:57 97.8 F 66 16 BP BP Pulse Ox 03/24/20 15:55 162/58 H 94 L 03/24/20 15:19 03/24/20 13:24 03/24/20 12:00 152/56 H 95 03/24/20 10:56 143/57 H 03/24/20 08:52 03/24/20 08:51 03/24/20 07:57 157/55 H 94 L Weight Weight 130 lb I&O: 03/23/20 03/24/20 03/25/20 06:59 06:59 06:59 Intake Total 100 900 Output Total 1500 250 Balance -1400 -250 900 Result Diagrams: 03/24/20 04:57 03/23/20 02:19 Hospitalist ROS - Review of Systems Constitutional: denies: fever, chills - Medication Medications: Active Medications Generic Name Dose Route Start Last Admin Trade Name Macey PRN Reason Stop Dose Admin Amlodipine Besylate 10 mg 03/23/20 09:00 03/24/20 08:51 Norvasc PO 10 mg DAILY MATY Administration Aspirin 81 mg 03/23/20 09:00 03/24/20 08:51 Ecotrin PO 81 mg DAILY MATY Administration Atorvastatin Calcium 40 mg 03/23/20 21:00 03/23/20 22:36 Lipitor PO 40 mg HS MATY Administration Enoxaparin Sodium 40 mg 03/23/20 09:00 03/24/20 08:52 Lovenox SC 40 mg 0900 MATY Administration Hydralazine HCl 10 mg 03/22/20 21:24 03/23/20 16:06 Apresoline SLOW IVP 10 mg Q4H PRN Administration Hypertension Hydralazine HCl 50 mg 03/23/20 21:00 03/24/20 15:19 Apresoline PO 50 mg TID MATY Administration Levetiracetam 750 mg 03/23/20 21:00 03/24/20 08:52 Keppra Oral Solution PO 750 mg BID MATY Administration Lorazepam 0.5 mg 03/23/20 17:46 03/24/20 09:10 Ativan PO 0.5 mg Q4H PRN Administration Anxiety Losartan Potassium 50 mg 03/23/20 09:00 03/24/20 08:52 Cozaar PO 50 mg DAILY MATY Administration Mirtazapine 15 mg 03/23/20 21:00 03/23/20 22:38 Remeron Soltab PO 15 mg HS MATY Administration Sodium Chloride 10 ml 03/23/20 09:00 03/24/20 08:52 Flush - Normal Saline IVF Not Given Q12HR MATY Trazodone HCl 50 mg 03/22/20 21:22 03/23/20 22:38 Desyrel PO 50 mg HS PRN Administration Insomnia - Exam General Appearance: NAD, awake alert Eye: PERRL, anicteric sclera ENT: normocephalic atraumatic, no oropharyngeal lesions Neck: no JVD Heart: RRR, no murmur, no gallops, no rubs Respiratory: CTAB, no wheezes, no rales, no ronchi Gastrointestinal: soft, non-tender, non-distended, normal bowel sounds Extremities: no cyanosis, no clubbing, no edema Skin: normal turgor, no lesions, no rashes Neurological: cranial nerve grossly intact, normal sensation to touch, no new deficit. negative: no weakness Musculoskeletal: normal tone, normal strength, no muscle wasting Psychiatric: normal affect, normal behavior, A&O x 3, oriented to person Hosp A/P - Plan CT brain: no acute disease CTA: no stroke. 5 mm aneurysm at anterior communicating artery Carotid doppler: no significant stenosis MRI brain: no stroke Chest X ray 03/22: right upper lung pneumonia possible CTA chest: patchy ground glass opacities, no pneumonia ECHO: EF 55-60% This is 79 year old female who presented with a seizure and severe headaches #Left sided weakness with possible stroke - resolved - CT head showed no stroke, CTA showed 5 mm aneurysm, no significant abnormalities. MRI brain negative for stroke. Carotid doppler negative for stroke - could have been post-ictal from seizures vs TIA - PT and OT have evaluated patient and recommend SNF, however patient is from assisted living and no skilled therapy there. Case management consulted - continue aspirin and statin #Seizures - was on tegretol and lamotrigine as an outpatient. Switched to keppra 750 mg po bid here - MRI brain negative #Hypertensive urgency/emergency - BP over 200, hydralazine increased to 50 mg tid 03/23. Will resume coreg Elevated troponin - downtrending. ECHO unremarkable - continue aspirin and statin Anemia - Hb 11, stable Dispo; stable for d/c, pending placement Code status: DNR
[2020-03-24] MEDS: Carvedilol 25 MG TAB PO SCH (22:23)
[2020-03-24] MEDS: Atorvastatin Calcium 40 MG TAB PO SCH (22:23)
[2020-03-24] MEDS: Mirtazapine 15 MG Soltab PO SCH (22:33)
[2020-03-24] MEDS: traZODone HCl 50 MG TAB PO PRN (22:33)
[2020-03-25] MEDS: levETIRAcetam 500 mg/5 ml Oral Solution PO SCH ×2 (08:36→21:42)
[2020-03-25] MEDS: Amlodipine 10 MG TAB PO SCH (08:36)
[2020-03-25] MEDS: Aspirin 81 mg Enteric Coated Tablet PO SCH (08:37)
[2020-03-25] MEDS: hydrALAZINE 25 MG TAB PO SCH ×3 (08:37→21:41)
[2020-03-25] MEDS: Enoxaparin Sodium 40 MG/0.4 ML SYRINGE SC SCH (08:37)
[2020-03-25] MEDS: Losartan 25 MG TAB PO SCH (08:37)
[2020-03-25] MEDS: Carvedilol 25 MG TAB PO SCH ×2 (08:37→21:41)
--- NOTE | 2020-03-25 10:10 | PDOC.HOSPP ---
- Subjective Encounter Date: 03/25/20 Encounter Time: 10:06 Subjective: pleasant, stable dementia, no seizures - Objective Vital Signs & Weight: Vital Signs (12 hours) Temp Pulse Resp BP BP BP Pulse Ox 03/25/20 08:37 73 03/25/20 08:36 73 03/25/20 07:38 98.3 F 73 15 137/49 L 99 03/25/20 03:54 97.8 F 60 18 127/45 L 96 03/25/20 00:48 92 L 03/24/20 23:31 97.9 F 67 18 114/46 L 92 L 03/24/20 22:31 74 149/49 H 03/24/20 22:23 95 Weight Weight 130 lb I&O: 03/24/20 03/25/20 03/26/20 06:59 06:59 06:59 Intake Total 900 300 Output Total 250 200 Balance -250 700 300 Result Diagrams: 03/24/20 04:57 03/23/20 02:19 Hospitalist ROS - Medication Medications: Active Medications Generic Name Dose Route Start Last Admin Trade Name Freq PRN Reason Stop Dose Admin Acetaminophen 650 mg 03/22/20 21:11 03/25/20 08:37 Tylenol PO 650 mg Q4H PRN Administration Headache/Fever/Mild Pain (1-3) Amlodipine Besylate 10 mg 03/23/20 09:00 03/25/20 08:36 Norvasc PO 10 mg DAILY MATY Administration Aspirin 81 mg 03/23/20 09:00 03/25/20 08:37 Ecotrin PO 81 mg DAILY MATY Administration Atorvastatin Calcium 40 mg 03/23/20 21:00 03/24/20 22:23 Lipitor PO 40 mg HS MATY Administration Carvedilol 25 mg 03/24/20 21:00 03/25/20 08:37 Coreg PO 25 mg BID MATY Administration Enoxaparin Sodium 40 mg 03/23/20 09:00 03/25/20 08:37 Lovenox SC 40 mg 0900 MATY Administration Hydralazine HCl 10 mg 03/22/20 21:24 03/23/20 16:06 Apresoline SLOW IVP 10 mg Q4H PRN Administration Hypertension Hydralazine HCl 50 mg 03/23/20 21:00 03/25/20 08:37 Apresoline PO 50 mg TID MATY Administration Levetiracetam 750 mg 03/23/20 21:00 03/25/20 08:36 Keppra Oral Solution PO 750 mg BID MATY Administration Lorazepam 0.5 mg 03/23/20 17:46 03/24/20 09:10 Ativan PO 0.5 mg Q4H PRN Administration Anxiety Losartan Potassium 50 mg 03/23/20 09:00 03/25/20 08:37 Cozaar PO 50 mg DAILY MATY Administration Mirtazapine 15 mg 03/23/20 21:00 03/24/20 22:33 Remeron Soltab PO 15 mg HS MATY Administration Sodium Chloride 10 ml 03/23/20 09:00 03/25/20 08:37 Flush - Normal Saline IVF Not Given Q12HR MATY Trazodone HCl 50 mg 03/22/20 21:22 03/24/20 22:33 Desyrel PO 50 mg HS PRN Administration Insomnia - Exam General Appearance: awake alert Neck: no JVD Heart: RRR, no murmur Respiratory: CTAB Gastrointestinal: soft, normal bowel sounds Extremities: 2+ LE edema Hosp A/P (1) Seizure disorder Code(s): G40.909 - EPILEPSY, UNSP, NOT INTRACTABLE, WITHOUT STATUS EPILEPTICUS Status: Acute (2) Acute metabolic encephalopathy Code(s): G93.41 - METABOLIC ENCEPHALOPATHY Status: Resolved (3) Elevated troponin Code(s): R74.8 - ABNORMAL LEVELS OF OTHER SERUM ENZYMES Status: Acute (4) Hypertension Code(s): I10 - ESSENTIAL (PRIMARY) HYPERTENSION Status: Chronic Qualifiers: Hypertension type: essential hypertension Qualified Code(s): I10 - Essential (primary) hypertension (5) Cardiomyopathy Code(s): I42.9 - CARDIOMYOPATHY, UNSPECIFIED Status: Acute Qualifiers: Cardiomyopathy type: unspecified Qualified Code(s): I42.9 - Cardiomyopathy , unspecified (6) CAD (coronary artery disease) Code(s): I25.10 - ATHSCL HEART DISEASE OF [place] CORONARY ARTERY W/O ANG PCTRS Status: Acute Qualifiers: Coronary Disease-Associated Artery/Lesion type: [place] artery [place] vs. transplanted heart: [place] heart Associated angina: without angina Qualified Code(s): I25.10 - Atherosclerotic heart disease of [place] coronary artery without angina pectoris - Plan cont keppra cont asa, coreg, hydralazine CM for SNF
[2020-03-25] MEDS: Atorvastatin Calcium 40 MG TAB PO SCH (21:41)
[2020-03-25] MEDS: traZODone HCl 50 MG TAB PO PRN (21:42)
[2020-03-25] MEDS: Mirtazapine 15 MG Soltab PO SCH (21:42)
[2020-03-26] MEDS: Losartan 25 MG TAB PO SCH (08:36)
[2020-03-26] MEDS: Aspirin 81 mg Enteric Coated Tablet PO SCH (08:36)
[2020-03-26] MEDS: hydrALAZINE 25 MG TAB PO SCH ×3 (08:38→20:18)
[2020-03-26] MEDS: Carvedilol 25 MG TAB PO SCH ×2 (08:39→20:18)
[2020-03-26] MEDS: Amlodipine 10 MG TAB PO SCH (08:39)
[2020-03-26] MEDS: Enoxaparin Sodium 40 MG/0.4 ML SYRINGE SC SCH (08:40)
[2020-03-26] MEDS: levETIRAcetam 500 mg/5 ml Oral Solution PO SCH ×2 (08:47→20:18)
--- NOTE | 2020-03-26 12:04 | PDOC.HOSPP ---
- Subjective Encounter Date: 03/26/20 Subjective: NEUROLOGY PROGRESS NOTE Patient alert, awake and no reported seizures or acute issues overnight. - Objective Vital Signs & Weight: Vital Signs (12 hours) Temp Pulse Resp BP BP Pulse Ox 03/26/20 11:25 98.9 F 71 18 163/53 H 93 L 03/26/20 08:28 94 L 03/26/20 07:40 97.7 F 82 18 164/58 H 94 L 03/26/20 04:30 98.2 F 67 18 145/47 H 93 L 03/26/20 00:30 97 Weight Weight 130 lb I&O: 03/25/20 03/26/20 03/27/20 06:59 06:59 06:59 Intake Total 900 1200 Output Total 200 Balance 700 1200 Result Diagrams: 03/24/20 04:57 03/23/20 02:19 Radiology Reviewed by me: Yes EKG Reviewed by me: Yes Hospitalist ROS - Review of Systems Constitutional: denies: fever, chills, sweats, weakness, malaise, other Eyes: denies: pain, vision change, conjunctivae inflammation, eyelid inflammation, redness, other ENT: denies: ear pain, ear discharge, nose pain, nose discharge, nose congestion , mouth pain, mouth swelling, throat pain, throat swelling, other Respiratory: denies: cough, dry, shortness of breath, hemoptysis, SOB with excertion, pleuritic pain, sputum, wheezing, other Cardiovascular: denies: chest pain, palpitations, orthopnea, paroxysmal noc. dyspnea, edema, light headedness, other Gastrointestinal: denies: nausea, vomiting, abdominal pain, diarrhea, constipation, melena, hematochezia, other Genitourinary: denies: dysuria, frequency, incontinence, hematuria, retention, other Musculoskeletal: reports: back pain Skin: denies: rash, lesions, nick, bruising, other Neurological: reports: weakness, numbness, seizures. denies: incoordination, change in speech, confusion, other - Medication Medications: Active Medications Generic Name Dose Route Start Last Admin Trade Name Freq PRN Reason Stop Dose Admin Acetaminophen 650 mg 03/22/20 21:11 03/25/20 08:37 Tylenol PO 650 mg Q4H PRN Administration Headache/Fever/Mild Pain (1-3) Amlodipine Besylate 10 mg 07/24/20 09:00 03/26/20 08:39 Norvasc PO 10 mg DAILY MATY Administration Aspirin 81 mg 03/23/20 09:00 03/26/20 08:36 Ecotrin PO 81 mg DAILY MATY Administration Atorvastatin Calcium 40 mg 03/23/20 21:00 03/25/20 21:41 Lipitor PO 40 mg HS MATY Administration Carvedilol 25 mg 03/24/20 21:00 03/26/20 08:39 Coreg PO 25 mg BID MATY Administration Enoxaparin Sodium 40 mg 03/23/20 09:00 03/26/20 08:40 Lovenox SC 40 mg 0900 MATY Administration Hydralazine HCl 10 mg 03/22/20 21:24 03/23/20 16:06 Apresoline SLOW IVP 10 mg Q4H PRN Administration Hypertension Hydralazine HCl 50 mg 03/23/20 21:00 03/26/20 08:38 Apresoline PO 50 mg TID MATY Administration Levetiracetam 750 mg 03/23/20 21:00 03/26/20 08:47 Keppra Oral Solution PO 750 mg BID MATY Administration Lorazepam 0.5 mg 03/23/20 17:46 03/24/20 09:10 Ativan PO 0.5 mg Q4H PRN Administration Anxiety Losartan Potassium 50 mg 03/23/20 09:00 03/26/20 08:36 Cozaar PO 50 mg DAILY MATY Administration Mirtazapine 15 mg 03/23/20 21:00 03/25/20 21:42 Remeron Soltab PO 15 mg HS MATY Administration Sodium Chloride 10 ml 03/23/20 09:00 03/26/20 07:37 Flush - Normal Saline IVF Not Given Q12HR MATY Trazodone HCl 50 mg 03/22/20 21:22 03/25/20 21:42 Desyrel PO 50 mg HS PRN Administration Insomnia Hosp A/P (1) Seizure disorder Code(s): G40.909 - EPILEPSY, UNSP, NOT INTRACTABLE, WITHOUT STATUS EPILEPTICUS Status: Acute (2) Chronic kidney disease, stage 3 Code(s): N18.3 - CHRONIC KIDNEY DISEASE, STAGE 3 (MODERATE) Status: Chronic (3) UTI (urinary tract infection) Status: Acute Qualifiers: Urinary tract infection type: acute cystitis Hematuria presence: without hematuria Qualified Code(s): N30.00 - Acute cystitis without hematuria - Plan PT/OT, speech therapy, DVT proph w/SCDs 78 year old female presented with left hemiparesis and breakthrough seizures in the setting of UTI. Clinically stable and reported no acute issues overnight. Left hemiparesis improved. Most likely recrudescence of old stroke symptoms due to UTI versus Javy's paralysis. EEG reviewed and was negative for seizure activity. MRI Brain reviewed and was negative for acute infarction. Neurochecks every 4 hours. Observe seizure precautions. Continue Keppra 750 mg PO twice daily. Switched to oral solution on 03/23 Ativan 2 mg IV for seizure greater than 2 minutes. PT/OT/Speech. Continue home medications. Continue medical management per primary team. Plan discussed with the floor team during MDR rounds.
--- NOTE | 2020-03-26 13:06 | PDOC.HOSPP ---
- Subjective Encounter Date: 03/26/20 Encounter Time: 13:00 Subjective: f/u for seizure disorder tx with Be currently. No recurrent seizures reported. Ambulating in halls with PT per nursing. Awaiting referral to rehab. - Objective Vital Signs & Weight: Vital Signs (12 hours) Temp Pulse Resp BP BP Pulse Ox 03/26/20 11:25 98.9 F 71 18 163/53 H 93 L 03/26/20 08:28 94 L 03/26/20 07:40 97.7 F 82 18 164/58 H 94 L 03/26/20 04:30 98.2 F 67 18 145/47 H 93 L Weight Weight 130 lb I&O: 03/25/20 03/26/20 03/27/20 06:59 06:59 06:59 Intake Total 900 1200 Output Total 200 Balance 700 1200 Result Diagrams: 03/24/20 04:57 03/23/20 02:19 Additional Labs: Microbiology 03/23/20 18:08 Urine akers catheter Urine Culture - Final NO GROWTH AT 48 HOURS 03/22/20 16:40 Venous blood - Left Hand Blood Culture - Final Coagulase Neg Staphylococcus 03/22/20 18:36 Venous blood - Left Hand Blood Culture - Preliminary NO GROWTH AT 48 HOURS Laboratory Tests 03/22/20 03/22/20 03/22/20 16:40 21:15 23:28 Troponin I 0.100 H 1.323 H* 1.821 H* 03/23/20 03/23/20 02:19 04:23 Troponin I 1.713 H* 1.336 H* Radiology Reviewed by me: Yes (Echo - EF 55-60%, no ) EKG Reviewed by me: Yes (Tele -SR) Hospitalist ROS - Medication Medications: Active Medications Generic Name Dose Route Start Last Admin Trade Name Freq PRN Reason Stop Dose Admin Acetaminophen 650 mg 03/22/20 21:11 03/25/20 08:37 Tylenol PO 650 mg Q4H PRN Administration Headache/Fever/Mild Pain (1-3) Amlodipine Besylate 10 mg 03/23/20 09:00 03/26/20 08:39 Norvasc PO 10 mg DAILY MATY Administration Aspirin 81 mg 03/23/20 09:00 03/26/20 08:36 Ecotrin PO 81 mg DAILY MATY Administration Atorvastatin Calcium 40 mg 03/23/20 21:00 03/25/20 21:41 Lipitor PO 40 mg HS MATY Administration Carvedilol 25 mg 03/24/20 21:00 03/26/20 08:39 Coreg PO 25 mg BID MATY Administration Enoxaparin Sodium 40 mg 03/23/20 09:00 03/26/20 08:40 Lovenox SC 40 mg 0900 MATY Administration Hydralazine HCl 10 mg 03/22/20 21:24 03/23/20 16:06 Apresoline SLOW IVP 10 mg Q4H PRN Administration Hypertension Hydralazine HCl 50 mg 03/23/20 21:00 03/26/20 08:38 Apresoline PO 50 mg TID MATY Administration Levetiracetam 750 mg 03/23/20 21:00 03/26/20 08:47 Keppra Oral Solution PO 750 mg BID MATY Administration Lorazepam 0.5 mg 03/23/20 17:46 03/24/20 09:10 Ativan PO 0.5 mg Q4H PRN Administration Anxiety Losartan Potassium 50 mg 03/23/20 09:00 03/26/20 08:36 Cozaar PO 50 mg DAILY MATY Administration Mirtazapine 15 mg 03/23/20 21:00 03/25/20 21:42 Remeron Soltab PO 15 mg HS MATY Administration Sodium Chloride 10 ml 03/23/20 09:00 03/26/20 07:37 Flush - Normal Saline IVF Not Given Q12HR MATY Trazodone HCl 50 mg 03/22/20 21:22 03/25/20 21:42 Desyrel PO 50 mg HS PRN Administration Insomnia - Exam General Appearance: NAD, awake alert Eye: PERRL, anicteric sclera ENT: normocephalic atraumatic, no oropharyngeal lesions Neck: supple, symmetric, no JVD, no thyromegaly, no lymphadenopathy Heart: RRR, no gallops, no rubs, normal peripheral pulses Heart - other findings: S1, S2 Respiratory: CTAB, no wheezes, no rales, no ronchi, normal chest expansion Gastrointestinal: soft, non-tender, non-distended, normal bowel sounds, no palpable masses Extremities: no cyanosis, no clubbing, no edema Skin: normal turgor, no lesions Neurological: cranial nerve grossly intact, no new deficit Musculoskeletal: normal tone, generalized weakness Psychiatric: normal affect, oriented to person Hosp A/P (1) Seizure disorder Code(s): G40.909 - EPILEPSY, UNSP, NOT INTRACTABLE, WITHOUT STATUS EPILEPTICUS Status: Acute Plan: Continue Keppra 750mg po BID, seizure precautions (2) Demand ischemia of myocardium Code(s): I24.8 - OTHER FORMS OF ACUTE ISCHEMIC HEART DISEASE Status: Acute Plan: Secondary to #1, Type II GA noted (3) Lactic acidosis Code(s): E87.2 - ACIDOSIS Status: Acute Plan: Secondary to #1, no infectious process noted (4) Physical deconditioning Code(s): R53.81 - OTHER MALAISE Status: Chronic Plan: PT for mobilization, Rehab screening - Plan 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
[2020-03-26] MEDS: Atorvastatin Calcium 40 MG TAB PO SCH (20:18)
[2020-03-26] MEDS: Mirtazapine 15 MG Soltab PO SCH (20:18)
[2020-03-26] MEDS: traZODone HCl 50 MG TAB PO PRN (20:19)
[2020-03-27 04:00] VITALS: TEMP 98
[2020-03-27] MEDS: Aspirin 81 mg Enteric Coated Tablet PO SCH (09:20)
[2020-03-27] MEDS: Losartan 25 MG TAB PO SCH (09:21)
[2020-03-27] MEDS: Carvedilol 25 MG TAB PO SCH (09:22)
[2020-03-27] MEDS: Enoxaparin Sodium 40 MG/0.4 ML SYRINGE SC SCH (09:22)
[2020-03-27] MEDS: levETIRAcetam 500 mg/5 ml Oral Solution PO SCH (09:22)
[2020-03-27] MEDS: hydrALAZINE 25 MG TAB PO SCH (09:25)
[2020-03-27] MEDS: Amlodipine 10 MG TAB PO SCH (09:27)
--- NOTE | 2020-03-27 11:01 | DIS ---
DATE OF ADMISSION: 03/22/2020 DATE OF DISCHARGE: 03/27/2020 DISCHARGE DIAGNOSES: 1. Seizure disorder, stable. 2. Type 2 myocardial infarction secondarily to demand ischemia in the context of seizure disorder. 3. Lactic acidosis secondary to seizure disorder, resolved. 4. Physical deconditioning. CONSULTATIONS: Dr. Dunn with Neurology Service. PERTINENT LABORATORY AND X-RAY FINDINGS: Creatinine ranged between 0.79 to 1.14. Lactic acid level ranged between 1.3 to 6.2. Magnesium level 1.8. Troponin I ranged between 0.10 to 1.82. CBC showed hemoglobin ranging between 11.3 to 12.0. SARS-CoV-2 PCR not detected on 03/22/2020. Blood cultures x2 dated 03/22/2020, showed 1/2 positive for coagulase-negative Staphylococcus aureus skin contaminant. Urine culture dated 03/23/2020, showed no growth at [address] angiogram of the head and neck dated 03/22/2020 showed focal aneurysm measuring approximately 5 mm at the anterior communicating artery position. CT of the brain without contrast dated 03/22/2020, showed no acute intracranial process. Portable chest x-ray dated 03/22/2020, showed mass-like density in the right upper lung zone medially. EEG dated 03/23/2020, showed findings consistent with moderate generalized nonspecific cerebral dysfunction. CT of the chest dated 03/23/2020, showed chronic lung parenchymal changes with atelectasis and patchy ground-glass opacities. No mass identified in the right upper lobe. 2D transthoracic echocardiogram dated 03/23/2020, showed ejection fraction 55% to 60%. [id number] aortic insufficiency. MRI of the brain dated 03/24/2020, showed no acute intracranial process. Severe chronic ischemic white matter changes. Diffuse cerebral and cerebellar atrophy. 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 HOSPITAL COURSE: The patient initially admitted after presenting in the context of known seizure disorder with seizure activity, treated initially with 4 mg of Versed and evaluated in the emergency room. The patient also received IV Keppra in addition to Rocephin after suspicion for urinary tract infection. The patient was evaluated by the Neurology Service with recommendations to increase Keppra to 750 mg b.i.d. and to monitor for clinical response. The patient ruled out for occult infectious process with urine culture showing no growth at 48 hours as stated previously. IV antibiotics were discontinued and the patient remained clinically stable on the Stroke Unit. The patient was noted with elevated troponin-I consistent with demand ischemia and type 2 myocardial infarction, medically managed. Due to the patient's comorbid conditions and presentation, the patient was deemed an appropriate candidate for ongoing inpatient rehabilitation and approved for transfer on 03/27/2020. Remainder of the patient's hospital course was stable and the patient ambulated with physical therapy using a rolling walker and standby assistance. I have examined the patient at the time of discharge and discussed followup instructions. The patient verbalized understanding and ready for discharge on 03/27/2020. DISCHARGE MEDICATIONS: 1. Norvasc 10 mg p.o. daily. 2. Enteric-coated aspirin 81 mg p.o. daily. 3. Coreg 25 mg p.o. b.i.d. 4. Losartan 50 mg p.o. daily. 5. Remeron 15 mg p.o. at bedtime. 6. Trazodone 50 mg p.o. at bedtime. 7. Vitamin B12 of 1000 mcg p.o. daily. 8. Keppra 750 mg p.o. b.i.d. FOLLOWUP: The patient may follow up with Dr. Kaushik Gary within 7 days of discharge. The patient may follow up with Dr. Javy Moore with Neurology Service in 2 to 3 weeks after discharge. CONDITION ON DISCHARGE: Stable. ACTIVITY: Ad-fox. Rolling walker with standby assistance for ambulation. DIET: Heart healthy. CODE STATUS: Do not attempt resuscitation. DISPOSITION: Discharged to [facility] on 03/27/2020. TIME SPENT: Total time preparing and coordinating discharge, 35 minutes. Job ID: [id number]
[2020-03-27 11:26] VITALS: BP 158/51
--- NOTE | 2020-03-27 12:27 | PDOC.HOSPP ---
- Subjective Encounter Date: 03/27/20 Subjective: NEUROLOGY PROGRESS NOTE Patient alert, awake and following commands. No reported seizures or acute issues overnight. - Objective Vital Signs & Weight: Vital Signs (12 hours) Temp Pulse Resp BP BP Pulse Ox 03/27/20 11:24 98.0 F 64 18 158/51 H 95 03/27/20 09:27 61 153/51 H 03/27/20 09:17 94 L 03/27/20 07:39 98.0 F 22 H 127/51 L 94 L 03/27/20 03:59 98.0 F 57 L 16 162/57 H 92 L Weight Weight 130 lb I&O: 03/26/20 03/27/20 03/28/20 06:59 06:59 06:59 Intake Total 1200 1770 Balance 1200 1770 Result Diagrams: 03/24/20 04:57 03/23/20 02:19 Radiology Reviewed by me: Yes EKG Reviewed by me: Yes Hospitalist ROS - Review of Systems Constitutional: denies: fever, chills, sweats, weakness, malaise, other Eyes: denies: pain, vision change, conjunctivae inflammation, eyelid inflammation, redness, other ENT: denies: ear pain, ear discharge, nose pain, nose discharge, nose congestion , mouth pain, mouth swelling, throat pain, throat swelling, other Cardiovascular: denies: chest pain, palpitations, orthopnea, paroxysmal noc. dyspnea, edema, light headedness, other Gastrointestinal: denies: nausea, vomiting, abdominal pain, diarrhea, constipation, melena, hematochezia, other Genitourinary: denies: dysuria, frequency, incontinence, hematuria, retention, other Musculoskeletal: denies: neck pain, shoulder pain, arm pain, back pain, hand pain, leg pain, foot pain, other Neurological: reports: weakness, incoordination, seizures - Medication Medications: Active Medications Generic Name Dose Route Start Last Admin Trade Name Freq PRN Reason Stop Dose Admin Acetaminophen 650 mg 03/22/20 21:11 03/25/20 08:37 Tylenol PO 650 mg Q4H PRN Administration Headache/Fever/Mild Pain (1-3) Amlodipine Besylate 10 mg 03/23/20 09:00 03/27/20 09:27 Norvasc PO 10 mg DAILY MATY Administration Aspirin 81 mg 03/23/20 09:00 03/27/20 09:20 Ecotrin PO 81 mg DAILY MATY Administration Atorvastatin Calcium 40 mg 03/23/20 21:00 03/26/20 20:18 Lipitor PO 40 mg HS MATY Administration Carvedilol 25 mg 03/24/20 21:00 03/27/20 09:22 Coreg PO 25 mg BID MATY Administration Enoxaparin Sodium 40 mg 03/23/20 09:00 03/27/20 09:22 Lovenox SC 40 mg 0900 MATY Administration Hydralazine HCl 10 mg 03/22/20 21:24 03/23/20 16:06 Apresoline SLOW IVP 10 mg Q4H PRN Administration Hypertension Hydralazine HCl 50 mg 03/23/20 21:00 03/27/20 09:25 Apresoline PO 50 mg TID MATY Administration Levetiracetam 750 mg 03/23/20 21:00 03/27/20 09:22 Keppra Oral Solution PO 750 mg BID MATY Administration Lorazepam 0.5 mg 03/23/20 17:46 03/24/20 09:10 Ativan PO 0.5 mg Q4H PRN Administration Anxiety Losartan Potassium 50 mg 03/23/20 09:00 03/27/20 09:21 Cozaar PO 50 mg DAILY MATY Administration Mirtazapine 15 mg 03/23/20 21:00 03/26/20 20:18 Remeron Soltab PO 15 mg HS MATY Administration Sodium Chloride 10 ml 03/23/20 09:00 03/27/20 09:24 Flush - Normal Saline IVF Not Given Q12HR [facility] Trazodone HCl 50 mg 03/22/20 21:22 03/26/20 20:19 Desyrel PO 50 mg HS PRN Administration Insomnia - Exam General Appearance: awake alert Eye: PERRL ENT: normocephalic atraumatic Neck: supple Heart: RRR Respiratory: CTAB Gastrointestinal: soft Extremities: no cyanosis Neurological: no new deficit Musculoskeletal: normal tone Psychiatric: oriented to person, oriented to place Hosp A/P (1) Seizure disorder Code(s): G40.909 - EPILEPSY, UNSP, NOT INTRACTABLE, WITHOUT STATUS EPILEPTICUS Status: Acute (2) Chronic kidney disease, stage 3 Code(s): N18.3 - CHRONIC KIDNEY DISEASE, STAGE 3 (MODERATE) Status: Chronic (3) UTI (urinary tract infection) Status: Acute Qualifiers: Urinary tract infection type: acute cystitis Hematuria presence: without hematuria Qualified Code(s): N30.00 - Acute cystitis without hematuria - Plan PT/OT, speech therapy, DVT proph w/SCDs 78 year old female presented with left hemiparesis and breakthrough seizures in the setting of UTI. Clinically stable and reported no acute issues overnight. Possible discharge tiday. Left hemiparesis almost resolved.. Most likely recrudescence of old stroke symptoms due to UTI versus Javy's paralysis. EEG reviewed and was negative for seizure activity. MRI Brain reviewed and was negative for acute infarction. Neurochecks every 4 hours. Observe seizure precautions. Continue Keppra 750 mg PO twice daily. PT/OT/Speech. Continue home medications. Continue medical management per primary team.
== END 2020-03-27 12:53 | DRG 100 ==
LOC: ERS 16:25 → 2SE 18:42
PROVIDERS: ADMIT Internal Medicine; ATTEND Internal Medicine
DX: G40.909 Epilepsy, unspecified, not intractable, without status epilepticus (principal); I21.A1 Myocardial infarction type 2; G92 Toxic encephalopathy; E87.2 Acidosis; I42.9 Cardiomyopathy, unspecified; I16.1 Hypertensive emergency; I69.354 Hemiplegia and hemiparesis following cerebral infarction affecting left non-dominant side; Z66 Do not resuscitate; Z20.828 Contact with and (suspected) exposure to other viral communicable diseases; R53.81 Other malaise; I48.91 Unspecified atrial fibrillation; I25.10 Atherosclerotic heart disease of native coronary artery without angina pectoris; E78.5 Hyperlipidemia, unspecified; K21.9 Gastro-esophageal reflux disease without esophagitis; F03.90 Unspecified dementia, unspecified severity, without behavioral disturbance, psychotic disturbance, mood disturbance, and anxiety; I67.1 Cerebral aneurysm, nonruptured; N18.3 Chronic kidney disease, stage 3 (moderate); I35.1 Nonrheumatic aortic (valve) insufficiency; I12.9 Hypertensive chronic kidney disease with stage 1 through stage 4 chronic kidney disease, or unspecified chronic kidney disease; D63.1 Anemia in chronic kidney disease; G47.33 Obstructive sleep apnea (adult) (pediatric); G89.4 Chronic pain syndrome; T42.4X5A Adverse effect of benzodiazepines, initial encounter
CPT/HCPCS: 36415; 51702; 70450; 70496; 70498; 70551; 71045; 71260; 80048; 80053; 81003; 81015; 82550; 82553; 83605; 83735; 84484; 85025; 85027; 85610; 85730; 87040; 87086; 87149; 93005; 93306; 95712; 95816; 95819; 95957; 96361; 96365; 96375; J0360; J0696; J1650; J1953; Q9967; U0002

== ENCOUNTER 2020-05-14 10:11 | Inpatient (IN) | payer MEDICARE, BC, OTHER ==
[2020-05-14] MEDS ORDERED: niCARdipine 20MG In NaCl 20 MG/200 ML BAG ONE (10:17)
[2020-05-14 10:19] LABS: #Eosinphils 0.1 thou/uL (0.0-0.7); #Lymphocytes 1.8 thou/uL (1.20-3.40); #Monocytes 0.8 thou/uL (0.11-0.59); #Neutrophils 4.9 thou/uL (1.40-6.50); %Basophils 0.6 % (0.0-1.0); %Lymphocytes 23.7 % (21.0-51.0); %Monocytes 10.4 % (0.0-10.0); %Neutrophils 64.4 % (42.0-75.0); Hemoglobin 12.3 g/dL (12.0-16.0); Mean Corpuscular HGB CONC 31.4 g/dL (32.0-36.0); Mean Corpuscular Hemoglobin 30.1 pg (27.0-31.0); Mean Corpuscular Volume 95.9 fL (78.0-98.0); Platelet Count 274 thou/uL (130-400); RBC Distribution Width 12.1 % (11.5-14.5); Red Blood Cell (RBC) Count 4.11 mill/uL (4.20-5.40); White Blood Cell (WBC) Count 7.7 thou/uL (4.8-10.8)
--- NOTE | 2020-05-14 10:26 | CT ---
CT BRAIN WITHOUT CONTRAST: HISTORY:Left-sided weakness COMPARISON:03/22/2020 FINDINGS: There are foci of decreased attenuation in the periventricular white matter, consistent with chronic small vessel ischemic disease. Changes of cortical atrophy and encephalomalacia in the right frontal lobe are again seen. The small old infarction in the left cerebellar hemisphere is again note d. No evidence of acute infarct, hemorrhage, midline shift or abnormal extra-axial fluid collections is seen. The ventricular size is stable and the basilar cisterns are patent. The bony calvarium is intact. The visualized paranasal sinuses and mastoid air cells are well aerated. IMPRESSION: No CT evidence of acute intracranial process. Discussed over the telephone with ER physician Dr. Paresh Mehta at 10:23 AM
[2020-05-14 10:29] LABS: PTT 29.1 sec (22.9-36.1)
[2020-05-14 10:34] LABS: Prothrombin Time 13.4 sec (12.0-14.7)
[2020-05-14 10:37] LABS: ALT (SGPT) 8 U/L (8-55); AST (SGOT) 12 U/L (5-34); Albumin 3.8 g/dL (3.4-4.8); Alkaline Phosphatase 50 U/L (40-110); Anion Gap 14 mmol/L (10-20); BUN (Urea Nitrogen) 18 mg/dL (9.8-20.1); Bilirubin, Total 0.7 mg/dL (0.2-1.2); CK (CPK) 51 U/L (29-168); Calc. Creatinine Clearance 0 mL/min (70-130); Calcium 9.3 mg/dL (7.8-10.44); Carbon Dioxide 25 mmol/L (23-31); Chloride 105 mmol/L (98-107); Estimated GFR-MDRD 45; Globulin 3.5 g/dL (2.4-3.5); Glucose 121 mg/dL (83-110); Potassium 4.5 mmol/L (3.5-5.1); Protein, Total 7.3 g/dL (6.0-8.3); Sodium 139 mmol/L (136-145)
[2020-05-14 10:40] LABS: CKMB 1.1 ng/mL (0-6.6)
[2020-05-14] MEDS ORDERED: Lorazepam 2 MG/ML VIAL ONE ×3 (10:56→13:45)
--- NOTE | 2020-05-14 11:20 | RAD ---
Exam: Chest one view HISTORY:Stroke alert Comparison: 03/24/2020 FINDINGS: Cardiac silhouette:Megaly. Stable sternotomy wires Aorta: Table at the sclerosis and elongation Pulmonary vessels: Normal Costophrenic angles: Clear LUNGS: Hyperinflation. Chronic changes. Pneumothorax: None Osseous abnormalities: None IMPRESSION: 1. Cardiomegaly. No evidence of congestive heart failure 2. Hyperinflation. Chronic changes. 3. Atherosclerosis and elongation.
[2020-05-14] MEDS ORDERED: Propofol 1,000 MG/100 ML VIAL IV ONE (12:07)
[2020-05-14] MEDS ORDERED: Rocuronium Bromide 10 MG/ML (10ML VIAL) ONE (12:07)
[2020-05-14] MEDS ORDERED: Fentanyl 100 MCG/2 ML VIAL ONE ×2 (12:38→13:32)
[2020-05-14] MEDS ORDERED: Cefepime 2 GM VIAL ONE (12:38)
[2020-05-14 12:55] LABS: Actual Bicarbonate (HCO3a) 21.8 mEq/L (22-28); Analyzer IN Cardio ER; Base Excess (BEa) -3.7 mEq/L (-2.0 to +3.0); Calcium, Ionized (arterial) 1.18 mmol/L (1.12-1.30); Carboxyhemoglobin (COHb) 0.2 gm% (0.0-3.0); Hemoglobin (Hb) 12.8 g/dL (12.0-16.0); Potassium - ABG Lab 4.32 mmol/L (3.70-5.30); pH, Arterial 7.34 (7.35-7.45)
[2020-05-14 13:05] LABS: Puncture Site L.R.
[2020-05-14] MEDS ORDERED: Lorazepam 2 MG/ML VIAL SLOW IVP PRN ×2 (13:07→14:32)
--- NOTE | 2020-05-14 13:22 | RAD ---
EXAM: CHEST ONE VIEW HISTORY: Chest pain. Intubation. COMPARISON: 05/14/2020 at 1039 hours procedure FINDINGS: There has been interval placement of endotracheal tube with the tip overlying the T5 vertebral body a nd above the level of the erica. Nasogastric tube is also been placed in the interim with the tip overlying region of the GE junction and the most proximal sidehole overlies the distal esophagus. Terry ogastric tube should be advanced. Postoperative changes related to CABG are again noted. Cardiac silhouette stable in size. Vascular calcifications are seen in an ectatic thoracic aorta. Blunting of the left lateral costophrenic angle is again seen which is favored to represent pleural and parenchymal scarring. Small left pleural effusion is thought less likely. Osteopenia is present. Cody te left-sided rib fractures are again seen. Surgical clips overlie the left upper quadrant. Residual contrast is seen in the left renal collecting system. IMPRESSION: 1. Nasogastric tube noted in place with the most proximal sidehole overlying the distal esophagus. Th e nasogastric tube should be advanced. 2. Endotracheal tube now noted in place which is above the level of the erica. 3. Persistent blunting left lateral costophrenic angle likely due to pleural and parenchymal scarring as opposed to small left pleural effusion.
--- NOTE | 2020-05-14 13:35 | PDOC.HHP ---
Hospitalist HPI - History of Present Illness status epilepticus History of Present Illness: 79yo F w/ MHx of seizure disorder (most recently hospitalized in 02/2020 for seizures) presented with status epilepticus. Initially presented with left sided weakness as stroke code, but while in ED had convulsive status epilepticus (2-3 minutes per ED physician) that didn't resove with multiple doses of ativan (fa cial twitching and ocular deviation persisted), so was administered propofol and intubated on encounter, intubated and sedated. ED Course: Administered keppra, ativan 4mg total, and propofol. 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) medications: pending reconciliation Allergies: NKDA) - Past Surgical History Past Surgical History: reports: Cataract Removal (Bilateral), Other (Aortic aneu rysm repair in 2008 and 2009.) - Social History Alcohol: reports: None Drugs: reports: none - Exam General - other findings: intubated sedated ENT: normocephalic atraumatic, moist mucosa Neck - other findings: JVD present Heart: RRR, no murmur, no gallops, no rubs Respiratory: CTAB, no wheezes, no rales, no ronchi, normal chest expansion Gastrointestinal: soft, non-distended, normal bowel sounds Extremities: no edema Hospitalist Results - Labs Result Diagrams: 05/14/20 10:13 05/14/20 10:13 Lab results: WBC 7.7 thou/uL (4.8-10.8) 05/14/20 10:13 Hgb 12.3 g/dL (12.0-16.0) 05/14/20 10:13 Hct 39.4 % (36.0-47.0) 05/14/20 10:13 MCV 95.9 fL (78.0-98.0) 05/14/20 10:13 Plt Count 274 thou/uL (130-400) 05/14/20 10:13 Neutrophils % 64.4 % (42.0-75.0) 05/14/20 10:13 ABG pH 7.34 (7.35-7.45) L 05/14/20 12:50 ABG pCO2 41.0 mmHg (35.0-45.0) 05/14/20 12:50 ABG pO2 168.0 mmHg (> 70.0) H 05/14/20 12:50 Sodium 139 mmol/L (136-145) 05/14/20 10:13 Potassium 4.5 mmol/L (3.5-5.1) 05/14/20 10:13 Chloride 105 mmol/L (98-107) 05/14/20 10:13 Carbon Dioxide 25 mmol/L (23-31) 05/14/20 10:13 BUN 18 mg/dL (9.8-20.1) 05/14/20 10:13 Creatinine 1.17 mg/dL (0.6-1.1) H 05/14/20 10:13 Glucose 121 mg/dL (83-110) H 05/14/20 10:13 Lactic Acid 1.4 mmol/L (0.5-2.2) 05/14/20 10:47 Calcium 9.3 mg/dL (7.8-10.44) 05/14/20 10:13 Total Bilirubin 0.7 mg/dL (0.2-1.2) 05/14/20 10:13 AST 12 U/L (5-34) 05/14/20 10:13 ALT 8 U/L (8-55) 05/14/20 10:13 Alkaline Phosphatase 50 U/L (40-110) 05/14/20 10:13 Creatine Kinase 51 U/L (29-168) 05/14/20 10:13 CK-MB (CK-2) 1.1 ng/mL (0-6.6) 05/14/20 10:13 Troponin I 0.042 ng/mL (< 0.028) H 05/14/20 10:13 Serum Total Protein 7.3 g/dL (6.0-8.3) 05/14/20 10:13 Albumin 3.8 g/dL (3.4-4.8) 05/14/20 10:13 - EKG Interpretation EKG: old aneroseptal infarct, inferolateral ST depressions (unchanged compared to end of February), fulfills criteria for LVH - Radiology Interpretation CT scan - head Status: report reviewed by me Additional Comment: CT angio - no acute findings, no hemorrhage Hospitalist H&P A/P - Problem (1) Chronic kidney disease, stage 3 Code(s): N18.3 - CHRONIC KIDNEY DISEASE, STAGE 3 (MODERATE) Status: Chronic (2) Dementia Code(s): F03.90 - UNSPECIFIED DEMENTIA WITHOUT BEHAVIORAL DISTURBANCE Status: Chronic Qualifiers: (3) Hypertension Code(s): I10 - ESSENTIAL (PRIMARY) HYPERTENSION Status: Chronic Qualifiers: Hypertension type: essential hypertension Qualified Code(s): I10 - Essential (primary) hypertension (4) Seizure Code(s): R56.9 - UNSPECIFIED CONVULSIONS Status: Chronic - Plan Plan: #status epilepticus -etiology unknown; possibly stroke/TIA, electrolytes, hypoglycemia (demented), medications (takes mirtazapine, trazodone per EMR, pending reconciliation) -intubated and sedated; -loaded w keppra in ED; home dose 750mg bid (increased in February due to breakthrough seizure) -CT angio head no acute process -indeterminate trop may be due to seizure; likely demand; per family no aggressive measures -keppra 1000mg bid; PRN ativan q15m, PPRN propofol breakthrough -neurology, PCCM consulted -EEG, TSH, phosphorus, magnesium -NS IVF #hypertensive emergency Cardene drip; goal 1 hr 15-20% reduction in MAP, then gradual decrease over following 23 hours -restarted home antihtn once affirm that blood pressure stable #Dementia #CKD3 continue to monitor Dispo/PPx GI PPx: no Ix DVT PPx: lovenox DNAR ELOS: 2-3 nights
[2020-05-14] MEDS ORDERED: fentaNYL Citrate/PF 2,000 MCG in Sodium Chloride 0.9% 60 ML IV SCH ×2 (13:47→14:32)
[2020-05-14] MEDS ORDERED: Ventilator Sedation Protocol 1 EACH FS SCH (14:07)
[2020-05-14] MEDS ORDERED: Electrolyte Replacement Protoc 1 EACH EACH IVPB ONE (14:07)
[2020-05-14] MEDS ORDERED: Fentanyl BOLUS 250 ML IVPB PRN (14:32)
[2020-05-14] MEDS ORDERED: DISCONTINUE PREVIOUS NARCOTIC PAIN MEDICATIONS AND BENZODIAZEPINES FS SCH (14:32)
[2020-05-14] MEDS ORDERED: Propofol 1,000 MG/100 ML VIAL IV PRN (14:32)
[2020-05-14] MEDS ORDERED: Morphine 2 MG/ML VIAL SLOW IVP PRN (14:32)
[2020-05-14] MEDS ORDERED: Propofol BOLUS 1,000 MG/100 ML VIAL IV PRN (14:32)
[2020-05-14] MEDS ORDERED: Electrolyte Replacement Protocol FS PRN (14:45)
[2020-05-14 15:04] VITALS: BMI 21.4
[2020-05-14 15:42] LABS: Magnesium 1.8 mg/dL (1.6-2.6); Phosphorus 3.5 mg/dL (2.3-4.7)
[2020-05-14] MEDS: niCARdipine 25 MG in Sodium Chloride 0.9% 250 ML 250 ML IVPB PRN ×2 (15:50→21:13)
[2020-05-14] MEDS: Sodium Chloride 0.9% 1,000 ML IV SCH (15:50)
[2020-05-14 16:12] LABS: CKMB 1.8 ng/mL (0-6.6)
[2020-05-14 16:35] LABS: Bacteria/HPF 4+ HPF (None Seen); Bilirubin Negative (Negative); Blood, Urine Negative (Negative); Clarity Clear (Clear); Glucose, Urine (Dipstick) Normal (Negative); Ketone, Urine Negative (Negative); Leukocyte Negative Leu/uL (Negative); Nitrite 2+ (Negative); Protein, Urine (Dipstick) 50 mg/dL (Neg-Trace); RBC/HPF 0-3 HPF (0-3); Specific Gravity, Urine 1.034 (1.002-1.036); Squamous Epithelial 0-3 HPF (0-3); Urobilinogen Normal mg/dL (Less than 2); WBC/HPF 0-3 HPF (0-3)
[2020-05-14 16:38] LABS: Urine Culture Reflex Yes Yes
--- NOTE | 2020-05-14 18:13 | PDOC.NEUHP ---
HPI - History of Present Illness Status Epilepticus History of Present Illness: 79 year old female with medical history significant for seizure disorder who is hospitalized in 02/2020 because of seizures again presented with status epilepticus. Initially She presented initially with left sided weakness and stroke code was activated but then she started having generalized tonic , clonic seizure activity which lasted for 3 minutes per ED records and persisted with repeated doses of ativan so she was intubated and sedated and intubated and transferred to CCU ED Course: She received ativan, keppra load and then started on propofol after intubation Active Medications Generic Name Dose Route Start Last Admin Trade Name Freq PRN Reason Stop Dose Admin Enoxaparin Sodium 30 mg 05/15/20 12:00 Lovenox SC 05/15/20 15:00 1200 MATY Fentanyl Citrate 2,000 mcg/ 100 mls @ 0 mls/hr 05/14/20 13:47 Sodium Chloride IV 05/15/20 13:48 INF MATY Protocol Per Protocol Levetiracetam 1,000 mg/ Device 100 mls @ 200 mls/hr 05/14/20 21:00 IVPB BID MATY Nicardipine HCl 25 mg/ Sodium 260 mls @ 0 mls/hr 05/14/20 14:07 05/14/20 15: 50 Chloride IVPB 260 mls INF PRN Administration BP > 180/120 Protocol Titrate Sodium Chloride 1,000 mls @ 70 mls/hr 05/14/20 14:07 05/14/20 15:50 Normal Saline 0.9% IV 1,000 mls .[id number] MATY Administration Fentanyl Citrate 2,000 mcg/ 100 mls @ 0 mls/hr 05/14/20 14:32 Sodium Chloride IV 06/13/20 14:32 INF MATY Protocol Per Protocol Fentanyl Citrate 250 mls @ 0 mls/hr 05/14/20 14:32 Fentanyl Bolus IVPB 06/13/20 14:32 PRN PRN Breakthrough pain/agitation As Directed Lorazepam 2 mg 05/14/20 14:32 Ativan SLOW IVP 06/13/20 14:32 Q1H PRN Breakthrough agitation Miscellaneous Medication 0 each 05/14/20 14:45 Electrolyte Replacement Protocol FS ASDIR PRN ELECTROLYTE REPLACEMENT Protocol Morphine Sulfate 2 mg 05/14/20 14:32 Morphine SLOW IVP 06/13/20 14:32 Q1H PRN Breakthrough Pain/Agitation Discontinue Previous 1 each 05/14/20 14:32 Narcotic Pain FS 06/13/20 14:32 Medications And .ONE MATY Benzodiazepines Propofol 1,000 mg 05/14/20 14:32 Diprivan IV 06/13/20 14:32 INF PRN TO ACHIEVE GOAL RASS Protocol Propofol 20 mg 05/14/20 14:32 Diprivan Bolus IV 06/13/20 14:32 Q5MIN PRN BREAKTHROUGH AGITATION ROS - Review of Systems ROS unobtainable: due to endotracheal tube (Patient is intubated and sedated) - Medication Medications: Active Medications Generic Name Dose Route Start Last Admin Trade Name Freq PRN Reason Stop Dose Admin Nicardipine HCl 25 mg/ Sodium 260 mls @ 0 mls/hr 05/14/20 14:07 05/14/20 15: 50 Chloride IVPB 260 mls INF PRN Administration BP > 180/120 Protocol Titrate Sodium Chloride 1,000 mls @ 70 mls/hr 05/14/20 14:07 05/14/20 15:50 Normal Saline 0.9% IV 1,000 mls .[id number] MATY Administration History - Past Medical History Source: old records (- Past Medical History Cardiac: reports: AFIB, CAD, CHF, HTN, Hyperlipidemia, Other (Cardiomyopathy) [employer]: reports: CVA, Seizure Gastrointestinal: reports: GERD - Past Surgical History Past Surgical History: reports: Cataract Removal (Bilateral), Other (Aortic aneurysm repair in 2008 and 2009.) - Family History Family History: reports: no pertinent history - Social History Smoking Status: Never smoker Alcohol: reports: None Drugs: reports: none Living Situation: Other (Patient lives at the [facility]) medications: pending reconciliation Allergies: NKDA) - Past Surgical History Past Surgical History: reports: Cataract Removal (Bilateral), Other (Aortic aneurysm repair in 2008 and 2009.) - Social History Alcohol: reports: None Drugs: reports: none - Exam General Appearance: ill appearing Eye: PERRL ENT: normocephalic atraumatic Neck: supple Respiratory: CTAB Cardiovascular: RRR Gastrointestinal: soft Extremities: no cyanosis Skin: normal turgor Neurological: CN's grossly intact Neurological - other findings: Moving all 4 extremities and withdraws to nail bed pressure Musculoskeletal: normal tone, no muscle wasting PSYCH: not oriented (sedated) Psychiatric - other findings: Intubated and sedated Results - Labs Result Diagrams: 05/14/20 10:13 05/14/20 10:13 Lab results: WBC 7.7 thou/uL (4.8-10.8) 05/14/20 10:13 Hgb 12.3 g/dL (12.0-16.0) 05/14/20 10:13 Hct 39.4 % (36.0-47.0) 05/14/20 10:13 MCV 95.9 fL (78.0-98.0) 05/14/20 10:13 Plt Count 274 thou/uL (130-400) 05/14/20 10:13 Neutrophils % 64.4 % (42.0-75.0) 05/14/20 10:13 ABG pH 7.34 (7.35-7.45) L 05/14/20 12:50 ABG pCO2 41.0 mmHg (35.0-45.0) 05/14/20 12:50 ABG pO2 168.0 mmHg (> 70.0) H 05/14/20 12:50 Sodium 139 mmol/L (136-145) 05/14/20 10:13 Potassium 4.5 mmol/L (3.5-5.1) 05/14/20 10:13 Chloride 105 mmol/L (98-107) 05/14/20 10:13 Carbon Dioxide 25 mmol/L (23-31) 05/14/20 10:13 BUN 18 mg/dL (9.8-20.1) 05/14/20 10:13 Creatinine 1.17 mg/dL (0.6-1.1) H 05/14/20 10:13 Glucose 121 mg/dL (83-110) H 05/14/20 10:13 Lactic Acid 1.4 mmol/L (0.5-2.2) 05/14/20 10:47 Calcium 9.3 mg/dL (7.8-10.44) 05/14/20 10:13 Total Bilirubin 0.7 mg/dL (0.2-1.2) 05/14/20 10:13 AST 12 U/L (5-34) 05/14/20 10:13 ALT 8 U/L (8-55) 05/14/20 10:13 Alkaline Phosphatase 50 U/L (40-110) 05/14/20 10:13 Creatine Kinase 51 U/L (29-168) 05/14/20 10:13 CK-MB (CK-2) 1.8 ng/mL (0-6.6) 05/14/20 15:10 Troponin I 0.107 ng/mL (< 0.028) H 05/14/20 15:10 Serum Total Protein 7.3 g/dL (6.0-8.3) 05/14/20 10:13 Albumin 3.8 g/dL (3.4-4.8) 05/14/20 10:13 Urine Ketones Negative mg/dL (Negative) 05/14/20 15:16 Urine Blood Negative (Negative) 05/14/20 15:16 Urine Nitrite 2+ (Negative) A 05/14/20 15:16 Ur Leukocyte Esterase Negative Hoda/uL (Negative) 05/14/20 15:16 Urine RBC 0-3 HPF (0-3) 05/14/20 15:16 Urine WBC 0-3 HPF (0-3) 05/14/20 15:16 Ur Squamous Epith Cells 0-3 HPF (0-3) 05/14/20 15:16 Urine Bacteria 4+ HPF (None Seen) A 05/14/20 15:16 - EKG Interpretation EKG: NSR - Radiology Interpretation CT scan - head Additional Comment: No acute intracranial process H&P A/P - Problem (1) Status epilepticus Code(s): G40.901 - EPILEPSY, UNSP, NOT INTRACTABLE, WITH STATUS EPILEPTICUS Status: Acute (2) CAD (coronary artery disease) Code(s): I25.10 - ATHSCL HEART DISEASE OF [place] CORONARY ARTERY W/O ANG PCTRS Status: Acute Qualifiers: Coronary Disease-Associated Artery/Lesion type: [place] artery [place] vs. transplanted heart: [place] heart Associated angina: without angina Qualified Code(s): I25.10 - Atherosclerotic heart disease of [place] coronary artery without angina pectoris (3) Cardiomyopathy Code(s): I42.9 - CARDIOMYOPATHY, UNSPECIFIED Status: Acute Qualifiers: Cardiomyopathy type: unspecified Qualified Code(s): I42.9 - Cardiomyopathy , unspecified (4) Seizure disorder Code(s): G40.909 - EPILEPSY, UNSP, NOT INTRACTABLE, WITHOUT STATUS EPILEPTICUS Status: Acute (5) Chronic kidney disease, stage 3 Code(s): N18.3 - CHRONIC KIDNEY DISEASE, STAGE 3 (MODERATE) Status: Chronic (6) Dementia Code(s): F03.90 - UNSPECIFIED DEMENTIA WITHOUT BEHAVIORAL DISTURBANCE Status: Chronic Qualifiers: (7) Hypertension Code(s): I10 - ESSENTIAL (PRIMARY) HYPERTENSION Status: Chronic Qualifiers: Hypertension type: essential hypertension Qualified Code(s): I10 - Essential (primary) hypertension (8) Acute metabolic encephalopathy Code(s): G93.41 - METABOLIC ENCEPHALOPATHY Status: Resolved - Plan Plan: 79 year old admitted due to status epilepticus which is resolved with ativan, keppra and propofol. Patient is currently intubated and sedated . EEG reviewed which was negative for seizure activity. Observe seizure precautions. Continue Keppra 1000 mg IV q12. Resume Tegretol 200 mg bid when stable Ativan 2 mg IV for seizure greater than 2 minutes. Continue home medications. Wean off sedation and extubate when stable PT/OT/Speech. Plan discussed with the nursing staff. We will continue to follow. Thank you for the consult.
[2020-05-14] MEDS: levETIRAcetam In NaCl (Iso-Os) 1,000 MG in Premix Bag 1 BAG IVPB SCH (20:10)
--- NOTE | 2020-05-14 20:19 | EEG ---
DATE OF SERVICE: 05/14/2020 ATTENDING PHYSICIAN: Yolanda Dunn MD This EEG was performed using 24-channel [employer] SA video digital EEG machine with 24-disk electrodes. This was an extended 2 hours 6 minutes of inpatient video EEG recording. Digital analysis of the EEG was done for spike and seizure detection, which revealed no abnormalities. BACKGROUND: The posterior background rhythm was not observed. HYPERVENTILATION: Not performed. PHOTIC STIMULATION: Not performed SLEEP: No stage changes observed. EEG DIAGNOSES: 1. Generalized irregular theta-delta activity seen throughout the recording. 2. Absence of posterior background rhythm. CLINICAL INTERPRETATION: This EEG is consistent with moderate generalized nonspecific cerebral dysfunction. Job ID: [id number]
--- NOTE | 2020-05-15 00:08 | CON ---
DATE OF CONSULTATION: HISTORY: A 79-year-old female from the [facility]. Son is at the bedside who gives adequate history, who states that the patient has status epilepticus, was brought to the ER. She is a DNR, but because of her seizure activity, it is felt she needs to be intubated just to control the seizures. She has since received multiple medications including Diprivan and Keppra. Neurology was consulted. She is undergoing EEG at this time. She is sedated, unresponsive. She has been in the hospital here numerous 2 years ago for sepsis and saw Dr. Milligan in the office. She was in fact discharged not long ago, 03/27/2020, with seizure disorders, demand myocardial ischemic and infarction, lactic acid, and deconditioning. HOME MEDICATIONS: Include Coreg 25 b.i.d., aspirin, Norvasc 10, losartan 50, trazodone 50, Keppra 750, and vitamin B12. PAST MEDICAL HISTORY: Outlined extensively. 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 REVIEW OF SYSTEMS: Otherwise unobtainable. PHYSICAL EXAMINATION: VITAL SIGNS: Sats 100%, on present vent settings 30%, PEEP of 5, pulse 64, blood pressure 180/60. She is on a Cardene drip. CHEST: No wheezing. No crackles. CARDIAC: Normal S1, S2. No gallops. ABDOMEN: Soft. NEUROLOGIC: Pupils are equal, reactive. LABORATORY DATA: White count 7000, H and H 12/30, platelet count 274. PO2 of 168, pCO2 of creatinine 1.17 in the past, which was normal several weeks ago. X-ray is clear. ASSESSMENT: Status epilepticus, hypertension, history of previous thoracic aneurysm repair, advanced age, nonsmoker. Son states the patient is a DNR. Once she is extubated, seizure activity is controlled. He did not want to do any aggressive treatment. In the meantime, she is started on Keppra high doses. I would input from Neurology. I agree with DVT prophylaxis and proton pump inhibitors. Supportive care. Wean when stable. We will notify Dr. Milligan who has seen in the past. This is a consultation note, 70 minutes, 50% direct patient care. Job ID: [id number]
[2020-05-15 04:21] LABS: Hemoglobin 10.6 g/dL (12.0-16.0); Lymphocytes 19 % (21-51); MDiff Complete? YES; Mean Corpuscular HGB CONC 32.4 g/dL (32.0-36.0); Mean Corpuscular Hemoglobin 30.7 pg (27.0-31.0); Mean Corpuscular Volume 94.9 fL (78.0-98.0); Monocytes 8 % (0-10); Neutrophil 72 % (42-75); Platelet Count 174 thou/uL (130-400); RBC Distribution Width 12.1 % (11.5-14.5); Reactive Lymphocytes 1 % (0-10); Red Blood Cell (RBC) Count 3.47 mill/uL (4.20-5.40); White Blood Cell (WBC) Count 8.8 thou/uL (4.8-10.8)
[2020-05-15 04:42] LABS: ALT (SGPT) 9 U/L (8-55); AST (SGOT) 14 U/L (5-34); Albumin 3.1 g/dL (3.4-4.8); Alkaline Phosphatase 41 U/L (40-110); Anion Gap 12 mmol/L (10-20); BUN (Urea Nitrogen) 12 mg/dL (9.8-20.1); Bilirubin, Total 0.5 mg/dL (0.2-1.2); Calc. Creatinine Clearance 57 mL/min (70-130); Calcium 8.3 mg/dL (7.8-10.44); Carbon Dioxide 21 mmol/L (23-31); Chloride 108 mmol/L (98-107); Estimated GFR-MDRD 76; Globulin 2.9 g/dL (2.4-3.5); Glucose 88 mg/dL (83-110); Potassium 3.3 mmol/L (3.5-5.1); Sodium 138 mmol/L (136-145)
[2020-05-15] MEDS ORDERED: Potassium Chloride 40 MEQ in Premix Bag 1 BAG IVPB SCH (05:00)
[2020-05-15] MEDS: niCARdipine 25 MG in Sodium Chloride 0.9% 250 ML 250 ML IVPB PRN ×4 (05:24→20:20)
[2020-05-15] MEDS: Potassium Chloride 20 MEQ in Premix Bag 1 BAG IVPB SCH ×2 (05:24→09:41)
[2020-05-15] MEDS: Sodium Chloride 0.9% 1,000 ML IV SCH ×2 (07:40→21:15)
[2020-05-15 07:49] LABS: Actual Bicarbonate (HCO3a) 18.7 mEq/L (22-28); Base Excess (BEa) -3.2 mEq/L (-2.0 to +3.0); Calcium, Ionized (arterial) 1.19 mmol/L (1.12-1.30); Carboxyhemoglobin (COHb) 0.3 gm% (0.0-3.0); Hemoglobin (Hb) 12.2 g/dL (12.0-16.0); O2 Tension (PaO2), arterial 81.9 mmHg (> 70.0); Potassium - ABG Lab 3.85 mmol/L (3.70-5.30); pH, Arterial 7.49 (7.35-7.45)
[2020-05-15 07:55] LABS: ALV-art Gradient 100.625 (0-20); CO2 Tension 25.1 mmHg (35.0-45.0); Puncture Site RRA
[2020-05-15] MEDS ORDERED: Potassium Chloride 20 MEQ in Sodium Chloride 0.9% 250 ML 250 ML IVPB SCH (08:00)
[2020-05-15] MEDS: levETIRAcetam In NaCl (Iso-Os) 1,000 MG in Premix Bag 1 BAG IVPB SCH ×2 (08:48→21:16)
--- NOTE | 2020-05-15 09:24 | PDOC.HOSPP ---
- Subjective Encounter Date: 05/15/20 Encounter Time: 07:00 Subjective: no overnight events. this morning, intubated and sedated. - Objective Vital Signs & Weight: Vital Signs (12 hours) Temp Pulse Resp BP 05/15/20 07:37 80 151/48 H 05/15/20 06:00 18 05/15/20 04:00 99.2 F 05/15/20 02:27 77 163/56 H 05/15/20 02:00 18 05/15/20 00:00 99.1 F 05/14/20 22:15 74 141/52 H 05/14/20 22:00 18 Weight Weight 128 lb 8.472 oz Most Recent Monitor Data Heart Rate from ECG 84 NIBP 162/51 NIBP BP-Mean 88 Respiration from ECG 22 SpO2 99 I&O: 05/14/20 05/15/20 05/16/20 06:59 06:59 06:59 Intake Total 1487.2 Output Total 2120 Balance -632.8 Result Diagrams: 05/15/20 03:30 05/15/20 03:30 Additional Labs: Accuchecks 05/14/20 18:43 POC Glucose 113 H Hospitalist ROS - Review of Systems ROS unobtainable: due to endotracheal tube - Medication Medications: Active Medications Generic Name Dose Route Start Last Admin Trade Name Freq PRN Reason Stop Dose Admin Levetiracetam 1,000 mg/ Device 100 mls @ 200 mls/hr 05/14/20 21:00 05/15/20 08:48 IVPB 100 mls BID MATY Administration Nicardipine HCl 25 mg/ Sodium 260 mls @ 0 mls/hr 05/14/20 14:07 05/15/20 05: 24 Chloride IVPB 260 mls INF PRN Administration BP > 180/120 Protocol Titrate Sodium Chloride 1,000 mls @ 70 mls/hr 05/14/20 14:07 05/15/20 07:40 Normal Saline 0.9% IV 1,000 mls .[id number] MATY Administration Potassium Chloride 20 meq/ 260 mls @ 130 mls/hr 05/15/20 08:00 05/15/20 08:19 Sodium Chloride IVPB 05/15/20 10:00 260 mls 0800 MATY Administration Propofol 1,000 mg 05/14/20 14:32 05/14/20 20:10 Diprivan IV 06/13/20 14:32 1,000 mg INF PRN Administration TO ACHIEVE GOAL RASS Protocol - Exam General - other findings: intubated, sedated Eye: PERRL ENT: moist mucosa Neck: JVD Heart: RRR, no murmur, no gallops, no rubs Heart - other findings: ST depression on heart monitor Respiratory: CTAB, no wheezes, no rales, no ronchi Gastrointestinal: soft, non-distended, normal bowel sounds Extremities: no edema Hosp A/P (1) Chronic kidney disease, stage 3 Code(s): N18.3 - CHRONIC KIDNEY DISEASE, STAGE 3 (MODERATE) Status: Chronic (2) Dementia Code(s): F03.90 - UNSPECIFIED DEMENTIA WITHOUT BEHAVIORAL DISTURBANCE Status: Chronic Qualifiers: (3) Hypertension Code(s): I10 - ESSENTIAL (PRIMARY) HYPERTENSION Status: Chronic Qualifiers: Hypertension type: essential hypertension Qualified Code(s): I10 - Essential (primary) hypertension (4) Seizure Code(s): R56.9 - UNSPECIFIED CONVULSIONS Status: Chronic - Plan #status epilepticus -EEG no seizure activity per neurology -mechanical ventilation per PCCM -continue keppra -restart carbamazepime once extubated -check levels #bacteriuria #bacteremia -bacteremia is likely contaminant; daughter requested another blood culture to confirm since was told it was an infection -no leuko esterase or WBCs; likely colonization -UCx NTD #hypertensive emergency (resolved) on cardene 5; once extubated, BP expected to increase downtitrate cardene, start oral meds after extubation #Dementia #CKD3 continue to monitor Dispo/PPx GI PPx: no Ix. DVT PPx: lovenox DNAR ELOS: 1-2 nights
[2020-05-15] MEDS ORDERED: cefTRIAXone\\ROCEPHIN 1 GM in Sodium Chloride 0.9% 100 ML IVPB SCH (09:30)
[2020-05-15] MEDS ORDERED: DC Sedation Protocol FS ONE (10:05)
--- NOTE | 2020-05-15 10:20 | PRG ---
DATE OF SERVICE: 05/15/2020 35 minutes of critical care time. SUBJECTIVE: The patient remains intubated, on mechanical ventilation. She will withdrawal to painful stimuli. OBJECTIVE: VITAL SIGNS: Temperature 98.5, pulse 79, blood pressure 152/52, O2 saturation 99%. HEENT: Unremarkable. NECK: No JVD. LUNGS: Clear. CARDIAC: S1 and S2. Regular. ABDOMEN: Soft. EXTREMITIES: No edema. LABORATORY DATA: Sodium 138, potassium 3.3, chloride 108, CO2 of 21, BUN 12, creatinine 0.7, glucose 88. White blood cell count 8.8, hematocrit 32.9, and platelet count 174. PH of 7.49, pCO2 of 25, PO2 of 81 on SIMV rate 18, tidal volume 500, PEEP 5, pressure support 10, FiO2 40%. She passed a spontaneous breathing trial. ASSESSMENT: 1. Seizure disorder. 2. Acute respiratory failure, requiring mechanical ventilation. PLAN: The patient will be extubated and observed. Sedation will be stopped. Potassium will be replaced. Job ID: [id number]
[2020-05-15] MEDS ORDERED: Enoxaparin Sodium 30 MG/0.3 ML SYRINGE SC SCH (12:00)
[2020-05-15 13:03] LABS: SARS-CoV-2 MS2 Positive; SARS-CoV-2 N Gene Negative; SARS-CoV-2 S Gene Negative; SARS-CoV-2 by NAA Not Detected (NotDetected); SARS-CoV-2 orf1ab Negative
[2020-05-15] MEDS ORDERED: carBAMazepine 200 MG TAB PO SCH (13:15)
[2020-05-15 14:10] LABS: Carbamazepine-Tegretol Less than 1.9 ug/mL (4.0-12.0)
--- NOTE | 2020-05-15 15:35 | PDOC.NEUPN ---
- Subjective Encounter Date: 05/15/20 Subjective: Patient alert and awake . She is sucessfully extubated. No further seizure activity reported. Daughter at bedside. - Objective Vital Signs & Weight: Vital Signs (12 hours) Temp Pulse Resp BP Pulse Ox 05/15/20 12:00 99.0 F 98 05/15/20 10:26 89 20 97 05/15/20 10:00 15 05/15/20 08:00 98.5 F 21 H 99 05/15/20 07:37 80 151/48 H 05/15/20 06:00 18 05/15/20 04:00 99.2 F 18 Weight Weight 128 lb 8.472 oz Most Recent Monitor Data Heart Rate from ECG 100 NIBP 161/77 NIBP BP-Mean 105 Respiration from ECG 26 SpO2 94 I&O: 05/14/20 05/15/20 05/16/20 06:59 06:59 06:59 Intake Total 1487.2 50 Output Total 2120 1520 Balance -632.8 -1470 Result Diagrams: 05/15/20 03:30 05/15/20 03:30 Additional Labs: Accuchecks 05/15/20 05/14/20 13:50 18:43 POC Glucose 101 113 H Radiology Reviewed by me: Yes EKG Reviewed by me: Yes ROS - Review of Systems Constitutional: denies: fever, chills, sweats, weakness, malaise, other Eyes: denies: pain, vision change, conjunctivae inflammation, eyelid inflammation, redness, other ENT: denies: ear pain, ear discharge, nose pain, nose discharge, nose congestion , mouth pain, mouth swelling, throat pain, throat swelling, other Respiratory: denies: cough, dry, shortness of breath, hemoptysis, SOB with excertion, pleuritic pain, sputum, wheezing, other Gastrointestinal: denies: nausea, vomiting, abdominal pain, diarrhea, constipation, melena, hematochezia, other Musculoskeletal: denies: neck pain, shoulder pain, arm pain, back pain, hand pain, leg pain, foot pain, other Skin: denies: rash, lesions, nick, bruising, other - Medication Medications: Active Medications Generic Name Dose Route Start Last Admin Trade Name Freq PRN Reason Stop Dose Admin Levetiracetam 1,000 mg/ Device 100 mls @ 200 mls/hr 05/14/20 21:00 05/15/20 08:48 IVPB 100 mls BID MATY Administration Nicardipine HCl 25 mg/ Sodium 260 mls @ 0 mls/hr 05/14/20 14:07 05/15/20 14: 54 Chloride IVPB 260 mls INF PRN Administration BP > 180/120 Protocol Titrate Sodium Chloride 1,000 mls @ 70 mls/hr 05/14/20 14:07 05/15/20 07:40 Normal Saline 0.9% IV 1,000 mls .[id number] MATY Administration - Exam General Appearance: awake alert Eye: PERRL ENT: normocephalic atraumatic Neck: supple Respiratory: CTAB Cardiovascular: RRR Gastrointestinal: soft Extremities: no cyanosis Skin: normal turgor Neurological: CN's grossly intact, normal sensation to touch, no weakness, no focal deficits Musculoskeletal: normal tone, normal strength, no muscle wasting PSYCH: normal affect, normal behavior, oriented to person, oriented to place Results - Labs Result Diagrams: 05/15/20 03:30 05/15/20 03:30 Lab results: WBC 8.8 thou/uL (4.8-10.8) 05/15/20 03:30 Hgb 10.6 g/dL (12.0-16.0) L 05/15/20 03:30 Hct 32.9 % (36.0-47.0) L 05/15/20 03:30 MCV 94.9 fL (78.0-98.0) 05/15/20 03:30 Plt Count 174 thou/uL (130-400) 05/15/20 03:30 Neutrophils % 64.4 % (42.0-75.0) 05/14/20 10:13 ABG pH 7.49 (7.35-7.45) H 05/15/20 07:00 ABG pCO2 25.1 mmHg (35.0-45.0) L* 05/15/20 07:00 ABG pO2 81.9 mmHg (> 70.0) H 05/15/20 07:00 Sodium 138 mmol/L (136-145) 05/15/20 03:30 Potassium 3.3 mmol/L (3.5-5.1) L 05/15/20 03:30 Chloride 108 mmol/L (98-107) H 05/15/20 03:30 Carbon Dioxide 21 mmol/L (23-31) L 05/15/20 03:30 BUN 12 mg/dL (9.8-20.1) 05/15/20 03:30 Creatinine 0.74 mg/dL (0.6-1.1) 05/15/20 03:30 Glucose 88 mg/dL (83-110) 05/15/20 03:30 Lactic Acid 1.4 mmol/L (0.5-2.2) 05/14/20 10:47 Calcium 8.3 mg/dL (7.8-10.44) 05/15/20 03:30 Total Bilirubin 0.5 mg/dL (0.2-1.2) 05/15/20 03:30 AST 14 U/L (5-34) 05/15/20 03:30 ALT 9 U/L (8-55) 05/15/20 03:30 Alkaline Phosphatase 41 U/L (40-110) 05/15/20 03:30 Creatine Kinase 51 U/L (29-168) 05/14/20 10:13 CK-MB (CK-2) 1.8 ng/mL (0-6.6) 05/14/20 15:10 Troponin I 0.107 ng/mL (< 0.028) H 05/14/20 15:10 Serum Total Protein 6.0 g/dL (6.0-8.3) 05/15/20 03:30 Albumin 3.1 g/dL (3.4-4.8) L 05/15/20 03:30 Urine Ketones Negative mg/dL (Negative) 05/14/20 15:16 Urine Blood Negative (Negative) 05/14/20 15:16 Urine Nitrite 2+ (Negative) A 05/14/20 15:16 Ur Leukocyte Esterase Negative Hoda/uL (Negative) 05/14/20 15:16 Urine RBC 0-3 HPF (0-3) 05/14/20 15:16 Urine WBC 0-3 HPF (0-3) 05/14/20 15:16 Ur Squamous Epith Cells 0-3 HPF (0-3) 05/14/20 15:16 Urine Bacteria 4+ HPF (None Seen) A 05/14/20 15:16 PN A/P (1) Status epilepticus Code(s): G40.901 - EPILEPSY, UNSP, NOT INTRACTABLE, WITH STATUS EPILEPTICUS Status: Acute (2) CAD (coronary artery disease) Code(s): I25.10 - ATHSCL HEART DISEASE OF [place] CORONARY ARTERY W/O ANG PCTRS Status: Acute Qualifiers: Coronary Disease-Associated Artery/Lesion type: [place] artery [place] vs. transplanted heart: [place] heart Associated angina: without angina Qualified Code(s): I25.10 - Atherosclerotic heart disease of [place] coronary artery without angina pectoris (3) Cardiomyopathy Code(s): I42.9 - CARDIOMYOPATHY, UNSPECIFIED Status: Acute Qualifiers: Cardiomyopathy type: unspecified Qualified Code(s): I42.9 - Cardiomyopathy , unspecified (4) Seizure disorder Code(s): G40.909 - EPILEPSY, UNSP, NOT INTRACTABLE, WITHOUT STATUS EPILEPTICUS Status: Acute (5) Chronic kidney disease, stage 3 Code(s): N18.3 - CHRONIC KIDNEY DISEASE, STAGE 3 (MODERATE) Status: Chronic (6) Dementia Code(s): F03.90 - UNSPECIFIED DEMENTIA WITHOUT BEHAVIORAL DISTURBANCE Status: Chronic Qualifiers: (7) Hypertension Code(s): I10 - ESSENTIAL (PRIMARY) HYPERTENSION Status: Chronic Qualifiers: Hypertension type: essential hypertension Qualified Code(s): I10 - Essential (primary) hypertension (8) Acute metabolic encephalopathy Code(s): G93.41 - METABOLIC ENCEPHALOPATHY Status: Resolved - Plan 79 year old admitted due to status epilepticus which is resolved with ativan, keppra and propofol. Patient is extubated and following commands. EEG reviewed which was negative for seizure activity. Observe seizure precautions. Continue Keppra 1000 mg IV q12. Resume Tegretol 200 mg bid Ativan 2 mg IV for seizure greater than 2 minutes. Continue home medications. PT/OT/Speech. Plan discussed with the nursing staff and the daughter Continue medical management per primary team.
[2020-05-15 16:12] LABS: Potassium 3.6 mmol/L (3.5-5.1)
[2020-05-16] MEDS: niCARdipine 25 MG in Sodium Chloride 0.9% 250 ML 250 ML IVPB PRN (02:56)
[2020-05-16 05:45] LABS: Anion Gap 15 mmol/L (10-20); BUN (Urea Nitrogen) 8 mg/dL (9.8-20.1); Calc. Creatinine Clearance 61 mL/min (70-130); Calcium 8.7 mg/dL (7.8-10.44); Carbon Dioxide 23 mmol/L (23-31); Chloride 104 mmol/L (98-107); Estimated GFR-MDRD 82; Glucose 84 mg/dL (83-110); Magnesium 1.6 mg/dL (1.6-2.6); Potassium 3.4 mmol/L (3.5-5.1); Sodium 139 mmol/L (136-145)
[2020-05-16] MEDS ORDERED: Labetalol HCl 100 MG/20 ML VIAL SLOW IVP PRN (08:34)
--- NOTE | 2020-05-16 08:42 | PRG ---
DATE OF SERVICE: 05/16/2020 SUBJECTIVE: The patient was extubated yesterday. She seems to be doing reasonably well. She was just weaned off her Cardene drip. OBJECTIVE: VITAL SIGNS: Her heart rate is 88, blood pressure is 162/46, O2 saturation is running in the 90s, temperature is not recorded. HEENT: Unremarkable. NECK: No adenopathy or JVD. CHEST: Clear to auscultation. CARDIAC: S1 and S2 regular with 2/6 systolic murmur. ABDOMEN: Soft, nontender. EXTREMITIES: No edema. ASSESSMENT: 1. Status post respiratory failure requiring mechanical ventilation secondary to pulmonary edema. 2. Hypertension. LABORATORY DATA: Today, shows white blood cell count 10.5, hematocrit 35.5, and platelet count 269. Sodium 139, potassium 3.4, chloride 104, CO2 of 23, BUN 8, creatinine 0.7, glucose 84. PLAN: 1. Can transfer to [facility]. 2. Restart oral antihypertensives and seizure medication. Job ID: [id number]
[2020-05-16] MEDS ORDERED: Enoxaparin Sodium 30 MG/0.3 ML SYRINGE SC SCH (09:00)
[2020-05-16] MEDS: levETIRAcetam In NaCl (Iso-Os) 1,000 MG in Premix Bag 1 BAG IVPB SCH ×2 (09:25→20:55)
[2020-05-16] MEDS ORDERED: Acetaminophen 325 MG TAB PO PRN (09:26)
[2020-05-16] MEDS: Amlodipine 10 MG TAB PO SCH (09:30)
[2020-05-16] MEDS: Losartan 25 MG TAB PO SCH (09:36)
[2020-05-16] MEDS: hydrALAZINE 25 MG TAB PO SCH ×3 (09:36→20:56)
[2020-05-16 09:38] LABS: Hemoglobin 11.6 g/dL (12.0-16.0); Mean Corpuscular HGB CONC 32.7 g/dL (32.0-36.0); Mean Corpuscular Hemoglobin 31.1 pg (27.0-31.0); Mean Corpuscular Volume 95.4 fL (78.0-98.0); Mean Platelet Volume 7.9 fL (7.4-10.4); Platelet Count 252 thou/uL (130-400); Red Blood Cell (RBC) Count 3.72 mill/uL (4.20-5.40); White Blood Cell (WBC) Count 10.5 thou/uL (4.8-10.8)
[2020-05-16 09:39] LABS: Band 7 % (5-11); Lymphocytes 8 % (21-51); Monocytes 1 % (0-10); Neutrophil 78 % (42-75); Platelet Morphology Comment Appears Adequate; Reactive Lymphocytes 6 % (0-10)
[2020-05-16] MEDS: Sodium Chloride 0.9% 1,000 ML IV SCH ×2 (09:39→23:35)
--- NOTE | 2020-05-16 09:43 | PDOC.HOSPP ---
- Subjective Encounter Date: 05/16/20 Encounter Time: 07:00 Subjective: overnight, extubated. This morning, feeling well, breathing and satting well on NC. No additional seizure-like activity since admission - Objective Vital Signs & Weight: Vital Signs (12 hours) Temp Pulse BP 05/16/20 09:36 108 H 174/69 H 05/16/20 09:30 108 H 174/69 H 05/16/20 00:00 98.1 F Weight Weight 128 lb 8.472 oz Most Recent Monitor Data Heart Rate from ECG 86 NIBP 177/60 NIBP BP-Mean 99 Respiration from ECG 21 SpO2 91 I&O: 05/15/20 05/16/20 05/17/20 06:59 06:59 06:59 Intake Total 1487.2 1712 Output Total 9540 3540 Balance -632.8 -6238 Result Diagrams: 05/16/20 03:18 05/16/20 03:18 Additional Labs: Accuchecks 05/16/20 05/15/20 05/15/20 00:41 18:49 13:50 POC Glucose 86 106 H 101 Hospitalist ROS - Review of Systems Constitutional: denies: chills, sweats Respiratory: denies: cough, shortness of breath, SOB with excertion Cardiovascular: denies: chest pain, palpitations, orthopnea Gastrointestinal: denies: nausea, vomiting, abdominal pain - Medication Medications: Active Medications Generic Name Dose Route Start Last Admin Trade Name Freq PRN Reason Stop Dose Admin Amlodipine Besylate 10 mg 05/16/20 09:00 05/16/20 09:30 Amlodipine 10 Mg Tab PO 10 mg DAILY MATY Administration Carbamazepine 200 mg 05/16/20 08:00 05/16/20 09:00 Tegretol Xr PO 200 mg BID-WM MATY Administration Hydralazine HCl 25 mg 05/16/20 09:00 05/16/20 09:36 Hydralazine 25 Mg Tab PO 25 mg TID MATY Administration Levetiracetam 1,000 mg/ Device 100 mls @ 200 mls/hr 05/14/20 21:00 05/16/20 09:25 IVPB 100 mls BID MATY Administration Nicardipine HCl 25 mg/ Sodium 260 mls @ 0 mls/hr 05/14/20 14:07 05/16/20 02:56 Chloride IVPB 260 mls INF PRN Administration BP > 180/120 Protocol Titrate Sodium Chloride 1,000 mls @ 70 mls/hr 05/14/20 14:07 05/16/20 09:39 Normal Saline 0.9% IV 1,000 mls .[id number] MATY Administration Losartan Potassium 50 mg 05/16/20 09:00 05/16/20 09:36 Losartan 25 Mg Tab PO 50 mg DAILY MATY Administration - Exam General Appearance: NAD, awake alert Neck: no JVD Heart: RRR, no murmur, no gallops, no rubs Respiratory: CTAB, no wheezes, no rales, no ronchi Gastrointestinal: soft, non-tender, non-distended, normal bowel sounds Extremities: no edema Psychiatric: normal affect, normal behavior, A&O x 3 Hosp A/P (1) Chronic kidney disease, stage 3 Code(s): N18.3 - CHRONIC KIDNEY DISEASE, STAGE 3 (MODERATE) Status: Chronic (2) Dementia Code(s): F03.90 - UNSPECIFIED DEMENTIA WITHOUT BEHAVIORAL DISTURBANCE Status: Chronic Qualifiers: (3) Hypertension Code(s): I10 - ESSENTIAL (PRIMARY) HYPERTENSION Status: Chronic Qualifiers: Hypertension type: essential hypertension Qualified Code(s): I10 - Essential (primary) hypertension (4) Seizure Code(s): R56.9 - UNSPECIFIED CONVULSIONS Status: Chronic - Plan #status epilepticus -EEG no seizure activity per neurology -mechanical ventilation per PCCM -continue keppra -restart carbamazepime once extubated -check levels #hypertension on cardene 5; BP 160's over 50s -labetalol 2.5mg IVP q15m PRN BP>180/120 considering low diastolic and history of CAD, CVA -wean off cardene -gradually start home oral antihtn #bacteriuria #bacteremia -bacteremia is likely contaminant; daughter requested another blood culture to confirm since was told it was an infection -no leuko esterase or WBCs; likely colonization -UCx NTD #Dementia #CKD3 continue to monitor Dispo/PPx GI PPx: no Ix. DVT PPx: lovenox DNAR transfer to stroke unit ELOS: 1-2 nights
[2020-05-16] MEDS ORDERED: Potassium Chloride 20 MEQ TAB PO SCH (09:52)
--- NOTE | 2020-05-16 13:28 | PDOC.NEUPN ---
- Subjective Encounter Date: 05/16/20 Subjective: Patient alert and no further seizures reported since admission. - Objective Vital Signs & Weight: Vital Signs (12 hours) Temp Pulse BP 05/16/20 11:00 98.2 F 05/16/20 09:36 108 H 174/69 H 05/16/20 09:30 108 H 174/69 H 05/16/20 08:00 98.2 F Weight Weight 128 lb 8.472 oz Most Recent Monitor Data Heart Rate from ECG 85 NIBP 166/80 NIBP BP-Mean 108 Respiration from ECG 24 SpO2 99 I&O: 05/15/20 05/16/20 05/17/20 06:59 06:59 06:59 Intake Total 1487.2 1712 220 Output Total 2120 4840 450 [facility] -632.8 -1828 -230 Result Diagrams: 05/16/20 03:18 05/16/20 03:18 Additional Labs: Accuchecks 05/16/20 05/16/20 05/15/20 12:26 00:41 18:49 POC Glucose 84 86 106 H 05/15/20 05/15/20 13:50 01:22 POC Glucose 101 92 Radiology Reviewed by me: Yes EKG Reviewed by me: Yes ROS - Review of Systems ROS unobtainable: due to mental status - Medication Medications: Active Medications Generic Name Dose Route Start Last Admin Trade Name Freq PRN Reason Stop Dose Admin Amlodipine Besylate 10 mg 05/16/20 09:00 05/16/20 09:30 Amlodipine 10 Mg Tab PO 10 mg DAILY MATY Administration Hydralazine HCl 25 mg 05/16/20 09:00 05/16/20 09:36 Hydralazine 25 Mg Tab PO 25 mg TID MATY Administration Levetiracetam 1,000 mg/ Device 100 mls @ 200 mls/hr 05/14/20 21:00 05/16/20 09:25 IVPB 100 mls BID MATY Administration Sodium Chloride 1,000 mls @ 70 mls/hr 05/14/20 14:07 05/16/20 09:39 Normal Saline 0.9% IV 1,000 mls .[id number] MATY Administration Losartan Potassium 50 mg 05/16/20 09:00 05/16/20 09:36 Losartan 25 Mg Tab PO 50 mg DAILY MATY Administration - Exam General Appearance: awake alert Eye: PERRL ENT: normocephalic atraumatic Neck: supple Respiratory: CTAB Cardiovascular: RRR Gastrointestinal: soft Extremities: no cyanosis, no clubbing Skin: normal turgor, no lesions Neurological: CN's grossly intact, normal sensation to touch, no focal deficits, no new deficit Musculoskeletal: normal tone, no muscle wasting PSYCH: normal affect, normal behavior, A&O x 3 Results - Labs Result Diagrams: 05/16/20 03:18 05/16/20 03:18 Lab results: WBC 10.5 thou/uL (4.8-10.8) 05/16/20 03:18 Hgb 11.6 g/dL (12.0-16.0) L 05/16/20 03:18 Hct 35.5 % (36.0-47.0) L 05/16/20 03:18 MCV 95.4 fL (78.0-98.0) 05/16/20 03:18 Plt Count 252 thou/uL (130-400) 05/16/20 03:18 Neutrophils % 64.4 % (42.0-75.0) 05/14/20 10:13 Band Neuts % (Manual) 7 % (5-11) 05/16/20 03:18 ABG pH 7.49 (7.35-7.45) H 05/15/20 07:00 ABG pCO2 25.1 mmHg (35.0-45.0) L* 05/15/20 07:00 ABG pO2 81.9 mmHg (> 70.0) H 05/15/20 07:00 Sodium 139 mmol/L (136-145) 05/16/20 03:18 Potassium 3.4 mmol/L (3.5-5.1) L 05/16/20 03:18 Chloride 104 mmol/L (98-107) 05/16/20 03:18 Carbon Dioxide 23 mmol/L (23-31) 05/16/20 03:18 BUN 8 mg/dL (9.8-20.1) L 05/16/20 03:18 Creatinine 0.69 mg/dL (0.6-1.1) 05/16/20 03:18 Glucose 84 mg/dL (83-110) 05/16/20 03:18 Lactic Acid 1.4 mmol/L (0.5-2.2) 05/14/20 10:47 Calcium 8.7 mg/dL (7.8-10.44) 05/16/20 03:18 Total Bilirubin 0.5 mg/dL (0.2-1.2) 05/15/20 03:30 AST 14 U/L (5-34) 05/15/20 03:30 ALT 9 U/L (8-55) 05/15/20 03:30 Alkaline Phosphatase 41 U/L (40-110) 05/15/20 03:30 Creatine Kinase 51 U/L (29-168) 05/14/20 10:13 CK-MB (CK-2) 1.8 ng/mL (0-6.6) 05/14/20 15:10 Troponin I 0.107 ng/mL (< 0.028) H 05/14/20 15:10 Serum Total Protein 6.0 g/dL (6.0-8.3) 05/15/20 03:30 Albumin 3.1 g/dL (3.4-4.8) L 05/15/20 03:30 Urine Ketones Negative mg/dL (Negative) 05/14/20 15:16 Urine Blood Negative (Negative) 05/14/20 15:16 Urine Nitrite 2+ (Negative) A 05/14/20 15:16 Ur Leukocyte Esterase Negative Hoda/uL (Negative) 05/14/20 15:16 Urine RBC 0-3 HPF (0-3) 05/14/20 15:16 Urine WBC 0-3 HPF (0-3) 05/14/20 15:16 Ur Squamous Epith Cells 0-3 HPF (0-3) 05/14/20 15:16 Urine Bacteria 4+ HPF (None Seen) A 05/14/20 15:16 PN A/P (1) Status epilepticus Code(s): G40.901 - EPILEPSY, UNSP, NOT INTRACTABLE, WITH STATUS EPILEPTICUS Status: Acute (2) CAD (coronary artery disease) Code(s): I25.10 - ATHSCL HEART DISEASE OF [place] CORONARY ARTERY W/O ANG PCTRS Status: Acute Qualifiers: Coronary Disease-Associated Artery/Lesion type: [place] artery [place] vs. transplanted heart: [place] heart Associated angina: without angina Qualified Code(s): I25.10 - Atherosclerotic heart disease of [place] coronary artery without angina pectoris (3) Cardiomyopathy Code(s): I42.9 - CARDIOMYOPATHY, UNSPECIFIED Status: Acute Qualifiers: Cardiomyopathy type: unspecified Qualified Code(s): I42.9 - Cardiomyopathy, unspecified (4) Seizure disorder Code(s): G40.909 - EPILEPSY, UNSP, NOT INTRACTABLE, WITHOUT STATUS EPILEPTICUS Status: Acute (5) Chronic kidney disease, stage 3 Code(s): N18.3 - CHRONIC KIDNEY DISEASE, STAGE 3 (MODERATE) Status: Chronic (6) Dementia Code(s): F03.90 - UNSPECIFIED DEMENTIA WITHOUT BEHAVIORAL DISTURBANCE Status: Chronic Qualifiers: (7) Hypertension Code(s): I10 - ESSENTIAL (PRIMARY) HYPERTENSION Status: Chronic Qualifiers: Hypertension type: essential hypertension Qualified Code(s): I10 - Essential (primary) hypertension (8) Acute metabolic encephalopathy Code(s): G93.41 - METABOLIC ENCEPHALOPATHY Status: Resolved - Plan Daily Plan: PT/OT, speech therapy, DVT proph w/SCDs 79 year old admitted due to status epilepticus which is resolved with ativan, keppra and propofol. Patient is extubated and following commands. Today she is alert and oriented x 2. No further seizures since admission. EEG reviewed which was negative for seizure activity. Observe seizure precautions. Continue Keppra 1000 mg IV q12. Switch to PO once cleared by speech Resume Tegretol 200 mg bid Ativan 2 mg IV for seizure greater than 2 minutes. Continue home medications. PT/OT/Speech. Plan discussed with the nursing staff Continue medical management per primary team.
[2020-05-17 03:50] LABS: Band 1 % (5-11); Eosinophils 4 % (0-10); Hemoglobin 11.5 g/dL (12.0-16.0); Lymphocytes 22 % (21-51); MDiff Complete? YES; Mean Corpuscular HGB CONC 32.6 g/dL (32.0-36.0); Mean Corpuscular Hemoglobin 31.1 pg (27.0-31.0); Mean Corpuscular Volume 95.5 fL (78.0-98.0); Mean Platelet Volume 8.5 fL (7.4-10.4); Monocytes 3 % (0-10); Neutrophil 70 % (42-75); Platelet Count 242 thou/uL (130-400); White Blood Cell (WBC) Count 7.4 thou/uL (4.8-10.8)
[2020-05-17 03:55] LABS: Anion Gap 14 mmol/L (10-20); BUN (Urea Nitrogen) 12 mg/dL (9.8-20.1); Calc. Creatinine Clearance 56 mL/min (70-130); Calcium 8.6 mg/dL (7.8-10.44); Carbon Dioxide 22 mmol/L (23-31); Chloride 108 mmol/L (98-107); Estimated GFR-MDRD 78; Glucose 91 mg/dL (83-110); Magnesium 1.6 mg/dL (1.6-2.6); Potassium 3.8 mmol/L (3.5-5.1); Sodium 140 mmol/L (136-145)
[2020-05-17] MEDS: Cyanocobalamin (Vitamin B-12) 1,000 MCG TAB PO SCH (08:43)
[2020-05-17] MEDS: levETIRAcetam 500 MG TAB PO SCH ×2 (08:43→22:11)
[2020-05-17] MEDS: Amlodipine 10 MG TAB PO SCH (08:43)
[2020-05-17] MEDS: hydrALAZINE 25 MG TAB PO SCH ×3 (08:43→22:12)
[2020-05-17] MEDS: Losartan 25 MG TAB PO SCH (08:44)
[2020-05-17] MEDS: Aspirin 81 mg Enteric Coated Tablet PO SCH (08:44)
--- NOTE | 2020-05-17 10:02 | PRG ---
DATE OF SERVICE: 05/17/2020 SUBJECTIVE: The patient is doing reasonably well. She had no acute complaints. OBJECTIVE: VITAL SIGNS: Temperature 97.8, pulse 91, blood pressure 157/95, and O2 saturation 98%. HEENT: Unremarkable. NECK: No JVD. CHEST: Clear. CARDIAC: S1 and S2. Regular. ABDOMEN: Soft. EXTREMITIES: No edema. LABORATORY: White blood cell count 7.4, hematocrit 35.3, and platelet count 242. Sodium 140, potassium 3.8, chloride 108, CO2 of 22, BUN 12, creatinine 0.7, and glucose 91. ASSESSMENT: 1. Status post respiratory failure, requiring mechanical ventilation. 2. Status post status epilepticus. PLAN: She is continuing Tegretol and Keppra. She is stable enough to be transferred to the Stroke Unit. There is no further pulmonary recommendations and I will sign off. Job ID: [id number]
[2020-05-17] MEDS ORDERED: Labetalol HCl 100 MG/20 ML VIAL SLOW IVP PRN (17:16)
[2020-05-18 05:42] LABS: Carbamazepine-Tegretol 9.2 ug/mL (4.0-12.0)
[2020-05-18] MEDS: Aspirin 81 mg Enteric Coated Tablet PO SCH (09:07)
[2020-05-18] MEDS: Losartan 25 MG TAB PO SCH (09:07)
[2020-05-18] MEDS: Cyanocobalamin (Vitamin B-12) 1,000 MCG TAB PO SCH (09:08)
[2020-05-18] MEDS: levETIRAcetam 500 MG TAB PO SCH ×2 (09:08→20:09)
[2020-05-18] MEDS: Amlodipine 10 MG TAB PO SCH (09:09)
[2020-05-18] MEDS: hydrALAZINE 25 MG TAB PO SCH ×3 (09:09→20:08)
--- NOTE | 2020-05-18 12:33 | PDOC.NEUPN ---
- Subjective Encounter Date: 05/18/20 Subjective: Patient alert , awake and no further reported seizures reported since admission. - Objective Vital Signs & Weight: Vital Signs (12 hours) Temp Pulse Resp BP BP BP Pulse Ox 05/18/20 11:38 97.5 F L 68 20 166/49 H 92 L 05/18/20 09:09 71 158/64 H 05/18/20 08:07 95 05/18/20 06:27 96.8 F L 71 14 182/49 H 95 05/18/20 03:09 95 Weight Weight 123 lb 9.6 oz Most Recent Monitor Data Heart Rate from ECG 108 NIBP 153/63 NIBP BP-Mean 93 Respiration from ECG 28 SpO2 95 I&O: 05/17/20 05/18/20 05/19/20 06:59 06:59 06:59 Intake Total 570 Output Total 1750 300 Balance -1180 -300 Result Diagrams: 05/17/20 03:04 05/17/20 03:04 Additional Labs: Accuchecks 05/17/20 12:44 POC Glucose 158 H Radiology Reviewed by me: Yes EKG Reviewed by me: Yes ROS - Review of Systems Constitutional: denies: fever, chills, sweats, weakness, malaise, other Eyes: denies: pain, vision change, conjunctivae inflammation, eyelid inflammation, redness, other ENT: denies: ear pain, ear discharge, nose pain, nose discharge, nose congestion, mouth pain, mouth swelling, throat pain, throat swelling, other Respiratory: denies: cough, dry, shortness of breath, hemoptysis, SOB with excertion, pleuritic pain, sputum, wheezing, other - Medication Medications: Active Medications Generic Name Dose Route Start Last Admin Trade Name Elq PRN Reason Stop Dose Admin Amlodipine Besylate 10 mg 05/16/20 09:00 05/18/20 09:09 Amlodipine 10 Mg Tab PO 10 mg DAILY MATY Administration Aspirin 81 mg 05/17/20 09:00 05/18/20 09:07 Aspirin 81 Mg Enteric Coated Tablet PO 81 mg DAILY MATY Administration Carbamazepine 200 mg 05/16/20 17:00 05/18/20 09:08 Carbamazepine Xr 200 Mg Tablet PO 200 mg BID- MATY Administration Cyanocobalamin 1,000 mcg 05/17/20 09:00 09/18/20 09:08 Cyanocobalamin (Vitamin B-12) 1,000 Mcg Tab PO 1,000 mcg DAILY MATY Administration Hydralazine HCl 25 mg 05/16/20 09:00 05/18/20 09:09 Hydralazine 25 Mg Tab PO 25 mg TID MATY Administration Levetiracetam 1,000 mg 05/17/20 09:00 05/18/20 09:08 Levetiracetam 500 Mg Tab PO 1,000 mg BID MATY Administration Losartan Potassium 50 mg 05/16/20 09:00 05/18/20 09:07 Losartan 25 Mg Tab PO 50 mg DAILY MATY Administration Sodium Chloride 10 ml 05/16/20 21:00 05/18/20 09:10 Flush - Normal Saline 10 Ml Syringe IVF Not Given Q12HR MATY - Exam General Appearance: awake alert Eye: PERRL ENT: normocephalic atraumatic Neck: supple Respiratory: CTAB Cardiovascular: RRR Gastrointestinal: soft Extremities: no cyanosis Skin: normal turgor Neurological: no new deficit PSYCH: normal affect, normal behavior, oriented to person Results - Labs Result Diagrams: 05/17/20 03:04 05/17/20 03:04 Lab results: WBC 7.4 thou/uL (4.8-10.8) 05/17/20 03:04 Hgb 11.5 g/dL (12.0-16.0) L 05/17/20 03:04 Hct 35.3 % (36.0-47.0) L 05/17/20 03:04 MCV 95.5 fL (78.0-98.0) 05/17/20 03:04 Plt Count 242 thou/uL (130-400) 05/17/20 03:04 Neutrophils % 64.4 % (42.0-75.0) 05/14/20 10:13 Band Neuts % (Manual) 1 % (5-11) L 05/17/20 03:04 ABG pH 7.49 (7.35-7.45) H 05/15/20 07:00 ABG pCO2 25.1 mmHg (35.0-45.0) L* 05/15/20 07:00 ABG pO2 81.9 mmHg (> 70.0) H 05/15/20 07:00 Sodium 140 mmol/L (136-145) 05/17/20 03:04 Potassium 3.8 mmol/L (3.5-5.1) 05/17/20 03:04 Chloride 108 mmol/L (98-107) H 05/17/20 03:04 Carbon Dioxide 22 mmol/L (23-31) L 05/17/20 03:04 BUN 12 mg/dL (9.8-20.1) 05/17/20 03:04 Creatinine 0.72 mg/dL (0.6-1.1) 05/17/20 03:04 Glucose 91 mg/dL (83-110) 05/17/20 03:04 Lactic Acid 1.4 mmol/L (0.5-2.2) 05/14/20 10:47 Calcium 8.6 mg/dL (7.8-10.44) 05/17/20 03:04 Total Bilirubin 0.5 mg/dL (0.2-1.2) 05/15/20 03:30 AST 14 U/L (5-34) 05/15/20 03:30 ALT 9 U/L (8-55) 05/15/20 03:30 Alkaline Phosphatase 41 U/L (40-110) 05/15/20 03:30 Creatine Kinase 51 U/L (29-168) 05/14/20 10:13 CK-MB (CK-2) 1.8 ng/mL (0-6.6) 05/14/20 15:10 Troponin I 0.107 ng/mL (< 0.028) H 05/14/20 15:10 Serum Total Protein 6.0 g/dL (6.0-8.3) 05/15/20 03:30 Albumin 3.1 g/dL (3.4-4.8) L 05/15/20 03:30 Urine Ketones Negative mg/dL (Negative) 05/14/20 15:16 Urine Blood Negative (Negative) 05/14/20 15:16 Urine Nitrite 2+ (Negative) A 05/14/20 15:16 Ur Leukocyte Esterase Negative Hoda/uL (Negative) 05/14/20 15:16 Urine RBC 0-3 HPF (0-3) 05/14/20 15:16 Urine WBC 0-3 HPF (0-3) 05/14/20 15:16 Ur Squamous Epith Cells 0-3 HPF (0-3) 05/14/20 15:16 Urine Bacteria 4+ HPF (None Seen) A 05/14/20 15:16 - EKG Interpretation EKG: NSR - Radiology Interpretation CT scan - head Additional Comment: No acute process or bleed PN A/P (1) Status epilepticus Code(s): G40.901 - EPILEPSY, UNSP, NOT INTRACTABLE, WITH STATUS EPILEPTICUS Status: Acute (2) CAD (coronary artery disease) Code(s): I25.10 - ATHSCL HEART DISEASE OF [place] CORONARY ARTERY W/O ANG PCTRS Status: Acute Qualifiers: Coronary Disease-Associated Artery/Lesion type: [place] artery [place] vs. transplanted heart: [place] heart Associated angina: without angina Qualified Code(s): I25.10 - Atherosclerotic heart disease of [place] coronary artery without angina pectoris (3) Cardiomyopathy Code(s): I42.9 - CARDIOMYOPATHY, UNSPECIFIED Status: Acute Qualifiers: Cardiomyopathy type: unspecified Qualified Code(s): I42.9 - Cardiomyopathy, unspecified (4) Seizure disorder Code(s): G40.909 - EPILEPSY, UNSP, NOT INTRACTABLE, WITHOUT STATUS EPILEPTICUS Status: Acute (5) Chronic kidney disease, stage 3 Code(s): N18.3 - CHRONIC KIDNEY DISEASE, STAGE 3 (MODERATE) Status: Chronic (6) Dementia Code(s): F03.90 - UNSPECIFIED DEMENTIA WITHOUT BEHAVIORAL DISTURBANCE Status: Chronic Qualifiers: (7) Hypertension Code(s): I10 - ESSENTIAL (PRIMARY) HYPERTENSION Status: Chronic Qualifiers: Hypertension type: essential hypertension Qualified Code(s): I10 - Essential (primary) hypertension (8) Acute metabolic encephalopathy Code(s): G93.41 - METABOLIC ENCEPHALOPATHY Status: Resolved - Plan Daily Plan: PT/OT, speech therapy, DVT proph w/SCDs 79 year old admitted due to status epilepticus which is resolved with ativan, keppra and propofol. Patient is extubated and following commands. She is stable and alert. She has followed commands appropiately. No further seizures since admission. Continue Keppra 1000 mg po bid Continue tegretol 200 mg po bid. EEG reviewed which was negative for seizure activity. Observe seizure precautions. Ativan 2 mg IV for seizure greater than 2 minutes. Continue home medications. PT/OT/Speech. Continue medical management per primary team. CM on board regarding discharge planning. Plan discussed with the nursing staff and during MDR rounds. No further recommendations from neurology perspective.
--- NOTE | 2020-05-18 19:35 | PDOC.HOSPP ---
- Subjective Encounter Date: 05/17/20 Encounter Time: 07:00 Subjective: no overnight events. No seizure-like acitivyt. this morning feeling well and has no complaints. Pending placement in SNF - Objective Vital Signs & Weight: Vital Signs (12 hours) Temp Pulse Pulse Pulse Resp BP BP 05/18/20 15:25 97.5 F L 70 05/18/20 15:17 70 70 180/42 H 05/18/20 15:14 70 169/73 H 05/18/20 11:38 97.5 F L 68 05/18/20 09:09 71 158/64 H 05/18/20 08:07 BP BP Pulse Ox 05/18/20 15:25 169/73 H 92 L 05/18/20 15:17 169/73 H 05/18/20 15:14 05/18/20 11:38 166/49 H 92 L 05/18/20 09:09 05/18/20 08:07 95 Weight Weight 123 lb 9.6 oz Most Recent Monitor Data Heart Rate from ECG 108 NIBP 153/63 NIBP BP-Mean 93 Respiration from ECG 28 SpO2 95 I&O: 05/17/20 05/18/20 05/19/20 06:59 06:59 06:59 Intake Total 570 500 Output Total 1750 300 Balance -1180 -300 500 Result Diagrams: 05/17/20 03:04 05/17/20 03:04 Additional Labs: Accuchecks 05/18/20 06:18 POC Glucose 101 H Hospitalist ROS - Review of Systems Constitutional: denies: chills, sweats Respiratory: denies: cough, shortness of breath, pleuritic pain Cardiovascular: denies: chest pain, palpitations, orthopnea Genitourinary: denies: dysuria, frequency, hematuria - Medication Medications: Active Medications Generic Name Dose Route Start Last Admin Trade Name Freq PRN Reason Stop Dose Admin Amlodipine Besylate 10 mg 05/16/20 09:00 05/18/20 09:09 Amlodipine 10 Mg Tab PO 10 mg DAILY MATY Administration Aspirin 81 mg 05/17/20 09:00 05/18/20 09:07 Aspirin 81 Mg Enteric Coated Tablet PO 81 mg DAILY MATY Administration Carbamazepine 200 mg 05/16/20 17:00 05/18/20 16:48 Carbamazepine Xr 200 Mg Tablet PO 200 mg BID-WM MATY Administration Cyanocobalamin 1,000 mcg 05/17/20 09:00 05/18/20 09:08 Cyanocobalamin (Vitamin B-12) 1,000 Mcg Tab PO 1,000 mcg DAILY MATY Administration Hydralazine HCl 25 mg 05/16/20 09:00 05/18/20 15:14 Hydralazine 25 Mg Tab PO 25 mg TID MATY Administration Levetiracetam 1,000 mg 05/17/20 09:00 05/18/20 09:08 Levetiracetam 500 Mg Tab PO 1,000 mg BID MATY Administration Losartan Potassium 50 mg 05/16/20 09:00 05/18/20 09:07 Losartan 25 Mg Tab PO 50 mg DAILY MATY Administration Sodium Chloride 10 ml 05/16/20 21:00 05/18/20 09:10 Flush - Normal Saline 10 Ml Syringe IVF Not Given Q12HR MATY - Exam General Appearance: NAD, awake alert Neck: no JVD Heart: RRR, no murmur, no gallops, no rubs Respiratory: CTAB, no wheezes, no rales, no ronchi Gastrointestinal: soft, non-tender, non-distended, normal bowel sounds Extremities: no edema Psychiatric: normal behavior, oriented to person, oriented to place. negative: oriented to time Hosp A/P (1) Chronic kidney disease, stage 3 Code(s): N18.3 - CHRONIC KIDNEY DISEASE, STAGE 3 (MODERATE) Status: Chronic (2) Dementia Code(s): F03.90 - UNSPECIFIED DEMENTIA WITHOUT BEHAVIORAL DISTURBANCE Status: Chronic Qualifiers: (3) Hypertension Code(s): I10 - ESSENTIAL (PRIMARY) HYPERTENSION Status: Chronic Qualifiers: Hypertension type: essential hypertension Qualified Code(s): I10 - E ssential (primary) hypertension (4) Seizure Code(s): R56.9 - UNSPECIFIED CONVULSIONS Status: Chronic - Plan #status epilepticus -EEG no seizure activity per neurology -extubated -continue keppra -continue carbamazepime -check levels #hypertension restarted home regimen; BP better controlled #bacteriuria #bacteremia -bacteremia is likely contaminant; daughter requested another blood culture to confirm since was told it was an infection -no leuko esterase or WBCs; likely colonization -UCx NTD #Dementia #CKD3 continue to monitor Dispo/PPx GI PPx: no Ix. DVT PPx: lovenox DNAR transfer to stroke unit ELOS: 1-2 nights. placement in SNF pending
--- NOTE | 2020-05-18 19:40 | PDOC.HOSPP ---
- Subjective Encounter Date: 05/18/20 Encounter Time: 08:00 Subjective: No overnight events. this morning, feeling well and has no complaints. Had long conversation with son who felt that patient was not ready to be discharged because she remained weak. Explained to son that patient's level of care is going to be upgraded to SNF and that we had to increase medications (keppra) whose side effects include weakness but benefits outweight risks. Also reiterated that patient has progressive dementia. Son agreeable to discharge, CM informed - Objective Vital Signs & Weight: Vital Signs (12 hours) Temp Pulse Pulse Pulse Resp BP BP 05/18/20 15:25 97.5 F L 70 05/18/20 15:17 70 70 180/42 H 05/18/20 15:14 70 169/73 H 05/18/20 11:38 97.5 F L 68 05/18/20 09:09 71 158/64 H 05/18/20 08:07 BP BP Pulse Ox 05/18/20 15:25 169/73 H 92 L 05/18/20 15:17 169/73 H 05/18/20 15:14 05/18/20 11:38 166/49 H 92 L 05/18/20 09:09 05/18/20 08:07 95 Weight Weight 123 lb 9.6 oz Most Recent Monitor Data Heart Rate from ECG 108 NIBP 153/63 NIBP BP-Mean 93 Respiration from ECG 28 SpO2 95 I&O: 05/17/20 05/18/20 05/19/20 06:59 06:59 06:59 Intake Total 570 500 Output Total 1750 300 Balance -1180 -300 500 Result Diagrams: 05/17/20 03:04 05/17/20 03:04 Additional Labs: Accuchecks 05/18/20 06:18 POC Glucose 101 H Hospitalist ROS - Review of Systems Constitutional: denies: chills, sweats Respiratory: denies: cough, shortness of breath Cardiovascular: denies: chest pain Gastrointestinal: denies: nausea, vomiting, abdominal pain Genitourinary: denies: dysuria, frequency, hematuria - Medication Medications: Active Medications Generic Name Dose Route Start Last Admin Trade Name Freq PRN Reason Stop Dose Admin Amlodipine Besylate 10 mg 05/16/20 09:00 05/18/20 09:09 Amlodipine 10 Mg Tab PO 10 mg DAILY MATY Administration Aspirin 81 mg 05/17/20 09:00 05/18/20 09:07 Aspirin 81 Mg Enteric Coated Tablet PO 81 mg DAILY MATY Administration Carbamazepine 200 mg 05/16/20 17:00 05/18/20 16:48 Carbamazepine Xr 200 Mg Tablet PO 200 mg BID-WM MATY Administration Cyanocobalamin 1,000 mcg 05/17/20 09:00 05/18/20 09:08 Cyanocobalamin (Vitamin B-12) 1,000 Mcg Tab PO 1,000 mcg DAILY MATY Administration Hydralazine HCl 25 mg 05/16/20 09:00 05/18/20 15:14 Hydralazine 25 Mg Tab PO 25 mg TID MATY Administration Levetiracetam 1,000 mg 05/17/20 09:00 05/18/20 09:08 Levetiracetam 500 Mg Tab PO 1,000 mg BID MATY Administration Losartan Potassium 50 mg 05/16/20 09:00 05/18/20 09:07 Losartan 25 Mg Tab PO 50 mg DAILY MATY Administration Sodium Chloride 10 ml 05/16/20 21:00 05/18/20 09:10 Flush - Normal Saline 10 Ml Syringe IVF Not Given Q12HR MATY - Exam General Appearance: NAD, awake alert Neck: no JVD Heart: RRR, no murmur, no gallops, no rubs Respiratory: CTAB, no wheezes, no rales, no ronchi Gastrointestinal: soft, non-tender, non-distended, normal bowel sounds Extremities: no edema Psychiatric: oriented to person, oriented to place. negative: oriented to time Hosp A/P (1) Chronic kidney disease, stage 3 Code(s): N18.3 - CHRONIC KIDNEY DISEASE, STAGE 3 (MODERATE) Status: Chronic (2) Dementia Code(s): F03.90 - UNSPECIFIED DEMENTIA WITHOUT BEHAVIORAL DISTURBANCE Status: Chronic Qualifiers: (3) Hypertension Code(s): I10 - ESSENTIAL (PRIMARY) HYPERTENSION Status: Chronic Qualifiers: Hypertension type: essential hypertension Qualified Code(s): I10 - Essential (primary) hypertension (4) Seizure Code(s): R56.9 - UNSPECIFIED CONVULSIONS Status: Chronic - Plan #status epilepticus -EEG no seizure activity per neurology -likely etiology is encephalomalacia -keppra and carbamazepime levels at goal; conveyed to son #hypertension poorly controlled increased losartan to 100mg from 50mg #bacteriuria #bacteremia -bacteremia is likely contaminant; daughter requested another blood culture to confirm since was told it was an infection -no leuko esterase or WBCs; likely colonization -UCx NTD #Dementia #CKD3 continue to monitor Dispo/PPx GI PPx: no Ix. DVT PPx: lovenox DNAR ELOS: 1 night; pending inpt rehab per son's request; rehab already evaluated
[2020-05-18] MEDS ORDERED: Losartan 25 MG TAB PO SCH (19:45)
[2020-05-18] MEDS: Senokot S 8.6-50 MG TAB PO SCH (20:09)
[2020-05-19 06:03] LABS: Anion Gap 14 mmol/L (10-20); BUN (Urea Nitrogen) 14 mg/dL (9.8-20.1); Calc. Creatinine Clearance 54 mL/min (70-130); Calcium 8.6 mg/dL (7.8-10.44); Carbon Dioxide 24 mmol/L (23-31); Chloride 103 mmol/L (98-107); Estimated GFR-MDRD 77; Glucose 96 mg/dL (83-110); Magnesium 1.7 mg/dL (1.6-2.6); Potassium 3.8 mmol/L (3.5-5.1); Sodium 137 mmol/L (136-145)
[2020-05-19] MEDS: Senokot S 8.6-50 MG TAB PO SCH ×2 (09:50→21:00)
[2020-05-19] MEDS: Aspirin 81 mg Enteric Coated Tablet PO SCH (09:50)
[2020-05-19] MEDS: Losartan 25 MG TAB PO SCH (09:50)
[2020-05-19] MEDS: hydrALAZINE 25 MG TAB PO SCH ×3 (09:52→21:01)
[2020-05-19] MEDS: levETIRAcetam 500 MG TAB PO SCH ×2 (09:52→21:01)
[2020-05-19] MEDS: Cyanocobalamin (Vitamin B-12) 1,000 MCG TAB PO SCH (09:52)
[2020-05-19] MEDS: Amlodipine 10 MG TAB PO SCH (09:52)
--- NOTE | 2020-05-19 12:07 | EKG ---
Test Reason : Blood Pressure : / mmHG Vent. Rate : 095 BPM Atrial Rate : 095 BPM P-R Int : 210 ms QRS Dur : 112 ms QT Int : 366 ms P-R-T Axes : 059 060 078 degrees QTc Int : 459 ms Sinus rhythm with 1st degree A-V block with Premature supraventricular complexes Anteroseptal infarct , age undetermined Abnormal ECG Confirmed by KEREN CAMPBELL ([id number]), editorial project manager FATOUMATA BLACKMON ([id number]) on 05/19/2020 12:07:10 PM Referred By: Confirmed By:KEREN CAMPBELL
--- NOTE | 2020-05-19 12:08 | EKG ---
Test Reason : Blood Pressure : / mmHG Vent. Rate : 100 BPM Atrial Rate : 100 BPM P-R Int : 164 ms QRS Dur : 098 ms QT Int : 376 ms P-R-T Axes : 108 113 120 degrees QTc Int : 485 ms Suspect arm lead reversal, interpretation assumes no reversal Normal sinus rhythm RSR' or QR pattern in V1 suggests right ventricular conduction delay Possible Inferior infarct , age undetermined Anterolateral infarct , age undetermined Abnormal ECG Incomplete left bundle branch block Confirmed by KEREN CAMPBELL ([id number]), index editor FATOUMATA BLACKMON ([id number]) on 05/19/2020 12:06:57 PM Referred By: Confirmed By:KEREN CAMPBELL
--- NOTE | 2020-05-19 15:02 | PDOC.HOSPP ---
- Subjective Encounter Date: 05/19/20 Subjective: The patient is pleasantly confused today. Her blood pressure remains uncontrolled. - Objective Vital Signs & Weight: Vital Signs (12 hours) Temp Pulse Resp BP Pulse Ox 05/19/20 11:54 97.9 F 91 18 177/62 H 97 05/19/20 09:52 67 05/19/20 08:00 97 05/19/20 07:57 97.8 F 67 16 172/75 H 97 05/19/20 04:58 98.7 F 72 20 165/57 H 93 L Weight Weight 121 lb 9.6 oz Most Recent Monitor Data Heart Rate from ECG 108 NIBP 153/63 NIBP BP-Mean 93 Respiration from ECG 28 SpO2 95 I&O: 05/18/20 05/19/20 05/20/20 06:59 06:59 06:59 Intake Total 750 850 Output Total 300 Balance -300 750 850 Result Diagrams: 05/17/20 03:04 05/19/20 05:23 Hospitalist ROS - Medication Medications: Active Medications Generic Name Dose Route Start Last Admin Trade Name Macey PRN Reason Stop Dose Admin Amlodipine Besylate 10 mg 05/16/20 09:00 05/19/20 09:52 Amlodipine 10 Mg Tab PO 10 mg DAILY MATY Administration Aspirin 81 mg 05/17/20 09:00 05/19/20 09:50 Aspirin 81 Mg Enteric Coated Tablet PO 81 mg DAILY MATY Administration Carbamazepine 200 mg 05/16/20 17:00 05/19/20 09:50 Carbamazepine Xr 200 Mg Tablet PO 200 mg BID-WM MATY Administration Cyanocobalamin 1,000 mcg 05/17/20 09:00 05/19/20 09:52 Cyanocobalamin (Vitamin B-12) 1,000 Mcg Tab PO 1,000 mcg DAILY MATY Administration Hydralazine HCl 25 mg 05/16/20 09:00 05/19/20 09:52 Hydralazine 25 Mg Tab PO 25 mg TID MATY Administration Levetiracetam 1,000 mg 05/17/20 09:00 05/19/20 09:52 Levetiracetam 500 Mg Tab PO 1,000 mg BID MATY Administration Losartan Potassium 100 mg 05/19/20 09:00 05/19/20 09:50 Losartan 25 Mg Tab PO 100 mg DAILY MATY Administration Senna/Docusate Sodium 1 tab 05/18/20 21:00 05/19/20 09:50 Senokot S 8.6-50 Mg Tab PO 1 tab BID MATY Administration Sodium Chloride 10 ml 05/16/20 21:00 05/19/20 10:03 Flush - Normal Saline 10 Ml Syringe IVF Not Given Q12HR MATY - Exam General Appearance: awake alert ENT: normocephalic atraumatic Neck: supple Heart: RRR, no murmur, no gallops, no rubs Respiratory: normal chest expansion, no tachypnea Gastrointestinal: soft Neurological: cranial nerve grossly intact, no focal deficits Hosp A/P (1) Status epilepticus Code(s): G40.901 - EPILEPSY, UNSP, NOT INTRACTABLE, WITH STATUS EPILEPTICUS Status: Acute (2) CAD (coronary artery disease) Code(s): I25.10 - ATHSCL HEART DISEASE OF [place] CORONARY ARTERY W/O ANG PCTRS Status: Acute Qualifiers: Coronary Disease-Associated Artery/Lesion type: [place] artery [place] vs. transplanted heart: [place] Associated angina: without angina Qualified Code(s): I25.10 - Atherosclerotic heart disease of [place] coronary artery without angina pectoris (3) Chronic kidney disease, stage 3 Code(s): N18.3 - CHRONIC KIDNEY DISEASE, STAGE 3 (MODERATE) Status: Chronic (4) Dementia Code(s): F03.90 - UNSPECIFIED DEMENTIA WITHOUT BEHAVIORAL DISTURBANCE Status: Chronic Qualifiers: (5) Hypertension Code(s): I10 - ESSENTIAL (PRIMARY) HYPERTENSION Status: Chronic Qualifiers: Hypertension type: essential hypertension Qualified Code(s): I10 - Essential (primary) hypertension (6) Physical deconditioning Code(s): R53.81 - OTHER [place] Status: Chronic - Plan No recurrence of seizures. Continue Keppra and carbamazepine. Add clonidine 0.1 mg orally twice daily with her losartan and amlodipine to att empt better blood pressure control. Continue PT and OT. Pending placement.
[2020-05-19] MEDS ORDERED: cloNIDine 0.1 MG TAB PO SCH (18:15)
[2020-05-19] MEDS: cloNIDine 0.1 MG TAB PO SCH (21:03)
[2020-05-20] MEDS: cloNIDine 0.1 MG TAB PO SCH ×2 (08:21→20:33)
[2020-05-20] MEDS: hydrALAZINE 25 MG TAB PO SCH ×3 (08:22→20:33)
[2020-05-20] MEDS: Aspirin 81 mg Enteric Coated Tablet PO SCH (08:22)
[2020-05-20] MEDS: Losartan 25 MG TAB PO SCH (08:22)
[2020-05-20] MEDS: levETIRAcetam 500 MG TAB PO SCH ×2 (08:23→20:33)
[2020-05-20] MEDS: Amlodipine 10 MG TAB PO SCH (08:23)
[2020-05-20] MEDS: Cyanocobalamin (Vitamin B-12) 1,000 MCG TAB PO SCH (08:23)
[2020-05-20] MEDS: Senokot S 8.6-50 MG TAB PO SCH ×2 (08:23→20:33)
--- NOTE | 2020-05-20 12:49 | PDOC.HOSPP ---
- Subjective Encounter Date: 05/20/20 Subjective: No new complaints today. - Objective Vital Signs & Weight: Vital Signs (12 hours) Temp Pulse Resp BP BP Pulse Ox 05/20/20 11:33 98.2 F 76 16 103/43 L 95 05/20/20 08:23 152/37 H 95 05/20/20 08:22 152/37 H 05/20/20 08:21 152/37 H 05/20/20 07:38 97.6 F 62 16 152/37 H 95 05/20/20 04:00 97.3 F L 65 14 150/60 H 93 L Weight Weight 127 lb Most Recent Monitor Data Heart Rate from ECG 108 NIBP 153/63 NIBP BP-Mean 93 Respiration from ECG 28 SpO2 95 I&O: 05/19/20 05/20/20 05/21/20 06:59 06:59 06:59 Intake Total 750 1335 Balance 750 1335 Result Diagrams: 05/17/20 03:04 05/19/20 05:23 Hospitalist ROS - Medication Medications: Active Medications Generic Name Dose Route Start Last Admin Trade Name Freq PRN Reason Stop Dose Admin Amlodipine Besylate 10 mg 05/16/20 09:00 05/20/20 08:23 Amlodipine 10 Mg Tab PO 10 mg DAILY MATY Administration Aspirin 81 mg 05/17/20 09:00 05/20/20 08:22 Aspirin 81 Mg Enteric Coated Tablet PO 81 mg DAILY MATY Administration Carbamazepine 200 mg 05/16/20 17:00 05/20/20 08:23 Carbamazepine Xr 200 Mg Tablet PO 200 mg BID-WM MATY Administration Clonidine 0.1 mg 05/19/20 21:00 05/20/20 08:21 Clonidine 0.1 Mg Tab PO 0.1 mg BID MATY Administration Cyanocobalamin 1,000 mcg 05/17/20 09:00 05/20/20 08:23 Cyanocobalamin (Vitamin B-12) 1,000 Mcg Tab PO 1,000 mcg DAILY MATY Administration Hydralazine HCl 25 mg 05/16/20 09:00 05/20/20 08:22 Hydralazine 25 Mg Tab PO 25 mg TID MATY Administration Levetiracetam 1,000 mg 05/17/20 09:00 05/20/20 08:23 Levetiracetam 500 Mg Tab PO 1,000 mg BID MATY Administration Losartan Potassium 100 mg 05/19/20 09:00 05/20/20 08:22 Losartan 25 Mg Tab PO 100 mg DAILY MATY Administration Senna/Docusate Sodium 1 tab 05/18/20 21:00 05/20/20 08:23 Senokot S 8.6-50 Mg Tab PO 1 tab BID MATY Administration Sodium Chloride 10 ml 05/16/20 21:00 05/20/20 08:23 Flush - Normal Saline 10 Ml Syringe IVF Not Given Q12HR MATY - Exam General Appearance: awake alert Neck: supple, no JVD Heart: RRR, no murmur, no gallops, no rubs, normal peripheral pulses Respiratory: normal chest expansion, no tachypnea Neurological: cranial nerve grossly intact, no focal deficits Hosp A/P (1) Status epilepticus Code(s): G40.901 - EPILEPSY, UNSP, NOT INTRACTABLE, WITH STATUS EPILEPTICUS Status: Acute (2) CAD (coronary artery disease) Code(s): I25.10 - ATHSCL HEART DISEASE OF [place] CORONARY ARTERY W/O ANG PCTRS Status: Acute Qualifiers: Coronary Disease-Associated Artery/Lesion type: [place] artery [place] vs. transplanted heart: [place] heart Associated angina: without angina Qualified Code(s): I25.10 - Atherosclerotic heart disease of [place] coronary artery without angina pectoris (3) Chronic kidney disease, stage 3 Code(s): N18.3 - CHRONIC KIDNEY DISEASE, STAGE 3 (MODERATE) Status: Chronic (4) Dementia Code(s): F03.90 - UNSPECIFIED DEMENTIA WITHOUT BEHAVIORAL DISTURBANCE Status: Chronic Qualifiers: (5) Hypertension Code(s): I10 - ESSENTIAL (PRIMARY) HYPERTENSION Status: Chronic Qualifiers: Hypertension type: essential hypertension Qualified Code(s): I10 - Essential (primary) hypertension (6) Physical deconditioning Code(s): R53.81 - OTHER [place] Status: Chronic - Plan No recurrence of seizures. Continue Keppra and carbamazepine. Her blood pressure control is better with clonidine, losartan, and amlodipine. Continue PT and OT. Pending placement.
[2020-05-21] MEDS: cloNIDine 0.1 MG TAB PO SCH (07:57)
[2020-05-21] MEDS: hydrALAZINE 25 MG TAB PO SCH ×2 (07:57→14:40)
[2020-05-21] MEDS: Losartan 25 MG TAB PO SCH (07:58)
[2020-05-21] MEDS: Amlodipine 10 MG TAB PO SCH (08:00)
[2020-05-21] MEDS: Aspirin 81 mg Enteric Coated Tablet PO SCH (09:40)
[2020-05-21] MEDS: levETIRAcetam 500 MG TAB PO SCH (09:41)
[2020-05-21] MEDS: Cyanocobalamin (Vitamin B-12) 1,000 MCG TAB PO SCH (09:41)
[2020-05-21] MEDS: Senokot S 8.6-50 MG TAB PO SCH (09:41)
--- NOTE | 2020-05-21 13:53 | PDOC.NEUPN ---
- Subjective Encounter Date: 05/21/20 Subjective: Patient feels better. No reported seizures since admission. - Objective Vital Signs & Weight: Vital Signs (12 hours) Temp Pulse Resp BP Pulse Ox 05/21/20 11:15 97.1 F L 64 20 104/45 L 92 L 05/21/20 07:55 92 L 05/21/20 07:40 97.4 F L 66 16 177/56 H 92 L 05/21/20 03:53 99.1 F 66 16 145/44 H 93 L Weight Weight 121 lb 4.8 oz Most Recent Monitor Data Heart Rate from ECG 108 NIBP 153/63 NIBP BP-Mean 93 Respiration from ECG 28 SpO2 95 I&O: 05/20/20 05/21/20 05/22/20 06:59 06:59 06:59 Intake Total 1335 477 Balance 1335 477 Result Diagrams: 05/17/20 03:04 05/19/20 05:23 Radiology Reviewed by me: Yes EKG Reviewed by me: Yes ROS - Review of Systems Constitutional: denies: fever, chills, sweats, weakness, malaise, other Eyes: denies: pain, vision change, conjunctivae inflammation, eyelid inflammation, redness, other ENT: denies: ear pain, ear discharge, nose pain, nose discharge, nose congestion, mouth pain, mouth swelling, throat pain, throat swelling, other Respiratory: denies: cough, dry, shortness of breath, hemoptysis, SOB with excertion, pleuritic pain, sputum, wheezing, other Cardiovascular: denies: no pertinent history, AFIB, CAD, CHF, HTN, HI, Syncope, Hyperlipidemia, Mitral valve stenosis, Aortic stenosis, Valve insufficiency, Pulmonary hypertension, Other Gastrointestinal: denies: nausea, vomiting, abdominal pain, diarrhea, constipation, melena, hematochezia, other Genitourinary: denies: dysuria, frequency, incontinence, hematuria, retention, other Musculoskeletal: denies: neck pain, shoulder pain, arm pain, back pain, hand pain, leg pain, foot pain, other Skin: denies: rash, lesions, nick, bruising, other Neurological: reports: weakness, numbness. denies: incoordination, change in speech, confusion, seizures, other - Medication Medications: Active Medications Generic Name Dose Route Start Last Admin Trade Name Freq PRN Reason Stop Dose Admin Amlodipine Besylate 10 mg 05/16/20 09:00 05/21/20 08:00 Amlodipine 10 Mg Tab PO 10 mg DAILY MATY Administration Aspirin 81 mg 05/17/20 09:00 05/21/20 09:40 Aspirin 81 Mg Enteric Coated Tablet PO 81 mg DAILY MATY Administration Carbamazepine 200 mg 05/16/20 17:00 05/21/20 09:40 Carbamazepine Xr 200 Mg Tablet PO 200 mg BID-WM MATY Administration Clonidine 0.1 mg 05/19/20 21:00 05/21/20 07:57 Clonidine 0.1 Mg Tab PO 0.1 mg BID MATY Administration Cyanocobalamin 1,000 mcg 05/17/20 09:00 05/21/20 09:41 Cyanocobalamin (Vitamin B-12) 1,000 Mcg Tab PO 1,000 mcg DAILY MATY Administration Hydralazine HCl 25 mg 05/16/20 09:00 05/21/20 07:57 Hydralazine 25 Mg Tab PO 25 mg TID MATY Administration Levetiracetam 1,000 mg 05/17/20 09:00 05/21/20 09:41 Levetiracetam 500 Mg Tab PO 1,000 mg BID MATY Administration Losartan Potassium 100 mg 05/19/20 09:00 05/21/20 07:58 Losartan 25 Mg Tab PO 100 mg DAILY MATY Administration Senna/Docusate Sodium 1 tab 05/18/20 21:00 05/21/20 09:41 Senokot S 8.6-50 Mg Tab PO 1 tab BID MATY Administration Sodium Chloride 10 ml 05/16/20 21:00 05/21/20 07:38 Flush - Normal Saline 10 Ml Syringe IVF Not Given Q12HR MATY - Exam General Appearance: awake alert Eye: PERRL ENT: normocephalic atraumatic Neck: supple Respiratory: CTAB Cardiovascular: RRR Gastrointestinal: soft Extremities: no cyanosis, no clubbing Skin: normal turgor Neurological: no new deficit Musculoskeletal: normal tone PSYCH: normal affect, normal behavior, oriented to person, oriented to place Results - Labs Result Diagrams: 05/17/20 03:04 05/19/20 05:23 Lab results: WBC 7.4 thou/uL (4.8-10.8) 05/17/20 03:04 Hgb 11.5 g/dL (12.0-16.0) L 05/17/20 03:04 Hct 35.3 % (36.0-47.0) L 05/17/20 03:04 MCV 95.5 fL (78.0-98.0) 05/17/20 03:04 Plt Count 242 thou/uL (130-400) 05/17/20 03:04 Neutrophils % 64.4 % (42.0-75.0) 05/14/20 10:13 Band Neuts % (Manual) 1 % (5-11) L 05/17/20 03:04 ABG pH 7.49 (7.35-7.45) H 05/15/20 07:00 ABG pCO2 25.1 mmHg (35.0-45.0) L* 05/15/20 07:00 ABG pO2 81.9 mmHg (> 70.0) H 05/15/20 07:00 Sodium 137 mmol/L (136-145) 05/19/20 05:23 Potassium 3.8 mmol/L (3.5-5.1) 05/19/20 05:23 Chloride 103 mmol/L (98-107) 05/19/20 05:23 Carbon Dioxide 24 mmol/L (23-31) 05/19/20 05:23 BUN 14 mg/dL (9.8-20.1) 05/19/20 05:23 Creatinine 0.73 mg/dL (0.6-1.1) 05/19/20 05:23 Glucose 96 mg/dL (83-110) 05/19/20 05:23 Lactic Acid 1.4 mmol/L (0.5-2.2) 05/14/20 10:47 Calcium 8.6 mg/dL (7.8-10.44) 05/19/20 05:23 Total Bilirubin 0.5 mg/dL (0.2-1.2) 05/15/20 03:30 AST 14 U/L (5-34) 05/15/20 03:30 ALT 9 U/L (8-55) 05/15/20 03:30 Alkaline Phosphatase 41 U/L (40-110) 05/15/20 03:30 Creatine Kinase 51 U/L (29-168) 05/14/20 10:13 CK-MB (CK-2) 1.8 ng/mL (0-6.6) 05/14/20 15:10 Troponin I 0.107 ng/mL (< 0.028) H 05/14/20 15:10 Serum Total Protein 6.0 g/dL (6.0-8.3) 05/15/20 03:30 Albumin 3.1 g/dL (3.4-4.8) L 05/15/20 03:30 Urine Ketones Negative mg/dL (Negative) 05/14/20 15:16 Urine Blood Negative (Negative) 05/14/20 15:16 Urine Nitrite 2+ (Negative) A 05/14/20 15:16 Ur Leukocyte Esterase Negative Hoda/uL (Negative) 05/14/20 15:16 Urine RBC 0-3 HPF (0-3) 05/14/20 15:16 Urine WBC 0-3 HPF (0-3) 05/14/20 15:16 Ur Squamous Epith Cells 0-3 HPF (0-3) 05/14/20 15:16 Urine Bacteria 4+ HPF (None Seen) A 05/14/20 15:16 PN A/P (1) Status epilepticus Code(s): G40.901 - EPILEPSY, UNSP, NOT INTRACTABLE, WITH STATUS EPILEPTICUS Status: Acute (2) CAD (coronary artery disease) Code(s): I25.10 - ATHSCL HEART DISEASE OF [place] CORONARY ARTERY W/O ANG PCTRS Status: Acute Qualifiers: Coronary Disease-Associated Artery/Lesion type: [place] artery [place] vs. transplanted heart: [place] heart Associated angina: without angina Qualified Code(s): I25.10 - Atherosclerotic heart disease of [place] coronary artery without angina pectoris (3) Cardiomyopathy Code(s): I42.9 - CARDIOMYOPATHY, UNSPECIFIED Status: Acute Qualifiers: Cardiomyopathy type: unspecified Qualified Code(s): I42.9 - Cardiomyopathy, unspecified (4) Seizure disorder Code(s): G40.909 - EPILEPSY, UNSP, NOT INTRACTABLE, WITHOUT STATUS EPILEPTICUS Status: Acute (5) Chronic kidney disease, stage 3 Code(s): N18.3 - CHRONIC KIDNEY DISEASE, STAGE 3 (MODERATE) Status: Chronic (6) Dementia Code(s): F03.90 - UNSPECIFIED DEMENTIA WITHOUT BEHAVIORAL DISTURBANCE Status: Chronic Qualifiers: (7) Hypertension Code(s): I10 - ESSENTIAL (PRIMARY) HYPERTENSION Status: Chronic Qualifiers: Hypertension type: essential hypertension Qualified Code(s): I10 - Essential (primary) hypertension (8) Acute metabolic encephalopathy Code(s): G93.41 - METABOLIC ENCEPHALOPATHY Status: Resolved - Plan Daily Plan: PT/OT, speech therapy, DVT proph w/SCDs 79 year old admitted due to status epilepticus which is resolved with ativan, keppra and propofol. She is stable and alert and following commands appropriately. No further seizures since admission. CM on board regarding discharge planning. Awaiting placement. Continue Keppra 1000 mg po bid Continue tegretol 200 mg po bid. EEG reviewed which was negative for seizure activity. Observe seizure precautions. Ativan 2 mg IV for seizure greater than 2 minutes. Continue home medications. PT/OT/Speech. Continue medical management per primary team. Follow up with neurology as outpatient regarding seizure management Plan discussed with the nursing staff and during MDR rounds.
[2020-05-21 15:19] VITALS: BP 143/52; TEMP 97.5
--- NOTE | 2020-05-22 01:45 | DIS ---
DATE OF ADMISSION: 05/14/2020 DATE OF DISCHARGE: 05/21/2020 DISCHARGE DIAGNOSES: 1. Status epilepticus. 2. Coronary artery disease. 3. Chronic kidney disease stage 3. 4. Dementia. 5. Hypertension. 6. Physical deconditioning. DISCHARGE MEDICATIONS: 1. Norvasc 10 mg orally daily. 2. Tegretol 200 mg orally twice daily. 3. Hydralazine 25 mg orally t.i.d. 4. Keppra 1000 mg orally twice daily. 5. Losartan 50 mg orally daily. 6. Mirtazapine 7.5 mg orally nightly. 7. Trazodone 25 mg orally nightly. 8. Aspirin 81 mg orally daily. HISTORY OF PRESENT ILLNESS AND HOSPITAL COURSE: The patient is a 79-year-old female with past medical history of seizure disorder, who was admitted to the hospital after presenting in status epilepticus. Her seizures were not controlled with antiseizure medications that were started on admission. She was subsequently intubated and sedated. She was started on carbamazepine and Keppra per Neurology. Subsequent EEG showed irregular activity without specific seizure activity. The patient was successfully extubated. Her mental status was within normal limits. No recurrence of seizure was noted in the post extubation. The patient was noted to be generally weak during her post ICU stay. PT and OT recommended rehab, which has been arranged. Job ID: [id number]
--- NOTE | 2020-05-22 16:27 | CT ---
CTA Angio Head and neck W WO contrast and 3-D postprocessing HISTORY: Left-sided weakness, slurred speech COMPARISON: 03/22/2020 FINDINGS: There is prominent atherosclerotic plaque involving the visualized aortic arch with ectasia of the ao rtic arch measuring 3.7 cm. Mild irregularity also involves the aortic arch. Findings are unchanged when compared to the prior CT thorax on 02/03/2019. There is generalized ectasia of the bilateral subcl mary arteries which are otherwise patent. The innominate artery and bilateral common carotid arteries are patent. Vascular calcifications involve the carotid artery bifurcation on the right, but there is no signifi cant narrowing present. Dense atherosclerotic vascular calcifications are seen involving the distal left common carotid artery and origin of the left internal carotid artery. This limits adequate evalu ation of the lumen in this region, but there is at least mild narrowing involving the origin of the left internal carotid artery. The degree of narrowing is just less than 50%. The right vertebral artery is patent and terminates in PICA. The left vertebral artery is dominant an d patent. The basilar artery is patent. There is a type origin of the right posterior cerebral artery which is patent. The left posterior cerebral artery is also patent. Posterior communi cating artery on the left is patent. The bilateral middle cerebral and anterior cerebral arteries are patent without focal significant jean nosis or branch occlusion. The right A1 segment of the right anterior communicating artery is either very small or absent either of which is a normal variant. There is a focal aneurysm measuring approximately 5 mm which is located at the anterior communicating artery position. Mild chronic lung changes are seen in the visualized upper lung zones. Median sternotomy wires are p artially imaged. IMPRESSION: Stable exam since 03/22/2020. No acute process. Discussed over the telephone with ER physician Dr. Paresh Mehta at 10:50 AM Transcribed Date/Time: 05/22/2020 4:26 PM
--- NOTE | 2020-05-23 06:26 | DIS ---
DATE OF ADMISSION: 05/14/2020 DATE OF DISCHARGE: 05/21/2020 HOSPITAL COURSE: Ms. Will is a 79-year-old female with medical history of seizure disorder, most recently hospitalized in February of 2020, who presented initially as a stroke code due to left-sided weakness. During her ED stay, she developed chronic status epilepticus requiring intubation for airway protection. After this initial status epilepticus episode, the patient's Keppra dosage was increased. She remained seizure-free throughout her inpatient stay. Mirtazapine and trazodone dosages were reduced. Carbamazepine level was checked and was low. The primary care physician was requested to follow up on management of status epilepticus and dosage and levels of carbamazepine. On the day of discharge, the patient was hemodynamically stable and had no complaints. PHYSICAL EXAMINATION: VITAL SIGNS: Blood pressure 178/80, heart rate 64, respiratory rate 21, oxygen saturation 98% on room air, and temperature 97.6 Fahrenheit. GENERAL: Emaciated, lying comfortably in bed, awake and alert. HEENT: Normocephalic, atraumatic. CARDIAC: Regular rate and rhythm. Grade 3/6 holosystolic murmur most audible right second intercostal. No gallops or rubs. Abdominal bruit appreciated. LUNGS: Clear to auscultation bilaterally. No wheezing, rales, or rhonchi. GASTROINTESTINAL: Soft, nontender, and nondistended. Normal bowel sounds. EXTREMITIES: Strength 5/5 throughout upper and lower extremities. No edema. PSYCHIATRIC: Flat affect. Proper mood. Alert and oriented x2. MEDICATION LIST: New medications: No new medications. Modified medications: 1. Keppra was increased from 750 to 1000 p.o. b.i.d. 2. Mirtazapine was decreased from 15 to 7.5 at bedtime. 3. Trazodone was decreased from 50 to 25 mg at bedtime. Continued medications: 1. Carbamazepine 200 mg p.o. b.i.d. with meals. 2. Tylenol. 3. Aspirin. 4. Vitamin B12. 5. Hydralazine. 6. Losartan. 7. Amlodipine. Job ID: [id number]
== END 2020-05-21 18:42 | DRG 100 ==
LOC: ERS 10:11 → CCU 12:17 → IMCU/EMU 05-16 11:15 → 2SE 05-17 19:50
PROVIDERS: ADMIT Internal Medicine; ATTEND Internal Medicine
PROC: 0BH17EZ Insertion of Endotracheal Airway into Trachea, Via Natural or Artificial Opening (ICD-10-PCS; principal; 2020-05-14)
PROC: 5A1935Z Respiratory Ventilation, Less than 24 Consecutive Hours (ICD-10-PCS; 2020-05-14)
DX: G40.901 Epilepsy, unspecified, not intractable, with status epilepticus (principal); G93.41 Metabolic encephalopathy; J96.00 Acute respiratory failure, unspecified whether with hypoxia or hypercapnia; G81.94 Hemiplegia, unspecified affecting left nondominant side; I13.0 Hypertensive heart and chronic kidney disease with heart failure and stage 1 through stage 4 chronic kidney disease, or unspecified chronic kidney disease; I42.9 Cardiomyopathy, unspecified; I16.1 Hypertensive emergency; Z66 Do not resuscitate; Z20.828 Contact with and (suspected) exposure to other viral communicable diseases; I25.10 Atherosclerotic heart disease of native coronary artery without angina pectoris; N18.3 Chronic kidney disease, stage 3 (moderate); F03.90 Unspecified dementia, unspecified severity, without behavioral disturbance, psychotic disturbance, mood disturbance, and anxiety; E78.5 Hyperlipidemia, unspecified; G47.00 Insomnia, unspecified; G89.4 Chronic pain syndrome; K21.9 Gastro-esophageal reflux disease without esophagitis; I50.9 Heart failure, unspecified; I48.91 Unspecified atrial fibrillation; Z79.899 Other long term (current) drug therapy; Z79.82 Long term (current) use of aspirin
CPT/HCPCS: 31500; 36415; 36416; 70450; 70496; 70498; 71045; 80048; 80053; 80156; 80177; 81001; 82550; 82553; 82805; 83605; 83735; 84100; 84443; 84484; 85007; 85025; 85027; 85610; 85730; 87040; 87086; 87149; 87635; 93005; 94002; 94003; 95712; 95819; 95957; 96361; 96365; 96366; 96367; 96368; 96375; 96376; 99292; J0692; J1650; J1953; J2060; J2704; J2997; J3010; J3480; J3490; J7050; U0003

== ENCOUNTER 2020-06-08 07:52 | Inpatient (IN) | payer MEDICARE, BC ==
[2020-06-08] MEDS ORDERED: Ondansetron PF 4 MG/2 ML Vial ONE (08:24)
[2020-06-08] MEDS ORDERED: Morphine 4 MG/ML VIAL ONE ×2 (08:24→10:09)
--- NOTE | 2020-06-08 08:42 | RAD ---
RADIOGRAPH CHEST 1 VIEW: Supine DATE: 06/08/2020 HISTORY: 79-year-old female status post acute chest trauma FINDINGS: There is no airspace density or pulmonary edema. The left lateral costophrenic angles remains blunted due to pleural thickening. Supine positioning makes this study insensitive for the detection of pneumothorax. The thoracic aorta is tortuous and ectatic. There is aneurysmal dilation of the lower t horacic aorta. Sternotomy wires. No cardiomegaly. Old healed fracture deformity of posterior lateral aspect of left ninth rib. IMPRESSION: 1) No acute pulmonary findings. 2) ectasia of thoracic aorta, including fusiform aneurysm of lower thoracic aorta.
[2020-06-08 08:58] LABS: #Lymphocytes 0.6 thou/uL (1.20-3.40); #Monocytes 0.7 thou/uL (0.11-0.59); #Neutrophils 10.5 thou/uL (1.40-6.50); %Basophils 0.3 % (0.0-1.0); %Eosinophils 0.2 % (0.0-10.0); %Lymphocytes 5.1 % (21.0-51.0); %Monocytes 5.5 % (0.0-10.0); %Neutrophils 88.9 % (42.0-75.0); Mean Corpuscular Hemoglobin 31.3 pg (27.0-31.0); Mean Corpuscular Volume 94.9 fL (78.0-98.0); Mean Platelet Volume 7.4 fL (7.4-10.4); Platelet Count 258 thou/uL (130-400); RBC Distribution Width 11.7 % (11.5-14.5); Red Blood Cell (RBC) Count 3.84 mill/uL (4.20-5.40); White Blood Cell (WBC) Count 11.8 thou/uL (4.8-10.8)
[2020-06-08 09:07] LABS: PTT 29.2 sec (22.9-36.1); Prothrombin Time 13.4 sec (12.0-14.7)
--- NOTE | 2020-06-08 09:12 | RAD ---
LEFT HIP 2 VIEWS: Date: 06/08/2020 HISTORY: Injury from an unwitnessed fall. COMPARISON: 10/28/2018. FINDINGS: Fairly marked diffuse bone demineralization. No evidence for acute fracture or dislocation. IMPRESSION: No acute fracture or dislocation. Bone demineralization. Little change from prior study. POS: RRE
--- NOTE | 2020-06-08 09:14 | RAD ---
RIGHT HIP 2 VIEWS: Date: 06/08/2020 HISTORY: Injury from an unwitnessed fall. FINDINGS: Bone demineralization. There is a right femoral neck fracture with marked foreshortening and varus de formity. No dislocation. IMPRESSION: Femoral neck fracture with foreshortening and varus deformity. POS: RRE
--- NOTE | 2020-06-08 09:16 | RAD ---
AP PELVIS 1 VIEW: Date: 06/08/2020 HISTORY: Injury from trauma, unwitnessed fall. COMPARISON: 06/02/2018. FINDINGS: Diffuse bone demineralization. Right femoral neck fracture with foreshortening and varus deformity. IMPRESSION: Right femoral neck fracture with foreshortening and varus deformity. POS: RRE
[2020-06-08 09:22] LABS: ALT (SGPT) 22 U/L (8-55); AST (SGOT) 21 U/L (5-34); Alkaline Phosphatase 57 U/L (40-110); Anion Gap 12 mmol/L (10-20); BUN (Urea Nitrogen) 26 mg/dL (9.8-20.1); Bilirubin, Total 0.5 mg/dL (0.2-1.2); CK (CPK) 58 U/L (29-168); Calc. Creatinine Clearance 0 mL/min (70-130); Calcium 9.5 mg/dL (7.8-10.44); Carbon Dioxide 26 mmol/L (23-31); Chloride 101 mmol/L (98-107); Estimated GFR-MDRD 52; Globulin 3.5 g/dL (2.4-3.5); Glucose 126 mg/dL (83-110); Lipase 34 U/L (8-78); Potassium 4.6 mmol/L (3.5-5.1); Protein, Total 7.5 g/dL (6.0-8.3); Sodium 134 mmol/L (136-145)
[2020-06-08] MEDS ORDERED: Dextrose 50% Abboject 50 ML SYRINGE SLOW IVP PRN (09:32)
[2020-06-08] MEDS ORDERED: Ondansetron PF 4 MG/2 ML Vial IVP PRN (09:32)
[2020-06-08] MEDS ORDERED: Morphine 4 MG/ML VIAL SLOW IVP PRN (09:32)
[2020-06-08] MEDS ORDERED: Dextrose 5% in Water 1,000 ML IV PRN (09:32)
[2020-06-08 09:34] LABS: D-Dimer Test Greater than 20.00 *mcg/mL (0.27-0.43)
[2020-06-08] MEDS ORDERED: traMADol HCl 50 MG TAB PO PRN ×2 (09:38)
[2020-06-08 09:42] LABS: Phosphorus 3.5 mg/dL (2.3-4.7)
[2020-06-08 09:44] LABS: CKMB 1.7 ng/mL (0-6.6)
[2020-06-08] MEDS ORDERED: Sodium Chloride 0.9% 1,000 ML IV SCH (09:45)
[2020-06-08] MEDS ORDERED: levETIRAcetam in NS 1,000 MG in Premix Bag 1 BAG IVPB SCH (09:45)
--- NOTE | 2020-06-08 10:29 | CT ---
Exam: CT angiogram of the chest HISTORY: Evaluate for pulmonary artery embolus. Elevated d-dimer. COMPARISON: None TECHNIQUE: CT angiogram of the chest is performed in the axial plane. Three-dimensional reformatted i mages are submitted for interpretation FINDINGS: Mediastinum: No mass, lymphadenopathy or hematoma. HEART: Heart is enlarged. No significant pericardial fluid. Aorta: Limited evaluation due to lack of contrast opacification. There is elongation and mild dilatat ion of the distal thoracic aorta and upper abdominal aorta. No significant periaortic fat stranding. Upper solid abdominal viscera: Indeterminate hypodensity involving the left kidney measuring 0.5 x 1. 0 cm. Trachea and central bronchi: Patent Pleural spaces: No effusion Lung parenchyma: Scattered groundglass opacities, nonspecific. There are dependent atelectatic change s in both lower lobes. Scattered linear densities likely using scarring and atelectasis. Lungs demonstrate emphysematous changes. Pneumothorax: None Osseous structures: No lytic or blastic lesions Pulmonary arteries: Adequate contrast opacification pulmonary arterial system to the level of segment al arteries. No filling defect to suggest pulmonary embolism IMPRESSION: 1. No evidence of pulmonary artery embolism to the level segmental arteries. 2. Atherosclerosis and mild dilatation of the distal thoracic and upper abdominal aorta. Technique li mits evaluation. 3. Hyperinflation, COPD and chronic changes.
[2020-06-08] MEDS ORDERED: cloNIDine 0.1 MG TAB ONE (10:51)
[2020-06-08] MEDS ORDERED: Sodium Phosphate 15 MMOL in Sodium Chloride 0.9% 250 ML 250 ML IVPB SCH (12:15)
[2020-06-08] MEDS: Acetaminophen 500 MG TAB PO SCH ×3 (12:56→23:18)
[2020-06-08 13:28] VITALS: BMI 20.5
[2020-06-08] MEDS ORDERED: Spironolactone 25 MG TAB PO SCH (13:45)
[2020-06-08] MEDS ORDERED: Losartan 25 MG TAB PO SCH (13:45)
[2020-06-08] MEDS: hydrALAZINE 25 MG TAB PO SCH ×2 (14:25→20:13)
[2020-06-08] MEDS ORDERED: CEFAZOLIN 2 GM in Premix Bag 1 BAG IVPB SCH (15:00)
[2020-06-08 15:40] LABS: Troponin I 0.116 ng/mL (< 0.028)
[2020-06-08] MEDS: cloNIDine 0.1 MG TAB PO PRN (15:48)
[2020-06-08] MEDS ORDERED: Labetalol HCl 100 MG/20 ML VIAL SLOW IVP PRN (16:03)
--- NOTE | 2020-06-08 19:44 | CON ---
DATE OF CONSULTATION: 06/08/2020 HISTORY OF PRESENT ILLNESS: The patient is a 79-year-old female who [facility]. She is not able to give history, but it is reported that she fell onto her buttock getting out of bed this morning, had immediate pain in the right hip and inability to ambulate. The patient was brought by EMS to the emergency room. Systolic blood pressures were in the 200s. X-ray showed a displaced femoral neck fracture of the right hip. PAST MEDICAL HISTORY: Medical illnesses, metabolic encephalopathy, hyperlipidemia, epilepsy, insomnia, chronic pain syndrome, ischemic heart disease, CAD, CHF, GERD, evidently hypertension, anxiety, and depression. SOCIAL HISTORY: The patient lives in [facility]. She does not use alcohol or drugs. ALLERGIES: NONE. CURRENT MEDICATION: Reported none by the emergency room. PHYSICAL EXAMINATION: VITAL SIGNS: In the emergency room blood pressure 192/64, pulse 83, respiratory rate 18, the patient is afebrile, and O2 saturation 99% on 2 L of oxygen. HEENT: Unremarkable for age. Cranial nerves 2 through 12 are grossly intact. NECK: Thoracic and lumbar spine are nontender to palpation. LUNGS: Clear bilaterally. HEART: Regular rate and rhythm. ABDOMEN: Soft and nontender. Bowel sounds positive. : Not done. EXTREMITIES: Unremarkable except for the right lower extremity is shortened and externally rotated. The patient is able to flex and extend her toes. She reports to have normal sensation. The skin over the lateral aspect of the right hip is intact. LABORATORY DATA: CBC shows white count 11.9, hemoglobin 12, and hematocrit 36.4. D-dimer is greater than 20. PT 13.4, INR of 1, and PTT is 29.3. Chemistry show mildly elevated sodium 134, BUN 26, and creatinine 1.02. Troponin I is 0.088. BNP is 429. IMAGING STUDIES: X-rays of the right hip show a displaced femoral neck fracture of the right hip. No significant arthritic changes in hip joint. IMPRESSION: 1. Displaced femoral neck fracture of the right hip. 2. Metabolic encephalopathy. 3. Hyperlipidemia. 4. Epilepsy. 5. Chronic pain syndrome. 6. Ischemic heart disease. 7. Coronary artery disease. 8. Congestive heart failure. 9. Gastroesophageal reflux disease. 10. Anxiety. 11. Depression. 12. Hypertension. PLAN: The patient will be worked up medically today. Plan on performing a proximal femoral replacement using the bipolar prosthesis. We will schedule that for tomorrow. Potential risks with the condition of surgery include, but are not limited to infection, bleeding, pain, damage to blood vessels or nerves, loosening of the prosthesis or instability of the prosthesis, DVT and PE formation. Job ID: [id number]
[2020-06-08] MEDS: Senokot S 8.6-50 MG TAB PO SCH (20:13)
[2020-06-08] MEDS: carBAMazepine 100 mg Chewable Tablet PO SCH (20:13)
[2020-06-08] MEDS: Amlodipine 10 MG TAB PO SCH (20:15)
[2020-06-08] MEDS: traZODone HCl 50 MG TAB PO SCH (20:15)
[2020-06-08] MEDS: Famotidine/PF 20 mg/2ml Vial SLOW IVP SCH (20:16)
[2020-06-08] MEDS: Mirtazapine 15 MG TAB PO SCH (20:16)
[2020-06-08] MEDS: levETIRAcetam in NS 1,000 MG in Premix Bag 1 BAG IVPB SCH (20:16)
--- NOTE | 2020-06-08 22:29 | HP ---
TRAUMA SURGEON: Dr. Coe. CONSULTING PHYSICIAN: Dr. Henderson. HISTORY OF PRESENT ILLNESS: The patient is a 79-year-old female who presented to the emergency department via EMS after a fall from bed this morning at her half-way. The patient was recently admitted to the hospital for uncontrolled seizures. Nursing reports that family states the patient is wheelchair bound and has dementia. Upon my evaluation, the patient complained of right-sided hip pain. She reports no loss of consciousness. She is on Lovenox for DVT prophylaxis at her half-way. She was quite hypertensive at the time of my evaluation, the patient received pain control and her home p.r.n. clonidine for pain management. She also is going to receive her home medications upon admission to the hospital. She denies nausea, vomiting, chest pain, shortness of breath, numbness and tingling in her bilateral upper and lower extremities. REVIEW OF SYSTEMS: All additional 10-point review of systems negative except as indicated above. PAST MEDICAL HISTORY: Atrial fibrillation, CAD, CHF, hypertension, hyperlipidemia, CVA, seizures, GERD, bilateral cataracts, and aortic aneurysm repair. PAST SURGICAL HISTORY: Cataract removal bilaterally, aortic aneurysm repair. SOCIAL HISTORY: The patient denies a history of tobacco, drug, or alcohol use. MEDICATIONS: Include; 1. Amlodipine. 2. Aspirin. 3. Calcium carbonate. 4. Carbamazepine. 5. Clonidine. 6. Colace. 7. Lovenox 40 mg daily. 8. Famotidine. 9. Hydralazine. 10. Lactulose. 11. Keppra. 12. Losartan. 13. MiraLAX. 14. Macrobid. 15. Remeron. 16. Spironolactone. 17. Trazodone. ALLERGIES: NO KNOWN DRUG ALLERGIES. PHYSICAL EXAMINATION: VITAL SIGNS: Temperature 98.2, pulse 88, respirations 14, oxygen saturation 96% on 2 L nasal cannula, blood pressure 200/69. PRIMARY SURVEY: Airway intact. Adequate breath sounds bilaterally. 2+ pulses in bilateral radials, femorals, and DPs. GCS 15, -1 for confusion. Gross motor and sensation intact. No lacerations, bruising, or external bleeding. SECONDARY SURVEY: HEAD: Normocephalic and atraumatic. No gross palpable skull deformities. EYES: Pupils 3 to 2, equal, round, and reactive to light bilaterally. ENT: No signs of trauma. C-SPINE: No step-offs or deformity, nontender, C-collar not in place. CHEST: Nontender. No crepitus. No abrasions or ecchymosis. Equal chest movement. ABDOMEN: Soft, nontender, nondistended. PELVIS: Stable to palpation. Right-sided thigh tenderness. RECTAL: Deferred. GENITOURINARY: Deferred. EXTREMITIES: No gross deformities, right-sided thigh tenderness. No abrasions or ecchymosis noted. 2+ pulses in bilateral radials, femorals, and DPs. BACK/SPINE: No step-offs, deformities, or tenderness to palpation of the thoracic or lumbar spine. No abrasions or ecchymosis noted. NEUROLOGIC: 5/5 strength in bilateral senior search marketing analyst, plantar flexion, dorsiflexion. Gross normal sensation x4 extremities. LABORATORY FINDINGS: White count 11.8, hemoglobin 12.0, hematocrit 36.4, platelets 258. Sodium 134, potassium 4.6, chloride 101, bicarb 26, BUN 26, creatinine 1.02, glucose 126, phosphorus 3.5, magnesium 2.0. Total bilirubin 0.5, AST 21, ALT 22, alkaline phosphatase 27. Troponin 0.088 and subsequently 0.126. DIAGNOSTIC FINDINGS: Chest x-ray demonstrates no acute pulmonary findings, ectasia of thoracic aorta including fissure form, aneurysm of lower thoracic aorta. X-ray of the left hip demonstrates no acute fracture, dislocation, bony demineralization, little changed from prior study. X-ray of the right hip demonstrates a femoral neck fracture with foreshortening and varus deformity. X-ray of the pelvis demonstrates right femoral neck fracture with foreshortening and varus deformity. CTA of the chest demonstrates no evidence of pulmonary artery embolism to the level of the segmental arteries. Arthrosclerosis and mild dilation of the distal thoracic and upper abdominal aorta. Hyperinflation, COPD, and chronic changes. ASSESSMENT: 1. Status post mechanical fall from chair. 2. Right femoral neck fracture. 3. History of atrial fibrillation. 4. Coronary artery disease. 5. Congestive heart failure. 6. Hypertension. 7. Hyperlipidemia. 8. Cerebrovascular accident. 9. Seizures. 10. Gastroesophageal reflux disease. 11. Cataract removal. 12. Aortic aneurysm repair. PLAN: The patient will be admitted to the Trauma Service. She will go to the regular surgical nursing floor. Dr. Henderson to take the patient to the OR tomorrow. She will have a regular diet now. She will then be n.p.o. at midnight. We will restart her home antihypertensive medications. She is to receive normal saline at 75 an hour for a total of 1 L. She is to receive labetalol 10 mg IV x1 p.r.n. for systolic blood pressure greater than 180 with hold parameters for heart rate less than 60. Postoperatively, she will likely need placement at acute rehab facility. This patient was discussed with Dr. Coe before this dictation. Job ID: [id number]
[2020-06-09] MEDS: Acetaminophen 500 MG TAB PO SCH ×4 (04:53→21:07)
[2020-06-09 05:32] LABS: #Eosinphils 0.2 thou/uL (0.0-0.7); #Lymphocytes 0.7 thou/uL (1.20-3.40); #Monocytes 0.5 thou/uL (0.11-0.59); #Neutrophils 8.4 thou/uL (1.40-6.50); %Basophils 0.4 % (0.0-1.0); %Eosinophils 2.2 % (0.0-10.0); %Lymphocytes 6.8 % (21.0-51.0); %Neutrophils 85.6 % (42.0-75.0); Mean Corpuscular HGB CONC 33.8 g/dL (32.0-36.0); Mean Corpuscular Hemoglobin 31.9 pg (27.0-31.0); Mean Corpuscular Volume 94.2 fL (78.0-98.0); Mean Platelet Volume 8.1 fL (7.4-10.4); Platelet Count 192 thou/uL (130-400); RBC Distribution Width 11.9 % (11.5-14.5); Red Blood Cell (RBC) Count 3.12 mill/uL (4.20-5.40); White Blood Cell (WBC) Count 9.8 thou/uL (4.8-10.8)
[2020-06-09 05:52] LABS: Anion Gap 12 mmol/L (10-20); BUN (Urea Nitrogen) 18 mg/dL (9.8-20.1); Calc. Creatinine Clearance 52 mL/min (70-130); Calcium 8.3 mg/dL (7.8-10.44); Carbon Dioxide 21 mmol/L (23-31); Chloride 101 mmol/L (98-107); Estimated GFR-MDRD 72; Glucose 109 mg/dL (83-110); Magnesium 1.7 mg/dL (1.6-2.6); Phosphorus 3.9 mg/dL (2.3-4.7); Potassium 4.1 mmol/L (3.5-5.1); Sodium 130 mmol/L (136-145); Troponin I 0.082 ng/mL (< 0.028)
[2020-06-09] MEDS: Polyethylene Glycol 3350 17 GM Packet PO SCH (07:46)
[2020-06-09] MEDS ORDERED: Neomycin-Polymyxin 1 ML AMP ONE (07:53)
[2020-06-09] MEDS: levETIRAcetam in NS 1,000 MG in Premix Bag 1 BAG IVPB SCH (08:07)
[2020-06-09] MEDS: Famotidine/PF 20 mg/2ml Vial SLOW IVP SCH ×2 (08:07→20:05)
[2020-06-09] MEDS: carBAMazepine 100 mg Chewable Tablet PO SCH ×2 (08:08→20:05)
[2020-06-09] MEDS ORDERED: PHOS-NAK 1 PKT PACK PO SCH (08:15)
[2020-06-09] MEDS ORDERED: Magnesium 2 GM/50 ML 2 GM in Premix Bag 1 BAG IVPB SCH (08:15)
--- NOTE | 2020-06-09 09:34 | PRG ---
DATE OF SERVICE: 06/09/2020 SUBJECTIVE: The patient was seen and examined. History of right femoral neck fracture. Plans are for open reduction and internal fixation, right femoral neck today by Dr. Hendesron. Trauma will continue to follow. Job ID: [id number]
[2020-06-09] MEDS: levETIRAcetam 500 MG TAB PO SCH ×2 (09:38→20:05)
[2020-06-09] MEDS ORDERED: Lidocaine 1% PF 5 ML VIAL ONE (09:46)
[2020-06-09] MEDS ORDERED: PROPOFOL 200 MG/20 ML VIAL ONE (09:46)
[2020-06-09] MEDS ORDERED: Ondansetron PF 4 MG/2 ML Vial ONE (09:46)
[2020-06-09] MEDS ORDERED: Rocuronium Bromide 10 MG/ML (10ML VIAL) ONE (09:46)
[2020-06-09] MEDS ORDERED: Glycopyrrolate 0.2 MG/ML 5 ML SYRINGE ONE (09:46)
[2020-06-09] MEDS ORDERED: PHENYLEPHRINE-NS 100 MCG/ML 10 ML SYRINGE ONE (09:46)
[2020-06-09] MEDS: hydrALAZINE 25 MG TAB PO SCH ×3 (10:16→20:05)
[2020-06-09] MEDS: Senokot S 8.6-50 MG TAB PO SCH ×2 (10:16→20:04)
[2020-06-09] MEDS: Lactulose 10 GM/15 ML Oral Solution PO SCH ×2 (10:16→14:35)
[2020-06-09] MEDS: Losartan 25 MG TAB PO SCH ×3 (10:37→15:21)
[2020-06-09] MEDS: Spironolactone 25 MG TAB PO SCH ×3 (10:37→15:22)
[2020-06-09] MEDS ORDERED: Famotidine/PF 20 mg/2ml Vial ONE (10:42)
[2020-06-09] MEDS ORDERED: Phenylephrine 10 MG/ML VIAL ONE (10:43)
[2020-06-09] MEDS ORDERED: Fentanyl 100 MCG/2 ML VIAL ONE (11:40)
[2020-06-09] MEDS ORDERED: Promethazine HCl 25 MG/ML VIAL SLOW IVP PRN (12:32)
[2020-06-09] MEDS ORDERED: Promethazine HCl 25 MG/ML VIAL IM PRN (12:32)
[2020-06-09] MEDS ORDERED: PACU-Morphine 4MG/ML VIAL SLOW IVP PRN (12:32)
[2020-06-09] MEDS ORDERED: Fentanyl 100 MCG/2 ML VIAL SLOW IVP PRN (12:46)
[2020-06-09] MEDS ORDERED: HYDROcodone/Acetaminophen 10/325 mg Tablet PO PRN (12:46)
--- NOTE | 2020-06-09 13:08 | OP ---
DATE OF PROCEDURE: 06/09/2020 PREOPERATIVE DIAGNOSIS: Displaced femoral neck fracture of the right hip. POSTOPERATIVE DIAGNOSIS: Displaced femoral neck fracture of the right hip. PROCEDURE: Proximal femoral replacement utilizing bipolar prosthesis of the right hip. ANESTHESIA: General. TECHNIQUE: The patient was given preoperative IV antibiotics, taken to operating room, and placed in supine position. Satisfactory general anesthesia was performed. The patient was placed in the left lateral decubitus position. All bony prominences were well padded. The right hip and lower extremity were sterilely prepped and draped in usual fashion. A longitudinal incision was made centered over the greater trochanter, approximately 5 inches in length. An anterolateral approach was made to the hip joint. Anterior capsule was excised. The fracture of the femoral neck was identified. A saw was used to cut a portion of the femoral neck. The head was removed and was measured as a size 45 mm in diameter. The bony fragments were removed from the acetabulum. Acetabulum was copiously irrigated with antibiotic solution using the high-speed aviation survival technician. The proximal femur was then prepared initially with a box osteotome with a hand Charnley reamer, and then it was sequentially rasped up to a size 5, which provided excellent fit in the proximal femur. Trials were inserted, and the neutral neck with a 28 mm head and 45 mm bipolar provided excellent range of motion and stability and restored leg length. The trials were removed. The hip joint again was copiously irrigated, and the DonJoy size 5, porous, standard offset femoral stem was inserted into the proximal femur again with excellent fit. The neutral neck, 28 mm femoral head with the 45 mm bipolar was attached, reduced, and again was found to be very stable with good range of motion. The hip joint again was copiously irrigated and then closed using #2 Vicryl for the anterior abductor muscles, #2 Vicryl for the iliotibial band, 0 Vicryl for the fat and subcutaneous tissue, and skin was closed with skin zahida. Sterile dressing was applied. The patient was awakened, extubated, and transferred to recovery room in stable condition. ESTIMATED BLOOD LOSS: 100 mL. COMPLICATIONS: None. Job ID: [id number]
--- NOTE | 2020-06-09 13:25 | RAD ---
Right hip 2 views HISTORY: Hip fracture. FINDINGS: Metallic prosthesis in place. No apparent hardware lucency. Soft tissue gas and skin zahida evident. IMPRESSION : Right hip prosthesis in good radiographic position.
--- NOTE | 2020-06-09 16:54 | PRG ---
DATE OF SERVICE: 06/09/2020 SUBJECTIVE: The patient was seen this afternoon during rounds. She is postoperative after fixation of her right femoral neck fracture. The patient was sleeping on her left side with no signs of acute distress. She was easily arousable and reported pain was controlled. She was not very talkative, and soon after went back to sleep. OBJECTIVE: VITAL SIGNS: Temperature 98.2, pulse 74, respirations 14, oxygen saturation 92% on 2 L nasal cannula, and blood pressure 167/59. GENERAL: Well-appearing elderly female, lying on her left side, sleeping with no signs of acute distress. PULMONARY: Equal chest rise and fall. No signs of acute respiratory distress. Clear breath sounds bilaterally. CARDIAC: Regular rate and rhythm. GI: Abdomen is soft, nontender, and nondistended. EXTREMITIES: 2+ pulses in all extremities. Gross motor and sensation intact. No significant swelling noted. NEUROLOGIC: GCS is 14, -1 for confusion. LABORATORY FINDINGS: White count 9.8, hemoglobin 10.0, hematocrit 29.4, and platelets 192. Sodium 130, potassium 4.1, chloride 101, bicarb 21, BUN 18, and creatinine 0.77. Phosphorus 3.9. Magnesium 1.7. DIAGNOSTIC FINDINGS: There are no new diagnostic findings to report. ASSESSMENT: 1. Status post fall from bed. 2. Right femoral neck fracture, status post repair. 3. Troponinemia, resolving. 4. History of dementia. 5. Seizures. 6. Atrial fibrillation. 7. Coronary artery disease. 8. Congestive heart failure. 9. Hypertension. 10. Hyperlipidemia. 11. Cerebrovascular accident. 12. Gastroesophageal reflux disease. 13. Aortic repair. PLAN: Continue diabetic diet, 1 L free-water restrictions for acute hyponatremia. Continue home medications as previously ordered. Discontinue Shanks tomorrow. Dr. Henderson has started aspirin 81 mg b.i.d. for DVT prophylaxis. Replace magnesium and phosphorus today. The patient to be re-evaluated by Physical Therapy. She lives in a usp and is a wheelchair bound. She will likely be discharged back to her facility. Job ID: [id number]
[2020-06-09] MEDS ORDERED: FLU VACC QS2020-21(65YR UP)/PF 240 MCG/0.7 ML SYRINGE IM ONE (17:00)
[2020-06-09] MEDS: CEFAZOLIN 2 GM in Premix Bag 1 BAG IVPB SCH (18:07)
[2020-06-09] MEDS: Amlodipine 10 MG TAB PO SCH (20:04)
[2020-06-09] MEDS: traZODone HCl 50 MG TAB PO SCH (20:05)
[2020-06-09] MEDS: Aspirin 81 mg Enteric Coated Tablet PO SCH (20:05)
[2020-06-09] MEDS: Mirtazapine 15 MG TAB PO SCH (20:07)
[2020-06-09] MEDS ORDERED: Calcium Carbonate 500 MG ChewTAB PO PRN (23:33)
--- NOTE | 2020-06-09 23:37 | PRG ---
DATE OF SERVICE: 06/09/2020 SUBJECTIVE: The patient remains on the surgical floor. Currently, sleeping in no distress. The patient is postop day zero, status post proximal femoral replacement utilizing bipolar prosthesis of the right hip. The patient's pain has been controlled per night nurse. OBJECTIVE: VITAL SIGNS: Stable and afebrile. Urinary output is adequate for age and weight. PLAN: Continue supportive care and pain regimen. Continue 1 L free water restriction for acute hyponatremia. We will discontinue the patient's Shanks catheter in the morning. Aspirin for DVT prophylaxis. Job ID: [id number]
[2020-06-10] MEDS: CEFAZOLIN 2 GM in Premix Bag 1 BAG IVPB SCH (03:14)
[2020-06-10] MEDS: Acetaminophen 500 MG TAB PO SCH ×4 (03:19→21:20)
[2020-06-10 05:27] LABS: #Basophils 0.1 thou/uL (0.0-0.2); #Eosinphils 0.5 thou/uL (0.0-0.7); #Lymphocytes 1.2 thou/uL (1.20-3.40); #Monocytes 0.6 thou/uL (0.11-0.59); %Basophils 1.3 % (0.0-1.0); %Eosinophils 9.5 % (0.0-10.0); %Lymphocytes 21.8 % (21.0-51.0); %Monocytes 11.2 % (0.0-10.0); %Neutrophils 56.3 % (42.0-75.0); Hemoglobin 8.3 g/dL (12.0-16.0); Mean Corpuscular HGB CONC 32.8 g/dL (32.0-36.0); Mean Corpuscular Hemoglobin 31.3 pg (27.0-31.0); Mean Corpuscular Volume 95.2 fL (78.0-98.0); Mean Platelet Volume 7.9 fL (7.4-10.4); Platelet Count 193 thou/uL (130-400); RBC Distribution Width 11.8 % (11.5-14.5); Red Blood Cell (RBC) Count 2.65 mill/uL (4.20-5.40); White Blood Cell (WBC) Count 5.4 thou/uL (4.8-10.8)
[2020-06-10 05:48] LABS: Anion Gap 11 mmol/L (10-20); BUN (Urea Nitrogen) 18 mg/dL (9.8-20.1); Calc. Creatinine Clearance 38 mL/min (70-130); Calcium 8.2 mg/dL (7.8-10.44); Carbon Dioxide 24 mmol/L (23-31); Chloride 101 mmol/L (98-107); Estimated GFR-MDRD 50; Glucose 110 mg/dL (83-110); Phosphorus 3.9 mg/dL (2.3-4.7); Potassium 4.1 mmol/L (3.5-5.1); Sodium 132 mmol/L (136-145)
[2020-06-10] MEDS: Polyethylene Glycol 3350 17 GM Packet PO SCH (08:09)
[2020-06-10] MEDS: Famotidine/PF 20 mg/2ml Vial SLOW IVP SCH ×2 (08:09→21:33)
[2020-06-10 10:16] LABS: Bilirubin Negative (Negative); Blood, Urine 1+ (Negative); Clarity Clear (Clear); Glucose, Urine (Dipstick) Normal (Negative); Ketone, Urine Trace mg/dL (Negative); Leukocyte 500 Leu/uL (Negative); Nitrite Negative (Negative); Protein, Urine (Dipstick) 20 mg/dL (Neg-Trace); Specific Gravity, Urine 1.032 (1.002-1.036); Squamous Epithelial None Seen HPF (0-3); Urobilinogen Normal mg/dL (Less than 2); WBC/HPF 21-50 HPF (0-3)
[2020-06-10] MEDS: carBAMazepine 100 mg Chewable Tablet PO SCH ×2 (10:47→21:19)
[2020-06-10 10:48] LABS: Bacteria/HPF 1+ HPF (None Seen)
[2020-06-10] MEDS: levETIRAcetam 500 MG TAB PO SCH ×2 (10:48→21:18)
[2020-06-10 10:49] LABS: Urine Culture Reflex Yes Yes
[2020-06-10] MEDS: hydrALAZINE 25 MG TAB PO SCH ×3 (10:49→21:19)
[2020-06-10] MEDS: Aspirin 81 mg Enteric Coated Tablet PO SCH ×2 (10:49→21:19)
[2020-06-10] MEDS: Spironolactone 25 MG TAB PO SCH (10:51)
[2020-06-10] MEDS: Senokot S 8.6-50 MG TAB PO SCH ×2 (10:52→21:20)
[2020-06-10] MEDS: Losartan 25 MG TAB PO SCH (10:54)
--- NOTE | 2020-06-10 15:14 | PRG ---
DATE OF SERVICE: 06/10/2020 SUBJECTIVE: This patient was seen this morning during lunch time, she was sitting up in bed with no signs of acute distress. Her lunch was at her bedside. I did ask her if she would like the eat and place the food in front of her, at which time, she started to eat without any difficulties. Pain is controlled, tolerating diet, voiding without difficulties. OBJECTIVE: VITAL SIGNS: Temperature 98.1, pulse 76, respirations 20, oxygen saturation 100% on 2 L nasal cannula, blood pressure 135/94. GENERAL: Well-appearing elderly female, sitting up in bed having lunch with no signs of acute distress. PULMONARY: Equal chest rise and fall. Clear breath sounds bilaterally. No signs of acute respiratory distress. CARDIAC: Regular rate and rhythm. GI: Abdomen is soft, nontender, nondistended. EXTREMITIES: 2+ pulse in all extremities. Gross motor and sensation intact. No significant swelling noted. NEURO: GCS is 15. LABORATORY FINDINGS: White count 5.4, hemoglobin 8.3, hematocrit 25.2, platelets 193. Sodium 132, potassium 4.1, chloride 101, bicarb 24, BUN 18, creatinine 1.06, glucose 110, phosphorus 3.9, magnesium 2.0. DIAGNOSTIC FINDINGS: There are no new diagnostic findings to report. ASSESSMENT: 1. Status post fall from bed. 2. Right femoral neck fracture, status post repair. 3. Troponinemia, resolved. 4. Urinary tract infection, present before admission. 5. History of dementia, seizures, atrial fibrillation, coronary artery disease, congestive heart failure, hypertension, hyperlipidemia, cerebrovascular accident, gastroesophageal reflux disease, aortic repair. PLAN: Continue current diet and pain regimen. Continue 1 L of free water restriction. Continue home medications. Restart the patient's Macrobid x5 days. She was on this for her urinary tract infection before arrival. Continue physical and occupational therapy. The patient will be sent back to her intermediate, likely tomorrow to a skilled bed. Job ID: [id number]
--- NOTE | 2020-06-10 18:52 | PRG ---
DATE OF SERVICE: 06/10/2020 SUBJECTIVE: The patient remains somewhat confused, but no real change in her mentation. OBJECTIVE: VITAL SIGNS: The patient is afebrile, pulse 75, respiratory rate 20, blood pressure 142/51, and O2 saturation 100% on 2 L per nasal cannula. LABORATORY DATA: White count is 5.4, hemoglobin 8.3, and hematocrit 25.2. PLAN: The patient will continue to be encouraged to increase her activities, get out of bed and ambulate with Therapy. Her mentation makes that difficult for her to safely perform that. Plan at discharge for her to go back to her alf. Job ID: [id number]
[2020-06-10] MEDS ORDERED: Sodium Chloride 0.9% 1,000 ML IV SCH (21:00)
[2020-06-10] MEDS: Mirtazapine 15 MG TAB PO SCH (21:18)
[2020-06-10] MEDS: traZODone HCl 50 MG TAB PO SCH (21:19)
[2020-06-10] MEDS: Nitrofurantoin Monohyd/M-Cryst 100 MG CAP PO SCH (21:19)
[2020-06-10] MEDS: Amlodipine 10 MG TAB PO SCH (21:20)
--- NOTE | 2020-06-11 02:20 | PRG ---
DATE OF SERVICE: 06/10/2020 SUBJECTIVE: The patient was seen during evening rounds, awake, alert, sitting up in bed. The patient denies pain at this time. The patient is pleasantly confused. The patient is due to void. Her last bladder scan was 200. Later on, in the evening, the patient's bladder scan was 450. The patient was I and O cath x1. The patient has had minimal intake. Normal saline. Maintenance fluids were started at 50 an hour. The patient only received approximately 150 mL when she pulled her IV out. OBJECTIVE: VITAL SIGNS: Stable and she remains afebrile. PLAN: Encourage fluid intake. Continue supportive care and pain regimen. Continue 1 L free water restriction for hyponatremia. Continue Macrobid for UTI. Job ID: [id number]
[2020-06-11] MEDS: Acetaminophen 500 MG TAB PO SCH ×4 (04:17→21:39)
[2020-06-11 05:56] LABS: Anion Gap 12 mmol/L (10-20); BUN (Urea Nitrogen) 24 mg/dL (9.8-20.1); Calc. Creatinine Clearance 40 mL/min (70-130); Calcium 8.2 mg/dL (7.8-10.44); Carbon Dioxide 22 mmol/L (23-31); Chloride 101 mmol/L (98-107); Estimated GFR-MDRD 53; Glucose 117 mg/dL (83-110); Phosphorus 3.3 mg/dL (2.3-4.7); Potassium 4.3 mmol/L (3.5-5.1); Sodium 131 mmol/L (136-145)
[2020-06-11] MEDS: Polyethylene Glycol 3350 17 GM Packet PO SCH (08:12)
[2020-06-11] MEDS: Nitrofurantoin Monohyd/M-Cryst 100 MG CAP PO SCH ×2 (08:13→21:40)
[2020-06-11] MEDS: hydrALAZINE 25 MG TAB PO SCH ×3 (08:14→21:40)
[2020-06-11] MEDS: Losartan 25 MG TAB PO SCH (08:14)
[2020-06-11] MEDS: Spironolactone 25 MG TAB PO SCH (08:14)
[2020-06-11] MEDS: carBAMazepine 100 mg Chewable Tablet PO SCH ×2 (08:14→21:40)
[2020-06-11] MEDS: Senokot S 8.6-50 MG TAB PO SCH ×2 (08:15→21:40)
[2020-06-11] MEDS: Aspirin 81 mg Enteric Coated Tablet PO SCH ×2 (08:15→21:41)
[2020-06-11] MEDS: Famotidine 20 MG TAB PO SCH (08:15)
[2020-06-11] MEDS: levETIRAcetam 500 MG TAB PO SCH ×2 (08:20→21:39)
--- NOTE | 2020-06-11 15:23 | PRG ---
DATE OF SERVICE: 06/11/2020 SUBJECTIVE: The patient was seen this morning. She was sitting up in bed, having breakfast with no signs of acute distress. She reported her pain is well controlled. She is tolerating her diet. She is working with Physical and Occupational Therapy. The patient with low urinary output, but normal renal function and encouraged to increase fluid intake. Also, we did tell the nurse to make sure that she has fluids at her bedside for her to drink at her leisure. OBJECTIVE: VITAL SIGNS: Temperature 98.6, pulse 74, respirations 15, oxygen saturation 91% on room air, and blood pressure 144/50. GENERAL: Well-appearing elderly female, sitting up in bed, having breakfast with no signs of acute distress. PULMONARY: Equal chest rise and fall. Clear breath sounds bilaterally. No signs of acute respiratory distress. CARDIAC: Regular rate and rhythm. GI: Abdomen is soft, nontender, nondistended. EXTREMITIES: 2+ pulses in all extremities. Gross motor and sensation intact. No significant swelling noted. NEURO: GCS is 15. LABORATORY FINDINGS: Sodium 131, potassium 4.3, chloride 101, bicarb 22, BUN 24, creatinine 1.01, and glucose 117. DIAGNOSTIC FINDINGS: There are no new diagnostic findings to report. ASSESSMENT: 1. Status post fall from bed. 2. Right femoral neck fracture, status post repair. 3. Urinary tract infection, uncomplicated. 4. Troponinemia, resolved. 5. History of dementia, seizures, atrial fibrillation, CAD, congestive heart failure, hypertension, hyperlipidemia, CVA, gastroesophageal reflux disease, and aortic aneurysm repair. PLAN: Continue current diet and pain regimen. Continue physical and occupational therapy. Follow up urine cultures. Continue Macrobid for urinary tract infections. Encourage fluid intake. The patient is ready for discharge at this time. She is pending placement at a group home. She is ready for discharge at this time. Job ID: [id number]
[2020-06-11] MEDS: Amlodipine 10 MG TAB PO SCH (21:36)
[2020-06-11] MEDS: Mirtazapine 15 MG TAB PO SCH (21:41)
[2020-06-11] MEDS: traZODone HCl 50 MG TAB PO SCH (21:41)
[2020-06-12] MEDS: Acetaminophen 500 MG TAB PO SCH ×5 (03:44→21:03)
[2020-06-12] MEDS: cloNIDine 0.1 MG TAB PO PRN ×2 (03:59→23:46)
[2020-06-12 05:40] LABS: Hemoglobin 7.6 g/dL (12.0-16.0); Mean Corpuscular Hemoglobin 31.2 pg (27.0-31.0); Mean Corpuscular Volume 97.5 fL (78.0-98.0); Mean Platelet Volume 7.4 fL (7.4-10.4); Platelet Count 233 thou/uL (130-400); RBC Distribution Width 12.1 % (11.5-14.5); Red Blood Cell (RBC) Count 2.44 mill/uL (4.20-5.40); White Blood Cell (WBC) Count 6.3 thou/uL (4.8-10.8)
[2020-06-12 05:49] LABS: Anion Gap 11 mmol/L (10-20); BUN (Urea Nitrogen) 22 mg/dL (9.8-20.1); Calc. Creatinine Clearance 49 mL/min (70-130); Calcium 8.3 mg/dL (7.8-10.44); Carbon Dioxide 26 mmol/L (23-31); Chloride 103 mmol/L (98-107); Estimated GFR-MDRD 66; Glucose 104 mg/dL (83-110); Phosphorus 3.1 mg/dL (2.3-4.7); Potassium 4.9 mmol/L (3.5-5.1); Sodium 135 mmol/L (136-145)
[2020-06-12 05:50] LABS: Eosinophils 5 % (0-10); Lymphocytes 27 % (21-51); MDiff Complete? YES; Monocytes 7 % (0-10); Neutrophil 61 % (42-75)
[2020-06-12] MEDS ORDERED: Ferrous Sulfate 325 MG TAB PO SCH (08:00)
[2020-06-12] MEDS: Ferrous Sulfate 325 MG TAB PO SCH ×2 (09:00→21:04)
[2020-06-12] MEDS: Polyethylene Glycol 3350 17 GM Packet PO SCH (09:00)
[2020-06-12] MEDS: Senokot S 8.6-50 MG TAB PO SCH ×2 (09:00→21:05)
[2020-06-12] MEDS: Aspirin 81 mg Enteric Coated Tablet PO SCH ×2 (09:01→21:04)
[2020-06-12] MEDS: levETIRAcetam 500 MG TAB PO SCH ×2 (09:01→21:06)
[2020-06-12] MEDS: Famotidine 20 MG TAB PO SCH (09:01)
[2020-06-12] MEDS: Ascorbic Acid 500 mg Chewable Tablet PO SCH ×2 (09:02→21:05)
[2020-06-12] MEDS: Spironolactone 25 MG TAB PO SCH (09:02)
[2020-06-12] MEDS: carBAMazepine 100 mg Chewable Tablet PO SCH ×2 (09:02→21:05)
--- NOTE | 2020-06-12 13:02 | PRG ---
DATE OF SERVICE: 06/12/2020 SUBJECTIVE: The patient is resting comfortably in bed. She reports that she is doing well and is not having any pain. She is tolerating p.o. intake. The patient continues to have low urinary output, but normal kidney function. The patient did have a bladder scan yesterday that showed 405 mL. An in and out catheterization was performed. 375 mL was emptied from the patient's bladder. We will continue to monitor the patient's output and encourage her to continue p.o. intake. OBJECTIVE: VITAL SIGNS: Temperature 98, pulse 73, respirations 12, O2 saturation 96% on 2 L nasal cannula, blood pressure 133/47. GENERAL: Well-appearing elderly female, resting comfortably in bed. No signs of acute distress. RESPIRATORY: Clear to auscultation bilaterally. CARDIAC: Regular rate and rhythm, 4/6 systolic murmur. EXTREMITIES: Moves all extremities. LABORATORY FINDINGS: White blood cell 6.3, hemoglobin 7.6, hematocrit 23.8, platelet count 233. Sodium 135, potassium 4.9, chloride 103, bicarb 26, BUN 22, creatinine 0.83, glucose 104, calcium 8.3, phosphorus 3.1, magnesium 2.0. DIAGNOSTIC DATA: No new diagnostic data to report. ASSESSMENT: 1. Status post fall from bed. 2. Right femoral neck fracture, status post repair. 3. Urinary tract infection, resolved. 4. Troponinemia, resolved. 5. History of dementia, seizures, atrial fibrillation, CAD, CHF, hypertension, hyperlipidemia, CVA, GERD, aortic aneurysm repair. PLAN: Continue the patient's current pain regimen and current diet. Encourage her to continue working with physical and occupational therapy. The patient's blood cultures were no growth to date at 48 hours and we will discontinue her Macrobid at this time. We will continue to monitor the patient's urinary output and encourage fluid intake. The patient is medically ready for discharge. We are just waiting on the family to make a decision on where they would like for her to go. Plan was discussed with attending physician, Dr. Coe. Job ID: [id number]
[2020-06-12] MEDS: hydrALAZINE 25 MG TAB PO SCH ×3 (16:16→21:05)
[2020-06-12] MEDS: Losartan 25 MG TAB PO SCH (16:17)
[2020-06-12] MEDS: Mirtazapine 15 MG TAB PO SCH (21:04)
[2020-06-12] MEDS: Amlodipine 10 MG TAB PO SCH (21:05)
[2020-06-12] MEDS: traZODone HCl 50 MG TAB PO SCH (21:05)
[2020-06-13] MEDS: Acetaminophen 500 MG TAB PO SCH ×4 (03:18→22:55)
[2020-06-13] MEDS: Polyethylene Glycol 3350 17 GM Packet PO SCH (09:23)
[2020-06-13] MEDS: Losartan 25 MG TAB PO SCH (09:23)
[2020-06-13] MEDS: Famotidine 20 MG TAB PO SCH (09:23)
[2020-06-13] MEDS: Ascorbic Acid 500 mg Chewable Tablet PO SCH ×2 (09:24→20:33)
[2020-06-13] MEDS: Ferrous Sulfate 325 MG TAB PO SCH ×2 (09:24→20:34)
[2020-06-13] MEDS: Aspirin 81 mg Enteric Coated Tablet PO SCH ×2 (09:24→20:33)
[2020-06-13] MEDS: carBAMazepine 100 mg Chewable Tablet PO SCH ×2 (09:25→20:33)
[2020-06-13] MEDS: levETIRAcetam 500 MG TAB PO SCH ×2 (09:25→20:33)
[2020-06-13] MEDS: Spironolactone 25 MG TAB PO SCH (09:25)
[2020-06-13] MEDS: hydrALAZINE 25 MG TAB PO SCH ×3 (09:25→20:34)
[2020-06-13] MEDS: Senokot S 8.6-50 MG TAB PO SCH ×2 (09:28→20:34)
--- NOTE | 2020-06-13 11:38 | PRG ---
DATE OF SERVICE: 06/13/2020 SUBJECTIVE: The patient was seen on morning rounds by Dr. Baltazar. She is resting comfortably in bed. She reports that she is doing well this morning. It appeared as if she had just finished breakfast and had eaten about half of her plate. The patient does have dementia and reports that she would like to return home today. However, Case Management has worked with the patient's son who is in agreement that she should go to Living for residential. OBJECTIVE: VITAL SIGNS: Temperature 97.9, pulse 65, respirations 16, O2 saturation 91% on room air, blood pressure 153/44. GENERAL: Well-appearing elderly female, resting comfortably in bed. No signs of acute distress. RESPIRATORY: Clear to auscultation bilaterally. CARDIAC: Regular rate and rhythm, 4/6 systolic murmur. EXTREMITIES: Moves all extremities. NEUROLOGIC: GCS of 14, 1 off for verbal. LABORATORY FINDINGS: No new laboratory findings. DIAGNOSTIC IMAGING: No new diagnostic imaging. ASSESSMENT: 1. Status post fall from bed. 2. Right femoral neck fracture, status post repair. 3. Urinary tract infection, resolved. 4. Troponinemia, resolved. 5. History of dementia, seizures, atrial fibrillation, coronary artery disease, congestive heart failure, HTN, HLD, cerebrovascular accident, gastroesophageal reflux disease, aortic aneurysm repair. PLAN: We will continue the patient's current pain regimen and current diet. She is encouraged to continue working with physical and occupational therapy. Case Management has talked to her son who is in agreement that she would be best going to a skilled setting and son has agreed and chosen [facility] and a referral has been placed. The patient is medically stable for discharge at this time. The patient was seen and evaluated by Dr. Baltazar on morning rounds. Job ID: [id number]
[2020-06-13] MEDS: traZODone HCl 50 MG TAB PO SCH (20:33)
[2020-06-13] MEDS: Amlodipine 10 MG TAB PO SCH (20:33)
[2020-06-13] MEDS: Mirtazapine 15 MG TAB PO SCH (20:34)
[2020-06-14] MEDS: Acetaminophen 500 MG TAB PO SCH ×3 (03:27→15:59)
[2020-06-14] MEDS: cloNIDine 0.1 MG TAB PO PRN (03:27)
[2020-06-14] MEDS: hydrALAZINE 25 MG TAB PO SCH ×2 (08:51→15:59)
[2020-06-14] MEDS: levETIRAcetam 500 MG TAB PO SCH (08:51)
[2020-06-14] MEDS: Aspirin 81 mg Enteric Coated Tablet PO SCH (08:51)
[2020-06-14] MEDS: carBAMazepine 100 mg Chewable Tablet PO SCH (08:52)
[2020-06-14] MEDS: Famotidine 20 MG TAB PO SCH (08:53)
[2020-06-14] MEDS: Ascorbic Acid 500 mg Chewable Tablet PO SCH (08:53)
[2020-06-14] MEDS: Senokot S 8.6-50 MG TAB PO SCH ×2 (08:53→09:19)
[2020-06-14] MEDS: Ferrous Sulfate 325 MG TAB PO SCH (08:53)
[2020-06-14] MEDS: Losartan 25 MG TAB PO SCH (08:54)
[2020-06-14] MEDS: Polyethylene Glycol 3350 17 GM Packet PO SCH ×2 (08:55→09:34)
[2020-06-14] MEDS: Spironolactone 25 MG TAB PO SCH (08:55)
[2020-06-14 08:57] LABS: Hemoglobin 8.3 g/dL (12.0-16.0)
[2020-06-14 16:02] VITALS: BP 125/53; TEMP 98.1
--- NOTE | 2020-06-15 03:02 | DIS ---
DATE OF ADMISSION: 06/08/2020 DATE OF DISCHARGE: 06/14/2020 ADMISSION DIAGNOSES: 1. Status post fall from chair. 2. Right femoral neck fracture. 3. History of atrial fibrillation. 4. Coronary artery disease. 5. Congestive heart failure. 6. Hypertension. 7. Hyperlipidemia. 8. Cerebrovascular accident. 9. Seizures. 10. Gastroesophageal reflux disease. 11. Cataract removal. 12. Abdominal aortic aneurysm repair. CONSULTATIONS: Orthopedics, Dr. Henderson. PROCEDURES: Right hip hemiarthroplasty. SUMMARY: The patient is a 79-year-old woman who was brought to the emergency department by ground EMS after a fall from her bed or possibly a chair as it was unwitnessed. The patient underwent evaluation and examination and was noted to have the above injuries. She was able to be taken to the operating room the following morning where she underwent her procedure which she tolerated well. She would begin working with Physical and Occupational Therapy and await placement. The patient was accepted but the family changed their mind as to the location and the patient was eventually accepted to a facility in [place]. At the time of discharge, the patient was tolerating a diet, her pain was controlled. Her Helio Coma Scale remained 14-1 for some confusion which is her baseline. The patient underwent treatment while she was here for urinary tract infection that had resolved. She continued to work with Physical and Occupational Therapy and was discharged with return instructions to include follow up with Dr. Henderson in 7-10 days, sooner as needed. Job ID: [id number]
--- NOTE | 2020-06-16 13:03 | EKG ---
Test Reason : Blood Pressure : / mmHG Vent. Rate : 074 BPM Atrial Rate : 074 BPM P-R Int : 150 ms QRS Dur : 112 ms QT Int : 406 ms P-R-T Axes : 061 041 088 degrees QTc Int : 450 ms Normal sinus rhythm Septal infarct , age undetermined Abnormal ECG Confirmed by CHARLENE ALCAZAR, DEBI ([id number]), video effects editor FATOUMATA BLACKMON ([id number]) on 06/16/2020 1:02:53 PM Referred By: Confirmed By:DEBI CHANG MD
== END 2020-06-14 18:15 | DRG 521 ==
LOC: ERS 07:52 → SURG B 12:45
PROVIDERS: ADMIT Surgery; ATTEND Surgery
PROC: 0SRR0JZ Replacement of Right Hip Joint, Femoral Surface with Synthetic Substitute, Open Approach (ICD-10-PCS; principal; 2020-06-09)
DX: S72.001A Fracture of unspecified part of neck of right femur, initial encounter for closed fracture (principal); G93.41 Metabolic encephalopathy; E87.1 Hypo-osmolality and hyponatremia; N39.0 Urinary tract infection, site not specified; E78.5 Hyperlipidemia, unspecified; G47.00 Insomnia, unspecified; F41.9 Anxiety disorder, unspecified; F32.9 Major depressive disorder, single episode, unspecified; I25.10 Atherosclerotic heart disease of native coronary artery without angina pectoris; K21.9 Gastro-esophageal reflux disease without esophagitis; I50.9 Heart failure, unspecified; F03.90 Unspecified dementia, unspecified severity, without behavioral disturbance, psychotic disturbance, mood disturbance, and anxiety; I11.0 Hypertensive heart disease with heart failure; G40.909 Epilepsy, unspecified, not intractable, without status epilepticus; I48.91 Unspecified atrial fibrillation; W07.XXXA Fall from chair, initial encounter; Z79.82 Long term (current) use of aspirin; Z99.3 Dependence on wheelchair; Z98.42 Cataract extraction status, left eye; Z98.41 Cataract extraction status, right eye; Z79.899 Other long term (current) drug therapy; Z86.73 Personal history of transient ischemic attack (TIA), and cerebral infarction without residual deficits
CPT/HCPCS: 36415; 71045; 71275; 72170; 80048; 80053; 81001; 82550; 82553; 83690; 83735; 83880; 84100; 84484; 85014; 85018; 85025; 85379; 85610; 85730; 87086; 90471; 90662; 93005; 96374; 96375; 96376; C1776; G0008; J0690; J1953; J2270; J2370; J2405; J2704; J3010; J3475; J7050; S0028

== ENCOUNTER 2020-06-27 16:05 | Inpatient (IN) | payer MEDICARE, BC ==
[2020-06-27 16:35] LABS: #Eosinphils 0.1 thou/uL (0.0-0.7); #Lymphocytes 0.9 thou/uL (1.20-3.40); #Monocytes 0.5 thou/uL (0.11-0.59); #Neutrophils 8.7 thou/uL (1.40-6.50); %Basophils 0.1 % (0.0-1.0); %Eosinophils 0.7 % (0.0-10.0); %Lymphocytes 8.5 % (21.0-51.0); %Monocytes 4.7 % (0.0-10.0); Hemoglobin 10.6 g/dL (12.0-16.0); Mean Corpuscular HGB CONC 33.4 g/dL (32.0-36.0); Mean Corpuscular Hemoglobin 33.7 pg (27.0-31.0); Platelet Count 404 thou/uL (130-400); RBC Distribution Width 15.2 % (11.5-14.5); Red Blood Cell (RBC) Count 3.14 mill/uL (4.20-5.40); White Blood Cell (WBC) Count 10.1 thou/uL (4.8-10.8)
[2020-06-27 17:06] LABS: ALT (SGPT) 17 U/L (8-55); AST (SGOT) 25 U/L (5-34); Albumin 3.5 g/dL (3.4-4.8); Alkaline Phosphatase 88 U/L (40-110); Anion Gap 14 mmol/L (10-20); BUN (Urea Nitrogen) 18 mg/dL (9.8-20.1); Bilirubin, Total 0.2 mg/dL (0.2-1.2); Calc. Creatinine Clearance 0 mL/min (70-130); Calcium 8.9 mg/dL (7.8-10.44); Carbon Dioxide 23 mmol/L (23-31); Chloride 104 mmol/L (98-107); Estimated GFR-MDRD 57; Glucose 133 mg/dL (83-110); Potassium 4.8 mmol/L (3.5-5.1); Protein, Total 7.5 g/dL (6.0-8.3); Sodium 136 mmol/L (136-145)
[2020-06-27] MEDS ORDERED: Fentanyl 100 MCG/2 ML VIAL ONE ×2 (17:13→18:04)
--- NOTE | 2020-06-27 17:37 | CT ---
CT HEAD WITHOUT CONTRAST: 06/27/20 INDICATIONS: Fall with injury to head. COMPARISON: Comparison made to head CT of 05/14/20. There is cortical atrophy with ventriculomegaly which is stable. Moderately severe chronic ischemic w rosibel matter change is again noted with encephalomalacia in the right frontal lobe again noted. There is no acute hemorrhage. No evidence of acute infarct. No interval change. IMPRESSION: Stable chronic changes as described. No evidence of acute hemorrhage. POS: AGW
--- NOTE | 2020-06-27 17:52 | CT ---
CT CERVICAL SPINE: 06/27/20 INDICATIONS: Fall. FINDINGS: Cervical vertebrae show osteopenia. The cervical vertebrae maintain height and alignment. There are d egenerative changes with loss of disc space and mild spondylosis. There is no evidence of acute fract ure. IMPRESSION: 1. Bones show osteopenia and numerous lucent foci seen throughout the vertebral bodies. Entities such as multiple myeloma should be considered. 2. No evidence of acute fracture. POS: AGW
[2020-06-27] MEDS ORDERED: Labetalol HCl 100 MG/20 ML VIAL ONE (18:04)
--- NOTE | 2020-06-27 18:28 | RAD ---
LEFT HIP: 06/27/20 Two views. HISTORY: Fall with injury. There is an acute fracture through the left femoral neck with displacement. The visualized pelvis viri ears intact. IMPRESSION: Acute left femoral neck fracture. POS: AGW
--- NOTE | 2020-06-27 18:38 | RAD ---
PORTABLE CHEST: 06/27/20 HISTORY: Trauma. COMPARISON: 06/08/20. Mild cardiomegaly with postop sternotomy changes appear stable. Vascular engorgement is stable. Blunt ing of the left CP ankle is a stable finding. No evidence of significant interval change. IMPRESSION: Stable chest findings. POS: AGW
[2020-06-27] MEDS ORDERED: cloNIDine 0.1 MG TAB ONE (18:40)
--- NOTE | 2020-06-27 18:40 | RAD ---
AP PELVIS: 06/27/20 HISTORY: Fall. COMPARISON: 06/08/20. There is an acute fracture involving the left femoral neck with mild displacement. Previously noted right femoral neck fracture has been treated with right hip prosthesis which appears in adequate position. IMPRESSION: Acute fracture left femoral neck now noted. POS: AGW
[2020-06-27 19:30] LABS: PTT 27.5 sec (22.9-36.1); Prothrombin Time 13.6 sec (12.0-14.7)
--- NOTE | 2020-06-27 19:45 | HP ---
REQUESTING PHYSICIAN: Dr. Coello. ATTENDING SURGEON: Dr. Burns. CONSULTATIONS: Orthopedics, Dr. Paz. HISTORY OF PRESENT ILLNESS: The patient is an 80-year-old woman who presented from her nursing facility, where she reportedly had a ground level fall witness reports that she slid off her bed landing on her buttocks. She complained of left hip pain and was brought to the emergency department by ground EMS, where she underwent evaluation and examination, was noted to have a left femoral neck fracture, at which time we were asked to evaluate the patient for admission and obtain Orthopedic consultation. There was no reported loss of consciousness. The patient does have a history of significant dementia. ALLERGIES: NONE. CURRENT MEDICATIONS: 1. Amlodipine 10 mg once a day. 2. Baby aspirin 81 mg once a day. 3. Augmentin 875 two times a day. 4. Calcium once a day. 5. Carbamazepine 200 mg twice a day. 6. Clonidine 0.1 mg every 6 hours. 7. Hydralazine 25 mg three times a day. 8. Keppra 1000 mg twice a day. 9. Losartan 100 mg once a day. 10. Mirtazapine 7.5 mg once a day. 11. Spironolactone 25 mg. 12. Trazodone 50 mg once a day. PAST MEDICAL HISTORY: Metabolic encephalopathy, hyperlipidemia, epilepsy, insomnia, chronic pain syndrome, coronary artery disease, congestive heart failure, gastroesophageal reflux disease, anxiety and depression. PAST SURGICAL HISTORY: Coronary artery bypass graft, Right hip surgery SOCIAL HISTORY: The patient lives in a nursing facility. Emergency department did not have the exact name, we will track this down. The patient has no reported history of drug, tobacco, or alcohol use. The emergency department was attempting to reach family also. PHYSICAL EXAMINATION: VITAL SIGNS: Blood pressure 205/55, heart rate 87, respirations 20, oxygen saturation is 100% on 2 L via nasal cannula, and temperature is 98.1. GENERAL: The patient is resting comfortably in bed. Her [place] Coma Scale is E3, V4, M6 for a total of 13 from what we can gather this is her baseline. She had significant confusion. She was able to tell me her name, but everything else was incorrect. HEENT: Head is normocephalic and atraumatic. Eyes, extraocular motion intact. Right eye appears to have had surgery to it. Ears are atraumatic without discharge. Nose is atraumatic without discharge. Oropharynx is clear. NECK: Nontender. Trachea is midline with no JVD. CHEST: Clear to auscultation with moderate inspiratory and expiratory effort. HEART: Regular rate and rhythm. ABDOMEN: Soft and nontender with active bowel sounds. EXTREMITIES: Neurovascularly intact x4. The patient has tenderness to palpation to the left hip. LABORATORY FINDINGS: White blood cell count 10.1, hemoglobin 10.6, hematocrit 31.6, platelets 404. Sodium 136, potassium 4.8, chloride 104, CO2 of 23, BUN 18, creatinine 0.95, and glucose 133. LFTs are unremarkable. COVID test and coags are pending. RADIOGRAPHIC FINDINGS: CT of the brain without contrast shows no evidence of acute hemorrhage. CT of the C-spine without contrast shows no evidence of acute fracture. AP pelvis shows acute fracture of the left femoral neck. Views of the left hip show an acute left femoral neck fracture. AP chest x-ray shows stable chest findings. ASSESSMENT AND PLAN: 1. Status post ground level fall. 2. Left hip fracture. 3. Altered mental status secondary to dementia. 4. History of coronary artery disease, hypertension, hyperlipidemia, epilepsy, gastroesophageal reflux disease, coronary artery disease, congestive heart failure. Plan will be to admit the patient to the surgical floor. We will resume her home blood pressure medications. Do pain control, pulmonary toilet, gastritis and mechanical VTE prophylaxis. She will be made n.p.o. after midnight. Per the ER, they spoke with Dr. Paz and the plan will be to undergo operative intervention. We have asked that the family be contacted, her home medicines be reconciled, verify reports of [id number] DNR and surgical history. The evaluation, examination, laboratory, and radiographic findings will be discussed with Dr. Burns after this dictation. Job ID: [id number] [facility]
[2020-06-27] MEDS ORDERED: Morphine 2 MG/ML VIAL SLOW IVP PRN (20:06)
[2020-06-27] MEDS ORDERED: Dextrose 5% in Water 1,000 ML IV PRN (20:06)
[2020-06-27] MEDS ORDERED: Insulin Regular 300 UNITS/3 ML VIAL SC PRN (20:06)
[2020-06-27] MEDS ORDERED: Ondansetron ODT 4 MG TAB PO PRN (20:06)
[2020-06-27] MEDS ORDERED: Ondansetron PF 4 MG/2 ML Vial IVP PRN (20:06)
[2020-06-27] MEDS ORDERED: traMADol HCl 50 MG TAB PO PRN (20:06)
[2020-06-27] MEDS ORDERED: Dextrose 50% Abboject 50 ML SYRINGE SLOW IVP PRN (20:06)
--- NOTE | 2020-06-27 20:55 | CON ---
DATE OF CONSULTATION: REQUESTING PHYSICIAN: Dr. Coello. CHIEF COMPLAINT: Left hip pain. HISTORY OF PRESENT ILLNESS: Tianna is an 80-year-old female who fell at her long term this evening. She landed on her left side. She had left hip pain. She was taken to the emergency department by EMS. Orthopedics was consulted given her left femoral neck fracture. The patient denies hitting her head. She does have dementia. ALLERGIES: NONE. MEDICATIONS: Full medication list available on the chart. It does include aspirin and Plavix reportedly. PAST MEDICAL HISTORY: Of dementia, metabolic encephalopathy, hyperlipidemia, epilepsy, insomnia, chronic pain, coronary artery disease, congestive heart failure, GERD, anxiety, and depression. PAST SURGICAL HISTORY: Of coronary artery bypass. SOCIAL HISTORY: The patient lives in a nursing facility. She denies using a walker or any assistive device. She denies using tobacco, alcohol, or drug use. FAMILY MEDICAL HISTORY: Noncontributory. REVIEW OF SYSTEMS: Positive for left hip pain and left foot pain. Otherwise, negative 10-point review of systems. IMAGES: X-rays of the pelvis and left hip demonstrate a left femoral neck fracture with shortening and displacement. PHYSICAL EXAMINATION: VITAL SIGNS: Temperature is 98.1, pulse is 81, respiratory rate is 18, oxygen saturation 95%, blood pressure is 210/46. HEENT: Normocephalic and atraumatic. RESPIRATORY: Breathing comfortably. CARDIOVASCULAR: Pulses palpable and regular peripherally. ABDOMEN: Soft, nontender, nondistended. MUSCULOSKELETAL: The patient is very thin female, resting comfortably. She has pain with hip motion and pain with log rolling. She is able to flex and extend the foot and ankle distally. She has mild ecchymosis about the hip. Upper extremities are atraumatic. The left leg is shortened and externally rotated. IMPRESSION: Left femoral neck fracture in an elderly female. PLAN: At this point, the patient will be kept comfortable with pain medication as needed. She will have DVT prophylaxis. She will be n.p.o. at midnight tonight. We will plan for operative intervention tomorrow. She will need a hemiarthroplasty of the hip to restore the ability to mobilize and prevent complications of prolonged bedrest. She is at elevated risk for surgery given her age and comorbidities. Risks to include infection, pain, nerve or vascular injury, DVT, instability of the hip, and others. She wants to proceed. We will attempt to contact her family. Job ID: [id number]
[2020-06-27] MEDS: Acetaminophen 325 MG TAB PO SCH (21:11)
[2020-06-27] MEDS: Famotidine 20 MG TAB PO SCH (21:11)
[2020-06-27] MEDS: Ketorolac Tromethamine 30 MG/ML VIAL IVP SCH (21:11)
[2020-06-27] MEDS ORDERED: hydrALAZINE 20 MG/ML VIAL SLOW IVP PRN (22:55)
[2020-06-27] MEDS ORDERED: cloNIDine 0.1 MG TAB PO PRN (22:56)
[2020-06-27] MEDS ORDERED: Amlodipine 10 MG TAB PO SCH (23:00)
[2020-06-27] MEDS ORDERED: Calcium Carbonate 500 MG ChewTAB PO PRN (23:06)
[2020-06-27] MEDS: Sodium Chloride 0.9% 1,000 ML IV SCH (23:34)
--- NOTE | 2020-06-28 00:35 | PRG ---
DATE OF SERVICE: 06/27/2020 SUBJECTIVE: This is an 80-year-old female with multiple medical comorbidities, status post fall resulting in a left hip fracture. She was admitted from the ER earlier today. Upon my evaluation this evening, nursing staff reports systolic blood pressure greater than 200. OBJECTIVE: VITAL SIGNS: Reviewed and as documented in the electronic medical record. Blood pressure 210/46. GENERAL: Elderly female, resting in bed, in no acute distress. PULMONARY: Normal work of breathing. Symmetric rise. CARDIOVASCULAR: Regular rate and rhythm. ASSESSMENT: As documented in the electronic medical record, history and physical dated 06/27/2020. The patient has been started on p.r.n. antihypertensives. Her home medications have been reconciled per nursing staff. We will resume her home antihypertensive first dose now. Re-evaluation after intervention of patient's blood pressure demonstrate improvement with BP of 160/51, heart rate 75. Job ID: [id number]
[2020-06-28 02:24] VITALS: BMI 24.3
[2020-06-28] MEDS: Ketorolac Tromethamine 30 MG/ML VIAL IVP SCH ×3 (03:29→15:37)
[2020-06-28] MEDS: Acetaminophen 325 MG TAB PO SCH ×4 (03:29→21:20)
[2020-06-28 04:19] LABS: Bacteria/HPF None Seen HPF (None Seen); Bilirubin Negative (Negative); Blood, Urine Negative (Negative); Clarity Clear (Clear); Glucose, Urine (Dipstick) Normal (Negative); Ketone, Urine Negative (Negative); Leukocyte Negative Leu/uL (Negative); Nitrite Negative (Negative); Protein, Urine (Dipstick) 50 mg/dL (Neg-Trace); RBC/HPF 0-3 HPF (0-3); Squamous Epithelial 0-3 HPF (0-3); Urobilinogen Normal mg/dL (Less than 2); pH, Urine 5.5 (5.0-9.0)
[2020-06-28 04:23] LABS: Urine Culture Reflex Yes Yes
[2020-06-28 06:12] LABS: #Eosinphils 0.5 thou/uL (0.0-0.7); #Lymphocytes 0.8 thou/uL (1.20-3.40); #Monocytes 0.6 thou/uL (0.11-0.59); #Neutrophils 6.3 thou/uL (1.40-6.50); %Basophils 0.5 % (0.0-1.0); %Eosinophils 5.7 % (0.0-10.0); %Lymphocytes 9.3 % (21.0-51.0); %Monocytes 6.9 % (0.0-10.0); %Neutrophils 77.6 % (42.0-75.0); Hemoglobin 9.2 g/dL (12.0-16.0); Mean Corpuscular HGB CONC 32.6 g/dL (32.0-36.0); Mean Corpuscular Hemoglobin 32.7 pg (27.0-31.0); Mean Platelet Volume 8.2 fL (7.4-10.4); Platelet Count 308 thou/uL (130-400); Red Blood Cell (RBC) Count 2.83 mill/uL (4.20-5.40); White Blood Cell (WBC) Count 8.1 thou/uL (4.8-10.8)
[2020-06-28 06:24] LABS: Anion Gap 11 mmol/L (10-20); BUN (Urea Nitrogen) 18 mg/dL (9.8-20.1); Calc. Creatinine Clearance 61 mL/min (70-130); Calcium 8.6 mg/dL (7.8-10.44); Carbon Dioxide 23 mmol/L (23-31); Chloride 106 mmol/L (98-107); Estimated GFR-MDRD 72; Glucose 108 mg/dL (83-110); Potassium 4.1 mmol/L (3.5-5.1); Sodium 136 mmol/L (136-145)
[2020-06-28 08:06] LABS: SARS-CoV-2 NAA Rapid Test Not Detected (NotDetected)
[2020-06-28] MEDS: carBAMazepine 100 mg Chewable Tablet PO SCH ×2 (08:33→21:20)
[2020-06-28] MEDS: levETIRAcetam 500 MG TAB PO SCH ×2 (08:34→21:21)
[2020-06-28] MEDS: Sodium Chloride 0.9% 1,000 ML IV SCH (08:38)
[2020-06-28] MEDS: Cyanocobalamin (Vitamin B-12) 1,000 MCG TAB PO SCH (08:41)
[2020-06-28] MEDS: Ascorbic Acid 500 mg Chewable Tablet PO SCH ×3 (08:41→21:34)
[2020-06-28] MEDS: Famotidine 20 MG TAB PO SCH ×2 (08:41→21:20)
[2020-06-28] MEDS: hydrALAZINE 25 MG TAB PO SCH ×4 (08:42→21:21)
[2020-06-28] MEDS: Polyethylene Glycol 3350 17 GM Packet PO SCH (08:42)
[2020-06-28] MEDS: Ferrous Sulfate 325 MG TAB PO SCH ×3 (08:42→21:34)
[2020-06-28] MEDS ORDERED: Famotidine 20 MG TAB PO SCH (09:00)
[2020-06-28] MEDS ORDERED: Dexamethasone 20 MG/5 ML VIAL ONE (10:51)
[2020-06-28] MEDS ORDERED: Rocuronium Bromide 10 MG/ML (10ML VIAL) ONE (10:51)
[2020-06-28] MEDS ORDERED: Ondansetron PF 4 MG/2 ML Vial ONE (10:51)
[2020-06-28] MEDS ORDERED: Esmolol 100 MG/10 ML VIAL ONE (10:51)
[2020-06-28] MEDS ORDERED: Propofol 1,000 MG/100 ML VIAL IV ONE (10:51)
[2020-06-28] MEDS ORDERED: CEFAZOLIN 2 GM in Premix Bag 1 BAG IVPB SCH ×2 (14:00→22:00)
[2020-06-28] MEDS: Losartan 25 MG TAB PO SCH ×3 (14:42→15:35)
[2020-06-28] MEDS: Spironolactone 25 MG TAB PO SCH (14:42)
[2020-06-28] MEDS ORDERED: SUGAMMADEX SODIUM 200 MG/2 ML VIAL ONE (16:51)
[2020-06-28] MEDS ORDERED: Fentanyl 100 MCG/2 ML VIAL ONE (16:51)
[2020-06-28] MEDS ORDERED: Ondansetron HCl/PF 4 MG/2 ML Vial IVP PRN (20:39)
--- NOTE | 2020-06-28 20:47 | OP ---
DATE OF PROCEDURE: 06/28/2020 PROCEDURE PERFORMED: Left hip hemiarthroplasty, bipolar for femoral neck fracture. PREOPERATIVE DIAGNOSIS: Left femoral neck fracture. POSTOPERATIVE DIAGNOSIS: Left femoral neck fracture. COMPLICATIONS: None. ESTIMATED BLOOD LOSS: Minimal. HARNESS BUILDER: Nash Wade PA-C. IMPLANTS: DePuy basic press-fit stem size 5 with a +5 femoral neck and a 45 mm bipolar shell. INDICATIONS: Tianna is an 80-year-old female who has fallen and fractured her left femoral neck. She has just recently had a right femoral neck fracture treated with hemiarthroplasty. She has been indicated for hemiarthroplasty of the left hip to restore mobility, provide pain relief, and promote mobilization. Risks have been reviewed in detail. She has elected to proceed with the operation. DESCRIPTION OF PROCEDURE: Ms. Wynn was identified in the preoperative holding area. Her correct extremity was marked. She was carried to the operating room. She was positioned supine. General anesthesia was induced. A multidisciplinary time-out was performed. The left lower extremity was prepped and draped in sterile fashion. We began the procedure with a posterior approach to the hip. We dissected down through the subcutaneous tissues to the fascia, which was opened. We then exposed the short external rotators of the hip. Distal to the piriformis tendon, we performed a capsulotomy and incised the short external rotators leaving the piriformis intact. At this point, we removed the broken femoral head and neck components. We then performed a new osteotomy of the femoral neck. At this point, we began reaming and broaching up to a size 5. This gave a good fit and fill. We trialed a +5 length was appropriate for leg length and had good stability. We removed trial components and placed our final components. The hip again was reduced. We then thoroughly irrigated with copious lavage. At this point, we closed the wounds in layers. The capsule was closed with Ethibond suture through drill holes followed by fascial closure and skin closure. A sterile dressing was applied. The patient was taken to the recovery room in good condition. The client services assistant was involved in prepping the patient, positioning the patient, assisting throughout the operation with positioning of the limb and retractor placement. Ammonia Worker also was involved in closure of the wound and dressing placement. Job ID: [id number]
[2020-06-28] MEDS: Amlodipine 10 MG TAB PO SCH (21:21)
[2020-06-28] MEDS: Mirtazapine 15 MG Soltab PO SCH (21:22)
[2020-06-29] MEDS: CEFAZOLIN 2 GM in Premix Bag 1 BAG IVPB SCH ×2 (03:59→11:05)
[2020-06-29] MEDS: Acetaminophen 325 MG TAB PO SCH ×4 (04:07→21:02)
[2020-06-29 05:18] LABS: #Eosinphils 0.2 thou/uL (0.0-0.7); #Lymphocytes 0.8 thou/uL (1.20-3.40); #Monocytes 0.7 thou/uL (0.11-0.59); #Neutrophils 7.4 thou/uL (1.40-6.50); %Basophils 0.4 % (0.0-1.0); %Eosinophils 2.1 % (0.0-10.0); %Lymphocytes 8.9 % (21.0-51.0); %Neutrophils 80.6 % (42.0-75.0); Hemoglobin 8.6 g/dL (12.0-16.0); Mean Corpuscular HGB CONC 33.3 g/dL (32.0-36.0); Mean Corpuscular Hemoglobin 33.9 pg (27.0-31.0); Mean Platelet Volume 7.7 fL (7.4-10.4); Platelet Count 254 thou/uL (130-400); RBC Distribution Width 15.4 % (11.5-14.5); Red Blood Cell (RBC) Count 2.54 mill/uL (4.20-5.40); White Blood Cell (WBC) Count 9.2 thou/uL (4.8-10.8)
[2020-06-29 05:42] LABS: Magnesium 1.8 mg/dL (1.6-2.6); Phosphorus 3.8 mg/dL (2.3-4.7)
--- NOTE | 2020-06-29 06:01 | PRG ---
DATE OF SERVICE: 06/28/2020 SUBJECTIVE: This is an 80-year-old female with multiple medical comorbidities, status post fall resulting in a left hip fracture. She was admitted overnight and made n.p.o. for surgery this morning. The patient states that her pain was well controlled and had no acute events overnight. The patient is ready to have surgery and go home. OBJECTIVE: VITAL SIGNS: Temperature 98.7 Fahrenheit, pulse 69 beats per minute, respiratory rate 14, O2 saturation 95 on 2 L of O2, and blood pressure 162/51. GENERAL: The patient is sitting comfortably in bed. Her Helio Coma Scale is 14,-1 for confusion, from what we gather this is her baseline. HEENT: Head is normocephalic, atraumatic. EOMI. Right eye appears to have had surgery to it. Ears are atraumatic. NECK: Nontender. Trachea is midline. No JVD. CHEST: Clear to auscultation with moderate inspiratory and expiratory effort. HEART: Regular rate and rhythm. ABDOMEN: Soft, nontender with active bowel sounds. EXTREMITIES: Neurovascularly intact x4. The patient has tenderness to palpation of left hip. LABORATORY FINDINGS: Hemoglobin 9.2, hematocrit 28.3, and platelets 308. Sodium 136, potassium 4.1, chloride 106, BUN 18, creatinine 0.77, and glucose 103. No new diagnostic imaging. ASSESSMENT: 1. Status post ground level fall. 2. Left hip fracture. 3. Altered mental status, secondary to dementia. 4. History of coronary artery disease. 5. Hypertension. 6. Hyperlipidemia. 7. Epilepsy. 8. Gastroesophageal reflux disease. 9. Coronary artery disease. 10. Congestive heart failure. PLAN: Plan is for patient to go to the operating room this morning for repair of her hip fracture. We will continue pain control. Order PT and OT. Bowel regimen. This patient was seen on morning rounds with Dr. Marcus. The plan was discussed with the patient who is agreeable. Job ID: [id number] [facility]
--- NOTE | 2020-06-29 07:23 | RAD ---
AP PELVIS: History: Status post hip arthroplasty on the left. FINDINGS: Post op changes on the left. Left hip prosthesis has been placed and components appear in adequate po sition and alignment. The right hip prosthesis has been previously noted. IMPRESSION: As above. POS: AGW
--- NOTE | 2020-06-29 07:24 | RAD ---
LEFT HIP ONE VIEW: History: Post op left hip arthroplasty. FINDINGS: Post op changes are noted with skin zahida. Left hip prosthesis has been placed and appears in adequ ate alignment. IMPRESSION: As above. POS: AGW
[2020-06-29] MEDS ORDERED: Acetaminophen/Codeine 30-300mg Tablet PO PRN (08:33)
[2020-06-29] MEDS: Ferrous Sulfate 325 MG TAB PO SCH ×2 (08:47→21:02)
[2020-06-29] MEDS: Famotidine 20 MG TAB PO SCH ×2 (08:47→21:02)
[2020-06-29] MEDS: carBAMazepine 100 mg Chewable Tablet PO SCH ×2 (08:47→21:01)
[2020-06-29] MEDS: Ascorbic Acid 500 mg Chewable Tablet PO SCH ×2 (08:48→21:01)
[2020-06-29] MEDS: levETIRAcetam 500 MG TAB PO SCH ×2 (08:48→21:02)
[2020-06-29] MEDS: hydrALAZINE 25 MG TAB PO SCH ×3 (08:48→21:01)
[2020-06-29] MEDS: Losartan 25 MG TAB PO SCH (08:48)
[2020-06-29] MEDS: Polyethylene Glycol 3350 17 GM Packet PO SCH (08:49)
[2020-06-29] MEDS: Cyanocobalamin (Vitamin B-12) 1,000 MCG TAB PO SCH (08:49)
[2020-06-29] MEDS: Spironolactone 25 MG TAB PO SCH (08:54)
[2020-06-29] MEDS: Amlodipine 10 MG TAB PO SCH (21:00)
[2020-06-29] MEDS: Mirtazapine 15 MG Soltab PO SCH (21:01)
[2020-06-30] MEDS: Acetaminophen 325 MG TAB PO SCH ×5 (04:51→20:54)
[2020-06-30 06:15] LABS: #Eosinphils 0.6 thou/uL (0.0-0.7); #Neutrophils 6.9 thou/uL (1.40-6.50); %Basophils 0.3 % (0.0-1.0); %Eosinophils 6.6 % (0.0-10.0); %Lymphocytes 10.6 % (21.0-51.0); %Monocytes 10.1 % (0.0-10.0); %Neutrophils 72.4 % (42.0-75.0); Hemoglobin 9.4 g/dL (12.0-16.0); Mean Corpuscular HGB CONC 32.8 g/dL (32.0-36.0); Mean Platelet Volume 7.4 fL (7.4-10.4); Platelet Count 280 thou/uL (130-400); RBC Distribution Width 15.4 % (11.5-14.5); Red Blood Cell (RBC) Count 2.83 mill/uL (4.20-5.40); White Blood Cell (WBC) Count 9.5 thou/uL (4.8-10.8)
[2020-06-30 06:46] LABS: Anion Gap 15 mmol/L (10-20); BUN (Urea Nitrogen) 13 mg/dL (9.8-20.1); Calc. Creatinine Clearance 69 mL/min (70-130); Calcium 8.7 mg/dL (7.8-10.44); Carbon Dioxide 22 mmol/L (23-31); Chloride 101 mmol/L (98-107); Estimated GFR-MDRD 83; Glucose 94 mg/dL (83-110); Magnesium 1.7 mg/dL (1.6-2.6); Phosphorus 2.7 mg/dL (2.3-4.7); Potassium 3.9 mmol/L (3.5-5.1); Sodium 134 mmol/L (136-145)
[2020-06-30] MEDS: Famotidine 20 MG TAB PO SCH ×3 (09:14→20:54)
[2020-06-30] MEDS: Spironolactone 25 MG TAB PO SCH (09:14)
[2020-06-30] MEDS: Polyethylene Glycol 3350 17 GM Packet PO SCH ×2 (09:14→13:04)
[2020-06-30] MEDS: Ascorbic Acid 500 mg Chewable Tablet PO SCH ×3 (09:15→20:54)
[2020-06-30] MEDS: Losartan 25 MG TAB PO SCH (09:15)
[2020-06-30] MEDS: Cyanocobalamin (Vitamin B-12) 1,000 MCG TAB PO SCH ×2 (09:15→13:04)
[2020-06-30] MEDS: hydrALAZINE 25 MG TAB PO SCH ×3 (09:16→19:27)
[2020-06-30] MEDS: carBAMazepine 100 mg Chewable Tablet PO SCH ×2 (09:16→19:28)
[2020-06-30] MEDS: levETIRAcetam 500 MG TAB PO SCH ×2 (09:16→19:28)
[2020-06-30] MEDS: Ferrous Sulfate 325 MG TAB PO SCH ×3 (09:17→20:54)
--- NOTE | 2020-06-30 16:34 | PRG ---
DATE OF SERVICE: 06/30/2020 SUBJECTIVE: The patient remains on the surgical floor. She is status post ground level fall, in which she sustained a left hip fracture. Yesterday, she underwent open reduction and internal fixation of the same. She tolerated that procedure well. She is tolerating a diet. Her pain is controlled, and she has started working with Physical and Occupational Therapy. Case Management is beginning to work on placement to ascertain whether the patient may return to her facility in [place]. OBJECTIVE: VITAL SIGNS: Temperature is 99.1, heart rate 97, blood pressure 187/74, respirations 18, oxygen saturation 92% on 2 L via nasal cannula. GENERAL: The patient is resting comfortably in bed. She was asleep at the time of my visit, but easily awaken to verbal stimuli. When awaken, she was appropriately interactive and appeared at her baseline with some confusion. HEENT: Unremarkable. LUNGS: Clear to auscultation bilaterally. HEART: Regular rate and rhythm. ABDOMEN: Soft, flat, nontender with active bowel sounds. EXTREMITIES: Neurovascularly intact x4. Postop dressing is clean, dry, and intact. LABORATORY FINDINGS: White blood cell count 9.5, hemoglobin 9.4, hematocrit 28.5, and platelets 280. Sodium 134, potassium 3.9, chloride 101, CO2 of 22, BUN 30, creatinine 0.68. There are no radiographs to review this morning. ASSESSMENT: 1. Status post ground level fall, hospital day 4. 2. Left hip fracture, status post open reduction and internal fixation of same. 3. History of coronary artery disease, dementia, hypertension, hyperlipidemia, epilepsy, gastroesophageal reflux disease, congestive heart failure. PLAN: Plan will be to continue supportive care, encourage physical and occupational therapy, await placement decision. Job ID: [id number]
[2020-06-30] MEDS: Amlodipine 10 MG TAB PO SCH (19:45)
[2020-06-30] MEDS: Mirtazapine 15 MG Soltab PO SCH (20:54)
[2020-07-01] MEDS: Acetaminophen 325 MG TAB PO SCH ×4 (02:53→20:44)
[2020-07-01] MEDS: hydrALAZINE 25 MG TAB PO SCH ×3 (09:02→20:45)
[2020-07-01] MEDS: Losartan 25 MG TAB PO SCH (09:02)
[2020-07-01] MEDS: levETIRAcetam 500 MG TAB PO SCH ×2 (09:02→20:44)
[2020-07-01] MEDS: Polyethylene Glycol 3350 17 GM Packet PO SCH ×2 (09:04→09:09)
[2020-07-01] MEDS: Famotidine 20 MG TAB PO SCH ×2 (09:04→20:45)
[2020-07-01] MEDS: Ascorbic Acid 500 mg Chewable Tablet PO SCH ×2 (09:04→20:45)
[2020-07-01] MEDS: Ferrous Sulfate 325 MG TAB PO SCH ×2 (09:04→20:44)
[2020-07-01] MEDS: Cyanocobalamin (Vitamin B-12) 1,000 MCG TAB PO SCH (09:04)
[2020-07-01] MEDS: carBAMazepine 100 mg Chewable Tablet PO SCH ×2 (09:09→20:44)
[2020-07-01] MEDS: Spironolactone 25 MG TAB PO SCH (09:10)
--- NOTE | 2020-07-01 16:23 | PRG ---
DATE OF SERVICE: 07/01/2020 SUBJECTIVE: The patient remains on the surgical floor. She is status post ground level fall, in which she sustained a left hip fracture. She is postop day 2 status post open reduction and internal fixation. She has started working with physical and occupational therapy. The nurses report that she is not eating as much and refusing some of her medications. We are still awaiting word from Case Management on placement. OBJECTIVE: VITAL SIGNS: Temperature is 98.6, heart rate 75, blood pressure is 141/50, respirations 16, oxygen saturation is 96% on 1 L via nasal cannula. GENERAL: The patient is resting comfortably in bed. She was awake at time of my exam. She appeared comfortable, in no distress. She was interactive and appeared to be at baseline. HEENT: Unremarkable. LUNGS: Clear to auscultation with moderate inspiratory and expiratory effort. HEART: Regular rate and rhythm. ABDOMEN: Soft and nondistended with active bowel sounds. EXTREMITIES: Neurovascularly intact x4. LABORATORY DATA: There are no labs or radiographs reviewed this morning. ASSESSMENT AND PLAN: 1. Status post ground level fall, hospital day 5. 2. Status post open reduction and internal fixation of left proximal femur fracture, postop day 2. 3. History of coronary artery disease, dementia, hypertension, hyperlipidemia, epilepsy, gastroesophageal reflux disease, and congestive heart failure. PLAN: Plan will be to continue supportive care. Encourage physical and occupational therapy. Myself and nurse have discussed her diet with her. I asked the nurse that when her tray is delivered that they encourage her to eat and offer MightyShakes or any other shakes that she will consume. Job ID: [id number]
[2020-07-01] MEDS: Senokot S 8.6-50 MG TAB PO SCH (20:45)
[2020-07-01] MEDS: Mirtazapine 15 MG Soltab PO SCH (20:45)
[2020-07-01] MEDS: Amlodipine 10 MG TAB PO SCH (21:09)
[2020-07-02] MEDS: Acetaminophen 325 MG TAB PO SCH ×4 (02:54→21:19)
[2020-07-02] MEDS: Ascorbic Acid 500 mg Chewable Tablet PO SCH ×2 (09:59→21:21)
[2020-07-02] MEDS: Polyethylene Glycol 3350 17 GM Packet PO SCH (09:59)
[2020-07-02] MEDS: Cyanocobalamin (Vitamin B-12) 1,000 MCG TAB PO SCH (09:59)
[2020-07-02] MEDS: Enoxaparin Sodium 40 MG/0.4 ML SYRINGE SC SCH (09:59)
[2020-07-02] MEDS: Famotidine 20 MG TAB PO SCH ×2 (09:59→21:21)
[2020-07-02] MEDS: Senokot S 8.6-50 MG TAB PO SCH ×2 (09:59→21:21)
[2020-07-02] MEDS: carBAMazepine 100 mg Chewable Tablet PO SCH ×2 (10:01→21:16)
[2020-07-02] MEDS: Ferrous Sulfate 325 MG TAB PO SCH ×2 (10:01→21:20)
[2020-07-02] MEDS: Spironolactone 25 MG TAB PO SCH (10:02)
[2020-07-02] MEDS: hydrALAZINE 25 MG TAB PO SCH ×3 (10:02→21:18)
[2020-07-02] MEDS: levETIRAcetam 500 MG TAB PO SCH ×2 (10:02→21:13)
[2020-07-02] MEDS: Losartan 25 MG TAB PO SCH (10:02)
[2020-07-02] MEDS: Mirtazapine 15 MG Soltab PO SCH (21:16)
[2020-07-02] MEDS: Amlodipine 10 MG TAB PO SCH (21:18)
[2020-07-03] MEDS: Acetaminophen 325 MG TAB PO SCH ×3 (03:12→15:12)
--- NOTE | 2020-07-03 06:06 | PRG ---
DATE OF SERVICE: 07/02/2020 SUBJECTIVE: The patient remains on the surgical floor. She is status post ground level fall in which she sustained a left hip fracture. She is postop day 3, status post open reduction and internal fixation. She has been working with Physical and Occupational Therapy. The patient was previously noted to not be eating as frequently, but states this is due to appetizing food. She has now increased her food intake after encouragement. Referral has been sent to [facility] for placement approval. OBJECTIVE: VITAL SIGNS: Temperature is 98.2 Fahrenheit, heart rate is 78, blood pressure is 132/48, respiratory rate is 18, oxygen saturation is 93% on room air. GENERAL: The patient is resting comfortably in bed. She is awake at the time of the exam. She appears comfortable, in no distress. She was interactive and appeared to be at baseline. HEENT: Unremarkable. LUNGS: Clear to auscultation. HEART: Regular rate and rhythm. ABDOMEN: Soft and nondistended with active bowel sounds. EXTREMITIES: Neurovascularly intact x4. LABORATORY DATA: There are no labs or radiographs reviewed this morning. ASSESSMENT: 1. Status post ground level fall, hospital day 6. 2. Status post open reduction and internal fixation of left proximal femur fracture, postop day 3. 3. History of coronary artery disease, dementia, hypertension, hyperlipidemia, epilepsy, gastroesophageal reflux disease, and congestive heart failure. PLAN: Will be to continue supportive care. Encourage continued activity with physical and occupational therapy. Continue to encourage the patient at each meal and offer MightyShakes or other shakes that she is interested in consuming. Will follow up with case management on approval from [facility]. Patient was seen and evaluated by Dr. Marcus during morning rounds. Discussed plan of care with the patient and son present who is in agreement. Job ID: [id number] [facility]
[2020-07-03] MEDS: Enoxaparin Sodium 40 MG/0.4 ML SYRINGE SC SCH (09:27)
[2020-07-03] MEDS: Polyethylene Glycol 3350 17 GM Packet PO SCH (09:27)
[2020-07-03] MEDS: levETIRAcetam 500 MG TAB PO SCH (09:28)
[2020-07-03] MEDS: Ferrous Sulfate 325 MG TAB PO SCH (09:28)
[2020-07-03] MEDS: Ascorbic Acid 500 mg Chewable Tablet PO SCH (09:29)
[2020-07-03] MEDS: carBAMazepine 100 mg Chewable Tablet PO SCH (09:29)
[2020-07-03] MEDS: Famotidine 20 MG TAB PO SCH (09:29)
[2020-07-03] MEDS: Senokot S 8.6-50 MG TAB PO SCH (09:29)
[2020-07-03] MEDS: Cyanocobalamin (Vitamin B-12) 1,000 MCG TAB PO SCH (09:29)
[2020-07-03] MEDS: Spironolactone 25 MG TAB PO SCH (09:34)
[2020-07-03] MEDS: Losartan 25 MG TAB PO SCH (10:36)
[2020-07-03] MEDS: hydrALAZINE 25 MG TAB PO SCH ×2 (10:37→15:13)
[2020-07-03 15:04] VITALS: BP 143/45; TEMP 98.1
== END 2020-07-03 16:00 | DRG 522 ==
LOC: ERS 16:05 → SURG A 17:39
PROVIDERS: ADMIT Surgery; ATTEND Surgery
PROC: 0SRS0JA Replacement of Left Hip Joint, Femoral Surface with Synthetic Substitute, Uncemented, Open Approach (ICD-10-PCS; principal; 2020-06-28)
DX: S72.002A Fracture of unspecified part of neck of left femur, initial encounter for closed fracture (principal); I13.0 Hypertensive heart and chronic kidney disease with heart failure and stage 1 through stage 4 chronic kidney disease, or unspecified chronic kidney disease; E78.5 Hyperlipidemia, unspecified; G47.00 Insomnia, unspecified; G40.909 Epilepsy, unspecified, not intractable, without status epilepticus; G89.4 Chronic pain syndrome; I25.10 Atherosclerotic heart disease of native coronary artery without angina pectoris; F41.9 Anxiety disorder, unspecified; W18.30XA Fall on same level, unspecified, initial encounter; F32.9 Major depressive disorder, single episode, unspecified; K21.9 Gastro-esophageal reflux disease without esophagitis; I50.9 Heart failure, unspecified; N18.9 Chronic kidney disease, unspecified; F03.90 Unspecified dementia, unspecified severity, without behavioral disturbance, psychotic disturbance, mood disturbance, and anxiety; Z20.828 Contact with and (suspected) exposure to other viral communicable diseases; Z79.899 Other long term (current) drug therapy; Z79.82 Long term (current) use of aspirin
CPT/HCPCS: 36415; 36416; 70450; 71045; 72125; 72170; 80048; 80053; 81001; 83735; 84100; 85025; 85610; 85730; 86850; 86900; 86901; 87086; 87635; 93005; 96374; 96375; 96376; G0390; J0690; J1100; J1650; J1885; J2405; J2704; J3010; U0002; U0003